=== PATIENT | male | born 1965 | race African-American/Black ===

== ENCOUNTER 2019-05-11 01:33 | Emergency (ER) | payer MEDICARE, OTHER ==
[~2019-05-11] VITALS: Ht 170.2 cm; Wt 76.7 kg
[~2019-05-11 01:33] MED LIST: CIPRO500 MG PO; DOXYCYCLINE HY100 M6 PO; DOXYCYCLINE MO100 MG ORAL; NKM
[2019-05-11 01:41] VITALS: BP 129/79
--- NOTE | 2019-05-11 01:42 | NUR ---
ED Nurse Note: PT AMBULATED TO ED C/O RIGHT ARM PAIN X 1 DAY. PT DENIES TRAUMA TO AREA. SKIN INTACT, VSS. PT STATES THE TOOK 250 MG NAPROXEN EARLIER TODAY. PAIN NOT ALLEVIATED BY MEDICAITON.
[2019-05-11] MEDS ORDERED: Acetaminophen 500mg (ES) tab ORAL ONE ×2 (01:56→02:00)
[2019-05-11] MEDS ORDERED: TYLENOL EXTRA500 MG ORAL (01:56)
[2019-05-11 02:00] VITALS: BP 135/77
--- NOTE | 2019-05-11 02:00 | NUR ---
ER DISCHARGE NOTE: Patient is cleared to be discharged per ERMD, pt is aox4, on room air, with stable vital signs. pt was given dc and prescription instructions, pt was able to verbalize understanding, pt id band removed. pt is able to ambulate with steady gait. pt took all belongings.
--- NOTE | 2019-05-11 04:09 | Emergency Room Report ---
History of Present Illness General Chief Complaint: Pain Source: Patient Present Illness HPI 53-year-old male presents ED for evaluation. Patient complaining of right elbow pain which started yesterday. Pain is throbbing, 7 out of 10, nonradiating. With movement. Denies any other injuries. States he has history of kidney disease and thinks it may be gout. No other aggravating relieving factors. Denies any other associated symptoms Allergies: Coded Allergies: No Known Allergies (Verified Allergy, Mild, 12/17/09) Patient History Past Medical History: HTN Past Surgical History: none Pertinent Family History: none Social History: Denies: smoking, alcohol use, drug use Immunizations: UTD Reviewed Nursing Documentation: PMH: Agreed; PSxH: Agreed Nursing Documentation-PMH Hx Hypertension: Yes Hx Dialysis: No - CKD STG 5 Review of Systems All Other Systems: negative except mentioned in HPI Physical Exam Vital Signs Date Time Temp Pulse Resp B/P (MAP) Pulse Ox O2 Delivery O2 Flow Rate FiO2 05/11/19 01:38 98.6 80 18 129/79 (96) 92 Room Air Sp02 EP Interpretation: reviewed, normal General Appearance: no apparent distress, alert, GCS 15, non-toxic Head: normocephalic Eyes: bilateral eye normal inspection, bilateral eye PERRL ENT: normal ENT inspection Neck: normal inspection Respiratory: normal inspection Cardiovascular #1: normal inspection Gastrointestinal: normal inspection Rectal: deferred Genitourinary: no CVA tenderness Musculoskeletal: back normal, gait/station normal, non-tender, decreased range of motion, tender - TTP lateral epicondyle Neurologic: alert, oriented x3, responsive, motor strength/tone normal, sensory intact, speech normal Psychiatric: normal inspection Skin: no rash Lymphatic: normal inspection Procedures Splinting Splinting : Consent: Verbal Pre-Made Type: DOMINICK wrap Pre-Proc Neuro Vasc Exam: normal Post-Proc Neuro Vasc Exam: normal Patient Tolerated: Well Complications: None Medical Decision Making Diagnostic Impression: Primary Impression: Tendinitis ER Course Hospital Course 53-year-old male presents to ED complaining of R elbow pain no trauma Differential diagnoses include: Fracture, dislocation, sprain, contusion, bursitis Clinical course Patient placed on stretcher. After initial history, physical exam reveals an middle-aged male in no acute distress. There is some tenderness to the lateral aspect of the proximal radius. Remainder of exam negative. Clinical findings consistent with tendinitis. Discussed findings with patient. Explained that gout is likely low on differential as there is no swelling or erythema to the joint. Given tylenoll here. Dominick wrap applied. Safe for discharge with close outpatient follow-up. Will provide orthopedic referral Diagnosis - tendinitis of elbow stable and discharged to home with prescription for Tylenol. Followup with PMD/ ortho. Return to ED if symptoms recur or worsen Last Vital Signs Date Time Temp Pulse Resp B/P (MAP) Pulse Ox O2 Delivery O2 Flow Rate FiO2 05/11/19 02:00 98.6 76 16 135/77 98 Room Air Status: improved Disposition: HOME, SELF-CARE Condition: Stable Scripts Acetaminophen* (TYLENOL EXTRA STRENGTH*) 500 Mg Tablet 500 MG ORAL Q8H PRN for Prn Headache/Temp > 101, #30 TAB 0 Refills Prov: Garett Segura MD 05/11/19 [facility] Open 24 hour /7 days a week by Appointment Only [address] [facility] [address] [facility] [id number] Patient Instructions: Lateral Epicondylitis With [facility] Garett Segura MD May 11, 2019 04:09
== END 2019-05-11 02:00 | disposition home or self-care (01) ==
LOC: EMR 01:56
DX: M77.9 Enthesopathy, unspecified (principal); I12.0 Hypertensive chronic kidney disease with stage 5 chronic kidney disease or end stage renal disease; N18.5 Chronic kidney disease, stage 5
CPT/HCPCS: 99282

== ENCOUNTER 2020-02-03 04:45 | Inpatient (IN) | payer MEDICARE, OTHER ==
[2020-02-03] VITALS (7 sets, daily range): BP systolic 106–140; BP diastolic 57–84
[~2020-02-03] VITALS: Ht 172.7 cm; Wt 72.1 kg
[~2020-02-03 04:45] MED LIST changes: +TYLENOL EXTRA500 MG ORAL
--- NOTE | 2020-02-03 04:55 | NUR ---
ED Nurse Note: PT WALKED IN TO ED FROM HOME C/O 8/10 L SIDED INTERMITTENT AND SHARP CHEST PAIN X2 WEEKS. PT STATES CHEST PAIN OCCURS WHEN HE BREATHES OR LAY ON THE LEFT SIDE. DOES NOT PRESENT WITH FEVER, NV. DOES NOT PRESENT WITH COUGH. PT STATES SOB, SPO2 AT 96 ON 2L.
[2020-02-03] MEDS ORDERED: DAPSONE100 MG ORAL (05:06)
[2020-02-03] MEDS ORDERED: PREZISTA600 MG ORAL (05:06)
[2020-02-03] MEDS ORDERED: AMLODIPINE BESYL5 MG ORAL (05:06)
[2020-02-03] MEDS ORDERED: ATORVASTATIN CA20 MG ORAL (05:06)
[2020-02-03] MEDS ORDERED: EDURANT25 MG PO (05:06)
[2020-02-03] MEDS ORDERED: ALLOPURINOL100 M1 ORAL (05:06)
--- NOTE | 2020-02-03 05:16 | Emergency Room Report ---
History of Present Illness General Chief Complaint: Chest Pain Source: Patient Present Illness HPI Patient is a 54-year-old male presents after intermittent left-sided chest pain. He reports having sharp pain worse with supine position. Prior history of HIV. Reports having normal cell counts. States that he had been having increased pain with supine position. Is sharp in nature. Previous history of renal disease and is currently predialysis. He had left-sided shunt placement in the past. He has not had dialysis to this point. He currently makes urine. Denies any fever or cough. Denies any shortness of breath. Allergies: Coded Allergies: No Known Allergies (Verified Allergy, Mild, 12/17/09) COVID-19 Screening Contact w/high risk pt: No Recent Travel to affected area: No Experienced COVID-19 symptoms?: No Patient History Past Medical History: see triage record Reviewed Nursing Documentation: PMH: Agreed; PSxH: Agreed Nursing Documentation-PMH Hx Hypertension: Yes Hx Dialysis: No - CKD STG 5 Review of Systems All Other Systems: negative except mentioned in HPI Physical Exam Vital Signs Date Time Temp Pulse Resp B/P (MAP) Pulse Ox O2 Delivery O2 Flow Rate FiO2 02/03/20 04:51 98.1 102 22 137/85 (102) 89 Room Air Sp02 EP Interpretation: reviewed, normal General Appearance: normal inspection, well appearing, no apparent distress, alert, GCS 15 Head: atraumatic ENT: normal ENT inspection, hearing grossly normal, normal voice Neck: normal inspection, full range of motion, supple, no bony tend Respiratory: normal inspection, lungs clear, normal breath sounds, no respiratory distress, no retraction, no wheezing Cardiovascular #1: regular rate, rhythm, no edema Gastrointestinal: normal inspection, normal bowel sounds, non tender, soft, no guarding, no hernia Genitourinary: no CVA tenderness Musculoskeletal: normal inspection, back normal, normal range of motion, other - Left upper extremity dialysis access patent. Neurologic: alert, motor strength/tone normal, fresh food manager III-XII nml as tested, oriented x3, responsive, speech normal, normal inspection Psychiatric: normal inspection, judgement/insight normal, mood/affect normal Skin: no rash Medical Decision Making Diagnostic Impression: Primary Impression: Chest pain Additional Impressions: ACS (acute coronary syndrome) Renal disease ER Course Patient presented for chest pain. Differential diagnosis include recently to pericarditis, pneumonia, chest wall pain, hypertensive crisis among others. Because of complexity of patient's case laboratory tests and imaging studies were ordered. EKG interpreted by me showed normal sinus rhythm with a rate of [address] or T wave changes. The patient was noted to have some prior history of renal disease and has some significant cardiac risk. does not appear to have any evidence of recent respiratory symptoms other than chest discomfort.Chest x-ray 1 view interpreted by me showed normal cardiac size without evident infiltrate.Dr. Teresa Murillo was contacted for panel admission due to covering physician for [facility]. Labs Test 02/03/20 05:30 02/03/20 09:00 02/03/20 18:45 Red Blood Count 3.03 M/UL (4.70-6.10) Hemoglobin 8.9 G/DL (14.2-18.0) Hematocrit 28.0 % (42.0-52.0) Mean Corpuscular Volume 92 FL (80-99) Mean Corpuscular Hemoglobin 29.5 PG (27.0-31.0) Mean Corpuscular Hemoglobin Concent 31.9 G/DL (32.0-36.0) Red Cell Distribution Width 13.6 % (11.6-14.8) Platelet Count 246 K/UL (150-450) Mean Platelet Volume 6.2 FL (6.5-10.1) Neutrophils (%) (Auto) 61.6 % (45.0-75.0) Lymphocytes (%) (Auto) 29.4 % (20.0-45.0) Monocytes (%) (Auto) 7.4 % (1.0-10.0) Eosinophils (%) (Auto) 1.0 % (0.0-3.0) Basophils (%) (Auto) 0.6 % (0.0-2.0) Prothrombin Time 10.4 SEC (9.30-11.50) Prothromb Time International Ratio 1.0 (0.9-1.1) Activated Partial Thromboplast Time 34 SEC (23-33) Urine Color Pale yellow Urine Appearance Clear Urine pH 5 (4.5-8.0) Urine Specific [place] 1.010 (1.005-1.035) Urine Protein 2+ (NEGATIVE) Urine Glucose (UA) Negative (NEGATIVE) Urine Ketones Negative (NEGATIVE) Urine Blood 2+ (NEGATIVE) Urine Nitrite Negative (NEGATIVE) Urine Bilirubin Negative (NEGATIVE) Urine Urobilinogen Normal MG/DL (0.0-1.0) Urine Leukocyte Esterase Negative (NEGATIVE) Urine RBC 0-2 /HPF (0 - 0) Urine WBC 0 /HPF (0 - 0) Urine Squamous Epithelial Cells None /LPF (NONE/OCC) Urine Bacteria Few /HPF (NONE) Sodium Level 140 MMOL/L (136-145) Potassium Level 4.2 MMOL/L (3.5-5.1) Chloride Level 105 MMOL/L (98-107) Carbon Dioxide Level 21 MMOL/L (21-32) Anion Gap 14 mmol/L (5-15) Blood Urea Nitrogen 71 mg/dL (7-18) Creatinine 7.4 MG/DL (0.55-1.30) Estimat Glomerular Filtration Rate 9.3 mL/min (>60) Glucose Level 130 MG/DL (74-106) Calcium Level 9.0 MG/DL (8.5-10.1) Total Bilirubin 0.4 MG/DL (0.2-1.0) Aspartate Amino Transf (AST/SGOT) 18 U/L (15-37) Alanine Aminotransferase (ALT/SGPT) 20 U/L (12-78) Alkaline Phosphatase 56 U/L (46-116) Pro-B-Type Natriuretic Peptide 205 pg/mL (0-125) Total Protein 9.0 G/DL (6.4-8.2) Albumin 3.8 G/DL (3.4-5.0) Globulin 5.2 g/dL Albumin/Globulin Ratio 0.7 (1.0-2.7) Lipase 279 U/L (73-393) Urine Opiates Screen Negative (NEGATIVE) Urine Barbiturates Screen Negative (NEGATIVE) Phencyclidine (PCP) Screen Negative (NEGATIVE) Urine Amphetamines Screen Negative (NEGATIVE) Urine Benzodiazepines Screen Negative (NEGATIVE) Urine Cocaine Screen Negative (NEGATIVE) Urine Marijuana (THC) Screen Negative (NEGATIVE) Troponin I 0.000 ng/mL (0.000-0.056) EKG Diagnostic Results Rate: tachycardiac Rhythm: NSR ST Segments: no acute changes - 108 Last Vital Signs Date Time Temp Pulse Resp B/P (MAP) Pulse Ox O2 Delivery O2 Flow Rate FiO2 02/03/20 04:51 98.1 102 22 137/85 (102) 89 Room Air Status: unchanged Disposition: ADMITTED INPATIENT Condition: Stable Referrals: RONAL CHEN (PCP) Price Encarnacion MD Feb 03, 2020 05:16
--- NOTE | 2020-02-03 05:30 | NUR ---
ED Nurse Note: XR AT BEDSIDE
--- NOTE | 2020-02-03 05:35 | NUR ---
ED Nurse Note: blood and urine drawn and sent to lab
--- NOTE | 2020-02-03 05:40 | NUR ---
ED Nurse Note: per ermd, covid swab not needed at this time.
[2020-02-03 06:02] LABS: BASOPHILS % (AUTO) 0.6 % (0.0-2.0); HEMOGLOBIN 8.9 G/DL (14.2-18.0); LYMPHOCYTES % (AUTO) 29.4 % (20.0-45.0); MEAN CORPUSCULAR VOLUME 92 FL (80-99); MONOCYTES % (AUTO) 7.4 % (1.0-10.0); NEUTROPHILS % (AUTO) 61.6 % (45.0-75.0); PLATELET COUNT 246 K/UL (150-450); RED BLOOD COUNT 3.03 M/UL (4.70-6.10); RED CELL DISTRIBUTION WIDTH 13.6 % (11.6-14.8)
[2020-02-03 06:12] LABS: ANION GAP 14 mmol/L (5-15); BLOOD UREA NITROGEN 71 mg/dL (7-18); CARBON DIOXIDE 21 MMOL/L (21-32); CHLORIDE 105 MMOL/L (98-107); CREATININE 7.4 MG/DL (0.55-1.30); POTASSIUM 4.2 MMOL/L (3.5-5.1); SODIUM 140 MMOL/L (136-145)
[2020-02-03 06:16] LABS: APPEARANCE,URINE CLEAR; BILIRUBIN, URINE NEGATIVE (NEGATIVE); COLOR,URINE PALE YELLOW; GLUCOSE, URINE (UA) NEGATIVE (NEGATIVE); KETONES,URINE NEGATIVE (NEGATIVE); LEUKOCYTE ESTERASE ,URINE NEGATIVE (NEGATIVE); NITRITE,URINE NEGATIVE (NEGATIVE); PH,URINE 5 (4.5-8.0); PROTEIN,URINE 2+ (NEGATIVE); UROBILINOGEN,URINE NORMAL MG/DL (0.0-1.0)
[2020-02-03 06:22] LABS: ALANINE AMINOTRANSFERASE 20 U/L (12-78); ALBUMIN 3.8 G/DL (3.4-5.0); ALBUMIN/GLOBULIN RATIO 0.7 (1.0-2.7); ALKALINE PHOSPHATASE 56 U/L (46-116); ASPARTATE AMINO TRANSFERASE 18 U/L (15-37); BILIRUBIN,TOTAL 0.4 MG/DL (0.2-1.0)
[2020-02-03] MEDS ORDERED: Miralax 17gm pkt ORAL PRN (06:30)
--- NOTE | 2020-02-03 07:15 | NUR ---
ED Nurse Note: gave report to [facility] JEFFRIES. Endorsed plan of care
--- NOTE | 2020-02-03 07:30 | NUR ---
ED Nurse Note: care assumed of pt. pt denies cp or dyspnea at this time. aware pending admission. no new c/o vss.
--- NOTE | 2020-02-03 09:09 | NUR ---
ED Nurse Note: labs being drawn by marketing project lead
[2020-02-03] MEDS: Docusate 100mg cap ORAL SCH ×2 (09:15→21:14)
--- NOTE | 2020-02-03 09:19 | NUR ---
ED Nurse Note: atttempted to give report to tele, to call back
--- NOTE | 2020-02-03 10:00 | NUR ---
NURSE NOTES: Telphone report received aureliano Roldan Rn. Awaiting patients arrival to the unit
--- NOTE | 2020-02-03 10:05 | NUR ---
ED Nurse Note: report to Saloni rn, awaiting pt. pt denies c/o at this time
--- NOTE | 2020-02-03 11:00 | NUR ---
NURSE NOTES: Patient arrived to the floor via stretcher. Accompanied by 2 staff. Patient is awake and alert. Ambulated self with minimal assist to the bed. VSS. complaining of mild left sided chest pain non radiating. skin intact. 2L/min nasal cannula. All belongings accounted for. Patient oriented to room and safety precautions in place. Dr. Haynes and Dr. Perez on the floor at the time of admission. seen and examined patient.
--- NOTE | 2020-02-03 11:06 | Cardiac Electrophysiology PN ---
Subjective Subjective [id number] Objective Last 24 Hour Vital Signs Date Time Temp Pulse Resp B/P (MAP) Pulse Ox O2 Delivery O2 Flow Rate FiO2 02/03/20 10:06 89 22 112/58 98 Nasal Cannula 2.0 02/03/20 09:22 89 24 112/58 98 Nasal Cannula 2.0 98 02/03/20 07:35 87 22 139/57 98 Nasal Cannula 2.0 98 02/03/20 06:28 98.2 91 24 106/62 96 Nasal Cannula 2.0 96 02/03/20 05:00 92 24 Room Air 2.0 96 02/03/20 05:00 98.3 92 24 139/84 96 Nasal Cannula 2.0 96 02/03/20 04:51 98.1 102 22 137/85 (102) 89 Room Air Intake and Output 02/02/20 02/03/20 19:00 07:00 Intake Total 0 ml Balance 0 ml Intake Oral 0 ml # Voids 1 Laboratory Tests Test 02/03/20 05:30 02/03/20 09:00 White Blood Count 12.0 K/UL (4.8-10.8) H Pending Red Blood Count 3.03 M/UL (4.70-6.10) L Hemoglobin 8.9 G/DL (14.2-18.0) L Hematocrit 28.0 % (42.0-52.0) L Mean Corpuscular Volume 92 FL (80-99) Mean Corpuscular Hemoglobin 29.5 PG (27.0-31.0) Mean Corpuscular Hemoglobin Concent 31.9 G/DL (32.0-36.0) L Red Cell Distribution Width 13.6 % (11.6-14.8) Platelet Count 246 K/UL (150-450) Mean Platelet Volume 6.2 FL (6.5-10.1) L Neutrophils (%) (Auto) 61.6 % (45.0-75.0) Lymphocytes (%) (Auto) 29.4 % (20.0-45.0) Monocytes (%) (Auto) 7.4 % (1.0-10.0) Eosinophils (%) (Auto) 1.0 % (0.0-3.0) Basophils (%) (Auto) 0.6 % (0.0-2.0) Prothrombin Time 10.4 SEC (9.30-11.50) Prothromb Time International Ratio 1.0 (0.9-1.1) Activated Partial Thromboplast Time 34 SEC (23-33) H Urine Color Pale yellow Urine Appearance Clear Urine pH 5 (4.5-8.0) Urine Specific [place] 1.010 (1.005-1.035) Urine Protein 2+ (NEGATIVE) H Urine Glucose (UA) Negative (NEGATIVE) Urine Ketones Negative (NEGATIVE) Urine Blood 2+ (NEGATIVE) H Urine Nitrite Negative (NEGATIVE) Urine Bilirubin Negative (NEGATIVE) Urine Urobilinogen Normal MG/DL (0.0-1.0) Urine Leukocyte Esterase Negative (NEGATIVE) Urine RBC 0-2 /HPF (0 - 0) H Urine WBC 0 /HPF (0 - 0) Urine Squamous Epithelial Cells None /LPF (NONE/OCC) Urine Bacteria Few /HPF (NONE) Sodium Level 140 MMOL/L (136-145) Potassium Level 4.2 MMOL/L (3.5-5.1) Chloride Level 105 MMOL/L (98-107) Carbon Dioxide Level 21 MMOL/L (21-32) Anion Gap 14 mmol/L (5-15) Blood Urea Nitrogen 71 mg/dL (7-18) H Creatinine 7.4 MG/DL (0.55-1.30) H Estimat Glomerular Filtration Rate 9.3 mL/min (>60) Glucose Level 130 MG/DL (74-106) H Calcium Level 9.0 MG/DL (8.5-10.1) Total Bilirubin 0.4 MG/DL (0.2-1.0) Aspartate Amino Transf (AST/SGOT) 18 U/L (15-37) Alanine Aminotransferase (ALT/SGPT) 20 U/L (12-78) Alkaline Phosphatase 56 U/L (46-116) Troponin I 0.000 ng/mL (0.000-0.056) Pro-B-Type Natriuretic Peptide 205 pg/mL (0-125) H Total Protein 9.0 G/DL (6.4-8.2) H Albumin 3.8 G/DL (3.4-5.0) Globulin 5.2 g/dL Albumin/Globulin Ratio 0.7 (1.0-2.7) L Lipase 279 U/L (73-393) Urine Opiates Screen Negative (NEGATIVE) Urine Barbiturates Screen Negative (NEGATIVE) Phencyclidine (PCP) Screen Negative (NEGATIVE) Urine Amphetamines Screen Negative (NEGATIVE) Urine Benzodiazepines Screen Negative (NEGATIVE) Urine Cocaine Screen Negative (NEGATIVE) Urine Marijuana (THC) Screen Negative (NEGATIVE) Lymphocytes Pending Percent CD3 Cells Pending Absolute CD3 Count Pending Percent CD4 Cells Pending Absolute CD4 Count Pending T-Lymphocyte CD4/CD8 Ratio Pending Percent CD8 Cells Pending Absolute CD8 Count Pending HIV-1 RNA (PCR) log10 Value Pending HIV-1 RNA Ultraquantitative (PCR) Pending Microbiology Date/Time Source Procedure Growth Status 02/03/20 06:00 Rectum Received Silvino Perez MD Feb 03, 2020 11:06
[2020-02-03] MEDS ORDERED: Lexiscan 0.4mg/5ml syringe IV SCH ×2 (11:15)
--- NOTE | 2020-02-03 11:24 | Diagnostic Imaging Report ---
Indication: Left-sided chest pain, intermittent Technique: One view of the chest Comparison: none Findings: The lungs and pleural spaces are clear. The heart size is normal Impression: Negative
--- NOTE | 2020-02-03 11:40 | Consultation ---
History of Present Illness General Date patient seen: Feb 03, 2020 Chief Complaint: Chest Pain Reason for Consultation: CKD 5 Present Illness HPI This is 54-year-old male with past medical historyof HIV on meds, HTN and CKD stage V not on dialysis who presents with left-sided chest pain. Patient states he was in his usual state of health when he noted left-sided pain that began 2 weeks ago. Patient noted pain was worse with deep breaths, relieved with laying on his right side. Symptoms worsen as he noted S OB with deep inhalation which alerted him to the ED for further treatment and evaluation. Patient denies any N/V, diaphoresis, VARNER. Patient notes he saw his special weapons and tactics officer 1 week ago who stated his labs were "stable", patient notes he has CKD stage V, with AV fistula placed on LUE 3 years ago however patient is not on dialysis at this time. SERRATO, vision changes, abdominal pain, diaphoresis, F/C , N/V, diarrhea, dysuria, diarrhea or constipation at this time. Allergies: Coded Allergies: No Known Allergies (Verified Allergy, Mild, 12/17/09) Medication History Scheduled Allopurinol* (Allopurinol*), 100 MG ORAL DAILY, (Reported) Amlodipine Besylate* (Amlodipine Besylate*), 5 MG ORAL DAILY, (Reported) Atorvastatin Calcium* (Atorvastatin Calcium*), 10 MG ORAL BEDTIME, (Reported) Dapsone* (Dapsone*), 100 MG ORAL DAILY, (Reported) Darunavir Ethanolate* (Prezista*), 800 MG ORAL EVERY 12 HOURS, (Reported) Doxycycline Monohydrate* (Doxycycline Monohydrate*), 100 MG ORAL Q12H Doxycycline Monohydrate* (Doxycycline Monohydrate*), 100 MG ORAL Q12H No Known Medications* (NKM - No Known Medications*), 0 ., (Reported) Scheduled PRN Acetaminophen* (Tylenol Extra Strength*), 500 MG ORAL Q8H PRN for Prn Headache/ Temp > 101 Miscellaneous Medications Rilpivirine Hcl (Edurant), 25 MG PO, (Reported) Patient History Healthcare decision maker Resuscitation status Advanced Directive on File Review of Systems Constitutional: Denies: no symptoms, see HPI, chills, sweats, fever, malaise, weakness, other Eye: Denies: no symptoms, see HPI, eye pain, blurred vision, tearing, double vision, nose pain, nose congestion, acuity changes, discharge, other ENT: Denies: no symptoms, see HPI, ear pain, ear discharge, nose pain, nose congestion, throat pain, throat swelling, mouth pain, hearing loss, nasal discharge, other Respiratory: Denies: no symptoms, see HPI, cough, orthopnea, shortness of breath, stridor, wheezing, VARNER, sputum, other Cardiovascular: Reports: chest pain Gastrointestinal: Denies: no symptoms, see HPI, abdominal pain, constipation, diarrhea, nausea, vomiting, melena, hematemesis, other Genitourinary: Denies: no symptoms, see HPI, discharge, dysuria, frequency, hematuria, pain, retention, incontinence, urgency, vag bleed/dc, other Musculoskeletal: Denies: no symptoms, see HPI, back pain, gout, joint pain, joint swelling, muscle pain, muscle stiffness, other Skin: Denies: no symptoms, see HPI, rash, change in color, change in hair/nails , dryness, lesions, other Psychiatric: Denies: no symptoms, see HPI, prior hx, anxiety, depressed feelings, emotional problems, SI, HI, hallucinations, other Neurological: Denies: no symptoms, see HPI, headache, numbness, paresthesia, seizure, tingling, tremors, focal weakness, syncope, dizziness, other Endocrine: Denies: no symptoms, see HPI, excessive sweating, flushing, intolerance to temperature, increased thirst, increased urine, unexplained weight loss, other Hematologic/Lymphatic: Denies: no symptoms, see HPI, anemia, blood clots, easy bleeding, easy bruising, swollen glands, diathesis, other Physical Exam General Appearance: WD/WN, no apparent distress Lines, tubes and drains: peripheral HEENT: normocephalic Neck: non-tender, normal alignment Respiratory/Chest: chest wall non-tender, lungs clear, normal breath sounds Cardiovascular/Chest: normal peripheral pulses, normal rate, no JVD Abdomen: normal bowel sounds, non tender Extremities: other - LUE AVF Skin Exam: normal pigmentation Last 24 Hour Vital Signs Date Time Temp Pulse Resp B/P (MAP) Pulse Ox O2 Delivery O2 Flow Rate FiO2 02/03/20 10:06 89 22 112/58 98 Nasal Cannula 2.0 02/03/20 09:22 89 24 112/58 98 Nasal Cannula 2.0 98 02/03/20 07:35 87 22 139/57 98 Nasal Cannula 2.0 98 02/03/20 06:28 98.2 91 24 106/62 96 Nasal Cannula 2.0 96 02/03/20 05:00 92 24 Room Air 2.0 96 02/03/20 05:00 98.3 92 24 139/84 96 Nasal Cannula 2.0 96 02/03/20 04:51 98.1 102 22 137/85 (102) 89 Room Air Intake and Output 02/02/20 02/03/20 19:00 07:00 Intake Total 0 ml Balance 0 ml Intake Oral 0 ml # Voids 1 Laboratory Tests Test 02/03/20 05:30 02/03/20 09:00 White Blood Count 12.0 K/UL (4.8-10.8) H Pending Red Blood Count 3.03 M/UL (4.70-6.10) L Hemoglobin 8.9 G/DL (14.2-18.0) L Hematocrit 28.0 % (42.0-52.0) L Mean Corpuscular Volume 92 FL (80-99) Mean Corpuscular Hemoglobin 29.5 PG (27.0-31.0) Mean Corpuscular Hemoglobin Concent 31.9 G/DL (32.0-36.0) L Red Cell Distribution Width 13.6 % (11.6-14.8) Platelet Count 246 K/UL (150-450) Mean Platelet Volume 6.2 FL (6.5-10.1) L Neutrophils (%) (Auto) 61.6 % (45.0-75.0) Lymphocytes (%) (Auto) 29.4 % (20.0-45.0) Monocytes (%) (Auto) 7.4 % (1.0-10.0) Eosinophils (%) (Auto) 1.0 % (0.0-3.0) Basophils (%) (Auto) 0.6 % (0.0-2.0) Prothrombin Time 10.4 SEC (9.30-11.50) Prothromb Time International Ratio 1.0 (0.9-1.1) Activated Partial Thromboplast Time 34 SEC (23-33) H Urine Color Pale yellow Urine Appearance Clear Urine pH 5 (4.5-8.0) Urine Specific [place] 1.010 (1.005-1.035) Urine Protein 2+ (NEGATIVE) H Urine Glucose (UA) Negative (NEGATIVE) Urine Ketones Negative (NEGATIVE) Urine Blood 2+ (NEGATIVE) H Urine Nitrite Negative (NEGATIVE) Urine Bilirubin Negative (NEGATIVE) Urine Urobilinogen Normal MG/DL (0.0-1.0) Urine Leukocyte Esterase Negative (NEGATIVE) Urine RBC 0-2 /HPF (0 - 0) H Urine WBC 0 /HPF (0 - 0) Urine Squamous Epithelial Cells None /LPF (NONE/OCC) Urine Bacteria Few /HPF (NONE) Sodium Level 140 MMOL/L (136-145) Potassium Level 4.2 MMOL/L (3.5-5.1) Chloride Level 105 MMOL/L (98-107) Carbon Dioxide Level 21 MMOL/L (21-32) Anion Gap 14 mmol/L (5-15) Blood Urea Nitrogen 71 mg/dL (7-18) H Creatinine 7.4 MG/DL (0.55-1.30) H Estimat Glomerular Filtration Rate 9.3 mL/min (>60) Glucose Level 130 MG/DL (74-106) H Calcium Level 9.0 MG/DL (8.5-10.1) Total Bilirubin 0.4 MG/DL (0.2-1.0) Aspartate Amino Transf (AST/SGOT) 18 U/L (15-37) Alanine Aminotransferase (ALT/SGPT) 20 U/L (12-78) Alkaline Phosphatase 56 U/L (46-116) Troponin I 0.000 ng/mL (0.000-0.056) Pro-B-Type Natriuretic Peptide 205 pg/mL (0-125) H Total Protein 9.0 G/DL (6.4-8.2) H Albumin 3.8 G/DL (3.4-5.0) Globulin 5.2 g/dL Albumin/Globulin Ratio 0.7 (1.0-2.7) L Lipase 279 U/L (73-393) Urine Opiates Screen Negative (NEGATIVE) Urine Barbiturates Screen Negative (NEGATIVE) Phencyclidine (PCP) Screen Negative (NEGATIVE) Urine Amphetamines Screen Negative (NEGATIVE) Urine Benzodiazepines Screen Negative (NEGATIVE) Urine Cocaine Screen Negative (NEGATIVE) Urine Marijuana (THC) Screen Negative (NEGATIVE) Lymphocytes Pending Percent CD3 Cells Pending Absolute CD3 Count Pending Percent CD4 Cells Pending Absolute CD4 Count Pending T-Lymphocyte CD4/CD8 Ratio Pending Percent CD8 Cells Pending Absolute CD8 Count Pending HIV-1 RNA (PCR) log10 Value Pending HIV-1 RNA Ultraquantitative (PCR) Pending Microbiology Date/Time Source Procedure Growth Status 02/03/20 06:00 Rectum Received Height (Feet): 5 Height (Inches): 8.00 Weight (Pounds): 165 Medications Current Medications Medications (Trade) Dose Ordered Sig/Sarbjit Route PRN Reason Start Time Stop Time Status Last Admin Dose Admin Acetaminophen (Tylenol) 650 mg Q4H PRN ORAL Mild Pain (Pain Scale 1-3) 02/03/20 06:30 03/04/20 06:29 02/03/20 11:24 Acetaminophen (Tylenol) 650 mg Q4H PRN ORAL Temp >100.5 02/03/20 06:30 03/04/20 06:29 Amlodipine Besylate (Norvasc) 5 mg DAILY ORAL 02/04/20 09:00 03/05/20 08:59 Atorvastatin Calcium (Lipitor) 10 mg BEDTIME ORAL 02/03/20 21:00 05/03/20 20:59 Dapsone (Dapsone) 100 mg DAILY ORAL 02/04/20 09:00 02/11/20 08:59 UNV Darunavir (Prezista) 800 mg EVERY 12 HOURS ORAL 02/03/20 21:00 03/04/20 20:59 UNV Dextrose (Dextrose 50%) 25 ml Q30M PRN IV Hypoglycemia 02/03/20 06:30 05/03/20 06:29 Dextrose (Dextrose 50%) 50 ml Q30M PRN IV Hypoglycemia 02/03/20 06:30 05/03/20 06:29 Docusate Sodium (Colace) 100 mg EVERY 12 HOURS ORAL 02/03/20 09:00 03/04/20 08:59 02/03/20 09:15 Nitroglycerin (Ntg) 0.4 mg Q5M PRN SL Prn Chest Pain 02/03/20 11:15 03/04/20 11:14 Ondansetron HCl (Zofran) 4 mg Q6H PRN IVP Nausea & Vomiting 02/03/20 06:30 03/04/20 06:29 Patient Own Medication (Patient's Own Med) 1 ea DAILY ORAL 02/04/20 09:00 03/05/20 08:59 UNV Polyethylene Glycol (Miralax) 17 gm DAILYPRN PRN ORAL Constipation 02/03/20 06:30 03/04/20 06:29 Regadenoson (Lexiscan) 0.4 mg ONCE IV 02/03/20 11:15 02/03/20 20:00 Assessment/Plan Diagnosis [place] I: #Chest pain r/o ACS- r/o uremic pericarditis #CKD 5- not yet on HD- likely due to hypertensive nephrosclerosis - LUE aVF placed 3 years - has not needed HD yet- Primary nephorologist Dr. Charles #HTN #HIV - Stress test per cardiology - no emergent indication for HD - monitor UOP - check 2d echo - asa - lipitor - amlodipine 5mg daily - monitor electrolytes and kidney function - continue dapson - continue dapson and prezista - check PTH/vitamin D - ferritin and iron panel Morena Mcqueen M.D. Feb 03, 2020 11:40
--- NOTE | 2020-02-03 15:26 | History and Physical ---
History of Present Illness General Reason for Hospitalization: Chest Pain Present Illness HPI 54-year-old AAM with PMH of HIV on meds, HTN and CKD stage V not on dialysis who presents with left-sided chest pain. Patient states he was in his usual state of health when he noted left-sided pain that began 2 weeks ago. Patient noted pain was worse with deep breaths, relieved with laying on his right side. Symptoms worsen as he noted S OB with deep inhalation which alerted him to the ED for further treatment and evaluation. Patient denies any N/V, diaphoresis, VARNER. Patient notes he saw his absorber operator 1 week ago who stated his labs were "stable", patient notes he has CKD stage V, with AV fistula placed on LUE 3 years ago however patient is not on dialysis at this time. SERRATO, vision changes, abdominal pain, diaphoresis, F/C, N/V, diarrhea, dysuria, diarrhea or constipation at this time. Of note, patient follows with absorber operator Dr. Charles, patient follows with ID physician Dr. Marino. ED: On admission, Cr 7.4, BUN 71. EKG revealed NSR, HR 108. Troponin negative x1. Patient admitted for further treatment and evaluation. PMH: HIV on medications, HTN, CKD stage V FH: HTN Sx: LUE AV fistula 3 years ago SH: Denies tobacco/EtOH usage Allergies: NKDA Allergies: Coded Allergies: No Known Allergies (Verified Allergy, Mild, 12/17/09) COVID-19 Screening Contact w/high risk pt: No Recent Travel to affected area: No Experienced COVID-19 symptoms?: No Medication History Scheduled Allopurinol* (Allopurinol*), 100 MG ORAL DAILY, (Reported) Amlodipine Besylate* (Amlodipine Besylate*), 5 MG ORAL DAILY, (Reported) Atorvastatin Calcium* (Atorvastatin Calcium*), 10 MG ORAL BEDTIME, (Reported) Dapsone* (Dapsone*), 100 MG ORAL DAILY, (Reported) Darunavir Ethanolate* (Prezista*), 800 MG ORAL EVERY 12 HOURS, (Reported) Doxycycline Monohydrate* (Doxycycline Monohydrate*), 100 MG ORAL Q12H Doxycycline Monohydrate* (Doxycycline Monohydrate*), 100 MG ORAL Q12H No Known Medications* (NKM - No Known Medications*), 0 ., (Reported) Scheduled PRN Acetaminophen* (Tylenol Extra Strength*), 500 MG ORAL Q8H PRN for Prn Headache/ Temp > 101 Miscellaneous Medications Rilpivirine Hcl (Edurant), 25 MG PO, (Reported) Patient History Healthcare decision maker Resuscitation status Advanced Directive on File Physical Exam Last 24 Hour Vital Signs Date Time Temp Pulse Resp B/P (MAP) Pulse Ox O2 Delivery O2 Flow Rate FiO2 02/03/20 12:06 Nasal Cannula 2.0 02/03/20 12:00 88 02/03/20 10:06 89 22 112/58 98 Nasal Cannula 2.0 02/03/20 09:22 89 24 112/58 98 Nasal Cannula 2.0 98 02/03/20 07:35 87 22 139/57 98 Nasal Cannula 2.0 98 02/03/20 06:28 98.2 91 24 106/62 96 Nasal Cannula 2.0 96 02/03/20 05:00 92 24 Room Air 2.0 96 02/03/20 05:00 98.3 92 24 139/84 96 Nasal Cannula 2.0 96 02/03/20 04:51 98.1 102 22 137/85 (102) 89 Room Air Intake and Output 02/02/20 02/03/20 19:00 07:00 Intake Total 0 ml Balance 0 ml Intake Oral 0 ml # Voids 1 Laboratory Tests Test 02/03/20 05:30 02/03/20 09:00 02/03/20 11:50 White Blood Count 12.0 K/UL (4.8-10.8) H Pending Red Blood Count 3.03 M/UL (4.70-6.10) L Hemoglobin 8.9 G/DL (14.2-18.0) L Hematocrit 28.0 % (42.0-52.0) L Mean Corpuscular Volume 92 FL (80-99) Mean Corpuscular Hemoglobin 29.5 PG (27.0-31.0) Mean Corpuscular Hemoglobin Concent 31.9 G/DL (32.0-36.0) L Red Cell Distribution Width 13.6 % (11.6-14.8) Platelet Count 246 K/UL (150-450) Mean Platelet Volume 6.2 FL (6.5-10.1) L Neutrophils (%) (Auto) 61.6 % (45.0-75.0) Lymphocytes (%) (Auto) 29.4 % (20.0-45.0) Monocytes (%) (Auto) 7.4 % (1.0-10.0) Eosinophils (%) (Auto) 1.0 % (0.0-3.0) Basophils (%) (Auto) 0.6 % (0.0-2.0) Prothrombin Time 10.4 SEC (9.30-11.50) Prothromb Time International Ratio 1.0 (0.9-1.1) Activated Partial Thromboplast Time 34 SEC (23-33) H Urine Color Pale yellow Urine Appearance Clear Urine pH 5 (4.5-8.0) Urine Specific [place] 1.010 (1.005-1.035) Urine Protein 2+ (NEGATIVE) H Urine Glucose (UA) Negative (NEGATIVE) Urine Ketones Negative (NEGATIVE) Urine Blood 2+ (NEGATIVE) H Urine Nitrite Negative (NEGATIVE) Urine Bilirubin Negative (NEGATIVE) Urine Urobilinogen Normal MG/DL (0.0-1.0) Urine Leukocyte Esterase Negative (NEGATIVE) Urine RBC 0-2 /HPF (0 - 0) H Urine WBC 0 /HPF (0 - 0) Urine Squamous Epithelial Cells None /LPF (NONE/OCC) Urine Bacteria Few /HPF (NONE) Sodium Level 140 MMOL/L (136-145) Potassium Level 4.2 MMOL/L (3.5-5.1) Chloride Level 105 MMOL/L (98-107) Carbon Dioxide Level 21 MMOL/L (21-32) Anion Gap 14 mmol/L (5-15) Blood Urea Nitrogen 71 mg/dL (7-18) H Creatinine 7.4 MG/DL (0.55-1.30) H Estimat Glomerular Filtration Rate 9.3 mL/min (>60) Glucose Level 130 MG/DL (74-106) H Calcium Level 9.0 MG/DL (8.5-10.1) Total Bilirubin 0.4 MG/DL (0.2-1.0) Aspartate Amino Transf (AST/SGOT) 18 U/L (15-37) Alanine Aminotransferase (ALT/SGPT) 20 U/L (12-78) Alkaline Phosphatase 56 U/L (46-116) Troponin I 0.000 ng/mL (0.000-0.056) 0.000 ng/mL (0.000-0.056) Pro-B-Type Natriuretic Peptide 205 pg/mL (0-125) H Total Protein 9.0 G/DL (6.4-8.2) H Albumin 3.8 G/DL (3.4-5.0) Globulin 5.2 g/dL Albumin/Globulin Ratio 0.7 (1.0-2.7) L Lipase 279 U/L (73-393) Urine Opiates Screen Negative (NEGATIVE) Urine Barbiturates Screen Negative (NEGATIVE) Phencyclidine (PCP) Screen Negative (NEGATIVE) Urine Amphetamines Screen Negative (NEGATIVE) Urine Benzodiazepines Screen Negative (NEGATIVE) Urine Cocaine Screen Negative (NEGATIVE) Urine Marijuana (THC) Screen Negative (NEGATIVE) Lymphocytes Pending Percent CD3 Cells Pending Absolute CD3 Count Pending Percent CD4 Cells Pending Absolute CD4 Count Pending T-Lymphocyte CD4/CD8 Ratio Pending Percent CD8 Cells Pending Absolute CD8 Count Pending HIV-1 RNA (PCR) log10 Value Pending HIV-1 RNA Ultraquantitative (PCR) Pending Microbiology Date/Time Source Procedure Growth Status 02/03/20 06:00 Rectum Received Height (Feet): 5 Height (Inches): 8.00 Weight (Pounds): 165 Medications Current Medications Medications (Trade) Dose Ordered Sig/Sarbjit Route PRN Reason Start Time Stop Time Status Last Admin Dose Admin Acetaminophen (Tylenol) 650 mg Q4H PRN ORAL Mild Pain (Pain Scale 1-3) 02/03/20 06:30 03/04/20 06:29 02/03/20 11:24 Acetaminophen (Tylenol) 650 mg Q4H PRN ORAL Temp >100.5 02/03/20 06:30 03/04/20 06:29 Amlodipine Besylate (Norvasc) 5 mg DAILY ORAL 02/04/20 09:00 03/05/20 08:59 Atorvastatin Calcium (Lipitor) 10 mg BEDTIME ORAL 02/03/20 21:00 05/03/20 20:59 Dapsone (Dapsone) 100 mg DAILY ORAL 02/04/20 09:00 02/11/20 08:59 Darunavir (Prezista) 800 mg EVERY 12 HOURS ORAL 02/03/20 21:00 03/04/20 20:59 UNV Dextrose (Dextrose 50%) 25 ml Q30M PRN IV Hypoglycemia 02/03/20 06:30 05/03/20 06:29 Dextrose (Dextrose 50%) 50 ml Q30M PRN IV Hypoglycemia 02/03/20 06:30 05/03/20 06:29 Docusate Sodium (Colace) 100 mg EVERY 12 HOURS ORAL 02/03/20 09:00 03/04/20 08:59 02/03/20 09:15 Heparin Sodium (Porcine) (Heparin 5000 units/ml) 5,000 units EVERY 12 HOURS SUBQ 02/03/20 21:00 03/19/20 20:59 Nitroglycerin (Ntg) 0.4 mg Q5M PRN SL Prn Chest Pain 02/03/20 11:15 03/04/20 11:14 Ondansetron HCl (Zofran) 4 mg Q6H PRN IVP Nausea & Vomiting 02/03/20 06:30 03/04/20 06:29 Patient Own Medication (Patient's Own Med) 1 ea DAILY ORAL 02/04/20 09:00 03/05/20 08:59 UNV Polyethylene Glycol (Miralax) 17 gm DAILYPRN PRN ORAL Constipation 02/03/20 06:30 03/04/20 06:29 Assessment/Plan Assessment/Plan: 54-year-old AAM with PMH of HIV on meds, HTN and CKD stage V not on dialysis who presents with left-sided chest pain. On admission, Cr 7.4, BUN 71. EKG revealed NSR, HR 108. Troponin negative x1. Patient admitted for further treatment and evaluation. #Atypical Chest Pain -Admit to tele, r/o ACS -CP may be pleuritic -EKG NSR, HR 108 -trop neg x1 -ASA, high dose statin -nitro/morphine PRN pain -Tylenol PRN -cardio consulted -d/w cardio, plan for stress test tomorrow #CKD 5 -b/l Cr 10 per pt -Cr 7.4 on admission -Nephro consulted #HTN -cont home meds, amlodipine #HIV -last viral count undetectable per pt -CD4 300 per pt -cont. home meds DVT PPx: heparin Time spent on encounter: 76 mins, >50% on counseling, coordination of care. Discussed case w/Dr. Perez, Dr. Mcqueen, and RN. Time of note doesn't reflect time of encounter. Mirza Haynes M.D. Feb 03, 2020 15:26
[2020-02-03] MEDS ORDERED: Morphine Sulfate 2mg/ml Inj(IV/IM USE ONLY) IVP PRN (15:30)
--- NOTE | 2020-02-03 15:48 | NUR ---
CASE MANAGEMENT:REVIEW 54 YR OLD MALE PRESENTED TO ER CC: CHEST PAIN SI: ACS. RENAL DISEASE 98.0 102 22 137/85 89% ON RA WBC+12.0 H/H-8.9/28.0 BUN+71 CR+7.4 IS: PLACED ON 2L/NC CHEST XRAY : TO TELEMETRY IS: NORVASC PO QD DAPSONE PO QD DARUNAVIR PO Q12 HEPARIN SQ Q12 LIPITOR PO QHS ASA PO QD PLAN; STRESS TEST 2DECHO
[2020-02-03] MEDS: Aspirin Baby 81mg ORAL SCH (16:26)
--- NOTE | 2020-02-03 16:45 | Consultation ---
DATE OF CONSULTATION: 02/03/2020 CARDIOLOGY CONSULTATION CONSULTING PHYSICIAN: Silvino Perez M.D. REFERRING PHYSICIAN: Loretta Crawford M.D. REASON FOR CONSULTATION: Chest pain in a patient with hypertension, HIV. HISTORY OF PRESENT ILLNESS: Patient is a 54-year-old gentleman with history of hypertension, hyperlipidemia, history of HIV who presented to the emergency room for sharp chest pain, worse with supine position. Patient also has history of renal failure and has a dialysis shunt in his left arm, but never had dialysis. Patient's EKG showed sinus rhythm with nonspecific ST-T wave abnormality and a Cardiology consultation was obtained for further evaluation and management. REVIEW OF SYSTEMS: Negative other than what was mentioned in history of present illness. PAST MEDICAL HISTORY: As mentioned above. FAMILY HISTORY: Noncontributory. SOCIAL HISTORY: He lives at home. Does not smoke or drink alcohol. PHYSICAL EXAMINATION: VITAL SIGNS: Blood pressure 112/58, pulse is 89, respirations 22. HEAD AND NECK: Shows no JVD or carotid bruits. LUNGS: Clear. CARDIOVASCULAR: Regular S1 and S2 with no gallop or murmur. ABDOMEN: Soft. EXTREMITIES: No pitting edema. LABORATORY DATA: Labs show white count of 12, hemoglobin of 8.9, hematocrit 28, and platelet count of 246. Sodium 140, potassium 4.2, BUN of 71, creatinine 7.4, glucose of 130. First troponin is negative. Urine toxicology screen is negative. ASSESSMENT AND PLAN: 1. Chest pain. The first troponin is negative. EKG showed no acute ischemic changes. Resume patient's aspirin and Lipitor. I will get an echocardiogram and completely rule out [place] protocol. If all negative, we will schedule patient for stress test in the morning. 2. Hypertension. Resume amlodipine 5 mg daily. 3. Hyperlipidemia, on Lipitor. 4. HIV, on antiretroviral therapy. 5. Renal failure. Creatinine of 7.4. Patient has a functioning AV graft in the left arm; however, has not been started on dialysis. Thank you very much for allowing to participate in the care of this patient. Please do not hesitate to contact me for any questions regarding my evaluation. Silvino Perez M.D. DR: KOSTA JOB#: [id number] CC:
--- NOTE | 2020-02-03 19:50 | NUR ---
HAND-OFF: Report given to Lenka Machado. Plan of care endorsed.
--- NOTE | 2020-02-03 20:21 | NUR ---
NURSE NOTES: Received patient in bed, awake, alert, oriented x 4, no acute distress noted, IV site is clean dry and intact, call light is within reach, bed is lowered, locked, alarm is on, will continue to monitor for comfort and safety.
[2020-02-03] MEDS: Atorvastatin 20mg tab ORAL SCH (21:15)
[2020-02-03] MEDS: Heparin 5000 units/ml inj SUBQ SCH (21:16)
[2020-02-04] VITALS: BP 139/74
[2020-02-04 03:18] LABS: BASOPHILS % (AUTO) 0.8 % (0.0-2.0); EOSINOPHILS % (AUTO) 0.2 % (0.0-3.0); HEMATOCRIT 26.8 % (42.0-52.0); HEMOGLOBIN 8.5 G/DL (14.2-18.0); LYMPHOCYTES % (AUTO) 22.2 % (20.0-45.0); MEAN CORPUSCULAR VOLUME 92 FL (80-99); MONOCYTES % (AUTO) 9.4 % (1.0-10.0); NEUTROPHILS % (AUTO) 67.4 % (45.0-75.0); PLATELET COUNT 237 K/UL (150-450); RED CELL DISTRIBUTION WIDTH 13.2 % (11.6-14.8); WHITE BLOOD COUNT 12.9 K/UL (4.8-10.8)
[2020-02-04 03:25] LABS: BLOOD UREA NITROGEN 70 mg/dL (7-18); CALCIUM 9.7 MG/DL (8.5-10.1); CARBON DIOXIDE 19 MMOL/L (21-32); CHLORIDE 105 MMOL/L (98-107); CREATININE 7.4 MG/DL (0.55-1.30); POTASSIUM 5.2 MMOL/L (3.5-5.1); SODIUM 137 MMOL/L (136-145)
[2020-02-04 03:33] LABS: % IRON SATURATION 20 % (15-50); IRON 16 ug/dL (50-175); TOTAL IRON BINDING CAPACITY 81 ug/dL (250-450)
[2020-02-04 04:00] VITALS: BP 129/74
[2020-02-04 04:44] LABS: PHOSPHORUS 4.4 MG/DL (2.5-4.9)
[2020-02-04 05:34] LABS: FERRITIN 506 NG/ML (8-388)
--- NOTE | 2020-02-04 07:04 | NUR ---
HAND-OFF: Report given to NESHA Alexander.
[2020-02-04 08:00] VITALS: BP 145/83
--- NOTE | 2020-02-04 08:00 | NUR ---
NURSE NOTES: Received report from NESHA Solorio. Pt A/Ox4. Pt ambulates to restroom. Pt currently NPO. Scheduled for a Stress Test this morning. AV graft on [place] positive for bruit and thrill. SL on right arm. Call light within reach.
--- NOTE | 2020-02-04 08:42 | General Progress Note ---
Assessment/Plan Assessment/Plan: 54-year-old AAM with PMH of HIV on meds, HTN and CKD stage V not on dialysis who presents with left-sided chest pain. On admission, Cr 7.4, BUN 71. EKG revealed NSR, HR 108. Troponin negative x1. Patient admitted for further treatment and evaluation. #Atypical Chest Pain -Admit to tele, r/o ACS -CP may be pleuritic -EKG NSR, HR 108 -trop neg x1 -ASA, high dose statin -nitro/morphine PRN pain -Tylenol PRN -cardio consulted -d/w cardio, stress test today #CKD 5 -b/l Cr 10 per pt -Cr 7.4 on admission -HD per nephro -Nephro following: no emergent need for HD #HTN -cont home meds, amlodipine #HIV -last viral count undetectable per pt -CD4 300 per pt -cont. home meds DVT PPx: heparin Time spent on encounter: 36 mins, >50% on counseling, coordination of care. Discussed case w/Dr. Perez, Dr. Mcqueen, and RN. Time of note doesn't reflect time of encounter. Subjective Allergies: Coded Allergies: No Known Allergies (Verified Allergy, Mild, 12/17/09) Subjective F/u for CP, CKD V. Pt states CP improved after tylenol. Plan for stress test today. 12 pt ROS neg except as above Objective Last 24 Hour Vital Signs Date Time Temp Pulse Resp B/P (MAP) Pulse Ox O2 Delivery O2 Flow Rate FiO2 02/04/20 08:00 97.3 95 18 145/83 (103) 97 02/04/20 04:56 2.0 98 02/04/20 04:00 92 02/04/20 04:00 98.7 74 18 129/74 (92) 98 02/04/20 03:57 98.7 02/04/20 00:00 98.7 74 18 139/74 (95) 98 02/04/20 00:00 90 02/03/20 21:57 2.0 98 02/03/20 21:00 Room Air 02/03/20 20:00 89 02/03/20 20:00 98.3 74 18 129/74 (92) 99 02/03/20 17:38 98.2 87 18 140/77 (98) 92 02/03/20 16:00 89 02/03/20 16:00 2.0 02/03/20 12:06 Nasal Cannula 2.0 02/03/20 12:00 88 02/03/20 10:30 99.2 92 18 136/78 (97) 94 02/03/20 10:06 89 22 112/58 98 Nasal Cannula 2.0 02/03/20 09:22 89 24 112/58 98 Nasal Cannula 2.0 98 Intake and Output 02/03/20 02/04/20 19:00 07:00 Intake Total 240 ml Output Total 400 ml Balance -160 ml Intake Oral 240 ml Output Urine Total 400 ml Laboratory Tests 02/03/20 09:00: White Blood Count [Pending], Lymphocytes [Pending], Percent CD3 Cells [Pending] , Absolute CD3 Count [Pending], Percent CD4 Cells [Pending], Absolute CD4 Count [Pending], T-Lymphocyte CD4/CD8 Ratio [Pending], Percent CD8 Cells [Pending], Absolute CD8 Count [Pending], HIV-1 RNA (PCR) log10 Value [Pending], HIV-1 RNA Ultraquantitative (PCR) [Pending] 02/03/20 11:50: Troponin I 0.000 02/03/20 18:45: Troponin I 0.000 02/04/20 03:03: White Blood Count 12.9H, Troponin I 0.000, Red Blood Count 2.90L, Hemoglobin 8.5L, Hematocrit 26.8L, Mean Corpuscular Volume 92, Mean Corpuscular Hemoglobin 29.2, Mean Corpuscular Hemoglobin Concent 31.7L, Red Cell Distribution Width 13.2, Platelet Count 237, Mean Platelet Volume 5.6L, Neutrophils (%) (Auto) 67.4 , Lymphocytes (%) (Auto) 22.2, Monocytes (%) (Auto) 9.4, Eosinophils (%) (Auto) 0.2, Basophils (%) (Auto) 0.8, Sodium Level 137, Potassium Level 5.2H, Chloride Level 105, Carbon Dioxide Level 19L, Blood Urea Nitrogen 70H, Creatinine 7.4H, Estimat Glomerular Filtration Rate 9.3, Glucose Level 123H, Calcium Level 9.7, Calcium (Send out) [Pending], Phosphorus Level 4.4, Magnesium Level 2.5H, Iron Level 16L, Total Iron Binding Capacity 81L, Percent Iron Saturation 20, Unsaturated Iron Binding 65L, Ferritin 506H, Pro-B-Type Natriuretic Peptide 304H , Vitamin D 25-Hydroxy [Pending], 25-Hydroxy Vitamin D2 [Pending], 25-Hydroxy Vitamin D3 [Pending], Parathyroid Hormone (Intact) [Pending] Height (Feet): 5 Height (Inches): 8.00 Weight (Pounds): 165 Objective General: NAD, A&O x 3, laying in bed comfortably HEENT: NCAT, EOMi, MMM CV: RRR, no murmurs, rubs, or gallops Pulm: CTAB, No wheezes, rhonchi, or rales, no accessory muscle usage or conversational dyspnea GI: Soft, nontender, nondistended, bowel sounds present Ext: No lower extremity edema bilaterally Skin: no rashes lesions or ulcers MSK: No reproducible pain upon anterior chest wall palpation Mirza Haynes M.D. Feb 04, 2020 08:42
[2020-02-04] MEDS ORDERED: Sodium Polystyrene Sulfonate 15gm Powder ORAL SCH (09:00)
--- NOTE | 2020-02-04 09:33 | NUR ---
CASE MANAGEMENT:REVIEW 02/04/20 SI: ATYPICAL CHEST PAIN. CKD 5. HIV 97.3 95 18 145/83 97% ON 2L/NC WBC+12.9 H/H-8.5/26.8 K+5.2 BUN+70 CR+7.4 IS: NORVASC PO QD DAPSONE PO QD KAYEXALATE PO X1 HAART REGIMEN HEPARIN SQ Q12 ASA PO QD : TELEMETRY STATUS DCP: FROM HOME PLAN: STRESS TEST FOR TODAY
[2020-02-04] MEDS: Heparin 5000 units/ml inj SUBQ SCH ×2 (09:43→20:55)
[2020-02-04] MEDS: Docusate 100mg cap ORAL SCH ×2 (09:44→20:54)
[2020-02-04] MEDS: Aspirin Baby 81mg ORAL SCH (09:54)
--- NOTE | 2020-02-04 11:07 | Cardiac Electrophysiology PN ---
Assessment/Plan Assessment/Plan 1. Chest pain. Ruled out for AL. EKG showed no acute ischemic changes. On aspirin and Lipitor. Echocardiogram EF 65%. Awaiting stress test today 2. Hypertension. Resume amlodipine 5 mg daily. 3. Hyperlipidemia, on Lipitor. 4. HIV, on antiretroviral therapy. 5. Renal failure. Creatinine of 7.4. Patient has a functioning AV graft in the left arm; however, has not been started on dialysis. THERESE RN Subjective Subjective In the process of getting stress test today Objective Last 24 Hour Vital Signs Date Time Temp Pulse Resp B/P (MAP) Pulse Ox O2 Delivery O2 Flow Rate FiO2 02/04/20 09:00 95 145/83 02/04/20 08:00 97.3 95 18 145/83 (103) 97 02/04/20 04:56 2.0 98 02/04/20 04:00 92 02/04/20 04:00 98.7 74 18 129/74 (92) 98 02/04/20 03:57 98.7 02/04/20 00:00 98.7 74 18 139/74 (95) 98 02/04/20 00:00 90 02/03/20 21:57 2.0 98 02/03/20 21:00 Room Air 02/03/20 20:00 89 02/03/20 20:00 98.3 74 18 129/74 (92) 99 02/03/20 17:38 98.2 87 18 140/77 (98) 92 02/03/20 16:00 89 02/03/20 16:00 2.0 02/03/20 12:06 Nasal Cannula 2.0 02/03/20 12:00 88 Intake and Output 02/03/20 02/04/20 19:00 07:00 Intake Total 240 ml Output Total 400 ml Balance -160 ml Intake Oral 240 ml Output Urine Total 400 ml Laboratory Tests Test 02/03/20 11:50 02/03/20 18:45 02/04/20 03:03 Troponin I 0.000 ng/mL (0.000-0.056) 0.000 ng/mL (0.000-0.056) 0.000 ng/mL (0.000-0.056) White Blood Count 12.9 K/UL (4.8-10.8) H Red Blood Count 2.90 M/UL (4.70-6.10) L Hemoglobin 8.5 G/DL (14.2-18.0) L Hematocrit 26.8 % (42.0-52.0) L Mean Corpuscular Volume 92 FL (80-99) Mean Corpuscular Hemoglobin 29.2 PG (27.0-31.0) Mean Corpuscular Hemoglobin Concent 31.7 G/DL (32.0-36.0) L Red Cell Distribution Width 13.2 % (11.6-14.8) Platelet Count 237 K/UL (150-450) Mean Platelet Volume 5.6 FL (6.5-10.1) L Neutrophils (%) (Auto) 67.4 % (45.0-75.0) Lymphocytes (%) (Auto) 22.2 % (20.0-45.0) Monocytes (%) (Auto) 9.4 % (1.0-10.0) Eosinophils (%) (Auto) 0.2 % (0.0-3.0) Basophils (%) (Auto) 0.8 % (0.0-2.0) Sodium Level 137 MMOL/L (136-145) Potassium Level 5.2 MMOL/L (3.5-5.1) H Chloride Level 105 MMOL/L (98-107) Carbon Dioxide Level 19 MMOL/L (21-32) L Blood Urea Nitrogen 70 mg/dL (7-18) H Creatinine 7.4 MG/DL (0.55-1.30) H Estimat Glomerular Filtration Rate 9.3 mL/min (>60) Glucose Level 123 MG/DL (74-106) H Calcium Level 9.7 MG/DL (8.5-10.1) Calcium (Send out) Pending Phosphorus Level 4.4 MG/DL (2.5-4.9) Magnesium Level 2.5 MG/DL (1.8-2.4) H Iron Level 16 ug/dL (50-175) L Total Iron Binding Capacity 81 ug/dL (250-450) L Percent Iron Saturation 20 % (15-50) Unsaturated Iron Binding 65 ug/dL (112-346) L Ferritin 506 NG/ML (8-388) H Pro-B-Type Natriuretic Peptide 304 pg/mL (0-125) H Vitamin D 25-Hydroxy Pending 25-Hydroxy Vitamin D2 Pending 25-Hydroxy Vitamin D3 Pending Parathyroid Hormone (Intact) Pending Microbiology Date/Time Source Procedure Growth Status 02/03/20 06:00 Rectum Received Objective HEAD AND NECK: No JVD or carotid bruits. LUNGS: Clear. CARDIOVASCULAR: Regular S1 and S2 with no gallop or murmur. ABDOMEN: Soft. EXTREMITIES: No pitting edema. Silvino Perez MD Feb 04, 2020 11:07
[2020-02-04 12:00] VITALS: BP 147/87
[2020-02-04] MEDS ORDERED: Lexiscan 0.4mg/5ml syringe IV SCH (13:00)
[2020-02-04] MEDS: EDURANT 25 MG ORAL SCH (14:49)
[2020-02-04] MEDS: PREZISTA 800 MG ORAL SCH ×2 (14:49→20:55)
--- NOTE | 2020-02-04 14:50 | Nephrology Progress Note ---
Assessment/Plan Plan #Chest pain r/o ACS- r/o uremic pericarditis #CKD 5- not yet on HD- likely due to hypertensive nephrosclerosis - LUE aVF placed 3 years - has not needed HD yet- Primary nephorologist Dr. Charles #HTN #HIV - Stress test per cardiology - monitor K--- > consider adding lokelma on DC if needed - no emergent indication for HD - monitor UOP - check 2d echo - asa - lipitor - amlodipine 5mg daily - monitor electrolytes and kidney function - continue dapson - continue dapson and prezista - check PTH/vitamin D - ferritin and iron panel Time spent on encounter: 36 mins, >50% on counseling, coordination of care. Subjective ROS Limited/Unobtainable: No Constitutional: Denies: no symptoms, chills, diaphoresis, fever, malaise, weakness, other HEENT: Denies: no symptoms, eye pain, blurred vision, tearing, double vision, ear pain, ear discharge, nose pain, nose congestion, throat pain, throat swelling, mouth pain, mouth swelling, other Genitourinary: Denies: no symptoms, burning, discharge, frequency, flank pain, hematuria, incontinence, pain, urgency, other Neurologic/Psychiatric: Denies: no symptoms, anxiety, depressed, emotional problems, headache, numbness, paresthesia, pre-existing deficit, seizure, tingling, tremors, weakness, other Subjective Serial trop neg plan for stress terrell echo showing EF 65 K 5.2 Objective Objective Last 24 Hour Vital Signs Date Time Temp Pulse Resp B/P (MAP) Pulse Ox O2 Delivery O2 Flow Rate FiO2 02/04/20 12:00 99 02/04/20 12:00 2.0 02/04/20 12:00 98.4 99 18 147/87 (107) 92 02/04/20 09:00 2.0 02/04/20 09:00 95 145/83 02/04/20 09:00 Room Air 02/04/20 08:00 97 02/04/20 08:00 97.3 95 18 145/83 (103) 97 02/04/20 04:56 2.0 98 02/04/20 04:00 92 02/04/20 04:00 98.7 74 18 129/74 (92) 98 02/04/20 03:57 98.7 02/04/20 00:00 98.7 74 18 139/74 (95) 98 02/04/20 00:00 90 02/03/20 21:57 2.0 98 02/03/20 21:00 Room Air 02/03/20 20:00 89 02/03/20 20:00 98.3 74 18 129/74 (92) 99 02/03/20 17:38 98.2 87 18 140/77 (98) 92 02/03/20 16:00 89 02/03/20 16:00 2.0 Intake and Output 02/03/20 02/04/20 19:00 07:00 Intake Total 240 ml Output Total 400 ml Balance -160 ml Intake Oral 240 ml Output Urine Total 400 ml Laboratory Tests 02/03/20 18:45: Troponin I 0.000 02/04/20 03:03: Troponin I 0.000, White Blood Count 12.9H, Red Blood Count 2.90L, Hemoglobin 8.5L, Hematocrit 26.8L, Mean Corpuscular Volume 92, Mean Corpuscular Hemoglobin 29.2, Mean Corpuscular Hemoglobin Concent 31.7L, Red Cell Distribution Width 13.2, Platelet Count 237, Mean Platelet Volume 5.6L, Neutrophils (%) (Auto) 67.4 , Lymphocytes (%) (Auto) 22.2, Monocytes (%) (Auto) 9.4, Eosinophils (%) (Auto) 0.2, Basophils (%) (Auto) 0.8, Sodium Level 137, Potassium Level 5.2H, Chloride Level 105, Carbon Dioxide Level 19L, Blood Urea Nitrogen 70H, Creatinine 7.4H, Estimat Glomerular Filtration Rate 9.3, Glucose Level 123H, Calcium Level 9.7, Calcium (Send out) [Pending], Phosphorus Level 4.4, Magnesium Level 2.5H, Iron Level 16L, Total Iron Binding Capacity 81L, Percent Iron Saturation 20, Unsaturated Iron Binding 65L, Ferritin 506H, Pro-B-Type Natriuretic Peptide 304H , Vitamin D 25-Hydroxy [Pending], 25-Hydroxy Vitamin D2 [Pending], 25-Hydroxy Vitamin D3 [Pending], Parathyroid Hormone (Intact) [Pending] Height (Feet): 5 Height (Inches): 8.00 Weight (Pounds): 165 General Appearance: WD/WN, no apparent distress EENT: PERRL/EOMI, normal ENT inspection Neck: non-tender, normal alignment Cardiovascular: normal peripheral pulses, regular rhythm Abdomen: normal bowel sounds, non tender Neurologic: alert, oriented x 3 Morena Mcqueen M.D. Feb 04, 2020 14:50
[2020-02-04 16:00] VITALS: BP 121/77
--- NOTE | 2020-02-04 17:15 | Diagnostic Imaging Report ---
Indications: Chest pain Technique: See cardiology report for details of LexiScan stress testing. During LexiScan infusion, IV administration 31.8 mCi 99 M technetium Myoview . SPECT and planar images obtained. SPECT images gated to 8 phases of the cardiac cycle were also obtained, and reformatted into cine images for evaluation of ejection fraction. On the subsequent day, resting images obtained using IV administration 10.9 mCi 99 M technetium Myoview. Comparison: none Findings: Results of Lexiscan stress test: * Baseline heart rate 99 bpm * Baseline blood pressure 137/82 * End infusion heart rate 114 * End infusion blood pressure 158/81 * Infusion duration 10 seconds * No chest pain portable * No significant ST changes noted * Clinical response to pharmacologic stress was reported as nonischemic * Electrocardiographic response to pharmacologic stress was reported as nonischemic Myocardial perfusion imaging demonstrates no fixed or reversible perfusion defect. Contractility appears within normal limits. Estimated ejection fraction 72%. IMPRESSION: No fixed or reversible perfusion defects identified. Ejection fraction estimated at 72%.
--- NOTE | 2020-02-04 19:38 | NUR ---
HAND-OFF: Report given to Lenka Bowen. Plan of care endorsed. .
--- NOTE | 2020-02-04 19:45 | NUR ---
NURSE NOTES: Received report from NESHA Alexander. Patient is awake lying semi-medley's; resting comfortably. No signs of acute distress noted; denies pain at this time. AOx4; able to make needs known. Ambulates independently. Checked IV site; patent and flushed. No erythema, bleeding, or infiltration noted. Left AV shunt noted; thrill and bruit present. Urinal at bedside. Bed at lowest position, brakes on, siderails up x2. Call light within reach. Will continue to monitor.
[2020-02-04 20:00] VITALS: BP 142/82
[2020-02-04] MEDS: Atorvastatin 20mg tab ORAL SCH (20:54)
[2020-02-05] VITALS: BP 139/82
--- NOTE | 2020-02-05 03:56 | NUR ---
NURSE NOTES: Patient is asleep lying semi-medley's; resting comfortably. On 2L nasal cannula. No signs of acute distress or pain noted at this time.
[2020-02-05 04:00] VITALS: BP 142/87
--- NOTE | 2020-02-05 07:35 | NUR ---
HAND-OFF: Report given to NESHA Rodríguez. Patient is awake lying high-medley's eating breakfast. On 2L nasal cannula. In stable condition.
--- NOTE | 2020-02-05 07:36 | NUR ---
NURSE NOTES: Received patient in bed awake. O2 via NC in place, no SOB or acute distress. IV line on right AC intact. On left arm precaution due to AV shunt. HOB elevated. Bed locked in lowest position. Call light within reach. Will continue plan of care.
[2020-02-05 08:00] VITALS: BP 130/86
[2020-02-05 08:44] LABS: BASOPHILS % (AUTO) 0.8 % (0.0-2.0); EOSINOPHILS % (AUTO) 0.4 % (0.0-3.0); HEMATOCRIT 26.5 % (42.0-52.0); HEMOGLOBIN 8.5 G/DL (14.2-18.0); LYMPHOCYTES % (AUTO) 20.5 % (20.0-45.0); MEAN CORPUSCULAR VOLUME 91 FL (80-99); MONOCYTES % (AUTO) 10.3 % (1.0-10.0); NEUTROPHILS % (AUTO) 68.1 % (45.0-75.0); PLATELET COUNT 276 K/UL (150-450); RED BLOOD COUNT 2.92 M/UL (4.70-6.10); RED CELL DISTRIBUTION WIDTH 13.2 % (11.6-14.8); WHITE BLOOD COUNT 12.3 K/UL (4.8-10.8)
[2020-02-05 09:05] LABS: ANION GAP 13 mmol/L (5-15); BLOOD UREA NITROGEN 69 mg/dL (7-18); CALCIUM 9.2 MG/DL (8.5-10.1); CARBON DIOXIDE 20 MMOL/L (21-32); CHLORIDE 101 MMOL/L (98-107); CREATININE 7.1 MG/DL (0.55-1.30); POTASSIUM 3.7 MMOL/L (3.5-5.1); SODIUM 134 MMOL/L (136-145)
[2020-02-05] MEDS: EDURANT 25 MG ORAL SCH (09:43)
[2020-02-05] MEDS: PREZISTA 800 MG ORAL SCH ×2 (09:44→20:50)
[2020-02-05] MEDS: Aspirin Baby 81mg ORAL SCH (09:45)
[2020-02-05] MEDS: Docusate 100mg cap ORAL SCH ×2 (09:45→20:51)
[2020-02-05] MEDS: Heparin 5000 units/ml inj SUBQ SCH ×2 (09:47→20:52)
--- NOTE | 2020-02-05 10:36 | Nephrology Progress Note ---
Assessment/Plan Plan #Chest pain r/o ACS- r/o uremic pericarditis #CKD 5- not yet on HD- likely due to hypertensive nephrosclerosis - LUE aVF placed 3 years - has not needed HD yet- Primary nephorologist Dr. Charles #HTN #HIV - Stress test per cardiology - monitor K--- > consider adding lokelma on DC if needed - no emergent indication for HD - add sodium bicarb 650 TID - add epo 4K TIW - monitor UOP - check 2d echo- > EF 65 - asa - lipitor - amlodipine 5mg daily - monitor electrolytes and kidney function - continue dapson - continue dapson and prezista - check PTH/vitamin D - ferritin and iron panel Time spent on encounter: 36 mins, >50% on counseling, coordination of care. Subjective ROS Limited/Unobtainable: No Subjective Serial trop neg plan for stress terrell echo showing EF 65 lytes reviewed Objective Objective Last 24 Hour Vital Signs Date Time Temp Pulse Resp B/P (MAP) Pulse Ox O2 Delivery O2 Flow Rate FiO2 02/05/20 09:45 102 130/86 02/05/20 08:00 98.0 102 20 130/86 (101) 94 02/05/20 04:00 94 02/05/20 04:00 99.1 104 20 142/87 (105) 91 02/05/20 00:00 98.2 107 18 139/82 (101) 90 02/05/20 00:00 100 02/04/20 21:00 Room Air 02/04/20 20:00 96 02/04/20 20:00 98.4 101 18 142/82 (102) 91 02/04/20 16:00 100 02/04/20 16:00 97.3 101 18 121/77 (92) 97 02/04/20 16:00 2.0 02/04/20 12:00 99 02/04/20 12:00 2.0 02/04/20 12:00 98.4 99 18 147/87 (107) 92 Intake and Output 02/04/20 02/05/20 19:00 07:00 Intake Total 500 ml 600 ml Output Total 2200 ml 750 ml Balance -1700 ml -150 ml Intake Oral 500 ml 600 ml Output Urine Total 2200 ml 750 ml Laboratory Tests 02/05/20 08:35: White Blood Count 12.3H, Red Blood Count 2.92L, Hemoglobin 8.5L, Hematocrit 26.5L, Mean Corpuscular Volume 91, Mean Corpuscular Hemoglobin 29.2, Mean Corpuscular Hemoglobin Concent 32.2, Red Cell Distribution Width 13.2, Platelet Count 276, Mean Platelet Volume 5.7L, Neutrophils (%) (Auto) 68.1, Lymphocytes ( %) (Auto) 20.5, Monocytes (%) (Auto) 10.3H, Eosinophils (%) (Auto) 0.4, Basophils (%) (Auto) 0.8, Sodium Level 134L, Potassium Level 3.7, Chloride Level 101, Carbon Dioxide Level 20L, Anion Gap 13, Blood Urea Nitrogen 69H, Creatinine 7.1H, Estimat Glomerular Filtration Rate 9.8, Glucose Level 139H, Calcium Level 9.2 Height (Feet): 5 Height (Inches): 8.00 Weight (Pounds): 165 Morena Mcqueen M.D. Feb 05, 2020 10:36
--- NOTE | 2020-02-05 11:36 | General Progress Note ---
Assessment/Plan Assessment/Plan: 54-year-old AAM with PMH of HIV on meds, HTN and CKD stage V not on dialysis who presents with left-sided chest pain. On admission, Cr 7.4, BUN 71. EKG revealed NSR, HR 108. Troponin negative x1. Patient admitted for further treatment and evaluation. #Atypical Chest Pain -cont. in-pt medical care -likely GERD vs plueritic -ACS ruled out -EKG NSR, HR 108, trop neg x4 -02/03: s/p stress test, negative -ASA, high dose statin -nitro/morphine PRN pain -Tylenol PRN -start protonix -cardio following #Leukocytosis -UA negative, CXR no acute process -afebrile -no signs of infection at this time -will consult ID given pt on HIV medications #CKD 5 -b/l Cr 10 per pt -Cr 7.4 on admission -HD per nephro -Nephro following: no emergent need for HD #HTN #Tachycardia -cont home meds, amlodipine -d/w cardio, will adjust BP meds #HIV -last viral count undetectable per pt -CD4 300 per pt -cont. home meds DVT PPx: heparin Time spent on encounter: 39 mins, >50% on counseling, coordination of care. Discussed case w/Dr. Perez, Dr. Mcqueen, Dr. Zazueta and RN. Time of note doesn't reflect time of encounter. Subjective Allergies: Coded Allergies: No Known Allergies (Verified Allergy, Mild, 12/17/09) Subjective F/u for Chest pain. S/p stress test, negative for ischemia. WBC 12, afebrile. BP elevated, HR 101. Pt states pain has significantly improved. denies SOB, n/v. 12 pt ROS neg except as above Objective Last 24 Hour Vital Signs Date Time Temp Pulse Resp B/P (MAP) Pulse Ox O2 Delivery O2 Flow Rate FiO2 02/05/20 09:45 102 130/86 02/05/20 08:00 98.0 102 20 130/86 (101) 94 02/05/20 04:00 94 02/05/20 04:00 99.1 104 20 142/87 (105) 91 02/05/20 00:00 98.2 107 18 139/82 (101) 90 02/05/20 00:00 100 02/04/20 21:00 Room Air 02/04/20 20:00 96 02/04/20 20:00 98.4 101 18 142/82 (102) 91 02/04/20 16:00 100 02/04/20 16:00 97.3 101 18 121/77 (92) 97 02/04/20 16:00 2.0 02/04/20 12:00 99 02/04/20 12:00 2.0 02/04/20 12:00 98.4 99 18 147/87 (107) 92 Intake and Output 02/04/20 02/05/20 19:00 07:00 Intake Total 500 ml 600 ml Output Total 2200 ml 750 ml Balance -1700 ml -150 ml Intake Oral 500 ml 600 ml Output Urine Total 2200 ml 750 ml Laboratory Tests 02/05/20 08:35: White Blood Count 12.3H, Red Blood Count 2.92L, Hemoglobin 8.5L, Hematocrit 26.5L, Mean Corpuscular Volume 91, Mean Corpuscular Hemoglobin 29.2, Mean Corpuscular Hemoglobin Concent 32.2, Red Cell Distribution Width 13.2, Platelet Count 276, Mean Platelet Volume 5.7L, Neutrophils (%) (Auto) 68.1, Lymphocytes ( %) (Auto) 20.5, Monocytes (%) (Auto) 10.3H, Eosinophils (%) (Auto) 0.4, Basophils (%) (Auto) 0.8, Sodium Level 134L, Potassium Level 3.7, Chloride Level 101, Carbon Dioxide Level 20L, Anion Gap 13, Blood Urea Nitrogen 69H, Creatinine 7.1H, Estimat Glomerular Filtration Rate 9.8, Glucose Level 139H, Calcium Level 9.2 Objective General: NAD, A&O x 3, laying in bed comfortably HEENT: NCAT, EOMi, MMM CV: RRR, no murmurs, rubs, or gallops Pulm: CTAB, No wheezes, rhonchi, or rales, no accessory muscle usage or conversational dyspnea GI: Soft, nontender, nondistended, bowel sounds present Ext: No lower extremity edema bilaterally Skin: no rashes lesions or ulcers MSK: No reproducible pain upon anterior chest wall palpation Mirza Haynes M.D. Feb 05, 2020 11:36
[2020-02-05 12:00] VITALS: BP 122/80
[2020-02-05] MEDS: Sodium Bicarbonate 650mg Tab ORAL SCH ×2 (12:28→17:28)
--- NOTE | 2020-02-05 14:00 | Cardiac Electrophysiology PN ---
Assessment/Plan Assessment/Plan 1. Chest pain. Ruled out for RI. EKG showed no acute ischemic changes. On aspirin and Lipitor. Echocardiogram EF 65%. Stress test showed no ischemia or scar 2. Hypertension. On amlodipine 5 mg daily. 3. Hyperlipidemia, on Lipitor. 4. HIV, on antiretroviral therapy. 5. Chronic Renal failure. Creatinine of 7.4. Patient has a functioning AV graft in the left arm; however, has not been started on dialysis. THERESE RN OK to DC from cardiac stand point Subjective Subjective Stress test was nonischemic. No CP or SOB Objective Last 24 Hour Vital Signs Date Time Temp Pulse Resp B/P (MAP) Pulse Ox O2 Delivery O2 Flow Rate FiO2 02/05/20 12:00 102 02/05/20 12:00 98.8 105 20 122/80 (94) 93 02/05/20 09:45 102 130/86 02/05/20 09:00 Room Air 02/05/20 08:00 98 02/05/20 08:00 98.0 102 20 130/86 (101) 94 02/05/20 04:00 94 02/05/20 04:00 99.1 104 20 142/87 (105) 91 02/05/20 00:00 98.2 107 18 139/82 (101) 90 02/05/20 00:00 100 02/04/20 21:00 Room Air 02/04/20 20:00 96 02/04/20 20:00 98.4 101 18 142/82 (102) 91 02/04/20 16:00 100 02/04/20 16:00 97.3 101 18 121/77 (92) 97 02/04/20 16:00 2.0 Intake and Output 02/04/20 02/05/20 19:00 07:00 Intake Total 500 ml 600 ml Output Total 2200 ml 750 ml Balance -1700 ml -150 ml Intake Oral 500 ml 600 ml Output Urine Total 2200 ml 750 ml Laboratory Tests Test 02/05/20 08:35 White Blood Count 12.3 K/UL (4.8-10.8) H Red Blood Count 2.92 M/UL (4.70-6.10) L Hemoglobin 8.5 G/DL (14.2-18.0) L Hematocrit 26.5 % (42.0-52.0) L Mean Corpuscular Volume 91 FL (80-99) Mean Corpuscular Hemoglobin 29.2 PG (27.0-31.0) Mean Corpuscular Hemoglobin Concent 32.2 G/DL (32.0-36.0) Red Cell Distribution Width 13.2 % (11.6-14.8) Platelet Count 276 K/UL (150-450) Mean Platelet Volume 5.7 FL (6.5-10.1) L Neutrophils (%) (Auto) 68.1 % (45.0-75.0) Lymphocytes (%) (Auto) 20.5 % (20.0-45.0) Monocytes (%) (Auto) 10.3 % (1.0-10.0) H Eosinophils (%) (Auto) 0.4 % (0.0-3.0) Basophils (%) (Auto) 0.8 % (0.0-2.0) Sodium Level 134 MMOL/L (136-145) L Potassium Level 3.7 MMOL/L (3.5-5.1) Chloride Level 101 MMOL/L (98-107) Carbon Dioxide Level 20 MMOL/L (21-32) L Anion Gap 13 mmol/L (5-15) Blood Urea Nitrogen 69 mg/dL (7-18) H Creatinine 7.1 MG/DL (0.55-1.30) H Estimat Glomerular Filtration Rate 9.8 mL/min (>60) Glucose Level 139 MG/DL (74-106) H Calcium Level 9.2 MG/DL (8.5-10.1) Microbiology Date/Time Source Procedure Growth Status 02/03/20 06:00 Nasal Nares MRSA Culture - Final NO METHICILLIN RESISTANT STAPH AUREUS... Complete 02/03/20 06:00 Rectum VRE Culture - Final NO VANCOMYCIN RESISTANT ENTEROCOCCUS ... Complete 02/03/20 06:00 Rectum - Final NO CARBAPENEM-RESISTANT ENTEROBACTERI... Complete Objective HEAD AND NECK: No JVD or carotid bruits. LUNGS: Clear. CARDIOVASCULAR: Regular S1 and S2 with no gallop or murmur. ABDOMEN: Soft. EXTREMITIES: No pitting edema. Silvino Perez MD Feb 05, 2020 14:00
[2020-02-05 16:00] VITALS: BP 129/84
--- NOTE | 2020-02-05 19:44 | NUR ---
HAND-OFF: Report given to Jessi JEFFRIES.
--- NOTE | 2020-02-05 19:52 | NUR ---
NURSE NOTES: Received report from NESHA Rodríguez. Patient is awake lying semi-medley's; resting comfortably. No signs of acute distress noted; complains of some pain. On 2L nasal cannula. AOx4; able to make needs known. Ambulates independently. Checked IV site; patent and flushed. No erythema, bleeding, or infiltration noted. Left AV shunt noted; thrill and bruit present. Urinal at bedside. Bed at lowest position, brakes on, siderails up x2. Call light within reach. Will continue to monitor.
[2020-02-05 20:00] VITALS: BP 139/88
[2020-02-05] MEDS: Atorvastatin 20mg tab ORAL SCH (20:50)
--- NOTE | 2020-02-05 22:26 | Infectious Diseases Prog Note ---
Assessment/Plan Assessment/Plan Full consult dictated: A) 1) leukocytosis, ? sepsis which is unlikely, ? pleuritic chest pain, no fevers 2) hiv - viral load ND, cd4- 264 3) pmh noted P) 1) check f/u chest x-ray and labs 2) if chest x-ray negative and wbc stable (12 or less) then ok for discharge 3) thank you Subjective Allergies: Coded Allergies: No Known Allergies (Verified Allergy, Mild, 12/17/09) Objective Vital Signs Last 24 Hour Vital Signs Date Time Temp Pulse Resp B/P (MAP) Pulse Ox O2 Delivery O2 Flow Rate FiO2 02/05/20 16:00 98.6 104 20 129/84 (99) 92 02/05/20 16:00 103 02/05/20 12:00 102 02/05/20 12:00 98.8 105 20 122/80 (94) 93 02/05/20 09:45 102 130/86 02/05/20 09:00 Room Air 02/05/20 08:00 98 02/05/20 08:00 98.0 102 20 130/86 (101) 94 02/05/20 04:00 94 02/05/20 04:00 99.1 104 20 142/87 (105) 91 02/05/20 00:00 98.2 107 18 139/82 (101) 90 02/05/20 00:00 100 Height (Feet): 5 Height (Inches): 8.00 Weight (Pounds): 165 Microbiology Date/Time Source Procedure Growth Status 02/03/20 06:00 Nasal Nares MRSA Culture - Final NO METHICILLIN RESISTANT STAPH AUREUS... Complete 02/03/20 06:00 Rectum VRE Culture - Final NO VANCOMYCIN RESISTANT ENTEROCOCCUS ... Complete 02/03/20 06:00 Rectum - Final NO CARBAPENEM-RESISTANT ENTEROBACTERI... Complete Laboratory Tests Test 02/05/20 08:35 White Blood Count 12.3 K/UL (4.8-10.8) H Red Blood Count 2.92 M/UL (4.70-6.10) L Hemoglobin 8.5 G/DL (14.2-18.0) L Hematocrit 26.5 % (42.0-52.0) L Mean Corpuscular Volume 91 FL (80-99) Mean Corpuscular Hemoglobin 29.2 PG (27.0-31.0) Mean Corpuscular Hemoglobin Concent 32.2 G/DL (32.0-36.0) Red Cell Distribution Width 13.2 % (11.6-14.8) Platelet Count 276 K/UL (150-450) Mean Platelet Volume 5.7 FL (6.5-10.1) L Neutrophils (%) (Auto) 68.1 % (45.0-75.0) Lymphocytes (%) (Auto) 20.5 % (20.0-45.0) Monocytes (%) (Auto) 10.3 % (1.0-10.0) H Eosinophils (%) (Auto) 0.4 % (0.0-3.0) Basophils (%) (Auto) 0.8 % (0.0-2.0) Sodium Level 134 MMOL/L (136-145) L Potassium Level 3.7 MMOL/L (3.5-5.1) Chloride Level 101 MMOL/L (98-107) Carbon Dioxide Level 20 MMOL/L (21-32) L Anion Gap 13 mmol/L (5-15) Blood Urea Nitrogen 69 mg/dL (7-18) H Creatinine 7.1 MG/DL (0.55-1.30) H Estimat Glomerular Filtration Rate 9.8 mL/min (>60) Glucose Level 139 MG/DL (74-106) H Calcium Level 9.2 MG/DL (8.5-10.1) Current Medications Medications (Trade) Dose Ordered Sig/Sarbjit Route PRN Reason Start Time Stop Time Status Last Admin Dose Admin Acetaminophen (Tylenol) 650 mg Q4H PRN ORAL Mild Pain (Pain Scale 1-3) 02/03/20 06:30 03/04/20 06:29 02/05/20 20:51 Acetaminophen (Tylenol) 650 mg Q4H PRN ORAL Temp >100.5 02/03/20 06:30 03/04/20 06:29 Amlodipine Besylate (Norvasc) 5 mg DAILY ORAL 02/04/20 09:00 03/05/20 08:59 02/05/20 09:45 Aspirin (ASA) 81 mg DAILY ORAL 02/03/20 15:30 03/19/20 15:29 02/05/20 09:45 Atorvastatin Calcium (Lipitor) 40 mg BEDTIME ORAL 02/03/20 21:00 05/03/20 20:59 02/05/20 20:50 Dapsone (Dapsone) 100 mg DAILY ORAL 02/04/20 09:00 02/11/20 08:59 02/05/20 09:45 Dextrose (Dextrose 50%) 25 ml Q30M PRN IV Hypoglycemia 02/03/20 06:30 05/03/20 06:29 Dextrose (Dextrose 50%) 50 ml Q30M PRN IV Hypoglycemia 02/03/20 06:30 05/03/20 06:29 Docusate Sodium (Colace) 100 mg EVERY 12 HOURS ORAL 02/03/20 09:00 03/04/20 08:59 02/05/20 20:51 Epoetin Jaya (Epoetin Jaya-EPBX(NON ESRD)) 4,000 unit SUN- SUBQ 02/06/20 21:00 05/06/20 20:59 Heparin Sodium (Porcine) (Heparin 5000 units/ml) 5,000 units EVERY 12 HOURS SUBQ 02/03/20 21:00 03/19/20 20:59 02/05/20 20:52 Morphine Sulfate (Morphine Sulfate) 1 mg Q1H PRN IVP Prn Chest Pain 02/03/20 15:30 02/10/20 15:29 Nitroglycerin (Ntg) 0.4 mg Q5M PRN SL Prn Chest Pain 02/03/20 11:15 03/04/20 11:14 Ondansetron HCl (Zofran) 4 mg Q6H PRN IVP Nausea & Vomiting 02/03/20 06:30 03/04/20 06:29 Pantoprazole (Protonix) 40 mg DAILY ORAL 02/05/20 12:00 03/06/20 11:59 02/05/20 12:28 Patient Own Medication (Patient's Own Med) 1 ea DAILY ORAL 02/04/20 14:00 03/05/20 13:59 02/05/20 09:43 Patient Own Medication (Patient's Own Med) 1 ea Q12HR ORAL 02/04/20 14:00 03/05/20 13:59 02/05/20 20:50 Polyethylene Glycol (Miralax) 17 gm DAILYPRN PRN ORAL Constipation 02/03/20 06:30 03/04/20 06:29 Sodium Bicarbonate (NaHCO3) 650 mg THREE TIMES A DAY ORAL 02/05/20 13:00 03/06/20 12:59 02/05/20 17:28 Adore Zazueta MD Feb 05, 2020 22:26
[2020-02-06] VITALS: BP 107/64
[2020-02-06 04:00] VITALS: BP 150/84
--- NOTE | 2020-02-06 05:44 | NUR ---
NURSE NOTES: Called Dr. Crawford's exchange for breathing treatment since patient is desaturating to high 80s even on Venturi mask. Awaiting callback.
--- NOTE | 2020-02-06 05:59 | NUR ---
NURSE NOTES: Received new orders from Dr. Murillo. Noted and carried out.
[2020-02-06] MEDS ORDERED: Ipratropium 0.02% Inh Soln 2.5ml UD HHN PRN (06:00)
--- NOTE | 2020-02-06 07:00 | NUR ---
HAND-OFF: Report given to NESHA Rodríguez. Patient is awake lying high-medley's; resting comfortably. On 10L Venturi mask. In stable condition.
--- NOTE | 2020-02-06 07:06 | NUR ---
NURSE NOTES: Received patient in bed awake. Venturi mask off because patient is eating breakfast, no complaints of SOB or acute distress. IV line intact. For covid swab today once kit is available. HOB elevated. Bed locked in lowest position. Call light within reach. Will continue plan of care and monitoring for SOB.
--- NOTE | 2020-02-06 07:15 | Consultation ---
DATE OF CONSULTATION: 02/05/2020 INFECTIOUS DISEASE CONSULT CONSULTING PHYSICIAN: Adore Zazueta M.D. ATTENDING PHYSICIAN: Loretta Crawford M.D. REFERRING PHYSICIAN: Kassie Haynes M.D. REASON FOR CONSULTATION: Questionable sepsis, elevated white count. CHIEF COMPLAINT: Coming into the hospital with chest pain. HISTORY OF PRESENT ILLNESS: This is a very pleasant 54-year-old male who comes to [facility] with chest pain. The patient has a history of HIV and he is on antiviral therapy and his T-cell count is over 300 and viral load undetectable. Chest x-ray was negative. However, he has a persistent leukocytosis. It has been as high as 12.9. The patient did have SIRS criteria and still tachycardic. The patient has no fevers, however. Infectious disease consultation was requested for further management of this patient with elevated white count, SIRS criteria, possible sepsis. Currently, he does not look septic. However, he is tachycardic. Blood cultures looks like were not done and I will order. Urinalysis was unremarkable and chest x-ray showed no obvious pneumonia. The patient is being worked up by Cardiology. Case communicated with Dr. Haynes. At this time, we will monitor leukocytosis and check followup chest x-ray with question for a chest pain and we will get blood cultures. MAR was noted. Orders were noted. Notes and records were reviewed. REVIEW OF SYSTEMS: GENERAL: The patient came in with chest pain. He has no fever, chills, night sweats, or weight loss. HEAD AND NECK: No head pain, neck pain or neck stiffness. No thrush or dysphagia. CARDIAC: He did have chest pain. He says it is better, unclear if it is pleuritic in nature. GASTROINTESTINAL: No nausea, vomiting, abdominal pain, or diarrhea. GENITOURINARY: No dysuria or frequency. PULMONARY: No congestion or shortness of breath. SKIN: No rash. EXTREMITIES: No pain. NEUROLOGIC: No seizure. Generalized fatigue. No focal weakness. No headache, neck stiffness, thrush, or dysphagia, rash or itching or seizure activity. No dysuria or frequency. No CVA tenderness. PAST MEDICAL HISTORY: Patient has a past medical history of the following: Patient has a past medical history of HIV, hypertension, chronic kidney disease, chest pain. He has a history of looks like possible dialysis, chronic kidney disease stage IV, unclear if he has dialysis actually at this time. He does have a history of AV fistula placed 3 years ago. So, I believe he is on dialysis. ALLERGIES: No known drug allergies. No antibiotic allergies. SOCIAL HISTORY: Negative for smoking, alcohol, or drug abuse. FAMILY HISTORY: Noncontributory. Negative for exposure to tuberculosis or cancer. MEDICATIONS: Outside medications noted, looks like he is on acetaminophen, allopurinol, amlodipine, atorvastatin, dapsone. He is on Prezista, doxycycline. He is on Edurant. He is on the following medications in the hospital: He is on pantoprazole. He is taking his own, I believe HIV medication, amlodipine, dapsone, atorvastatin, aspirin, morphine, and Zofran. PHYSICAL EXAMINATION: VITAL SIGNS: Temperature is 98.6, pulse rate 104, respiratory rate 20, blood pressure 129/94, saturation 92% on room air. GENERAL: Alert and responsive, no acute distress. HEAD AND NECK: Oral exam, no thrush. Eye exam, no icterus. Normocephalic. Neck is supple. No JVD. HEART: Regular. No gallop or murmur. No friction rub. ABDOMEN: Soft. Positive bowel sounds. Nontender. No organomegaly. LUNGS: Fairly clear bilaterally. No rhonchi or rales. SKIN: No rash. MUSCULOSKELETAL: No effusions. Legs are without cellulitis. PERIPHERAL VASCULAR: No cyanosis or gangrene. GENITOURINARY: No Martinez. LINE SITES: Without phlebitis. NEUROLOGIC: Alert and responsive. extremity and M/S - no gangrene or septic osteoarthritis. LABORATORY DATA: Laboratory data is as follows: Creatinine 7.1, white count 12.3, hemoglobin 8.5 white count has been as high as 12.9. Cultures, I have ordered blood cultures. Chest x-ray showed no acute disease. The patient also did have a UA which was negative with 0 white cells. ASSESSMENT AND PLAN: 1. The patient has leukocytosis, questionable sepsis, tachycardia. The patient has SIRS criteria. No obvious sepsis at this time or obvious source. He does have AV fistula looks like, however, he has no fevers. Because of the tachycardia, I would like to check blood cultures, make sure he is not bacteremic. Again, he has no fevers. We will check blood cultures. Check followup laboratory, CBC, and chest x-ray because of question for chest pain. Chest x-ray is negative. Cardiac workup for chest pain is negative also, looks like. There is no indication for antibiotics at this time. Check blood cultures and CBC. The white cell count is stable at 12 or less and blood cultures are negative. Chest x-ray is negative. Then consider discharging the patient. Again, continue to monitor leukocytosis and possible sepsis. 2. Human immunodeficiency virus. The patient had a viral load that is undetectable here and T-cell count is 264. Continue anti-retroviral therapy and the patient to follow up with his primary MD and HIV MD. Continue Edurant and Prezista and dapsone prophylaxis. 3. Looks like he has hemodialysis history and renal failure, stage 5 kidney disease. 4. The patient has history of hypertension, treatment by primary care team. 5. Chronic kidney disease. 6. No known drug allergies. 7. Anemia. 8. Social history is negative. 9. Family history is noncontributory. 10. MAR was noted. 11. d/w RN 12. Continue treatment per primary consultants. Adore Zazueta M.D. DR: JA JOB#: [id number] CC: KIRIT
--- NOTE | 2020-02-06 07:20 | Diagnostic Imaging Report ---
EXAM: XR Chest, 1 View CLINICAL HISTORY: SOB TECHNIQUE: Frontal view of the chest. COMPARISON: 02/03/20 FINDINGS: Lungs: Mild bibasilar atelectasis. Minimal interstitial edema. Pleural space: There are small bilateral pleural effusions, new or significantly increased since the prior exam. No evidence of pneumothorax. Heart: Cardiac silhouette is enlarged. Mediastinum: No mediastinal widening or shift. Bones/joints: No acute osseous abnormality. IMPRESSION: Minimal interstitial edema with bilateral pleural effusions and cardiomegaly. Findings suggestive of congestive heart failure or hypervolemia. Bibasilar atelectasis. No definite airspace consolidation.
[2020-02-06 07:25] LABS: BASOPHILS % (AUTO) 0.9 % (0.0-2.0); HEMATOCRIT 27.2 % (42.0-52.0); HEMOGLOBIN 8.6 G/DL (14.2-18.0); LYMPHOCYTES % (AUTO) 10.3 % (20.0-45.0); MEAN CORPUSCULAR VOLUME 91 FL (80-99); MONOCYTES % (AUTO) 10.1 % (1.0-10.0); NEUTROPHILS % (AUTO) 78.8 % (45.0-75.0); PLATELET COUNT 374 K/UL (150-450); RED BLOOD COUNT 2.99 M/UL (4.70-6.10); RED CELL DISTRIBUTION WIDTH 13.6 % (11.6-14.8); WHITE BLOOD COUNT 15.4 K/UL (4.8-10.8)
[2020-02-06 08:00] VITALS: BP 140/97
[2020-02-06 08:28] LABS: ANION GAP 15 mmol/L (5-15); BLOOD UREA NITROGEN 68 mg/dL (7-18); CALCIUM 8.6 MG/DL (8.5-10.1); CARBON DIOXIDE 19 MMOL/L (21-32); CHLORIDE 99 MMOL/L (98-107); CREATININE 7.6 MG/DL (0.55-1.30); POTASSIUM 4.5 MMOL/L (3.5-5.1); SODIUM 133 MMOL/L (136-145)
[2020-02-06] MEDS: Docusate 100mg cap ORAL SCH ×2 (08:49→21:13)
[2020-02-06] MEDS: Sodium Bicarbonate 650mg Tab ORAL SCH ×3 (08:49→17:21)
[2020-02-06] MEDS: Aspirin Baby 81mg ORAL SCH (08:49)
[2020-02-06] MEDS: PREZISTA 800 MG ORAL SCH ×2 (08:50→21:13)
[2020-02-06] MEDS: EDURANT 25 MG ORAL SCH (08:50)
[2020-02-06] MEDS: Heparin 5000 units/ml inj SUBQ SCH ×2 (08:51→21:16)
--- NOTE | 2020-02-06 09:32 | NUR ---
CASE MANAGEMENT:REVIEW 02/06/20 SI: ATYPICAL CHEST PAIN. CKD 5. HIV LOW GRADE TEMP AND TACHYCARDIC ~ R/O COVID 19 98.2 112 22 140/97 92% ON 2L/NC WBC+15.4 H/H-8.6/27.2 BUN+68 CR+7.6 IS: EPOETIN SQ MWF NAHCO3 PO TID NORVASC PO QD PROTONIX PO QD DAPSONE PO QD HAART REGIMEN HEPARIN SQ Q12 ASA PO QD IV : TELEMETRY STATUS DCP: FROM HOME PLAN: R/O COVID 19 ISOLATION
--- NOTE | 2020-02-06 09:46 | NUR ---
DISCHARGE PLANNING PATIENT IS HERE FOR ATYPICAL CHEST PAIN...STRESS TEST COMPLETED LOW SATURATION, ELEVATED WBC'S AND TACHYCARDIA NOTED...ID CONSULT CALLED 02/06/20.....R/O COVID 19...ISOLATION
--- NOTE | 2020-02-06 10:08 | NUR ---
RD ASSESSMENT & RECOMMENDATIONS SEE CARE ACTIVITY FOR COMPLETE ASSESSMENT DAILY ESTIMATED NEEDS: Needs based on CKD 5, HIV/ 75kg 25-30 kcals/kg 6757-5214 total kcals 0.6-0.8 g protein/kg 45-60 g total protein 20-22 mL/kg 2166-6014 total fluid mLs NUTRITION DIAGNOSIS: Altered nutrition related lab values R/T CKD 5, HIV as evidenced by elev creat (7.1), elev BUN (69), CD4 264 CURRENT DIET:RENAL PO DIET RECOMMENDATIONS: Maintain RENAL + 60g protein restriction ADDITIONAL RECOMMENDATIONS: * Standing wt for accurate CBW * Monitor K and phos closely: wnl at this time -> monitor need for phos binder w/ meals * Monitor for HD - per MD, no emergent indication for HD
--- NOTE | 2020-02-06 10:29 | General Progress Note ---
Assessment/Plan Assessment/Plan: 54-year-old AAM with PMH of HIV on meds, HTN and CKD stage V not on dialysis who presents with left-sided chest pain. On admission, Cr 7.4, BUN 71. EKG revealed NSR, HR 108. Troponin negative x1. Patient admitted for further treatment and evaluation. #Pleuritic Chest pain #Fluid overload -cont. in-pt medical care -likely GERD vs pleuritic, less likely uremic pericarditis -ACS ruled out, EKG NSR, trops negative -02/03: s/p stress test, negative, TTE EF 65% -ASA, statin -pain management, Tylenol PRN -cont. protonix -supplemental O2 prn -cardio following, recs appreciated -s/p lasix with improvement #Leukocytosis #Suspect CAP #Suspect COVID-19 -cont. supportive care, supplemental O2 -COVID PCR pending -cont. COVID isolation protocol (droplet/contact) -CXR w/pulmonary congestion -d/w ID, will start on CTX given worsening leukocytosis -Pulm consulted, recs appreciated -obtain abg #CKD 5 -b/l Cr 10 per pt -Nephro following: no emergent need for HD #HTN #Tachycardia -cont home meds, amlodipine -d/w cardio, will adjust BP meds #HIV -last viral count undetectable per pt -CD4 300 per pt -cont. home meds DVT PPx: heparin Time spent on encounter: 36 mins, 15 on counseling, coordination of care w/RN and pt. Additional 45 mins pent discussing case w/Dr. Perez, Dr. Mcqueen, Dr. Zazueta and Dr. Rodriguez regarding POC. Time of note doesn't reflect time of encounter. Subjective Allergies: Coded Allergies: No Known Allergies (Verified Allergy, Mild, 12/17/09) Subjective F/u for Chest pain. S/p stress test, negative for ischemia. Worsening leukocytosis, WBC 15. Pt w/acute respiratory distress overnight, was placed on NRB with symptomatic improvement. Was given 1 dose lasix, states he feels "70% better", and feels does not need supplemental O2. 12 pt ROS neg except as above Objective Last 24 Hour Vital Signs Date Time Temp Pulse Resp B/P (MAP) Pulse Ox O2 Delivery O2 Flow Rate FiO2 02/06/20 08:49 112 140/97 02/06/20 08:00 98.2 112 22 140/97 (111) 92 02/06/20 04:00 98.2 111 25 150/84 (106) 90 02/06/20 04:00 107 02/06/20 00:00 99 02/06/20 00:00 98.8 105 20 107/64 (78) 90 02/05/20 21:00 Nasal Cannula 2.0 02/05/20 20:00 102 02/05/20 20:00 98.4 105 20 139/88 (105) 96 02/05/20 16:00 98.6 104 20 129/84 (99) 92 02/05/20 16:00 103 02/05/20 12:00 102 02/05/20 12:00 98.8 105 20 122/80 (94) 93 Intake and Output 02/05/20 02/06/20 19:00 07:00 Intake Total 1200 ml 800 ml Output Total 800 ml Balance 400 ml 800 ml Intake Oral 1200 ml 800 ml Output Urine Total 800 ml # Voids 3 Laboratory Tests 02/06/20 06:30: White Blood Count 15.4H, Red Blood Count 2.99L, Hemoglobin 8.6L, Hematocrit 27.2L, Mean Corpuscular Volume 91, Mean Corpuscular Hemoglobin 29.0, Mean Corpuscular Hemoglobin Concent 31.8L, Red Cell Distribution Width 13.6, Platelet Count 374, Mean Platelet Volume 6.3L, Neutrophils (%) (Auto) 78.8H, Lymphocytes (%) (Auto) 10.3L, Monocytes (%) (Auto) 10.1H, Eosinophils (%) (Auto ) 0.0, Basophils (%) (Auto) 0.9, Sodium Level 133L, Potassium Level 4.5, Chloride Level 99, Carbon Dioxide Level 19L, Anion Gap 15, Blood Urea Nitrogen 68H, Creatinine 7.6H, Estimat Glomerular Filtration Rate 9.1, Glucose Level 143H , Calcium Level 8.6 Height (Feet): 5 Height (Inches): 8.00 Weight (Pounds): 165 Objective General: NAD, A&O x 3, laying in bed comfortably w/NRB mask HEENT: NCAT, EOMi, MMM CV: RRR, no murmurs, rubs, or gallops Pulm: CTAB, No wheezes, rhonchi, or rales, no accessory muscle usage or conversational dyspnea GI: Soft, nontender, nondistended, bowel sounds present Ext: No lower extremity edema bilaterally Skin: no rashes lesions or ulcers Mirza Haynes M.D. February 06, 2020 10:29
--- NOTE | 2020-02-06 10:58 | NUR ---
RADIOLOGY: PCXR COMPLETED 0800HRS. AC (NF)
[2020-02-06] MEDS ORDERED: HYDROcodone/Acetamin 5/325 tab ORAL PRN (11:00)
--- NOTE | 2020-02-06 11:04 | Nephrology Progress Note ---
Assessment/Plan Plan #Chest pain r/o ACS- r/o uremic pericarditis #CKD 5- not yet on HD- likely due to hypertensive nephrosclerosis - LUE aVF placed 3 years - has not needed HD yet- Primary nephorologist Dr. Charles #HTN #HIV - start lasix 40 IV BID - monitor UOP- strict I&Os - COVID 19 rule out - no emergent indication for HD fro now - add sodium bicarb 650 TID - add epo 4K TIW - IV iron - monitor UOP - check 2d echo- > EF 65 - Stress test per cardiology- neg - asa - lipitor - amlodipine 5mg daily - monitor electrolytes and kidney function - continue dapson - continue dapson and prezista - check PTH/vitamin D - ferritin and iron panel Time spent on encounter: 36 mins, >50% on counseling, coordination of care. Subjective ROS Limited/Unobtainable: No Constitutional: Reports: malaise, weakness HEENT: Denies: no symptoms, eye pain, blurred vision, tearing, double vision, ear pain, ear discharge, nose pain, nose congestion, throat pain, throat swelling, mouth pain, mouth swelling, other Genitourinary: Denies: no symptoms, burning, discharge, frequency, flank pain, hematuria, incontinence, pain, urgency, other Neurologic/Psychiatric: Denies: no symptoms, anxiety, depressed, emotional problems, headache, numbness, paresthesia, pre-existing deficit, seizure, tingling, tremors, weakness, other Subjective hypoxic overnight chest xray IMPRESSION: Minimal interstitial edema with bilateral pleural effusions and cardiomegaly. Findings suggestive of congestive heart failure or hypervolemia. stress test neg echo showing EF 65 lytes reviewed Objective Objective Last 24 Hour Vital Signs Date Time Temp Pulse Resp B/P (MAP) Pulse Ox O2 Delivery O2 Flow Rate FiO2 02/06/20 08:49 112 140/97 02/06/20 08:00 98.2 112 22 140/97 (111) 92 02/06/20 04:00 98.2 111 25 150/84 (106) 90 02/06/20 04:00 107 02/06/20 00:00 99 02/06/20 00:00 98.8 105 20 107/64 (78) 90 02/05/20 21:00 Nasal Cannula 2.0 02/05/20 20:00 102 02/05/20 20:00 98.4 105 20 139/88 (105) 96 02/05/20 16:00 98.6 104 20 129/84 (99) 92 02/05/20 16:00 103 02/05/20 12:00 102 02/05/20 12:00 98.8 105 20 122/80 (94) 93 Intake and Output 02/05/20 02/06/20 19:00 07:00 Intake Total 1200 ml 800 ml Output Total 800 ml Balance 400 ml 800 ml Intake Oral 1200 ml 800 ml Output Urine Total 800 ml # Voids 3 Laboratory Tests 02/06/20 06:30: White Blood Count 15.4H, Red Blood Count 2.99L, Hemoglobin 8.6L, Hematocrit 27.2L, Mean Corpuscular Volume 91, Mean Corpuscular Hemoglobin 29.0, Mean Corpuscular Hemoglobin Concent 31.8L, Red Cell Distribution Width 13.6, Platelet Count 374, Mean Platelet Volume 6.3L, Neutrophils (%) (Auto) 78.8H, Lymphocytes (%) (Auto) 10.3L, Monocytes (%) (Auto) 10.1H, Eosinophils (%) (Auto ) 0.0, Basophils (%) (Auto) 0.9, Sodium Level 133L, Potassium Level 4.5, Chloride Level 99, Carbon Dioxide Level 19L, Anion Gap 15, Blood Urea Nitrogen 68H, Creatinine 7.6H, Estimat Glomerular Filtration Rate 9.1, Glucose Level 143H , Calcium Level 8.6 Height (Feet): 5 Height (Inches): 8.00 Weight (Pounds): 165 Morena Mcqueen M.D. February 06, 2020 11:04
--- NOTE | 2020-02-06 11:57 | Cardiac Electrophysiology PN ---
Assessment/Plan Assessment/Plan 1. Chest pain. Ruled out for NH. EKG showed no acute ischemic changes. On aspirin and Lipitor. Echocardiogram EF 65%. Stress test showed no ischemia or scar 2. Hypertension. On amlodipine 5 mg daily. 3. Hyperlipidemia, on Lipitor. 4. HIV, on antiretroviral therapy. 5. Chronic Renal failure. Creatinine of 7.4. Patient has a functioning AV graft in the left arm; however, has not been started on dialysis. THERESE RN and Dr Haynes Subjective Subjective Stress test was nonischemic. No CP or SOB. May need HD Objective Last 24 Hour Vital Signs Date Time Temp Pulse Resp B/P (MAP) Pulse Ox O2 Delivery O2 Flow Rate FiO2 02/06/20 09:00 Venturi Mask 10.0 02/06/20 08:49 112 140/97 02/06/20 08:00 98.2 112 22 140/97 (111) 92 02/06/20 08:00 111 02/06/20 04:00 98.2 111 25 150/84 (106) 90 02/06/20 04:00 107 02/06/20 00:00 99 02/06/20 00:00 98.8 105 20 107/64 (78) 90 02/05/20 21:00 Nasal Cannula 2.0 02/05/20 20:00 102 02/05/20 20:00 98.4 105 20 139/88 (105) 96 02/05/20 16:00 98.6 104 20 129/84 (99) 92 02/05/20 16:00 103 02/05/20 12:00 102 02/05/20 12:00 98.8 105 20 122/80 (94) 93 Intake and Output 02/05/20 02/06/20 19:00 07:00 Intake Total 1200 ml 800 ml Output Total 800 ml Balance 400 ml 800 ml Intake Oral 1200 ml 800 ml Output Urine Total 800 ml # Voids 3 Laboratory Tests Test 02/06/20 06:30 White Blood Count 15.4 K/UL (4.8-10.8) H Red Blood Count 2.99 M/UL (4.70-6.10) L Hemoglobin 8.6 G/DL (14.2-18.0) L Hematocrit 27.2 % (42.0-52.0) L Mean Corpuscular Volume 91 FL (80-99) Mean Corpuscular Hemoglobin 29.0 PG (27.0-31.0) Mean Corpuscular Hemoglobin Concent 31.8 G/DL (32.0-36.0) L Red Cell Distribution Width 13.6 % (11.6-14.8) Platelet Count 374 K/UL (150-450) Mean Platelet Volume 6.3 FL (6.5-10.1) L Neutrophils (%) (Auto) 78.8 % (45.0-75.0) H Lymphocytes (%) (Auto) 10.3 % (20.0-45.0) L Monocytes (%) (Auto) 10.1 % (1.0-10.0) H Eosinophils (%) (Auto) 0.0 % (0.0-3.0) Basophils (%) (Auto) 0.9 % (0.0-2.0) Sodium Level 133 MMOL/L (136-145) L Potassium Level 4.5 MMOL/L (3.5-5.1) Chloride Level 99 MMOL/L (98-107) Carbon Dioxide Level 19 MMOL/L (21-32) L Anion Gap 15 mmol/L (5-15) Blood Urea Nitrogen 68 mg/dL (7-18) H Creatinine 7.6 MG/DL (0.55-1.30) H Estimat Glomerular Filtration Rate 9.1 mL/min (>60) Glucose Level 143 MG/DL (74-106) H Calcium Level 8.6 MG/DL (8.5-10.1) Objective HEAD AND NECK: No JVD or carotid bruits. LUNGS: Clear. CARDIOVASCULAR: Regular S1 and S2 with no gallop or murmur. ABDOMEN: Soft. EXTREMITIES: No pitting edema. Silvino Perez MD February 06, 2020 11:57
[2020-02-06 12:00] VITALS: BP 132/82
[2020-02-06] MEDS: cefTRIAXone 1 GM in D5W 55 ML IVPB SCH (13:42)
[2020-02-06 16:00] VITALS: BP 145/103
--- NOTE | 2020-02-06 18:18 | NUR ---
NURSE NOTES: O2 sat at 89 this afternoon, Dr Haynes made aware, with orders for STAT ABG and results relayed to her. Dr Haynes spoke with Dr Rodriguez and will speak with Dr Mcqueen. Patient verbalized that he is feeling good, no SOB, lung sounds clear.
--- NOTE | 2020-02-06 19:15 | NUR ---
NURSE NOTES: Recieved report from NESHA Rodríguez. Seen pt in my initial rounding. AAOX4, resting in bed, Venturi mask in use, no acute distress noted. denies pain at this time. IV site RAC intact/clean and dry. Instructed to call for assistance anytime. Informed pt of strict I&O and will empty urinals at bedside to keep track of output accurately.
--- NOTE | 2020-02-06 19:39 | NUR ---
HAND-OFF: Report given to Felipa JEFFRIES.
[2020-02-06 20:00] VITALS: BP 117/79
[2020-02-06] MEDS: Iron Sucrose 100 MG in NS 55 ML IV SCH (21:12)
[2020-02-06] MEDS: Atorvastatin 20mg tab ORAL SCH (21:13)
[2020-02-06] MEDS: Epoetin Alfa-EPBX (NON ESRD)4000 units/ml vial SUBQ SCH (21:13)
[2020-02-07] VITALS: BP 110/74
--- NOTE | 2020-02-07 01:45 | Consultation ---
DATE OF CONSULTATION: 02/06/2020 PULMONARY CONSULTATION CONSULTING PHYSICIAN: Spike Rodriguez M.D. HISTORY OF PRESENT ILLNESS: This is a 54-year-old male with a history of HIV on medications. He is known to be hypertensive and also has CKD, however, not on dialysis. He presented with chest pain. Patient is markedly azotemic on arrival with a creatinine of 7.4. Troponin was negative. He is admitted to the hospital for management and care. Patient overnight has been hypoxic. X-ray chest has shown pulmonary vascular congestion. without relief. He has been found to be hypoxic. Patient underwent a followup chest x-ray, which has shown mild pulmonary edema with small bilateral effusions. He also underwent , however results are pending. Patient has been seen by Nephrology as well. Diuretics have been increased. COVID-19 has been ruled out. He also received a bicarbonate. PAST MEDICAL HISTORY: Notable for hypertension, hyperlipidemia, HIV positivity, renal failure. CURRENT MEDICATIONS: Include Tylenol, amlodipine, aspirin, Lipitor, Rocephin, dapsone, Colace, Epogen, Lasix, subcutaneous heparin, and Tylenol with codeine. ALLERGIES: None. CODE STATUS: Full. PHYSICAL EXAMINATION: GENERAL: Reveals a 54-year-old male. HEENT: Unremarkable. CHEST: Shows diminished breath sounds bilaterally with few basilar crackles. HEART: Sounds are normal. ABDOMEN: Soft. EXTREMITIES: There is no edema. VITAL SIGNS: Blood pressure 130/80, heart rate is 94, respirations 22, O2 saturation is 99% on Venti mask. IMPRESSION: 1. Pulmonary edema. 2. Renal failure, not on dialysis. 3. HIV. 4. Hypertension. DISCUSSION: Patient needs increased diuretics. Maybe a candidate for dialysis. We will order oxygen and pulmonary hygiene. 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 Spike Rodriguez M.D. DR: TERRY JOB#: [id number] CC:
[2020-02-07 04:00] VITALS: BP 110/80
--- NOTE | 2020-02-07 07:20 | NUR ---
HAND-OFF: Report given to Ajit Cruz RN.
--- NOTE | 2020-02-07 07:30 | NUR ---
NURSE NOTES: Handoff received from NESHA Negron. Patient received awake and alert and able to make needs known. Patient is on venturi mask at 10liters, no acute signs of distress noted. Patient denies pain at this time. IV site is clean dry and intact, saline locked, bed in the low and locked position with call light within reach, will continue to monitor patient.
[2020-02-07 08:00] VITALS: BP 136/75
--- NOTE | 2020-02-07 08:25 | Pulmonology Progress Note ---
Assessment/Plan Assessment/Plan IMPRESSION: 1. Pulmonary edema. 2. Renal failure, not on dialysis. 3. HIV. 4. Hypertension. DISCUSSION: Continue diuretics. Maybe a candidate for dialysis. Continue oxygen and pulmonary hygiene. 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 Spike Rodriguez M.D. Subjective ROS Limited/Unobtainable: No Interval Events: nONE NEW Constitutional: Reports: no symptoms HEENT: Repors: no symptoms Respiratory: Reports: shortness of breath Cardiovascular: Reports: no symptoms Gastrointestinal/Abdominal: Reports: no symptoms Allergies: Coded Allergies: No Known Allergies (Verified Allergy, Mild, 12/17/09) Objective Last 24 Hour Vital Signs Date Time Temp Pulse Resp B/P (MAP) Pulse Ox O2 Delivery O2 Flow Rate FiO2 02/07/20 04:00 92 02/07/20 04:00 98.4 100 20 110/80 (90) 98 02/07/20 04:00 Room Air 2.0 Nasal Cannula 02/07/20 00:00 98.0 101 18 110/74 (86) 95 02/07/20 00:00 96 02/07/20 00:00 Room Air 2.0 Nasal Cannula 02/06/20 21:00 Nasal Cannula 2.0 Room Air 02/06/20 20:00 98.0 105 20 117/79 (92) 90 02/06/20 20:00 115 02/06/20 16:00 98.2 106 20 145/103 (117) 89 02/06/20 16:00 96 02/06/20 12:00 107 02/06/20 12:00 97.8 108 20 132/82 (99) 91 02/06/20 09:00 Venturi Mask 10.0 02/06/20 08:49 112 140/97 Intake and Output 02/06/20 02/07/20 19:00 07:00 Intake Total 880 ml Output Total 1750 ml 1900 ml Balance -870 ml -1900 ml Intake Oral 880 ml Output Urine Total 1750 ml 1900 ml General Appearance: no acute distress HEENT: normocephalic Respiratory/Chest: chest wall non-tender Cardiovascular: normal peripheral pulses Abdomen: normal bowel sounds Laboratory Tests 02/06/20 16:46: Arterial Blood pH 7.415, Arterial Blood Partial Pressure CO2 27.7L, Arterial Blood Partial Pressure O2 65.4L, Arterial Blood HCO3 17.4*L, Arterial Blood Oxygen Saturation 91.2L, Arterial Blood Base Excess -6.3L, Cristofer Test Positive Current Medications Medications (Trade) Dose Ordered Sig/Sarbjit Route PRN Reason Start Time Stop Time Status Last Admin Dose Admin Acetaminophen (Tylenol) 650 mg Q4H PRN ORAL Mild Pain (Pain Scale 1-3) 02/03/20 06:30 03/04/20 06:29 02/06/20 09:15 Acetaminophen (Tylenol) 650 mg Q4H PRN ORAL Temp >100.5 02/03/20 06:30 03/04/20 06:29 Acetaminophen/ Hydrocodone Bitart ([place] 5/325) 1 tab Q4H PRN ORAL Prn Chest Pain 02/06/20 11:00 02/13/20 10:59 Amlodipine Besylate (Norvasc) 5 mg DAILY ORAL 02/04/20 09:00 03/05/20 08:59 02/06/20 08:49 Aspirin (ASA) 81 mg DAILY ORAL 02/03/20 15:30 03/19/20 15:29 02/06/20 08:49 Atorvastatin Calcium (Lipitor) 40 mg BEDTIME ORAL 02/03/20 21:00 05/03/20 20:59 02/06/20 21:13 Ceftriaxone Sodium 1 gm/ Dextrose 55 ml @ 110 mls/hr Q24H IVPB 02/06/20 14:00 02/13/20 13:59 02/06/20 13:42 Dapsone (Dapsone) 100 mg DAILY ORAL 02/04/20 09:00 02/11/20 08:59 02/06/20 08:49 Dextrose (Dextrose 50%) 25 ml Q30M PRN IV Hypoglycemia 02/03/20 06:30 05/03/20 06:29 Dextrose (Dextrose 50%) 50 ml Q30M PRN IV Hypoglycemia 02/03/20 06:30 05/03/20 06:29 Docusate Sodium (Colace) 100 mg EVERY 12 HOURS ORAL 02/03/20 09:00 03/04/20 08:59 02/06/20 21:13 Epoetin Jaya (Epoetin Jaya-EPBX(NON ESRD)) 4,000 unit SUN-SUN-SUN SUBQ 02/06/20 21:00 05/06/20 20:59 02/06/20 21:13 Furosemide (Lasix) 80 mg EVERY 12 HOURS IV 02/06/20 21:00 03/07/20 10:59 02/06/20 21:12 Heparin Sodium (Porcine) (Heparin 5000 units/ml) 5,000 units EVERY 12 HOURS SUBQ 02/03/20 21:00 03/19/20 20:59 02/06/20 21:16 Ipratropium [place] (Atrovent) 500 mcg Q6H PRN HHN Shortness of Breath 02/06/20 06:00 02/11/20 05:59 Iron Sucrose 100 mg/Sodium Chloride 60 ml @ 240 mls/hr BEDTIME IV 02/06/20 21:00 02/10/20 21:14 02/06/20 21:12 Nitroglycerin (Ntg) 0.4 mg Q5M PRN SL Prn Chest Pain 02/03/20 11:15 03/04/20 11:14 Ondansetron HCl (Zofran) 4 mg Q6H PRN IVP Nausea & Vomiting 02/03/20 06:30 03/04/20 06:29 Pantoprazole (Protonix) 40 mg DAILY ORAL 02/05/20 12:00 03/06/20 11:59 02/06/20 08:49 Patient Own Medication (Patient's Own Med) 1 ea DAILY ORAL 02/04/20 14:00 03/05/20 13:59 02/06/20 08:50 Patient Own Medication (Patient's Own Med) 1 ea Q12HR ORAL 02/04/20 14:00 03/05/20 13:59 02/06/20 21:13 Polyethylene Glycol (Miralax) 17 gm DAILYPRN PRN ORAL Constipation 02/03/20 06:30 03/04/20 06:29 Sodium Bicarbonate (NaHCO3) 650 mg THREE TIMES A DAY ORAL 02/05/20 13:00 03/06/20 12:59 02/06/20 17:21 Spike Rodriguez MD February 07, 2020 08:25
[2020-02-07 09:19] LABS: BASOPHILS % (AUTO) 1.1 % (0.0-2.0); EOSINOPHILS % (AUTO) 1.4 % (0.0-3.0); HEMATOCRIT 27.5 % (42.0-52.0); HEMOGLOBIN 8.8 G/DL (14.2-18.0); LYMPHOCYTES % (AUTO) 19.5 % (20.0-45.0); MEAN CORPUSCULAR VOLUME 90 FL (80-99); MONOCYTES % (AUTO) 10.1 % (1.0-10.0); PLATELET COUNT 344 K/UL (150-450); RED BLOOD COUNT 3.05 M/UL (4.70-6.10); RED CELL DISTRIBUTION WIDTH 13.8 % (11.6-14.8); WHITE BLOOD COUNT 14.8 K/UL (4.8-10.8)
[2020-02-07 09:29] LABS: ANION GAP 18 mmol/L (5-15); BLOOD UREA NITROGEN 85 mg/dL (7-18); CALCIUM 10.3 MG/DL (8.5-10.1); CARBON DIOXIDE 21 MMOL/L (21-32); CHLORIDE 93 MMOL/L (98-107); CREATININE 8.6 MG/DL (0.55-1.30); POTASSIUM 3.9 MMOL/L (3.5-5.1); SODIUM 132 MMOL/L (136-145)
--- NOTE | 2020-02-07 09:33 | General Progress Note ---
Assessment/Plan Assessment/Plan: 54-year-old AAM with PMH of HIV on meds, HTN and CKD stage V not on dialysis who presents with left-sided chest pain. On admission, Cr 7.4, BUN 71. EKG revealed NSR, HR 108. Troponin negative x1. Patient admitted for further treatment and evaluation. #Atypical Chest Pain #Pleuritic Chest pain #Fluid overload -cont. in-pt medical care -likely pleuritic, less likely uremic pericarditis -ACS ruled out, EKG NSR, trops negative -02/03: s/p stress test, negative, TTE EF 65% -ASA, statin -pain management, Tylenol PRN -cont. protonix -supplemental O2 prn -cardio following, recs appreciated -s/p lasix with improvement -d/w nephro, metolazone x1, lasix 80 BID #Leukocytosis - downtrending #Suspect CAP #Suspect COVID-19 -cont. supportive care, supplemental O2 -COVID PCR pending -cont. COVID isolation protocol (droplet/contact) -CXR w/pulmonary congestion -d/w ID, CTX -Pulm consulted, recs appreciated #CKD 5 -b/l Cr 10 per pt -Nephro following: no emergent need for HD at this time #HTN #Tachycardia -cont home meds, amlodipine -d/w cardio, will adjust BP meds #HIV -last viral count undetectable per pt -CD4 300 per pt -cont. home meds DVT PPx: heparin Time spent on encounter: 35 mins, 20 on counseling, coordination of care w/RN and pt. Time of note doesn't reflect time of encounter. Subjective Allergies: Coded Allergies: No Known Allergies (Verified Allergy, Mild, 12/17/09) Subjective F/u for Chest pain. S/p stress test, negative for ischemia, ACS ruled out. Respiratory distress 2/2 fluid overload. Pending COVID r/o. Leukocytosis down trending. Pt w/another episode of hypoxia, was given metolazone and lasix with symptomatic improvement. Pt states he is "feeling much better" today, denies any SOB/cough at this time. 12 pt ROS neg except as above Objective Last 24 Hour Vital Signs Date Time Temp Pulse Resp B/P (MAP) Pulse Ox O2 Delivery O2 Flow Rate FiO2 02/07/20 08:00 97.0 100 20 136/75 (95) 91 02/07/20 04:00 92 02/07/20 04:00 98.4 100 20 110/80 (90) 98 02/07/20 04:00 Room Air 2.0 Nasal Cannula 02/07/20 00:00 98.0 101 18 110/74 (86) 95 02/07/20 00:00 96 02/07/20 00:00 Room Air 2.0 Nasal Cannula 02/06/20 21:00 Nasal Cannula 2.0 Room Air 02/06/20 20:00 98.0 105 20 117/79 (92) 90 02/06/20 20:00 115 02/06/20 16:00 98.2 106 20 145/103 (117) 89 02/06/20 16:00 96 02/06/20 12:00 107 02/06/20 12:00 97.8 108 20 132/82 (99) 91 Intake and Output 02/06/20 02/07/20 19:00 07:00 Intake Total 880 ml Output Total 1750 ml 1900 ml Balance -870 ml -1900 ml Intake Oral 880 ml Output Urine Total 1750 ml 1900 ml Laboratory Tests 02/06/20 16:46: Arterial Blood pH 7.415, Arterial Blood Partial Pressure CO2 27.7L, Arterial Blood Partial Pressure O2 65.4L, Arterial Blood HCO3 17.4*L, Arterial Blood Oxygen Saturation 91.2L, Arterial Blood Base Excess -6.3L, Cristofer Test Positive 02/07/20 08:15: White Blood Count 14.8H, Red Blood Count 3.05L, Hemoglobin 8.8L, Hematocrit 27.5L, Mean Corpuscular Volume 90, Mean Corpuscular Hemoglobin 28.7, Mean Corpuscular Hemoglobin Concent 32.0, Red Cell Distribution Width 13.8, Platelet Count 344, Mean Platelet Volume 6.0L, Neutrophils (%) (Auto) 68.0, Lymphocytes ( %) (Auto) 19.5L, Monocytes (%) (Auto) 10.1H, Eosinophils (%) (Auto) 1.4, Basophils (%) (Auto) 1.1, Sodium Level 132L, Potassium Level 3.9, Chloride Level 93L, Carbon Dioxide Level 21, Anion Gap 18H, Blood Urea Nitrogen 85H, Creatinine 8.6H, Estimat Glomerular Filtration Rate 7.9, Glucose Level 128H, Calcium Level 10.3H Height (Feet): 5 Height (Inches): 8.00 Weight (Pounds): 165 Objective General: NAD, A&O x 3, laying in bed comfortably w/venti mask off face at this time HEENT: NCAT, EOMi, MMM CV: RRR, no murmurs, rubs, or gallops Pulm: CTAB, No wheezes, rhonchi, or rales, no accessory muscle usage or conversational dyspnea GI: Soft, nontender, nondistended, bowel sounds present Ext: No lower extremity edema bilaterally Skin: no rashes lesions or ulcers Mirza Haynes M.D. February 07, 2020 09:33
[2020-02-07] MEDS: PREZISTA 800 MG ORAL SCH ×2 (09:52→20:20)
[2020-02-07] MEDS: Docusate 100mg cap ORAL SCH ×2 (09:53→20:19)
[2020-02-07] MEDS: Sodium Bicarbonate 650mg Tab ORAL SCH ×3 (09:53→18:06)
[2020-02-07] MEDS: EDURANT 25 MG ORAL SCH (09:53)
[2020-02-07] MEDS: Aspirin Baby 81mg ORAL SCH (09:53)
[2020-02-07] MEDS: Heparin 5000 units/ml inj SUBQ SCH ×2 (09:56→20:18)
[2020-02-07 12:00] VITALS: BP 124/71
[2020-02-07] MEDS: cefTRIAXone 1 GM in D5W 55 ML IVPB SCH (13:35)
--- NOTE | 2020-02-07 14:01 | Cardiac Electrophysiology PN ---
Assessment/Plan Assessment/Plan 1. Chest pain. Ruled out for DC. EKG showed no acute ischemic changes. On aspirin and Lipitor. Echo EF 65%. Stress test showed no ischemia or scar 2. Hypertension. On amlodipine 5 mg daily and Lasix 80 iv bid 3. Hyperlipidemia, on Lipitor. 4. HIV, on antiretroviral therapy. 5. Chronic Renal failure. Creatinine of 7.4. Patient has a functioning AV graft in the left arm; however, has not been started on dialysis. BUN/Cr worsening Cr >8 now 6. PNA and elevated WBC 15K on iv Abx DW RN and Dr Haynes Subjective Subjective Stress test was nonischemic. No CP or SOB. Still not on HD. Saturation dropped overnight. Objective Last 24 Hour Vital Signs Date Time Temp Pulse Resp B/P (MAP) Pulse Ox O2 Delivery O2 Flow Rate FiO2 02/07/20 12:00 96 02/07/20 12:00 97.3 100 18 124/71 (88) 93 02/07/20 10:02 Venturi Mask 15.0 Venturi Mask 15.0 02/07/20 09:53 100 136/75 02/07/20 08:00 97.0 100 20 136/75 (95) 91 02/07/20 08:00 104 02/07/20 04:00 92 02/07/20 04:00 98.4 100 20 110/80 (90) 98 02/07/20 04:00 Room Air 2.0 Nasal Cannula 02/07/20 00:00 98.0 101 18 110/74 (86) 95 02/07/20 00:00 96 02/07/20 00:00 Room Air 2.0 Nasal Cannula 02/06/20 21:00 Nasal Cannula 2.0 Room Air 02/06/20 20:00 98.0 105 20 117/79 (92) 90 02/06/20 20:00 115 02/06/20 16:00 98.2 106 20 145/103 (117) 89 02/06/20 16:00 96 Intake and Output 02/06/20 02/07/20 19:00 07:00 Intake Total 880 ml Output Total 1750 ml 1900 ml Balance -870 ml -1900 ml Intake Oral 880 ml Output Urine Total 1750 ml 1900 ml Laboratory Tests Test 02/06/20 16:46 02/07/20 08:15 Arterial Blood pH 7.415 (7.350-7.450) Arterial Blood Partial Pressure CO2 27.7 mmHg (35.0-45.0) L Arterial Blood Partial Pressure O2 65.4 mmHg (75.0-100.0) L Arterial Blood HCO3 17.4 mmol/L (22.0-26.0) *L Arterial Blood Oxygen Saturation 91.2 % (95-100) L Arterial Blood Base Excess -6.3 (-2-2) L Cristofer Test Positive White Blood Count 14.8 K/UL (4.8-10.8) H Red Blood Count 3.05 M/UL (4.70-6.10) L Hemoglobin 8.8 G/DL (14.2-18.0) L Hematocrit 27.5 % (42.0-52.0) L Mean Corpuscular Volume 90 FL (80-99) Mean Corpuscular Hemoglobin 28.7 PG (27.0-31.0) Mean Corpuscular Hemoglobin Concent 32.0 G/DL (32.0-36.0) Red Cell Distribution Width 13.8 % (11.6-14.8) Platelet Count 344 K/UL (150-450) Mean Platelet Volume 6.0 FL (6.5-10.1) L Neutrophils (%) (Auto) 68.0 % (45.0-75.0) Lymphocytes (%) (Auto) 19.5 % (20.0-45.0) L Monocytes (%) (Auto) 10.1 % (1.0-10.0) H Eosinophils (%) (Auto) 1.4 % (0.0-3.0) Basophils (%) (Auto) 1.1 % (0.0-2.0) Sodium Level 132 MMOL/L (136-145) L Potassium Level 3.9 MMOL/L (3.5-5.1) Chloride Level 93 MMOL/L (98-107) L Carbon Dioxide Level 21 MMOL/L (21-32) Anion Gap 18 mmol/L (5-15) H Blood Urea Nitrogen 85 mg/dL (7-18) H Creatinine 8.6 MG/DL (0.55-1.30) H Estimat Glomerular Filtration Rate 7.9 mL/min (>60) Glucose Level 128 MG/DL (74-106) H Calcium Level 10.3 MG/DL (8.5-10.1) H Pro-B-Type Natriuretic Peptide 1400 pg/mL (0-125) H Objective HEAD AND NECK: No JVD or carotid bruits. LUNGS: Clear. CARDIOVASCULAR: Regular S1 and S2 with no gallop or murmur. ABDOMEN: Soft. EXTREMITIES: No pitting edema. Silvino Perez MD February 07, 2020 14:01
[2020-02-07 16:00] VITALS: BP 157/62
--- NOTE | 2020-02-07 18:15 | Nephrology Progress Note ---
Assessment/Plan Plan #Chest pain r/o ACS- r/o uremic pericarditis #CKD 5- not yet on HD- likely due to hypertensive nephrosclerosis - LUE aVF placed 3 years - has not needed HD yet- Primary nephorologist Dr. Charles #HTN #HIV Breathing improved with diuresis UOP over 3.4L yesterday with lasix and metolazone Discussed HD initiation - consideration to start on sunday ->> continue lasix 40 IV BID - monitor UOP- strict I&Os - COVID 19 rule out - add sodium bicarb 650 TID - add epo 4K TIW - IV iron - monitor UOP - check 2d echo- > EF 65 - Stress test per cardiology- neg - asa - lipitor - amlodipine 5mg daily - monitor electrolytes and kidney function - continue dapson - continue dapson and prezista - check PTH/vitamin D - ferritin and iron panel Time spent on encounter: 36 mins, >50% on counseling, coordination of care. Subjective ROS Limited/Unobtainable: No Constitutional: Denies: no symptoms, chills, diaphoresis, fever, malaise, weakness, other HEENT: Denies: no symptoms, eye pain, blurred vision, tearing, double vision, ear pain, ear discharge, nose pain, nose congestion, throat pain, throat swelling, mouth pain, mouth swelling, other Genitourinary: Denies: no symptoms, burning, discharge, frequency, flank pain, hematuria, incontinence, pain, urgency, other Neurologic/Psychiatric: Denies: no symptoms, anxiety, depressed, emotional problems, headache, numbness, paresthesia, pre-existing deficit, seizure, tingling, tremors, weakness, other Subjective Breathing improved with diuresis UOP over 3.L Discussed HD initiation - consideration to start on sunday chest xray IMPRESSION: Minimal interstitial edema with bilateral pleural effusions and cardiomegaly. Findings suggestive of congestive heart failure or hypervolemia. stress test neg echo showing EF 65 lytes reviewed Objective Objective Last 24 Hour Vital Signs Date Time Temp Pulse Resp B/P (MAP) Pulse Ox O2 Delivery O2 Flow Rate FiO2 02/07/20 16:00 105 02/07/20 16:00 98.1 85 18 157/62 (93) 98 02/07/20 12:00 96 02/07/20 12:00 97.3 100 18 124/71 (88) 93 02/07/20 10:02 Venturi Mask 15.0 Venturi Mask 15.0 02/07/20 09:53 100 136/75 02/07/20 08:00 97.0 100 20 136/75 (95) 91 02/07/20 08:00 104 02/07/20 04:00 92 02/07/20 04:00 98.4 100 20 110/80 (90) 98 02/07/20 04:00 Room Air 2.0 Nasal Cannula 02/07/20 00:00 98.0 101 18 110/74 (86) 95 02/07/20 00:00 96 02/07/20 00:00 Room Air 2.0 Nasal Cannula 02/06/20 21:00 Nasal Cannula 2.0 Room Air 02/06/20 20:00 98.0 105 20 117/79 (92) 90 02/06/20 20:00 115 Intake and Output 02/06/20 02/07/20 19:00 07:00 Intake Total 880 ml Output Total 1750 ml 1900 ml Balance -870 ml -1900 ml Intake Oral 880 ml Output Urine Total 1750 ml 1900 ml Laboratory Tests 02/07/20 08:15: White Blood Count 14.8H, Red Blood Count 3.05L, Hemoglobin 8.8L, Hematocrit 27.5L, Mean Corpuscular Volume 90, Mean Corpuscular Hemoglobin 28.7, Mean Corpuscular Hemoglobin Concent 32.0, Red Cell Distribution Width 13.8, Platelet Count 344, Mean Platelet Volume 6.0L, Neutrophils (%) (Auto) 68.0, Lymphocytes ( %) (Auto) 19.5L, Monocytes (%) (Auto) 10.1H, Eosinophils (%) (Auto) 1.4, Basophils (%) (Auto) 1.1, Sodium Level 132L, Potassium Level 3.9, Chloride Level 93L, Carbon Dioxide Level 21, Anion Gap 18H, Blood Urea Nitrogen 85H, Creatinine 8.6H, Estimat Glomerular Filtration Rate 7.9, Glucose Level 128H, Calcium Level 10.3H, Pro-B-Type Natriuretic Peptide 1400H Height (Feet): 5 Height (Inches): 8.00 Weight (Pounds): 167 PirouMorena knight M.D. February 07, 2020 18:15
--- NOTE | 2020-02-07 19:53 | NUR ---
NURSE NOTES: RECEIVED REPORT FROM NESHA JACKMAN. PATIENT IS AWAKE IN BED, ALERT AND OX4, VERBALLY RESPONSIVE AND ABLE TO MAKE NEEDS KNOWN. BREATHING IS EVEN AND UNLABORED ON 15L VIA VENTURI MASK- NO S/SX OF DISTRESS NOTED. NO COMPLAINTS OF PAIN OR DISCOMFORT AT THIS TIME. IV SITE ON RFA SALINE-LOCKED, ASYMPTOMATIC, PATENT AND INTACT. THRILL AND BRUIT PRESENT LAV SHUNT. BED LOCKED AND IN LOWEST POSITION, SIDERAILS UP X 2. CALL LIGHT WITHIN REACH, URINAL WITHIN REACH. WILL CONTINUE TO MONITOR.
--- NOTE | 2020-02-07 19:55 | NUR ---
HAND-OFF: Report given to NESHA Avelar.
[2020-02-07 20:00] VITALS: BP 115/76
[2020-02-07] MEDS: Atorvastatin 20mg tab ORAL SCH (20:18)
[2020-02-07] MEDS: Iron Sucrose 100 MG in NS 55 ML IV SCH (20:19)
--- NOTE | 2020-02-07 21:03 | Infectious Diseases Prog Note ---
Assessment/Plan Assessment/Plan ASSESSMENT AND PLAN: 1. leukocytosis, ? source, ? sepsis, rule covid-19 infection with pna, chest x- ray c/w chf/pvc, sob - empiric ceftriaxone - day # 2 - check blood cultures (02/05/20) - monitor labs - communicated with Dr. Haynes 2. 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 - f/u with primary HIV MD as a outpatient 3. 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 The patient has history of hypertension, treatment by primary care team. 5. Chronic kidney disease. 6. No known drug allergies. 7. Anemia. 8. Social history is negative. 9. Family history is noncontributory. 10. MAR was noted. 11. d/w RN 12. Continue treatment per primary consultants. Subjective Constitutional: Reports: fatigue, other - on bm, no fever or chills; Denies: fever HEENT: Reports: congestion Respiratory: Reports: shortness of breath; Denies: dry cough Cardiovascular: Denies: chest pain Gastrointestinal/Abdominal: Reports: other - no abdominal pain ; Denies: nausea , vomiting, diarrhea Genitourinary: Denies: dysuria Neurologic: Denies: headache Psychiatric: Denies: depression Skin: Denies: rash Hematologic: Denies: bleeding Musculoskeletal: Denies: pain Allergies: Coded Allergies: No Known Allergies (Verified Allergy, Mild, 12/17/09) Objective Vital Signs Last 24 Hour Vital Signs Date Time Temp Pulse Resp B/P (MAP) Pulse Ox O2 Delivery O2 Flow Rate FiO2 02/07/20 16:00 105 02/07/20 16:00 98.1 85 18 157/62 (93) 98 02/07/20 12:00 96 02/07/20 12:00 97.3 100 18 124/71 (88) 93 02/07/20 10:02 Venturi Mask 15.0 Venturi Mask 15.0 02/07/20 09:53 100 136/75 02/07/20 08:00 97.0 100 20 136/75 (95) 91 02/07/20 08:00 104 02/07/20 04:00 92 02/07/20 04:00 98.4 100 20 110/80 (90) 98 02/07/20 04:00 Room Air 2.0 Nasal Cannula 02/07/20 00:00 98.0 101 18 110/74 (86) 95 02/07/20 00:00 96 02/07/20 00:00 Room Air 2.0 Nasal Cannula 02/06/20 21:00 Nasal Cannula 2.0 Room Air Height (Feet): 5 Height (Inches): 8.00 Weight (Pounds): 167 General Appearance: no acute distress HEENT: normocephalic, atraumatic, anicteric, mucous membranes moist Respiratory/Chest: crackles/rales, rhonchi - bilaterally Cardiovascular: normal rate, regular rhythm, no gallop/murmur Abdomen: normal bowel sounds, soft, non tender, no organomegaly, non distended Genitourinary: other - no harden Extremities: no cyanosis Skin: no rash Neurologic/Psychiatric: 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 COMPARISON: 02/03/20 Chest x-ray - 02/06/20 - FINDINGS: Lungs: Mild bibasilar atelectasis. Minimal interstitial edema. Pleural space: There are small bilateral pleural effusions, new or significantly increased since the prior exam. No evidence of pneumothorax. Heart: Cardiac silhouette is enlarged. Mediastinum: No mediastinal widening or shift. Bones/joints: No acute osseous abnormality. IMPRESSION: Minimal interstitial edema with bilateral pleural effusions and cardiomegaly. Findings suggestive of congestive heart failure or hypervolemia. Bibasilar atelectasis. No definite airspace consolidation. Microbiology Date/Time Source Procedure Growth Status 02/03/20 06:00 Nasal Nares MRSA Culture - Final NO METHICILLIN RESISTANT STAPH AUREUS... Complete 02/03/20 06:00 Rectum VRE Culture - Final NO VANCOMYCIN RESISTANT ENTEROCOCCUS ... Complete Laboratory Tests Test 02/07/20 08:15 White Blood Count 14.8 K/UL (4.8-10.8) H Red Blood Count 3.05 M/UL (4.70-6.10) L Hemoglobin 8.8 G/DL (14.2-18.0) L Hematocrit 27.5 % (42.0-52.0) L Mean Corpuscular Volume 90 FL (80-99) Mean Corpuscular Hemoglobin 28.7 PG (27.0-31.0) Mean Corpuscular Hemoglobin Concent 32.0 G/DL (32.0-36.0) Red Cell Distribution Width 13.8 % (11.6-14.8) Platelet Count 344 K/UL (150-450) Mean Platelet Volume 6.0 FL (6.5-10.1) L Neutrophils (%) (Auto) 68.0 % (45.0-75.0) Lymphocytes (%) (Auto) 19.5 % (20.0-45.0) L Monocytes (%) (Auto) 10.1 % (1.0-10.0) H Eosinophils (%) (Auto) 1.4 % (0.0-3.0) Basophils (%) (Auto) 1.1 % (0.0-2.0) Sodium Level 132 MMOL/L (136-145) L Potassium Level 3.9 MMOL/L (3.5-5.1) Chloride Level 93 MMOL/L (98-107) L Carbon Dioxide Level 21 MMOL/L (21-32) Anion Gap 18 mmol/L (5-15) H Blood Urea Nitrogen 85 mg/dL (7-18) H Creatinine 8.6 MG/DL (0.55-1.30) H Estimat Glomerular Filtration Rate 7.9 mL/min (>60) Glucose Level 128 MG/DL (74-106) H Calcium Level 10.3 MG/DL (8.5-10.1) H Pro-B-Type Natriuretic Peptide 1400 pg/mL (0-125) H Current Medications Medications (Trade) Dose Ordered Sig/Sarbjit Route PRN Reason Start Time Stop Time Status Last Admin Dose Admin Acetaminophen (Tylenol) 650 mg Q4H PRN ORAL Mild Pain (Pain Scale 1-3) 02/03/20 06:30 03/04/20 06:29 02/06/20 09:15 Acetaminophen (Tylenol) 650 mg Q4H PRN ORAL Temp >100.5 02/03/20 06:30 03/04/20 06:29 Acetaminophen/ Hydrocodone Bitart (Trent 5/325) 1 tab Q4H PRN ORAL Prn Chest Pain 02/06/20 11:00 02/13/20 10:59 Amlodipine Besylate (Norvasc) 5 mg DAILY ORAL 02/04/20 09:00 03/05/20 08:59 02/07/20 09:53 Aspirin (ASA) 81 mg DAILY ORAL 02/03/20 15:30 03/19/20 15:29 02/07/20 09:53 Atorvastatin Calcium (Lipitor) 40 mg BEDTIME ORAL 02/03/20 21:00 05/03/20 20:59 02/07/20 20:18 Ceftriaxone Sodium 1 gm/ Dextrose 55 ml @ 110 mls/hr Q24H IVPB 02/06/20 14:00 02/13/20 13:59 02/07/20 13:35 Dapsone (Dapsone) 100 mg DAILY ORAL 02/04/20 09:00 02/11/20 08:59 02/07/20 09:54 Dextrose (Dextrose 50%) 25 ml Q30M PRN IV Hypoglycemia 02/03/20 06:30 05/03/20 06:29 Dextrose (Dextrose 50%) 50 ml Q30M PRN IV Hypoglycemia 02/03/20 06:30 05/03/20 06:29 Docusate Sodium (Colace) 100 mg EVERY 12 HOURS ORAL 02/03/20 09:00 03/04/20 08:59 02/07/20 20:19 Epoetin Jaya (Epoetin Jaya-EPBX(NON ESRD)) 4,000 unit SUN-SUN-SUN SUBQ 02/06/20 21:00 05/06/20 20:59 02/06/20 21:13 Furosemide (Lasix) 40 mg EVERY 12 HOURS IV 02/07/20 21:00 03/07/20 10:59 02/07/20 20:18 Heparin Sodium (Porcine) (Heparin 5000 units/ml) 5,000 units EVERY 12 HOURS SUBQ 02/03/20 21:00 03/19/20 20:59 02/07/20 20:18 Ipratropium [place] (Atrovent) 500 mcg Q6H PRN HHN Shortness of Breath 02/06/20 06:00 02/11/20 05:59 Iron Sucrose 100 mg/Sodium Chloride 60 ml @ 240 mls/hr BEDTIME IV 02/06/20 21:00 02/10/20 21:14 02/07/20 20:19 Nitroglycerin (Ntg) 0.4 mg Q5M PRN SL Prn Chest Pain 02/03/20 11:15 03/04/20 11:14 Ondansetron HCl (Zofran) 4 mg Q6H PRN IVP Nausea & Vomiting 02/03/20 06:30 03/04/20 06:29 Pantoprazole (Protonix) 40 mg DAILY ORAL 02/05/20 12:00 03/06/20 11:59 02/07/20 09:54 Patient Own Medication (Patient's Own Med) 1 ea DAILY ORAL 02/04/20 14:00 03/05/20 13:59 02/07/20 09:53 Patient Own Medication (Patient's Own Med) 1 ea Q12HR ORAL 02/04/20 14:00 03/05/20 13:59 02/07/20 20:20 Polyethylene Glycol (Miralax) 17 gm DAILYPRN PRN ORAL Constipation 02/03/20 06:30 03/04/20 06:29 Sodium Bicarbonate (NaHCO3) 650 mg THREE TIMES A DAY ORAL 02/05/20 13:00 03/06/20 12:59 02/07/20 18:06 Adore Zazueta MD February 07, 2020 21:03
[2020-02-08] VITALS: BP 131/60
[2020-02-08 04:00] VITALS: BP 112/64
[2020-02-08 05:35] LABS: BASOPHILS % (AUTO) 1.1 % (0.0-2.0); EOSINOPHILS % (AUTO) 1.7 % (0.0-3.0); HEMATOCRIT 25.6 % (42.0-52.0); HEMOGLOBIN 8.5 G/DL (14.2-18.0); LYMPHOCYTES % (AUTO) 23.2 % (20.0-45.0); MEAN CORPUSCULAR VOLUME 88 FL (80-99); NEUTROPHILS % (AUTO) 63.1 % (45.0-75.0); PLATELET COUNT 354 K/UL (150-450); RED BLOOD COUNT 2.92 M/UL (4.70-6.10); RED CELL DISTRIBUTION WIDTH 13.5 % (11.6-14.8); WHITE BLOOD COUNT 12.7 K/UL (4.8-10.8)
[2020-02-08 05:51] LABS: ANION GAP 19 mmol/L (5-15); BLOOD UREA NITROGEN 95 mg/dL (7-18); CALCIUM 9.3 MG/DL (8.5-10.1); CARBON DIOXIDE 23 MMOL/L (21-32); CHLORIDE 92 MMOL/L (98-107); CREATININE 9.7 MG/DL (0.55-1.30); POTASSIUM 3.6 MMOL/L (3.5-5.1); SODIUM 134 MMOL/L (136-145)
[2020-02-08 06:26] LABS: PHOSPHORUS 6.4 MG/DL (2.5-4.9)
--- NOTE | 2020-02-08 07:07 | NUR ---
HAND-OFF: Report given to NESHA JACKMAN. PATIENT IN STABLE CONDITION. PLAN OF CARE ENDORSED.
--- NOTE | 2020-02-08 07:30 | NUR ---
NURSE NOTES:Handoff received from NESHA Avelar. Patient received awake and alert and able to make needs known, Patient is on Venturi mask at 15 liters. No acute signs of distress noted. IV site is clean dry and intact, saline locked. Bed in the low and locked position with call light within reach.
[2020-02-08 08:00] VITALS: BP 126/76
[2020-02-08] MEDS: Sodium Bicarbonate 650mg Tab ORAL SCH ×3 (10:21→17:54)
[2020-02-08] MEDS: PREZISTA 800 MG ORAL SCH ×2 (10:22→21:24)
[2020-02-08] MEDS: EDURANT 25 MG ORAL SCH (10:22)
[2020-02-08] MEDS: Docusate 100mg cap ORAL SCH ×2 (10:22→21:24)
[2020-02-08] MEDS: Aspirin Baby 81mg ORAL SCH (10:22)
[2020-02-08] MEDS: Heparin 5000 units/ml inj SUBQ SCH ×2 (10:24→21:25)
--- NOTE | 2020-02-08 10:28 | General Progress Note ---
Assessment/Plan Assessment/Plan: 54-year-old AAM with PMH of HIV on meds, HTN and CKD stage V not on dialysis who presents with left-sided chest pain. On admission, Cr 7.4, BUN 71. EKG revealed NSR, HR 108. Troponin negative x1. Patient admitted for further treatment and evaluation. #Atypical Chest Pain #Pleuritic Chest pain #Fluid overload -cont. in-pt medical care -likely pleuritic, less likely uremic pericarditis -ACS ruled out, EKG NSR, trops negative -02/03: s/p stress test, negative, TTE EF 65% -ASA, statin -pain management, Tylenol PRN -cont. protonix -supplemental O2 prn -cardio following, recs appreciated -s/p lasix with improvement -d/w nephro, metolazone x1, lasix 80 BID #Leukocytosis - downtrending #Suspect CAP #Suspect COVID-19 -cont. supportive care, supplemental O2 -COVID PCR pending -cont. COVID isolation protocol (droplet/contact) -CXR w/pulmonary congestion -d/w ID, CTX -Pulm consulted, recs appreciated #CKD 5 -b/l Cr 10 per pt -Nephro following: no emergent need for HD at this time #HTN #Tachycardia -cont home meds, amlodipine -d/w cardio, will adjust BP meds #HIV -last viral count undetectable per pt -CD4 300 per pt -cont. home meds DVT PPx: heparin Time spent on encounter: 35 mins, 20 on counseling, coordination of care w/RN and pt. Time of note doesn't reflect time of encounter. Subjective Allergies: Coded Allergies: No Known Allergies (Verified Allergy, Mild, 12/17/09) Subjective F/u for Chest pain. S/p stress test, negative for ischemia, ACS ruled out. Respiratory distress 2/2 fluid overload. Pending COVID r/o. Leukocytosis down trending. Pt w/another episode of hypoxia, was given metolazone and lasix with symptomatic improvement. Pt states he is "feeling much better" today, denies any SOB/cough at this time. 12 pt ROS neg except as above Objective Last 24 Hour Vital Signs Date Time Temp Pulse Resp B/P (MAP) Pulse Ox O2 Delivery O2 Flow Rate FiO2 02/08/20 10:22 96 126/76 02/08/20 08:00 97.0 96 19 126/76 (93) 91 02/08/20 07:55 95 18 91 Venturi Mask 15.0 55 02/08/20 07:55 91 Venturi Mask 15.0 55 02/08/20 04:00 98.8 90 20 112/64 (80) 93 02/08/20 04:00 94 02/08/20 00:00 98.1 69 20 131/60 (83) 92 02/08/20 00:00 98 02/07/20 21:00 Room Air 15.0 Venturi Mask 02/07/20 20:00 97 02/07/20 20:00 99.0 102 18 115/76 (89) 98 02/07/20 16:00 105 02/07/20 16:00 98.1 85 18 157/62 (93) 98 02/07/20 12:00 96 02/07/20 12:00 97.3 100 18 124/71 (88) 93 Intake and Output 02/07/20 02/08/20 19:00 07:00 Intake Total 600 ml 780 ml Output Total 1145 ml 1500 ml Balance -545 ml -720 ml Intake Oral 600 ml 720 ml IV Total 60 ml Output Urine Total 1145 ml 1500 ml Laboratory Tests 02/08/20 04:15: White Blood Count 12.7H, Red Blood Count 2.92L, Hemoglobin 8.5L, Hematocrit 25.6L, Mean Corpuscular Volume 88, Mean Corpuscular Hemoglobin 29.0, Mean Corpuscular Hemoglobin Concent 33.1, Red Cell Distribution Width 13.5, Platelet Count 354, Mean Platelet Volume 6.0L, Neutrophils (%) (Auto) 63.1, Lymphocytes ( %) (Auto) 23.2, Monocytes (%) (Auto) 11.0H, Eosinophils (%) (Auto) 1.7, Basophils (%) (Auto) 1.1, Sodium Level 134L, Potassium Level 3.6, Chloride Level 92L, Carbon Dioxide Level 23, Anion Gap 19H, Blood Urea Nitrogen 95H, Creatinine 9.7H, Estimat Glomerular Filtration Rate 6.9, Glucose Level 109H, Calcium Level 9.3, Phosphorus Level 6.4H, Magnesium Level 2.4 Height (Feet): 5 Height (Inches): 8.00 Weight (Pounds): 167 Objective General: NAD, A&O x 3, laying in bed comfortably w/venti mask off face at this time HEENT: NCAT, EOMi, MMM CV: RRR, no murmurs, rubs, or gallops Pulm: CTAB, No wheezes, rhonchi, or rales, no accessory muscle usage or conversational dyspnea GI: Soft, nontender, nondistended, bowel sounds present Ext: No lower extremity edema bilaterally Skin: no rashes lesions or ulcers Mirza Haynes M.D. February 08, 2020 10:28
[2020-02-08 12:00] VITALS: BP 107/52
--- NOTE | 2020-02-08 12:44 | Nephrology Progress Note ---
Assessment/Plan Plan #Chest pain r/o ACS- r/o uremic pericarditis #CKD 5- not yet on HD- likely due to hypertensive nephrosclerosis - LUE aVF placed 3 years - has not needed HD yet- Primary nephorologist Dr. 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 Subjective ROS Limited/Unobtainable: No Constitutional: Denies: no symptoms, chills, diaphoresis, fever, malaise, weakness, other HEENT: Denies: no symptoms, eye pain, blurred vision, tearing, double vision, ear pain, ear discharge, nose pain, nose congestion, throat pain, throat swelling, mouth pain, mouth swelling, other Genitourinary: Denies: no symptoms, burning, discharge, frequency, flank pain, hematuria, incontinence, pain, urgency, other Neurologic/Psychiatric: Denies: no symptoms, anxiety, depressed, emotional problems, headache, numbness, paresthesia, pre-existing deficit, seizure, tingling, tremors, weakness, other Subjective Breathing improved with diuresis UOP over 2.6L initiation Discussed HD initiation - plan start on sunday chest xray IMPRESSION: Minimal interstitial edema with bilateral pleural effusions and cardiomegaly. Findings suggestive of congestive heart failure or hypervolemia. stress test neg echo showing EF 65 lytes reviewed Objective Objective Last 24 Hour Vital Signs Date Time Temp Pulse Resp B/P (MAP) Pulse Ox O2 Delivery O2 Flow Rate FiO2 02/08/20 12:00 97.2 104 19 107/52 (70) 98 02/08/20 12:00 102 02/08/20 10:22 96 126/76 02/08/20 09:00 Venturi Mask 15.0 02/08/20 08:00 97.0 96 19 126/76 (93) 91 02/08/20 08:00 89 02/08/20 07:55 95 18 91 Venturi Mask 15.0 55 02/08/20 07:55 91 Venturi Mask 15.0 55 02/08/20 04:00 98.8 90 20 112/64 (80) 93 02/08/20 04:00 94 02/08/20 00:00 98.1 69 20 131/60 (83) 92 02/08/20 00:00 98 02/07/20 21:00 Room Air 15.0 Venturi Mask 02/07/20 20:00 97 02/07/20 20:00 99.0 102 18 115/76 (89) 98 02/07/20 16:00 105 02/07/20 16:00 98.1 85 18 157/62 (93) 98 Intake and Output 02/07/20 02/08/20 19:00 07:00 Intake Total 600 ml 780 ml Output Total 1145 ml 1500 ml Balance -545 ml -720 ml Intake Oral 600 ml 720 ml IV Total 60 ml Output Urine Total 1145 ml 1500 ml Laboratory Tests 02/08/20 04:15: White Blood Count 12.7H, Red Blood Count 2.92L, Hemoglobin 8.5L, Hematocrit 25.6L, Mean Corpuscular Volume 88, Mean Corpuscular Hemoglobin 29.0, Mean Corpuscular Hemoglobin Concent 33.1, Red Cell Distribution Width 13.5, Platelet Count 354, Mean Platelet Volume 6.0L, Neutrophils (%) (Auto) 63.1, Lymphocytes ( %) (Auto) 23.2, Monocytes (%) (Auto) 11.0H, Eosinophils (%) (Auto) 1.7, Basophils (%) (Auto) 1.1, Sodium Level 134L, Potassium Level 3.6, Chloride Level 92L, Carbon Dioxide Level 23, Anion Gap 19H, Blood Urea Nitrogen 95H, Creatinine 9.7H, Estimat Glomerular Filtration Rate 6.9, Glucose Level 109H, Calcium Level 9.3, Phosphorus Level 6.4H, Magnesium Level 2.4 Height (Feet): 5 Height (Inches): 8.00 Weight (Pounds): 163 Pirouz,Aslan M.D. February 08, 2020 12:44
[2020-02-08] MEDS: Renvela 800mg Pkt ORAL SCH ×2 (13:24→17:54)
[2020-02-08] MEDS: cefTRIAXone 1 GM in D5W 55 ML IVPB SCH (13:25)
--- NOTE | 2020-02-08 14:28 | General Progress Note ---
Assessment/Plan Assessment/Plan: 54-year-old AAM with PMH of HIV on meds, HTN and CKD stage V not on dialysis who presents with left-sided chest pain. On admission, Cr 7.4, BUN 71. EKG revealed NSR, HR 108. Troponin negative x1. Patient admitted for further treatment and evaluation. #Atypical Chest Pain #Pleuritic Chest pain #Fluid overload #CKD 5 -cont. in-pt medical care -likely fluid overload, pleuritic, less likely uremic pericarditis -ACS ruled out, EKG NSR, trops negative -02/03: s/p stress test, negative, TTE EF 65% -pain management, Tylenol PRN -cont. protonix -supplemental O2 prn -cardio following, ACS ruled out, ASA, lipitor. Echo EF 65%, stress test no ischemia or scar -cont. lasix 40 BID -d/w nephro, plan for HD tomorrow #Leukocytosis - downtrending #Suspect CAP #Suspect COVID-19 -cont. supportive care, supplemental O2 -COVID PCR pending -cont. COVID isolation protocol (droplet/contact) -CXR w/pulmonary congestion -d/w ID, CTX -Pulm consulted, recs appreciated #HTN #Tachycardia -cont home meds, amlodipine -d/w cardio, will adjust BP meds #HIV -last viral count undetectable per pt -CD4 300 per pt -cont. home meds DVT PPx: heparin Time spent on encounter: 35 mins, 20 on counseling, coordination of care w/RN, pt, pt's PCP, Dr. Marino. Time of note doesn't reflect time of encounter. Subjective Allergies: Coded Allergies: No Known Allergies (Verified Allergy, Mild, 12/17/09) Subjective F/u for Chest pain. S/p stress test, negative for ischemia, ACS ruled out. Respiratory distress 2/2 fluid overload. Pending COVID r/o. Leukocytosis down trending. Pt states he is feeling better, denies any SOB/cough at this time. 12 pt ROS neg except as above Objective Last 24 Hour Vital Signs Date Time Temp Pulse Resp B/P (MAP) Pulse Ox O2 Delivery O2 Flow Rate FiO2 02/08/20 12:00 97.2 104 19 107/52 (70) 98 02/08/20 12:00 102 02/08/20 10:22 96 126/76 02/08/20 09:00 Venturi Mask 15.0 02/08/20 08:00 97.0 96 19 126/76 (93) 91 02/08/20 08:00 89 02/08/20 07:55 95 18 91 Venturi Mask 15.0 55 02/08/20 07:55 91 Venturi Mask 15.0 55 02/08/20 04:00 98.8 90 20 112/64 (80) 93 02/08/20 04:00 94 02/08/20 00:00 98.1 69 20 131/60 (83) 92 02/08/20 00:00 98 02/07/20 21:00 Room Air 15.0 Venturi Mask 02/07/20 20:00 97 02/07/20 20:00 99.0 102 18 115/76 (89) 98 02/07/20 16:00 105 02/07/20 16:00 98.1 85 18 157/62 (93) 98 Intake and Output 02/07/20 02/08/20 19:00 07:00 Intake Total 600 ml 780 ml Output Total 1145 ml 1500 ml Balance -545 ml -720 ml Intake Oral 600 ml 720 ml IV Total 60 ml Output Urine Total 1145 ml 1500 ml Laboratory Tests 02/08/20 04:15: White Blood Count 12.7H, Red Blood Count 2.92L, Hemoglobin 8.5L, Hematocrit 25.6L, Mean Corpuscular Volume 88, Mean Corpuscular Hemoglobin 29.0, Mean Corpuscular Hemoglobin Concent 33.1, Red Cell Distribution Width 13.5, Platelet Count 354, Mean Platelet Volume 6.0L, Neutrophils (%) (Auto) 63.1, Lymphocytes ( %) (Auto) 23.2, Monocytes (%) (Auto) 11.0H, Eosinophils (%) (Auto) 1.7, Basophils (%) (Auto) 1.1, Sodium Level 134L, Potassium Level 3.6, Chloride Level 92L, Carbon Dioxide Level 23, Anion Gap 19H, Blood Urea Nitrogen 95H, Creatinine 9.7H, Estimat Glomerular Filtration Rate 6.9, Glucose Level 109H, Calcium Level 9.3, Phosphorus Level 6.4H, Magnesium Level 2.4 Height (Feet): 5 Height (Inches): 8.00 Weight (Pounds): 163 Objective General: NAD, A&O x 3, laying in bed comfortably w/venti mask off face at this time HEENT: NCAT, EOMi, MMM CV: RRR, no murmurs, rubs, or gallops Pulm: CTAB, No wheezes, rhonchi, or rales, no accessory muscle usage or conversational dyspnea GI: Soft, nontender, nondistended, bowel sounds present Ext: No lower extremity edema bilaterally Skin: no rashes lesions or ulcers Mirza Haynes M.D. February 08, 2020 14:28
[2020-02-08 16:00] VITALS: BP 124/78
--- NOTE | 2020-02-08 17:05 | Pulmonology Progress Note ---
Assessment/Plan Assessment/Plan IMPRESSION: 1. Pulmonary edema. 2. Renal failure, not on dialysis. 3. HIV. 4. Hypertension. DISCUSSION: Continue diuretics. Maybe a candidate for dialysis. Continue oxygen and pulmonary hygiene. 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 Currently on NRBM; saO2 95% Spike Rodriguez M.D. Subjective ROS Limited/Unobtainable: No Interval Events: nONE NEW Constitutional: Reports: fatigue, other - on bm, no fever or chills; Denies: fever HEENT: Repors: no symptoms Respiratory: Reports: shortness of breath Cardiovascular: Reports: no symptoms Gastrointestinal/Abdominal: Reports: other - no abdominal pain ; Denies: nausea , vomiting, diarrhea Psychiatric: Denies: depression Skin: Denies: rash Musculoskeletal: Denies: pain Allergies: Coded Allergies: No Known Allergies (Verified Allergy, Mild, 12/17/09) Objective Last 24 Hour Vital Signs Date Time Temp Pulse Resp B/P (MAP) Pulse Ox O2 Delivery O2 Flow Rate FiO2 02/08/20 16:00 94 02/08/20 16:00 97.0 97 18 124/78 (93) 94 02/08/20 12:00 97.2 104 19 107/52 (70) 98 02/08/20 12:00 102 02/08/20 10:22 96 126/76 02/08/20 09:00 Venturi Mask 15.0 02/08/20 08:00 97.0 96 19 126/76 (93) 91 02/08/20 08:00 89 02/08/20 07:55 95 18 91 Venturi Mask 15.0 55 02/08/20 07:55 91 Venturi Mask 15.0 55 02/08/20 04:00 98.8 90 20 112/64 (80) 93 02/08/20 04:00 94 02/08/20 00:00 98.1 69 20 131/60 (83) 92 02/08/20 00:00 98 02/07/20 21:00 Room Air 15.0 Venturi Mask 02/07/20 20:00 97 02/07/20 20:00 99.0 102 18 115/76 (89) 98 Intake and Output 02/07/20 02/08/20 19:00 07:00 Intake Total 600 ml 780 ml Output Total 1145 ml 1500 ml Balance -545 ml -720 ml Intake Oral 600 ml 720 ml IV Total 60 ml Output Urine Total 1145 ml 1500 ml General Appearance: no acute distress HEENT: normocephalic, atraumatic, anicteric, mucous membranes moist Respiratory/Chest: chest wall non-tender Cardiovascular: normal peripheral pulses Abdomen: normal bowel sounds, soft, non tender, no organomegaly, non distended Genitourinary: other - no harden Extremities: no cyanosis Skin: no rash 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/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 grossly normal, alert, oriented x 3, responsive Lymphatic: no neck adenopathy Musculoskeletal: no effusion Microbiology Date/Time Source Procedure Growth Status 02/06/20 06:30 Blood Blood Culture - Preliminary NO GROWTH AFTER 24 HOURS Resulted 02/06/20 06:20 Blood Blood Culture - Preliminary NO GROWTH AFTER 24 HOURS Resulted Laboratory Tests 02/08/20 04:15: White Blood Count 12.7H, Red Blood Count 2.92L, Hemoglobin 8.5L, Hematocrit 25.6L, Mean Corpuscular Volume 88, Mean Corpuscular Hemoglobin 29.0, Mean Corpuscular Hemoglobin Concent 33.1, Red Cell Distribution Width 13.5, Platelet Count 354, Mean Platelet Volume 6.0L, Neutrophils (%) (Auto) 63.1, Lymphocytes ( %) (Auto) 23.2, Monocytes (%) (Auto) 11.0H, Eosinophils (%) (Auto) 1.7, Basophils (%) (Auto) 1.1, Sodium Level 134L, Potassium Level 3.6, Chloride Level 92L, Carbon Dioxide Level 23, Anion Gap 19H, Blood Urea Nitrogen 95H, Creatinine 9.7H, Estimat Glomerular Filtration Rate 6.9, Glucose Level 109H, Calcium Level 9.3, Phosphorus Level 6.4H, Magnesium Level 2.4 Current Medications Medications (Trade) Dose Ordered Sig/Sarbjit Route PRN Reason Start Time Stop Time Status Last Admin Dose Admin Acetaminophen (Tylenol) 650 mg Q4H PRN ORAL Mild Pain (Pain Scale 1-3) 02/03/20 06:30 03/04/20 06:29 02/06/20 09:15 Acetaminophen (Tylenol) 650 mg Q4H PRN ORAL Temp >100.5 02/03/20 06:30 03/04/20 06:29 Acetaminophen/ Hydrocodone Bitart ([place] 5/325) 1 tab Q4H PRN ORAL Prn Chest Pain 02/06/20 11:00 02/13/20 10:59 Amlodipine Besylate (Norvasc) 5 mg DAILY ORAL 02/04/20 09:00 03/05/20 08:59 02/08/20 10:22 Aspirin (ASA) 81 mg DAILY ORAL 02/03/20 15:30 03/19/20 15:29 02/08/20 10:22 Atorvastatin Calcium (Lipitor) 40 mg BEDTIME ORAL 02/03/20 21:00 05/03/20 20:59 02/07/20 20:18 Ceftriaxone Sodium 1 gm/ Dextrose 55 ml @ 110 mls/hr Q24H IVPB 02/06/20 14:00 02/13/20 13:59 02/08/20 13:25 Dapsone (Dapsone) 100 mg DAILY ORAL 02/04/20 09:00 02/11/20 08:59 02/08/20 10:21 Dextrose (Dextrose 50%) 25 ml Q30M PRN IV Hypoglycemia 02/03/20 06:30 05/03/20 06:29 Dextrose (Dextrose 50%) 50 ml Q30M PRN IV Hypoglycemia 02/03/20 06:30 05/03/20 06:29 Docusate Sodium (Colace) 100 mg EVERY 12 HOURS ORAL 02/03/20 09:00 03/04/20 08:59 02/08/20 10:22 Epoetin Jaya (Epoetin Jaya-EPBX(NON ESRD)) 4,000 unit SUN-SUN-SUN SUBQ 02/06/20 21:00 05/06/20 20:59 02/06/20 21:13 Furosemide (Lasix) 40 mg DAILY IV 02/09/20 09:00 03/07/20 10:59 Heparin Sodium (Porcine) (Heparin 5000 units/ml) 5,000 units EVERY 12 HOURS SUBQ 02/03/20 21:00 03/19/20 20:59 02/08/20 10:24 Ipratropium [place] (Atrovent) 500 mcg Q6H PRN HHN Shortness of Breath 02/06/20 06:00 02/11/20 05:59 Iron Sucrose 100 mg/Sodium Chloride 60 ml @ 240 mls/hr BEDTIME IV 02/06/20 21:00 02/10/20 21:14 02/07/20 20:19 Nitroglycerin (Ntg) 0.4 mg Q5M PRN SL Prn Chest Pain 02/03/20 11:15 03/04/20 11:14 Ondansetron HCl (Zofran) 4 mg Q6H PRN IVP Nausea & Vomiting 02/03/20 06:30 03/04/20 06:29 Pantoprazole (Protonix) 40 mg DAILY ORAL 02/05/20 12:00 03/06/20 11:59 02/08/20 10:22 Patient Own Medication (Patient's Own Med) 1 ea DAILY ORAL 02/04/20 14:00 03/05/20 13:59 02/08/20 10:22 Patient Own Medication (Patient's Own Med) 1 ea Q12HR ORAL 02/04/20 14:00 03/05/20 13:59 02/08/20 10:22 Polyethylene Glycol (Miralax) 17 gm DAILYPRN PRN ORAL Constipation 02/03/20 06:30 03/04/20 06:29 Sevelamer Carbonate (Renvela) 800 mg THREE TIMES A DAY ORAL 02/08/20 13:00 05/08/20 12:59 02/08/20 13:24 Sodium Bicarbonate (NaHCO3) 650 mg THREE TIMES A DAY ORAL 02/05/20 13:00 03/06/20 12:59 02/08/20 13:24 Spike Rodriguez MD February 08, 2020 17:04
--- NOTE | 2020-02-08 18:20 | NUR ---
NURSE NOTES:contacted Dr Haynes to notify that patient is complaining of left sided chest pain, worse on inspiration. Patient given Tylenol. EKG ordered. EKG results sent to Cashier Assistant.
--- NOTE | 2020-02-08 18:35 | NUR ---
NURSE NOTES:Dr Perez responded after EKG result with orders for Stat troponinx3 and to give nitroglycerine x3
[2020-02-08] MEDS: Nitroglycerin Subl 0.4mg tab SL PRN ×2 (18:49→18:58)
--- NOTE | 2020-02-08 19:55 | NUR ---
NURSE NOTES: Report received from Ajit JEFFRIES. Patient is awake and alert x 4 sitting up right in bed. Was endorsed that patient had an NSTEMI today. Doctor Diego aware per Ajit JEFFRIES. EKG obtained, and labs ordered by Ajit JEFFRIES. Endorsed to inform Diego of troponin blood level results. Tera JEFFRIES communicated these endorsements to Sundar garcia RN and Hung JEFFRIES, whom Tera JEFFRIES is preforming team nursing with. Currently, patient noted to be on venturi mask. Does not appear to be in respiratory distress. Patient denies chest pain, shortness of breath, and pain at this time. Educated patient to call Tera JEFFRIES if change in condition occurs. Patient verbalized understanding. Bed locked, in lowest position, and call light in reach. Will continue to follow plan of care.
--- NOTE | 2020-02-08 19:55 | NUR ---
HAND-OFF: Report given to NESHA Haley.Endorsed to contact Dr Perez when troponin results come back.
[2020-02-08 20:00] VITALS: BP 112/68
--- NOTE | 2020-02-08 20:30 | NUR ---
NURSE NOTES: Patient denies chest pain and shortness of breath at this time. Will continue to follow plan of care.
[2020-02-08] MEDS: Atorvastatin 20mg tab ORAL SCH (21:24)
[2020-02-08] MEDS: Iron Sucrose 100 MG in NS 55 ML IV SCH (21:24)
--- NOTE | 2020-02-08 21:41 | NUR ---
NURSE NOTES: Medications administered per MD orders. Patient continues to deny chest pain and shortness of breath. Patient appears comfortable. Will continue to follow plan of care.
--- NOTE | 2020-02-08 23:04 | NUR ---
NURSE NOTES: Dialysis consent obtained. Patient reports chest pain 4/10, denies shortness of breath. Patient appears comfortable. Tera JEFFRIES advised patient to take nitroglycerin. Patient denied, and informed Tera JEFFRIES he would call if he think he needed it. Patient is awake and alert x 4. Tera JEFFRIES informed Hung JEFFRIES of patient's decision. Will continue to monitor and follow plan of care.
[2020-02-09] VITALS: BP 125/79
--- NOTE | 2020-02-09 00:22 | NUR ---
NURSE NOTES: Vital signs obtained. Patient reports chest pain 0/10 and denies shortness of breath.
--- NOTE | 2020-02-09 00:50 | NUR ---
NURSE NOTES: Troponin noted to come back negative. Patient currently sleeping.
[2020-02-09 04:00] VITALS: BP 116/61
--- NOTE | 2020-02-09 07:14 | NUR ---
HAND-OFF: Report given to Ajit JEFFRIES. Endorsed that patient has been in stable condition.
--- NOTE | 2020-02-09 07:30 | NUR ---
NURSE NOTES:NURSE NOTES:Handoff received from NESHA Haley. Patient received awake and alert and able to make needs known, Patient is on Venturi mask at 10 liters. No acute signs of distress noted. IV site is clean dry and intact, saline locked. Bed in the low and locked position with call light within reach.
[2020-02-09 08:00] VITALS: BP 111/66
[2020-02-09 09:29] LABS: ANION GAP 22 mmol/L (5-15); BLOOD UREA NITROGEN 115 mg/dL (7-18); CALCIUM 9.9 MG/DL (8.5-10.1); CARBON DIOXIDE 20 MMOL/L (21-32); CHLORIDE 88 MMOL/L (98-107); CREATININE 10.8 MG/DL (0.55-1.30); POTASSIUM 3.6 MMOL/L (3.5-5.1); SODIUM 130 MMOL/L (136-145)
[2020-02-09 09:34] LABS: BASOPHILS % (AUTO) 0.8 % (0.0-2.0); EOSINOPHILS % (AUTO) 1.9 % (0.0-3.0); HEMATOCRIT 27.6 % (42.0-52.0); HEMOGLOBIN 8.6 G/DL (14.2-18.0); LYMPHOCYTES % (AUTO) 22.8 % (20.0-45.0); MEAN CORPUSCULAR VOLUME 93 FL (80-99); MONOCYTES % (AUTO) 10.9 % (1.0-10.0); NEUTROPHILS % (AUTO) 63.6 % (45.0-75.0); PLATELET COUNT 352 K/UL (150-450); RED BLOOD COUNT 2.96 M/UL (4.70-6.10); RED CELL DISTRIBUTION WIDTH 15.9 % (11.6-14.8); WHITE BLOOD COUNT 12.7 K/UL (4.8-10.8)
[2020-02-09] MEDS: Heparin 5000 units/ml inj SUBQ SCH ×2 (09:45→21:00)
[2020-02-09] MEDS: Renvela 800mg Pkt ORAL SCH ×3 (09:45→17:49)
--- NOTE | 2020-02-09 09:46 | Nephrology Progress Note ---
Assessment/Plan Plan #Chest pain r/o ACS- r/o uremic pericarditis #CKD 5- not yet on HD- likely due to hypertensive nephrosclerosis - LUE aVF placed 3 years - has not needed HD yet- Primary nephorologist Dr. 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 Subjective ROS Limited/Unobtainable: No Subjective Breathing improved with diuresis BUN uptrending Discussed HD initiation - plan start today chest xray IMPRESSION: Minimal interstitial edema with bilateral pleural effusions and cardiomegaly. Findings suggestive of congestive heart failure or hypervolemia. stress test neg echo showing EF 65 lytes reviewed Objective Objective Last 24 Hour Vital Signs Date Time Temp Pulse Resp B/P (MAP) Pulse Ox O2 Delivery O2 Flow Rate FiO2 02/09/20 08:00 97.7 111 20 111/66 (81) 91 02/09/20 04:00 97.6 86 19 116/61 (79) 92 02/09/20 04:00 92 02/09/20 00:00 93 02/09/20 00:00 98.1 95 19 125/79 (94) 94 02/08/20 21:00 Venturi Mask 15.0 Venturi Mask 02/08/20 20:16 93 Venturi Mask 14.0 55 02/08/20 20:16 68 18 93 Venturi Mask 14.0 55 02/08/20 20:00 96 02/08/20 20:00 97.5 66 18 112/68 (83) 92 02/08/20 18:58 124/70 02/08/20 18:49 114/68 02/08/20 18:47 97.0 02/08/20 16:00 94 02/08/20 16:00 97.0 97 18 124/78 (93) 94 02/08/20 12:00 97.2 104 19 107/52 (70) 98 02/08/20 12:00 102 02/08/20 10:22 96 126/76 Intake and Output 02/08/20 02/09/20 19:00 07:00 Intake Total 840 ml 60 ml Output Total 1100 ml 900 ml Balance -260 ml -840 ml Intake Oral 840 ml IV Total 60 ml Output Urine Total 1100 ml 900 ml Laboratory Tests 02/08/20 18:40: Troponin I 0.000 02/09/20 00:25: Troponin I 0.000 02/09/20 06:37: Troponin I 0.000, White Blood Count 12.7H, Red Blood Count 2.96L, Hemoglobin 8.6L, Hematocrit 27.6L, Mean Corpuscular Volume 93, Mean Corpuscular Hemoglobin 29.1, Mean Corpuscular Hemoglobin Concent 31.1L, Red Cell Distribution Width 15.9H, Platelet Count 352, Mean Platelet Volume 7.3, Neutrophils (%) (Auto) 63.6 , Lymphocytes (%) (Auto) 22.8, Monocytes (%) (Auto) 10.9H, Eosinophils (%) (Auto ) 1.9, Basophils (%) (Auto) 0.8, Sodium Level 130L, Potassium Level 3.6, Chloride Level 88L, Carbon Dioxide Level 20L, Anion Gap 22H, Blood Urea Nitrogen 115H, Creatinine 10.8H, Estimat Glomerular Filtration Rate 6.1, Glucose Level 110H, Calcium Level 9.9 Height (Feet): 5 Height (Inches): 8.00 Weight (Pounds): 163 Morena Mcqueen M.D. February 09, 2020 09:46
[2020-02-09] MEDS: Docusate 100mg cap ORAL SCH ×2 (09:52→20:32)
[2020-02-09] MEDS: Sodium Bicarbonate 650mg Tab ORAL SCH ×3 (09:52→17:49)
[2020-02-09] MEDS: Aspirin Baby 81mg ORAL SCH (09:52)
[2020-02-09] MEDS: EDURANT 25 MG ORAL SCH (09:53)
[2020-02-09] MEDS: PREZISTA 800 MG ORAL SCH ×2 (09:53→20:32)
--- NOTE | 2020-02-09 10:04 | NUR ---
CASE MANAGEMENT:REVIEW 02/09/20 SI: ATYPICAL CHEST PAIN. CKD 5. HIV LOW GRADE TEMP AND TACHYCARDIC ~ R/O COVID 19 97.7 111 20 111/66 91% ON VENTURI MASK 15L BUN+115 CR+10.8 IS: IV ROCEPHIN Q24 IV VENOFER QHS RENVELA PO TID EPOETIN SQ MWF NaHCO3 PO TID PROTONIX PO QD NORVASC PO QD DAPSONE PO QD HEPARIN SQ Q12 ASA PO QD HAART REGIMEN : TELEMETRY STATUS DCP: FROM HOME PLAN: COVID 19 RESULTS PENDING HEPATITIS PANEL PENDING ~ NEEDED FOR OUTPATIENT DIALYSIS MAINTAIN ISOLATION DIALYZE TODAY FOR THE FIRST TIME REFERRED TO [facility]
--- NOTE | 2020-02-09 10:14 | NUR ---
DISCHARGE PLANNING NOT READY FOR DISCHARGE TODAY COVID 19 RESULTS PENDING ~ MAINTAIN ISOLATION HEPATITIS PANEL ORDERED~ NEEDED FOR OUTPATIENT DIALYSIS PLACEMENT ~ REFERRED TO [facility] PLAN TO DIALYZE TODAY FOR THE FIRST TIME
--- NOTE | 2020-02-09 11:34 | General Progress Note ---
Assessment/Plan Assessment/Plan: 54-year-old AAM with PMH of HIV on meds, HTN and CKD stage V not on dialysis who presents with left-sided chest pain. On admission, Cr 7.4, BUN 71. EKG revealed NSR, HR 108. Troponin negative x1. Patient admitted for further treatment and evaluation. #Atypical Chest Pain #Uremic Pericarditis #Fluid overload #CKD 5 -cont. in-pt medical care -likely uremic pericarditis given elevated BUN, pain relieved w/tyelenol -ACS ruled out, EKG NSR, trops negative -02/03: s/p stress test no ischemia or scar, negative, TTE EF 65% -pain management, Tylenol PRN -d/c protonix -supplemental O2 prn -cont. lasix 40 BID -d/w nephro, plan for HD today and tomorrow #Leukocytosis - downtrending #Suspect CAP #Suspect COVID-19 -cont. supportive care, supplemental O2 -COVID PCR pending -cont. COVID isolation protocol (droplet/contact) -CXR w/pulmonary congestion -ID following: CTX -Pulm consulted, recs appreciated #HTN #Tachycardia -cont home meds, amlodipine -d/w cardio, will adjust BP meds #HIV -last viral count undetectable per pt -CD4 300 per pt -cont. home meds DVT PPx: heparin Time spent on encounter: 35 mins, 20 on counseling, coordination of care w/RN, pt, Nephro and Cardio. Time of note doesn't reflect time of encounter. Subjective Allergies: Coded Allergies: No Known Allergies (Verified Allergy, Mild, 12/17/09) Subjective F/u for Chest pain. S/p stress test, negative for ischemia, ACS ruled out. Respiratory distress 2/2 fluid overload. Pending COVID r/o. Pt denies any further episodes of SOB. Plan for HD today. 12 pt ROS neg except as above Objective Last 24 Hour Vital Signs Date Time Temp Pulse Resp B/P (MAP) Pulse Ox O2 Delivery O2 Flow Rate FiO2 02/09/20 09:45 111 111/66 02/09/20 09:00 Venturi Mask 10.0 02/09/20 08:00 92 02/09/20 08:00 97.7 111 20 111/66 (81) 91 02/09/20 04:00 97.6 86 19 116/61 (79) 92 02/09/20 04:00 92 02/09/20 00:00 93 02/09/20 00:00 98.1 95 19 125/79 (94) 94 02/08/20 21:00 Venturi Mask 15.0 Venturi Mask 02/08/20 20:16 93 Venturi Mask 14.0 55 02/08/20 20:16 68 18 93 Venturi Mask 14.0 55 02/08/20 20:00 96 02/08/20 20:00 97.5 66 18 112/68 (83) 92 02/08/20 18:58 124/70 02/08/20 18:49 114/68 02/08/20 18:47 97.0 02/08/20 16:00 94 02/08/20 16:00 97.0 97 18 124/78 (93) 94 02/08/20 12:00 97.2 104 19 107/52 (70) 98 02/08/20 12:00 102 Intake and Output 02/08/20 02/09/20 19:00 07:00 Intake Total 840 ml 60 ml Output Total 1100 ml 900 ml Balance -260 ml -840 ml Intake Oral 840 ml IV Total 60 ml Output Urine Total 1100 ml 900 ml Laboratory Tests 02/08/20 18:40: Troponin I 0.000 02/09/20 00:25: Troponin I 0.000 02/09/20 06:37: Troponin I 0.000, White Blood Count 12.7H, Red Blood Count 2.96L, Hemoglobin 8.6L, Hematocrit 27.6L, Mean Corpuscular Volume 93, Mean Corpuscular Hemoglobin 29.1, Mean Corpuscular Hemoglobin Concent 31.1L, Red Cell Distribution Width 15.9H, Platelet Count 352, Mean Platelet Volume 7.3, Neutrophils (%) (Auto) 63.6 , Lymphocytes (%) (Auto) 22.8, Monocytes (%) (Auto) 10.9H, Eosinophils (%) (Auto ) 1.9, Basophils (%) (Auto) 0.8, Sodium Level 130L, Potassium Level 3.6, Chloride Level 88L, Carbon Dioxide Level 20L, Anion Gap 22H, Blood Urea Nitrogen 115H, Creatinine 10.8H, Estimat Glomerular Filtration Rate 6.1, Glucose Level 110H, Calcium Level 9.9, Hepatitis B Surface Antigen [Pending], Hepatitis B Surface Antibody, Quant [Pending], Hepatitis C Antibody [Pending] Height (Feet): 5 Height (Inches): 8.00 Weight (Pounds): 162 Objective General: NAD, A&O x 3, laying in bed comfortably w/venti mask off face at this time HEENT: NCAT, EOMi, MMM CV: RRR, no murmurs, rubs, or gallops Pulm: CTAB, No wheezes, rhonchi, or rales, no accessory muscle usage or conversational dyspnea GI: Soft, nontender, nondistended, bowel sounds present Ext: No lower extremity edema bilaterally, LUE fistula +bruit/thrill Skin: no rashes lesions or ulcers Mirza Haynes M.D. February 09, 2020 11:34
--- NOTE | 2020-02-09 11:43 | Pulmonology Progress Note ---
Assessment/Plan Assessment/Plan IMPRESSION: 1. Pulmonary edema. 2. Renal failure, not on dialysis. 3. HIV. 4. Hypertension. DISCUSSION: Continue diuretics. Maybe a candidate for dialysis. Is negative 1L last 24 hours. Continue oxygen and pulmonary hygiene. 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 Currently on NRBM; saO2 91-93% Spike Rodriguez M.D. Subjective ROS Limited/Unobtainable: No Interval Events: None new reported Constitutional: Reports: fatigue, other - on bm, no fever or chills; Denies: fever HEENT: Repors: no symptoms Respiratory: Reports: shortness of breath Cardiovascular: Reports: no symptoms Gastrointestinal/Abdominal: Reports: other - no abdominal pain ; Denies: nausea , vomiting, diarrhea Psychiatric: Denies: depression Skin: Denies: rash Musculoskeletal: Denies: pain Allergies: Coded Allergies: No Known Allergies (Verified Allergy, Mild, 12/17/09) Objective Last 24 Hour Vital Signs Date Time Temp Pulse Resp B/P (MAP) Pulse Ox O2 Delivery O2 Flow Rate FiO2 02/09/20 09:45 111 111/66 02/09/20 09:00 Venturi Mask 10.0 02/09/20 08:00 92 02/09/20 08:00 97.7 111 20 111/66 (81) 91 02/09/20 04:00 97.6 86 19 116/61 (79) 92 02/09/20 04:00 92 02/09/20 00:00 93 02/09/20 00:00 98.1 95 19 125/79 (94) 94 02/08/20 21:00 Venturi Mask 15.0 Venturi Mask 02/08/20 20:16 93 Venturi Mask 14.0 55 02/08/20 20:16 68 18 93 Venturi Mask 14.0 55 02/08/20 20:00 96 02/08/20 20:00 97.5 66 18 112/68 (83) 92 02/08/20 18:58 124/70 02/08/20 18:49 114/68 02/08/20 18:47 97.0 02/08/20 16:00 94 5/3/20 16:00 97.0 97 18 124/78 (93) 94 02/08/20 12:00 97.2 104 19 107/52 (70) 98 02/08/20 12:00 102 Intake and Output 02/08/20 02/09/20 19:00 07:00 Intake Total 840 ml 60 ml Output Total 1100 ml 900 ml Balance -260 ml -840 ml Intake Oral 840 ml IV Total 60 ml Output Urine Total 1100 ml 900 ml General Appearance: no acute distress HEENT: normocephalic, atraumatic, anicteric, mucous membranes moist Respiratory/Chest: chest wall non-tender Cardiovascular: normal peripheral pulses Abdomen: normal bowel sounds, soft, non tender, no organomegaly, non distended Genitourinary: other - no harden Extremities: no cyanosis Skin: no rash 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, alert, oriented x 3, responsive Lymphatic: no neck adenopathy Musculoskeletal: no effusion Laboratory Tests 02/08/20 18:40: Troponin I 0.000 02/09/20 00:25: Troponin I 0.000 02/09/20 06:37: Troponin I 0.000, White Blood Count 12.7H, Red Blood Count 2.96L, Hemoglobin 8.6L, Hematocrit 27.6L, Mean Corpuscular Volume 93, Mean Corpuscular Hemoglobin 29.1, Mean Corpuscular Hemoglobin Concent 31.1L, Red Cell Distribution Width 15.9H, Platelet Count 352, Mean Platelet Volume 7.3, Neutrophils (%) (Auto) 63.6 , Lymphocytes (%) (Auto) 22.8, Monocytes (%) (Auto) 10.9H, Eosinophils (%) (Auto ) 1.9, Basophils (%) (Auto) 0.8, Sodium Level 130L, Potassium Level 3.6, Chloride Level 88L, Carbon Dioxide Level 20L, Anion Gap 22H, Blood Urea Nitrogen 115H, Creatinine 10.8H, Estimat Glomerular Filtration Rate 6.1, Glucose Level 110H, Calcium Level 9.9, Hepatitis B Surface Antigen [Pending], Hepatitis B Surface Antibody, Quant [Pending], Hepatitis C Antibody [Pending] Current Medications Medications (Trade) Dose Ordered Sig/Sarbjit Route PRN Reason Start Time Stop Time Status Last Admin Dose Admin Acetaminophen (Tylenol) 650 mg Q4H PRN ORAL Mild Pain (Pain Scale 1-3) 02/03/20 06:30 03/04/20 06:29 02/08/20 18:01 Acetaminophen (Tylenol) 650 mg Q4H PRN ORAL Temp >100.5 02/03/20 06:30 03/04/20 06:29 Acetaminophen/ Hydrocodone Bitart ([place] 5/325) 1 tab Q4H PRN ORAL Prn Chest Pain 02/06/20 11:00 02/13/20 10:59 Amlodipine Besylate (Norvasc) 5 mg DAILY ORAL 02/04/20 09:00 03/05/20 08:59 02/08/20 10:22 Aspirin (ASA) 81 mg DAILY ORAL 02/03/20 15:30 03/19/20 15:29 02/09/20 09:52 Atorvastatin Calcium (Lipitor) 40 mg BEDTIME ORAL 02/03/20 21:00 05/03/20 20:59 02/08/20 21:24 Ceftriaxone Sodium 1 gm/ Dextrose 55 ml @ 110 mls/hr Q24H IVPB 02/06/20 14:00 02/13/20 13:59 02/08/20 13:25 Dapsone (Dapsone) 100 mg DAILY ORAL 02/04/20 09:00 02/11/20 08:59 02/09/20 09:52 Dextrose (Dextrose 50%) 25 ml Q30M PRN IV Hypoglycemia 02/03/20 06:30 05/03/20 06:29 Dextrose (Dextrose 50%) 50 ml Q30M PRN IV Hypoglycemia 02/03/20 06:30 05/03/20 06:29 Docusate Sodium (Colace) 100 mg EVERY 12 HOURS ORAL 02/03/20 09:00 03/04/20 08:59 02/09/20 09:52 Epoetin Jaya (Epoetin Jaya-EPBX(NON ESRD)) 4,000 unit SUN-SUN-SUN SUBQ 02/06/20 21:00 05/06/20 20:59 02/06/20 21:13 Heparin Sodium (Porcine) (Heparin 5000 units/ml) 5,000 units EVERY 12 HOURS SUBQ 02/03/20 21:00 03/19/20 20:59 02/08/20 21:25 Ipratropium [place] (Atrovent) 500 mcg Q6H PRN HHN Shortness of Breath 02/06/20 06:00 02/11/20 05:59 Iron Sucrose 100 mg/Sodium Chloride 60 ml @ 240 mls/hr BEDTIME IV 02/06/20 21:00 02/10/20 21:14 02/08/20 21:24 Nitroglycerin (Ntg) 0.4 mg Q5M PRN SL Prn Chest Pain 02/03/20 11:15 03/04/20 11:14 02/08/20 18:58 Ondansetron HCl (Zofran) 4 mg Q6H PRN IVP Nausea & Vomiting 02/03/20 06:30 03/04/20 06:29 Patient Own Medication (Patient's Own Med) 1 ea DAILY ORAL 02/04/20 14:00 03/05/20 13:59 02/09/20 09:53 Patient Own Medication (Patient's Own Med) 1 ea Q12HR ORAL 02/04/20 14:00 03/05/20 13:59 02/09/20 09:53 Polyethylene Glycol (Miralax) 17 gm DAILYPRN PRN ORAL Constipation 02/03/20 06:30 03/04/20 06:29 Sevelamer Carbonate (Renvela) 800 mg THREE TIMES A DAY ORAL 02/08/20 13:00 05/08/20 12:59 02/09/20 09:45 Sodium Bicarbonate (NaHCO3) 650 mg THREE TIMES A DAY ORAL 02/05/20 13:00 03/06/20 12:59 02/09/20 09:52 Spike Rodriguez MD February 09, 2020 11:43
[2020-02-09 12:00] VITALS: BP 124/87
[2020-02-09] MEDS: cefTRIAXone 1 GM in D5W 55 ML IVPB SCH (13:19)
--- NOTE | 2020-02-09 13:31 | Cardiac Electrophysiology PN ---
Assessment/Plan Assessment/Plan 1. Chest pain. Ruled out for IA. EKG showed no acute ischemic changes. On aspirin and Lipitor. Echo EF 65%. Stress test showed no ischemia or scar Likely due to volume overload that should be better with HD 2. Hypertension. On amlodipine 5 mg daily and now HD 3. Hyperlipidemia, on Lipitor. 4. HIV, on antiretroviral therapy. 5. Acute on Chronic Renal failure. Creatinine of 7.4. Patient has a functioning AV graft in the left arm. Will be started on dialysis today. 6. PNA and elevated WBC 15K on iv Abx DW RN and Dr Haynes Subjective Subjective Stress test was nonischemic. Had chest pain again but ECG no acute changes and troponins negative . Agreed to HD that is pending today Objective Last 24 Hour Vital Signs Date Time Temp Pulse Resp B/P (MAP) Pulse Ox O2 Delivery O2 Flow Rate FiO2 02/09/20 12:00 95 02/09/20 12:00 97.7 96 20 124/87 (99) 91 02/09/20 09:45 111 111/66 02/09/20 09:00 Venturi Mask 10.0 02/09/20 08:00 92 02/09/20 08:00 97.7 111 20 111/66 (81) 91 02/09/20 04:00 97.6 86 19 116/61 (79) 92 02/09/20 04:00 92 02/09/20 00:00 93 02/09/20 00:00 98.1 95 19 125/79 (94) 94 02/08/20 21:00 Venturi Mask 15.0 Venturi Mask 02/08/20 20:16 93 Venturi Mask 14.0 55 02/08/20 20:16 68 18 93 Venturi Mask 14.0 55 02/08/20 20:00 96 02/08/20 20:00 97.5 66 18 112/68 (83) 92 02/08/20 18:58 124/70 02/08/20 18:49 114/68 02/08/20 18:47 97.0 02/08/20 16:00 94 02/08/20 16:00 97.0 97 18 124/78 (93) 94 Intake and Output 02/08/20 02/09/20 19:00 07:00 Intake Total 840 ml 60 ml Output Total 1100 ml 900 ml Balance -260 ml -840 ml Intake Oral 840 ml IV Total 60 ml Output Urine Total 1100 ml 900 ml Laboratory Tests Test 02/08/20 18:40 02/09/20 00:25 02/09/20 06:37 Troponin I 0.000 ng/mL (0.000-0.056) 0.000 ng/mL (0.000-0.056) 0.000 ng/mL (0.000-0.056) White Blood Count 12.7 K/UL (4.8-10.8) H Red Blood Count 2.96 M/UL (4.70-6.10) L Hemoglobin 8.6 G/DL (14.2-18.0) L Hematocrit 27.6 % (42.0-52.0) L Mean Corpuscular Volume 93 FL (80-99) Mean Corpuscular Hemoglobin 29.1 PG (27.0-31.0) Mean Corpuscular Hemoglobin Concent 31.1 G/DL (32.0-36.0) L Red Cell Distribution Width 15.9 % (11.6-14.8) H Platelet Count 352 K/UL (150-450) Mean Platelet Volume 7.3 FL (6.5-10.1) Neutrophils (%) (Auto) 63.6 % (45.0-75.0) Lymphocytes (%) (Auto) 22.8 % (20.0-45.0) Monocytes (%) (Auto) 10.9 % (1.0-10.0) H Eosinophils (%) (Auto) 1.9 % (0.0-3.0) Basophils (%) (Auto) 0.8 % (0.0-2.0) Sodium Level 130 MMOL/L (136-145) L Potassium Level 3.6 MMOL/L (3.5-5.1) Chloride Level 88 MMOL/L (98-107) L Carbon Dioxide Level 20 MMOL/L (21-32) L Anion Gap 22 mmol/L (5-15) H Blood Urea Nitrogen 115 mg/dL (7-18) H Creatinine 10.8 MG/DL (0.55-1.30) H Estimat Glomerular Filtration Rate 6.1 mL/min (>60) Glucose Level 110 MG/DL (74-106) H Calcium Level 9.9 MG/DL (8.5-10.1) Hepatitis B Surface Antigen Pending Hepatitis B Surface Antibody, Quant Pending Hepatitis C Antibody Pending Objective HEAD AND NECK: No JVD or carotid bruits. LUNGS: Clear. CARDIOVASCULAR: Regular S1 and S2 with no gallop or murmur. ABDOMEN: Soft. EXTREMITIES: No pitting edema. Silvino Perez MD February 09, 2020 13:31
[2020-02-09 16:00] VITALS: BP 127/69
--- NOTE | 2020-02-09 19:48 | NUR ---
HAND-OFF: Report given to NESHA Mares.
[2020-02-09 20:00] VITALS: BP 108/59
--- NOTE | 2020-02-09 20:26 | Infectious Diseases Prog Note ---
Assessment/Plan Assessment/Plan ASSESSMENT AND PLAN: 1. leukocytosis, ? source, ? sepsis, rule covid-19 infection with pna, chest x- ray c/w chf/pvc, sob, ? uri/bronchitis - ceftriaxone - day # 4 - leukocytosis better - monitor labs - communicated with Dr. Haynes - f/u on covid-19 virus testing 2. 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 - f/u with primary HIV MD as a outpatient 3. 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 The patient has history of hypertension, treatment by primary care team. 5. Chronic kidney disease. 6. No known drug allergies. 7. Anemia. 8. Social history is negative. 9. Family history is noncontributory. 10. MAR was noted. 11. d/w RN 12. Continue treatment per primary consultants. Subjective Constitutional: Reports: fatigue; Denies: fever HEENT: Reports: congestion - less Respiratory: Reports: shortness of breath - less Cardiovascular: Denies: chest pain Gastrointestinal/Abdominal: Denies: nausea, vomiting, diarrhea Genitourinary: Reports: other - no harden Psychiatric: Denies: depression Skin: Denies: rash Hematologic: Denies: bleeding Musculoskeletal: Denies: pain Allergies: Coded Allergies: No Known Allergies (Verified Allergy, Mild, 12/17/09) Objective Vital Signs Last 24 Hour Vital Signs Date Time Temp Pulse Resp B/P (MAP) Pulse Ox O2 Delivery O2 Flow Rate FiO2 02/09/20 16:00 98 02/09/20 16:00 98.1 101 20 127/69 (88) 90 02/09/20 12:00 95 02/09/20 12:00 97.7 96 20 124/87 (99) 91 02/09/20 09:45 111 111/66 02/09/20 09:00 Venturi Mask 10.0 02/09/20 08:00 92 02/09/20 08:00 97.7 111 20 111/66 (81) 91 02/09/20 04:00 97.6 86 19 116/61 (79) 92 02/09/20 04:00 92 02/09/20 00:00 93 02/09/20 00:00 98.1 95 19 125/79 (94) 94 02/08/20 21:00 Venturi Mask 15.0 Venturi Mask General Appearance: no acute distress HEENT: normocephalic, atraumatic, anicteric, mucous membranes moist Respiratory/Chest: crackles/rales, rhonchi - bilaterally Cardiovascular: normal rate, regular rhythm, no gallop/murmur, no JVD Abdomen: normal bowel sounds, soft, non tender, no organomegaly, non distended Genitourinary: other - no harden Extremities: no cyanosis Skin: no rash 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 COMPARISON: 02/03/20 FINDINGS: Lungs: Mild bibasilar atelectasis. Minimal interstitial edema. Pleural space: There are small bilateral pleural effusions, new or significantly increased since the prior exam. No evidence of pneumothorax. Heart: Cardiac silhouette is enlarged. Mediastinum: No mediastinal widening or shift. Bones/joints: No acute osseous abnormality. IMPRESSION: Minimal interstitial edema with bilateral pleural effusions and cardiomegaly. Findings suggestive of congestive heart failure or hypervolemia. Bibasilar atelectasis. No definite airspace consolidation. Microbiology Date/Time Source Procedure Growth Status 02/06/20 06:30 Blood Blood Culture - Preliminary NO GROWTH AFTER 48 HOURS Resulted 02/03/20 06:00 Nasal Nares MRSA Culture - Final NO METHICILLIN RESISTANT STAPH AUREUS... Complete 02/03/20 06:00 Rectum VRE Culture - Final NO VANCOMYCIN RESISTANT ENTEROCOCCUS ... Complete Laboratory Tests Test 02/09/20 00:25 02/09/20 06:37 Troponin I 0.000 ng/mL (0.000-0.056) 0.000 ng/mL (0.000-0.056) White Blood Count 12.7 K/UL (4.8-10.8) H Red Blood Count 2.96 M/UL (4.70-6.10) L Hemoglobin 8.6 G/DL (14.2-18.0) L Hematocrit 27.6 % (42.0-52.0) L Mean Corpuscular Volume 93 FL (80-99) Mean Corpuscular Hemoglobin 29.1 PG (27.0-31.0) Mean Corpuscular Hemoglobin Concent 31.1 G/DL (32.0-36.0) L Red Cell Distribution Width 15.9 % (11.6-14.8) H Platelet Count 352 K/UL (150-450) Mean Platelet Volume 7.3 FL (6.5-10.1) Neutrophils (%) (Auto) 63.6 % (45.0-75.0) Lymphocytes (%) (Auto) 22.8 % (20.0-45.0) Monocytes (%) (Auto) 10.9 % (1.0-10.0) H Eosinophils (%) (Auto) 1.9 % (0.0-3.0) Basophils (%) (Auto) 0.8 % (0.0-2.0) Sodium Level 130 MMOL/L (136-145) L Potassium Level 3.6 MMOL/L (3.5-5.1) Chloride Level 88 MMOL/L (98-107) L Carbon Dioxide Level 20 MMOL/L (21-32) L Anion Gap 22 mmol/L (5-15) H Blood Urea Nitrogen 115 mg/dL (7-18) H Creatinine 10.8 MG/DL (0.55-1.30) H Estimat Glomerular Filtration Rate 6.1 mL/min (>60) Glucose Level 110 MG/DL (74-106) H Calcium Level 9.9 MG/DL (8.5-10.1) Hepatitis B Surface Antigen Pending Hepatitis B Surface Antibody, Quant Pending Hepatitis C Antibody Pending Current Medications Medications (Trade) Dose Ordered Sig/Sarbjit Route PRN Reason Start Time Stop Time Status Last Admin Dose Admin Acetaminophen (Tylenol) 650 mg Q4H PRN ORAL Mild Pain (Pain Scale 1-3) 02/03/20 06:30 03/04/20 06:29 02/08/20 18:01 Acetaminophen (Tylenol) 650 mg Q4H PRN ORAL Temp >100.5 02/03/20 06:30 03/04/20 06:29 Acetaminophen/ Hydrocodone Bitart ([place] 5/325) 1 tab Q4H PRN ORAL Prn Chest Pain 02/06/20 11:00 02/13/20 10:59 Amlodipine Besylate (Norvasc) 5 mg DAILY ORAL 02/04/20 09:00 03/05/20 08:59 02/08/20 10:22 Aspirin (ASA) 81 mg DAILY ORAL 02/03/20 15:30 03/19/20 15:29 02/09/20 09:52 Atorvastatin Calcium (Lipitor) 40 mg BEDTIME ORAL 02/03/20 21:00 05/03/20 20:59 02/08/20 21:24 Ceftriaxone Sodium 1 gm/ Dextrose 55 ml @ 110 mls/hr Q24H IVPB 02/06/20 14:00 02/13/20 13:59 02/09/20 13:19 Dapsone (Dapsone) 100 mg DAILY ORAL 02/04/20 09:00 02/11/20 08:59 02/09/20 09:52 Dextrose (Dextrose 50%) 25 ml Q30M PRN IV Hypoglycemia 02/03/20 06:30 05/03/20 06:29 Dextrose (Dextrose 50%) 50 ml Q30M PRN IV Hypoglycemia 02/03/20 06:30 05/03/20 06:29 Docusate Sodium (Colace) 100 mg EVERY 12 HOURS ORAL 02/03/20 09:00 03/04/20 08:59 02/09/20 09:52 Epoetin Jaya (Epoetin Jaya-EPBX(NON ESRD)) 4,000 unit SUN-SUN-SUN SUBQ 02/06/20 21:00 05/06/20 20:59 02/06/20 21:13 Heparin Sodium (Porcine) (Heparin 5000 units/ml) 5,000 units EVERY 12 HOURS SUBQ 02/03/20 21:00 03/19/20 20:59 02/08/20 21:25 Ipratropium [place] (Atrovent) 500 mcg Q6H PRN HHN Shortness of Breath 02/06/20 06:00 02/11/20 05:59 Iron Sucrose 100 mg/Sodium Chloride 60 ml @ 240 mls/hr BEDTIME IV 02/06/20 21:00 02/10/20 21:14 02/08/20 21:24 Nitroglycerin (Ntg) 0.4 mg Q5M PRN SL Prn Chest Pain 02/03/20 11:15 03/04/20 11:14 02/08/20 18:58 Ondansetron HCl (Zofran) 4 mg Q6H PRN IVP Nausea & Vomiting 02/03/20 06:30 03/04/20 06:29 Patient Own Medication (Patient's Own Med) 1 ea DAILY ORAL 02/04/20 14:00 03/05/20 13:59 02/09/20 09:53 Patient Own Medication (Patient's Own Med) 1 ea Q12HR ORAL 02/04/20 14:00 03/05/20 13:59 02/09/20 09:53 Polyethylene Glycol (Miralax) 17 gm DAILYPRN PRN ORAL Constipation 02/03/20 06:30 03/04/20 06:29 Sevelamer Carbonate (Renvela) 800 mg THREE TIMES A DAY ORAL 02/08/20 13:00 05/08/20 12:59 02/09/20 17:49 Sodium Bicarbonate (NaHCO3) 650 mg THREE TIMES A DAY ORAL 02/05/20 13:00 03/06/20 12:59 02/09/20 17:49 Adore Zazueta MD February 09, 2020 20:26
[2020-02-09] MEDS: Atorvastatin 20mg tab ORAL SCH (20:32)
[2020-02-09] MEDS: Epoetin Alfa-EPBX (NON ESRD)4000 units/ml vial SUBQ SCH (21:01)
[2020-02-09] MEDS: Iron Sucrose 100 MG in NS 55 ML IV SCH (21:01)
[2020-02-10] VITALS: BP 122/78
[2020-02-10 04:00] VITALS: BP 122/78
[2020-02-10 07:00] LABS: BASOPHILS % (AUTO) 0.8 % (0.0-2.0); EOSINOPHILS % (AUTO) 0.7 % (0.0-3.0); HEMATOCRIT 29.2 % (42.0-52.0); HEMOGLOBIN 9.5 G/DL (14.2-18.0); LYMPHOCYTES % (AUTO) 18.4 % (20.0-45.0); MEAN CORPUSCULAR VOLUME 89 FL (80-99); MONOCYTES % (AUTO) 10.1 % (1.0-10.0); PLATELET COUNT 371 K/UL (150-450); RED BLOOD COUNT 3.27 M/UL (4.70-6.10); RED CELL DISTRIBUTION WIDTH 14.5 % (11.6-14.8)
[2020-02-10 07:33] LABS: ANION GAP 14 mmol/L (5-15); BLOOD UREA NITROGEN 75 mg/dL (7-18); CALCIUM 10.2 MG/DL (8.5-10.1); CARBON DIOXIDE 26 MMOL/L (21-32); CHLORIDE 93 MMOL/L (98-107); CREATININE 8.4 MG/DL (0.55-1.30); POTASSIUM 3.9 MMOL/L (3.5-5.1); SODIUM 133 MMOL/L (136-145)
[2020-02-10 08:00] VITALS: BP 110/73
--- NOTE | 2020-02-10 08:09 | NUR ---
HAND-OFF: Report given to NESHA Treviño. Plan of care endorsed.
--- NOTE | 2020-02-10 08:30 | NUR ---
NURSE NOTES: Recvd pt. Upon entering the room pt was found to have pulled off his non rebreather mask, pulse ox read 54%, pt looked very pale and gasping for air, his speech was slurred while using his accessory muscles. Nonre Addendum: 02/10/20 at 1119 by MARIBEL BURKETT RN Non rebreather was placed back on pt. ORNITHOLOGY TEACHER was called. Pt recovered to 92% when non rebreather was placed back on the patient. Addendum: 02/10/20 at 1121 by MARIBEL BURKETT RN WRONG PATIENT
--- NOTE | 2020-02-10 08:54 | Diagnostic Imaging Report ---
Indication: Dyspnea Technique: One view of the chest Comparison: 02/06/2020 Findings: Bilateral pleural effusions are again demonstrated. This appears improved on the left, unchanged on the right. There is some atelectasis at the right lung base. The heart remains enlarged. There is decreased interstitial congestion Impression: Decreased but persistent left pleural effusion and interstitial congestion, since 02/06/2020. Unchanged right pleural effusion and basilar atelectasis
--- NOTE | 2020-02-10 08:56 | Nephrology Progress Note ---
Assessment/Plan Plan #Chest pain r/o ACS- r/o uremic pericarditis #CKD 5- not yet on HD- likely due to hypertensive nephrosclerosis - LUE aVF placed 3 years - has not needed HD yet- Primary nephorologist Dr. Charles #HTN #HIV #hyperphosphetemia HD#2 today [facility] case manager consulted for HD placement - continue sevelamer 800mg TIDAC - monitor UOP- strict I&Os - COVID 19 rule out - add sodium bicarb 650 TID - add epo 4K TIW - IV iron - monitor UOP - check 2d echo- > EF 65 - Stress test per cardiology- neg - asa - lipitor - amlodipine 5mg daily - monitor electrolytes and kidney function - continue dapson - continue dapson and prezista - check PTH/vitamin D - ferritin and iron panel Time spent on encounter: 36 mins, >50% on counseling, coordination of care. Subjective ROS Limited/Unobtainable: No Subjective s/p HD yesterday plan for HD again today cardiomegaly. Findings suggestive of congestive heart failure or hypervolemia. stress test neg echo showing EF 65 lytes reviewed Objective Objective Last 24 Hour Vital Signs Date Time Temp Pulse Resp B/P (MAP) Pulse Ox O2 Delivery O2 Flow Rate FiO2 02/10/20 04:00 98.1 97 17 122/78 (93) 94 02/10/20 04:00 96 02/10/20 00:00 99 02/10/20 00:00 98.8 97 17 122/78 (93) 94 02/09/20 21:00 Venturi Mask 10.0 02/09/20 20:36 96 18 92 Venturi Mask 14.0 55 02/09/20 20:36 92 Venturi Mask 14.0 55 02/09/20 20:00 97 02/09/20 20:00 98.6 103 17 108/59 (75) 94 02/09/20 16:00 98 02/09/20 16:00 98.1 101 20 127/69 (88) 90 02/09/20 12:00 95 02/09/20 12:00 97.7 96 20 124/87 (99) 91 02/09/20 09:45 111 111/66 02/09/20 09:00 Venturi Mask 10.0 Intake and Output 02/09/20 02/10/20 19:00 07:00 Intake Total 400 ml Output Total 575 ml 2600 ml Balance -175 ml -2600 ml Intake Oral 400 ml Output Urine Total 575 ml 600 ml Hemodialysis UF 2000 ml # Voids 2 2 Laboratory Tests 02/10/20 06:24: White Blood Count 13.0H, Red Blood Count 3.27L, Hemoglobin 9.5L, Hematocrit 29.2L, Mean Corpuscular Volume 89, Mean Corpuscular Hemoglobin 29.0, Mean Corpuscular Hemoglobin Concent 32.5, Red Cell Distribution Width 14.5, Platelet Count 371, Mean Platelet Volume 6.2L, Neutrophils (%) (Auto) 70.0, Lymphocytes ( %) (Auto) 18.4L, Monocytes (%) (Auto) 10.1H, Eosinophils (%) (Auto) 0.7, Basophils (%) (Auto) 0.8, Sodium Level 133L, Potassium Level 3.9, Chloride Level 93L, Carbon Dioxide Level 26, Anion Gap 14, Blood Urea Nitrogen 75H, Creatinine 8.4H, Estimat Glomerular Filtration Rate 8.1, Glucose Level 114H, Calcium Level 10.2H Height (Feet): 5 Height (Inches): 8.00 Weight (Pounds): 162 Morena Mcqueen M.D. February 10, 2020 08:56
[2020-02-10] MEDS: Heparin 5000 units/ml inj SUBQ SCH ×2 (09:00→20:59)
--- NOTE | 2020-02-10 09:23 | General Progress Note ---
Assessment/Plan Assessment/Plan: 54-year-old AAM with PMH of HIV on meds, HTN and CKD stage V not on dialysis who presents with left-sided chest pain. On admission, Cr 7.4, BUN 71. EKG revealed NSR, HR 108. Troponin negative x1. Patient admitted for further treatment and evaluation. #Atypical Chest Pain 2/2 #Uremic Pericarditis #Fluid overload #CKD 5 -cont. in-pt medical care -likely uremic pericarditis given elevated BUN, pain relieved w/Tylenol -ACS ruled out, EKG NSR, trops negative -02/03: s/p stress test no ischemia or scar, negative, TTE EF 65% -pain management, Tylenol PRN -supplemental O2 prn -Nephro following: plan for HD today -CM for HD clinic arrangements #Leukocytosis #Suspect CAP #Left Pleural effusion -cont. supportive care, supplemental O2 -COVID PCR negative, d/c isolation protocol (droplet/contact) -CXR w/pulmonary congestion -Pulm consulted, recs appreciated -ID following: CTX -d/w PCP, Dr. Marino, pt's WBC 7-8 at b/l -obtain CT chest/abd/pel #HTN #Tachycardia - improved -cont home meds, amlodipine -d/w cardio, will adjust BP meds #HIV -last viral count undetectable per pt -CD4 300 per pt -cont. home meds DVT PPx: heparin Time spent on encounter: 36 mins, 23 on counseling, coordination of care w/RN, pt, Nephro and ID and Cardio. Time of note doesn't reflect time of encounter. Subjective Allergies: Coded Allergies: No Known Allergies (Verified Allergy, Mild, 12/17/09) Subjective F/u for chest pain, s/p stress test, negative, ACS ruled out. Respiratory distress 2/2 fluid overload. COVID negative. WBCs remain elevated, 13. Per pt's PCP pt's b/c WBC 7-8. Pt states he is doing well today. Plan for HD today. 12 pt ROS neg except as above Objective Last 24 Hour Vital Signs Date Time Temp Pulse Resp B/P (MAP) Pulse Ox O2 Delivery O2 Flow Rate FiO2 02/10/20 04:00 98.1 97 17 122/78 (93) 94 02/10/20 04:00 96 02/10/20 00:00 99 02/10/20 00:00 98.8 97 17 122/78 (93) 94 02/09/20 21:00 Venturi Mask 10.0 02/09/20 20:36 96 18 92 Venturi Mask 14.0 55 02/09/20 20:36 92 Venturi Mask 14.0 55 02/09/20 20:00 97 02/09/20 20:00 98.6 103 17 108/59 (75) 94 02/09/20 16:00 98 02/09/20 16:00 98.1 101 20 127/69 (88) 90 02/09/20 12:00 95 02/09/20 12:00 97.7 96 20 124/87 (99) 91 02/09/20 09:45 111 111/66 Intake and Output 02/09/20 02/10/20 19:00 07:00 Intake Total 400 ml Output Total 575 ml 2600 ml Balance -175 ml -2600 ml Intake Oral 400 ml Output Urine Total 575 ml 600 ml Hemodialysis UF 2000 ml # Voids 2 2 Laboratory Tests 02/10/20 06:24: White Blood Count 13.0H, Red Blood Count 3.27L, Hemoglobin 9.5L, Hematocrit 29.2L, Mean Corpuscular Volume 89, Mean Corpuscular Hemoglobin 29.0, Mean Corpuscular Hemoglobin Concent 32.5, Red Cell Distribution Width 14.5, Platelet Count 371, Mean Platelet Volume 6.2L, Neutrophils (%) (Auto) 70.0, Lymphocytes ( %) (Auto) 18.4L, Monocytes (%) (Auto) 10.1H, Eosinophils (%) (Auto) 0.7, Basophils (%) (Auto) 0.8, Sodium Level 133L, Potassium Level 3.9, Chloride Level 93L, Carbon Dioxide Level 26, Anion Gap 14, Blood Urea Nitrogen 75H, Creatinine 8.4H, Estimat Glomerular Filtration Rate 8.1, Glucose Level 114H, Calcium Level 10.2H Height (Feet): 5 Height (Inches): 8.00 Weight (Pounds): 162 Objective General: NAD, A&O x 3, laying in bed comfortably w/venti mask off face at this time HEENT: NCAT, EOMi, MMM CV: RRR, no murmurs, rubs, or gallops Pulm: CTAB, No wheezes, rhonchi, or rales, no accessory muscle usage or conversational dyspnea GI: Soft, nontender, nondistended, bowel sounds present Ext: No lower extremity edema bilaterally, LUE fistula +bruit/thrill Skin: no rashes lesions or ulcers Mirza Haynes M.D. February 10, 2020 09:23
[2020-02-10] MEDS: Aspirin Baby 81mg ORAL SCH (10:06)
[2020-02-10] MEDS: Docusate 100mg cap ORAL SCH ×2 (10:07→21:57)
[2020-02-10] MEDS: EDURANT 25 MG ORAL SCH (10:07)
[2020-02-10] MEDS: PREZISTA 800 MG ORAL SCH ×2 (10:07→21:57)
[2020-02-10] MEDS: Sodium Bicarbonate 650mg Tab ORAL SCH ×3 (10:07→16:52)
[2020-02-10] MEDS: Renvela 800mg Pkt ORAL SCH ×3 (10:09→16:52)
--- NOTE | 2020-02-10 11:06 | Cardiac Electrophysiology PN ---
Assessment/Plan Assessment/Plan 1. Chest pain. Ruled out for NE. EKG showed no acute ischemic changes. On aspirin and Lipitor. Echo EF 65%. Stress test showed no ischemia or scar Likely due to volume overload that is better with HD 2. Hypertension. On amlodipine 5 mg daily and now HD 3. Hyperlipidemia, on Lipitor. 4. HIV, on antiretroviral therapy. 5. Acute on Chronic Renal failure. Creatinine of 7.4. Patient has a functioning AV graft in the left arm. Started on dialysis 02/09/20 6. PNA and elevated WBC 15K on iv Abx DW RN and Dr Haynes Subjective Subjective Stress test was nonischemic. Had HD yesterday and is feeling better Objective Last 24 Hour Vital Signs Date Time Temp Pulse Resp B/P (MAP) Pulse Ox O2 Delivery O2 Flow Rate FiO2 02/10/20 09:00 96 122/78 02/10/20 04:00 98.1 97 17 122/78 (93) 94 02/10/20 04:00 96 02/10/20 00:00 99 02/10/20 00:00 98.8 97 17 122/78 (93) 94 02/09/20 21:00 Venturi Mask 10.0 02/09/20 20:36 96 18 92 Venturi Mask 14.0 55 02/09/20 20:36 92 Venturi Mask 14.0 55 02/09/20 20:00 97 02/09/20 20:00 98.6 103 17 108/59 (75) 94 02/09/20 16:00 98 02/09/20 16:00 98.1 101 20 127/69 (88) 90 02/09/20 12:00 95 02/09/20 12:00 97.7 96 20 124/87 (99) 91 Intake and Output 02/09/20 02/10/20 19:00 07:00 Intake Total 400 ml Output Total 575 ml 2600 ml Balance -175 ml -2600 ml Intake Oral 400 ml Output Urine Total 575 ml 600 ml Hemodialysis UF 2000 ml # Voids 2 2 Laboratory Tests Test 02/10/20 06:24 White Blood Count 13.0 K/UL (4.8-10.8) H Red Blood Count 3.27 M/UL (4.70-6.10) L Hemoglobin 9.5 G/DL (14.2-18.0) L Hematocrit 29.2 % (42.0-52.0) L Mean Corpuscular Volume 89 FL (80-99) Mean Corpuscular Hemoglobin 29.0 PG (27.0-31.0) Mean Corpuscular Hemoglobin Concent 32.5 G/DL (32.0-36.0) Red Cell Distribution Width 14.5 % (11.6-14.8) Platelet Count 371 K/UL (150-450) Mean Platelet Volume 6.2 FL (6.5-10.1) L Neutrophils (%) (Auto) 70.0 % (45.0-75.0) Lymphocytes (%) (Auto) 18.4 % (20.0-45.0) L Monocytes (%) (Auto) 10.1 % (1.0-10.0) H Eosinophils (%) (Auto) 0.7 % (0.0-3.0) Basophils (%) (Auto) 0.8 % (0.0-2.0) Sodium Level 133 MMOL/L (136-145) L Potassium Level 3.9 MMOL/L (3.5-5.1) Chloride Level 93 MMOL/L (98-107) L Carbon Dioxide Level 26 MMOL/L (21-32) Anion Gap 14 mmol/L (5-15) Blood Urea Nitrogen 75 mg/dL (7-18) H Creatinine 8.4 MG/DL (0.55-1.30) H Estimat Glomerular Filtration Rate 8.1 mL/min (>60) Glucose Level 114 MG/DL (74-106) H Calcium Level 10.2 MG/DL (8.5-10.1) H Objective HEAD AND NECK: No JVD or carotid bruits. LUNGS: Clear. CARDIOVASCULAR: Regular S1 and S2 with no gallop or murmur. ABDOMEN: Soft. EXTREMITIES: No pitting edema. Silvino Perez MD February 10, 2020 11:06
--- NOTE | 2020-02-10 11:14 | NUR ---
DISCHARGE PLANNING YESTERDAY CLINICALS WERE FAXED TO DIALYSIS UNIT PER MD'S ORDER RENAL ADDISON T:[phone] F: [phone] ALSO FAXED COVID RESULTS AND CURRENT DIALYSIS FLOW SHEET STILL WAITING FOR HEPATITIS PANEL RESULTS
--- NOTE | 2020-02-10 11:15 | NUR ---
NURSE NOTES: Called [facility] and s/w [facility] to notify them that pt is scheduled for HD TODAY
--- NOTE | 2020-02-10 11:19 | NUR ---
NURSE NOTES: Recvd pt. Pt is AOx4, Pt is on venturimask on 10L, pt does not show sign of sob or resp distress. Bed in lowest locked position, call light within reach, will continue with plan of care
[2020-02-10 12:00] VITALS: BP 115/75
--- NOTE | 2020-02-10 14:36 | Diagnostic Imaging Report ---
CLINICAL INDICATION:Chest pain, history of immunocompromise, leukocytosis, history of chronic renal failure TECHNIQUE: Patient ingested oral contrast. No IV contrast utilized. Spiral acquisitions obtained through the chest, abdomen, and pelvis. Multiplanar reconstructions were generated. Total dose length product 305 mGycm. CTDIvol(s) 4 mGy. Radiation dose was minimized using automated exposure control COMPARISON: none FINDINGS Chest: There is atelectasis and consolidation of nearly the entire right lower lobe. Air bronchograms are seen coursing through the consolidated lung. There is a small to moderate right pleural effusion. There is a small to moderate left pleural effusion. There is consolidation and atelectasis of much of the basilar segments of the left lower lobe. The upper lobes and right middle lobe are clear. There is a circumferential pericardial effusion which measures up to 2.2 cm in thickness. The heart size is upper limits of normal. No mediastinal or hilar mass or adenopathy. No axillary or chest wall mass or adenopathy. Unremarkable thyroid. The bones demonstrate degenerative spondylosis changes, minimal. Abdomen pelvis: The appendix is normal. No small bowel distention or small bowel wall thickening. Ingested contrast has traversed all of the small bowel, much of the colon. The stomach, duodenum, and esophagus are unremarkable. No free or loculated intraperitoneal gas or fluid is demonstrated. Lack of IV contrast limits assessment of the solid organs. The liver, gallbladder, bile ducts, pancreas, spleen, adrenals are unremarkable. Kidneys are somewhat atrophic demonstrate cortical thinning. No gross focal abnormality. No renal or ureteral calculi, hydronephrosis, or hydroureter. No pelvic mass or adenopathy. No retroperitoneal or mesenteric mass or adenopathy. The prostate is somewhat prominent, measures 4.2 cm transverse IMPRESSION: Bilateral pleural effusions Atelectasis and consolidation of most of the right lower lobe and much of the left lower lobe. The atelectasis is probably mostly passive due to the pleural effusions Large pericardial effusion No acute abdominal or pelvic abnormality Atrophic kidneys, consistent with known history of chronic renal insufficiency Prominent prostate The CT scanner at [facility] is accredited by the [employer] and the scans are performed using protocols designed to limit radiation exposure to as low as reasonably achievable to attain images of sufficient resolution adequate for diagnostic evaluation.
[2020-02-10 16:00] VITALS: BP 102/63
--- NOTE | 2020-02-10 16:14 | Pulmonology Progress Note ---
Assessment/Plan Assessment/Plan IMPRESSION: 1. Pulmonary edema. 2. Renal failure, not on dialysis. 3. HIV. 4. Hypertension. 5. Pericardial effusion DISCUSSION: Continue diuretics. Maybe a candidate for dialysis. Is negative 2.6L last 24 hours. Continue oxygen and pulmonary hygiene. 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 Currently on NRBM; saO2 91-93% Spike Rodriguez M.D. Subjective ROS Limited/Unobtainable: No Interval Events: None new reported Constitutional: Reports: fatigue; Denies: fever HEENT: Repors: no symptoms Respiratory: Reports: shortness of breath Cardiovascular: Reports: no symptoms Gastrointestinal/Abdominal: Denies: nausea, vomiting, diarrhea Psychiatric: Denies: depression Skin: Denies: rash Musculoskeletal: Denies: pain Allergies: Coded Allergies: No Known Allergies (Verified Allergy, Mild, 12/17/09) Objective Last 24 Hour Vital Signs Date Time Temp Pulse Resp B/P (MAP) Pulse Ox O2 Delivery O2 Flow Rate FiO2 02/10/20 12:00 91 02/10/20 09:00 Venturi Mask 10.0 02/10/20 09:00 96 122/78 02/10/20 08:00 108 02/10/20 08:00 97.2 95 20 110/73 (85) 96 02/10/20 04:00 98.1 97 17 122/78 (93) 94 02/10/20 04:00 96 02/10/20 00:00 99 02/10/20 00:00 98.8 97 17 122/78 (93) 94 02/09/20 21:00 Venturi Mask 10.0 02/09/20 20:36 96 18 92 Venturi Mask 14.0 55 02/09/20 20:36 92 Venturi Mask 14.0 55 02/09/20 20:00 97 02/09/20 20:00 98.6 103 17 108/59 (75) 94 Intake and Output 02/09/20 02/10/20 19:00 07:00 Intake Total 400 ml Output Total 575 ml 2600 ml Balance -175 ml -2600 ml Intake Oral 400 ml Output Urine Total 575 ml 600 ml Hemodialysis UF 2000 ml # Voids 2 2 General Appearance: no acute distress HEENT: normocephalic, atraumatic, anicteric, mucous membranes moist Respiratory/Chest: chest wall non-tender Cardiovascular: normal peripheral pulses Abdomen: normal bowel sounds, soft, non tender, no organomegaly, non distended Genitourinary: other - no harden Extremities: no cyanosis Skin: no rash Neurologic/Psychiatric: assistant at surgery II-XII grossly normal, alert, responsive Lymphatic: no neck adenopathy Musculoskeletal: no effusion Laboratory Tests 02/10/20 06:24: White Blood Count 13.0H, Red Blood Count 3.27L, Hemoglobin 9.5L, Hematocrit 29.2L, Mean Corpuscular Volume 89, Mean Corpuscular Hemoglobin 29.0, Mean Corpuscular Hemoglobin Concent 32.5, Red Cell Distribution Width 14.5, Platelet Count 371, Mean Platelet Volume 6.2L, Neutrophils (%) (Auto) 70.0, Lymphocytes ( %) (Auto) 18.4L, Monocytes (%) (Auto) 10.1H, Eosinophils (%) (Auto) 0.7, Basophils (%) (Auto) 0.8, Sodium Level 133L, Potassium Level 3.9, Chloride Level 93L, Carbon Dioxide Level 26, Anion Gap 14, Blood Urea Nitrogen 75H, Creatinine 8.4H, Estimat Glomerular Filtration Rate 8.1, Glucose Level 114H, Calcium Level 10.2H Current Medications Medications (Trade) Dose Ordered Sig/Sarbjit Route PRN Reason Start Time Stop Time Status Last Admin Dose Admin Acetaminophen (Tylenol) 650 mg Q4H PRN ORAL Mild Pain (Pain Scale 1-3) 02/03/20 06:30 03/04/20 06:29 02/08/20 18:01 Acetaminophen (Tylenol) 650 mg Q4H PRN ORAL Temp >100.5 02/03/20 06:30 03/04/20 06:29 Acetaminophen/ Hydrocodone Bitart ([place] 5/325) 1 tab Q4H PRN ORAL Prn Chest Pain 02/06/20 11:00 02/13/20 10:59 Amlodipine Besylate (Norvasc) 5 mg DAILY ORAL 02/04/20 09:00 03/05/20 08:59 02/08/20 10:22 Aspirin (ASA) 81 mg DAILY ORAL 02/03/20 15:30 03/19/20 15:29 02/10/20 10:06 Atorvastatin Calcium (Lipitor) 40 mg BEDTIME ORAL 02/03/20 21:00 05/03/20 20:59 02/09/20 20:32 Barium Sulfate (Readi-Cat 2) 450 ml NOW PRN ORAL Radiology Procedure 02/10/20 09:30 02/12/20 09:20 Ceftriaxone Sodium 1 gm/ Dextrose 55 ml @ 110 mls/hr Q24H IVPB 02/06/20 14:00 02/13/20 13:59 02/09/20 13:19 Dapsone (Dapsone) 100 mg DAILY ORAL 02/04/20 09:00 02/11/20 08:59 02/10/20 10:07 Dextrose (Dextrose 50%) 25 ml Q30M PRN IV Hypoglycemia 02/03/20 06:30 05/03/20 06:29 Dextrose (Dextrose 50%) 50 ml Q30M PRN IV Hypoglycemia 02/03/20 06:30 05/03/20 06:29 Docusate Sodium (Colace) 100 mg EVERY 12 HOURS ORAL 02/03/20 09:00 03/04/20 08:59 02/10/20 10:07 Epoetin Jaya (Epoetin Jaya-EPBX(NON ESRD)) 4,000 unit SUN-SUN-SUN SUBQ 02/06/20 21:00 05/06/20 20:59 02/09/20 21:01 Heparin Sodium (Porcine) (Heparin 5000 units/ml) 5,000 units EVERY 12 HOURS SUBQ 02/03/20 21:00 03/19/20 20:59 02/08/20 21:25 Ipratropium [place] (Atrovent) 500 mcg Q6H PRN HHN Shortness of Breath 02/06/20 06:00 02/11/20 05:59 Iron Sucrose 100 mg/Sodium Chloride 60 ml @ 240 mls/hr BEDTIME IV 02/06/20 21:00 02/10/20 21:14 02/09/20 21:01 Nitroglycerin (Ntg) 0.4 mg Q5M PRN SL Prn Chest Pain 02/03/20 11:15 03/04/20 11:14 02/08/20 18:58 Ondansetron HCl (Zofran) 4 mg Q6H PRN IVP Nausea & Vomiting 02/03/20 06:30 03/04/20 06:29 Patient Own Medication (Patient's Own Med) 1 ea DAILY ORAL 02/04/20 14:00 03/05/20 13:59 02/10/20 10:07 Patient Own Medication (Patient's Own Med) 1 ea Q12HR ORAL 02/04/20 14:00 03/05/20 13:59 02/10/20 10:07 Polyethylene Glycol (Miralax) 17 gm DAILYPRN PRN ORAL Constipation 02/03/20 06:30 03/04/20 06:29 Sevelamer Carbonate (Renvela) 800 mg THREE TIMES A DAY ORAL 02/08/20 13:00 05/08/20 12:59 02/10/20 10:09 Sodium Bicarbonate (NaHCO3) 650 mg THREE TIMES A DAY ORAL 02/05/20 13:00 03/06/20 12:59 02/10/20 10:07 Spike Rodriguez MD February 10, 2020 16:14
[2020-02-10] MEDS: cefTRIAXone 1 GM in D5W 55 ML IVPB SCH (16:16)
--- NOTE | 2020-02-10 19:35 | NUR ---
NURSE NOTES: Received report from NESHA Treviño. Patient is awake lying semi-medley's; receiving dialysis. No signs of acute distress noted; denies pain at this time. On 10L Venturi mask. AOx4; able to make needs known. Ambulates independently. Checked IV site; patent and flushed. No erythema, bleeding, or infiltration noted. Left AV shunt noted. Urinal at bedside. Bed at lowest position, brakes on, siderails up x2. Call light within reach. Will continue to monitor.
[2020-02-10 20:00] VITALS: BP 109/65
[2020-02-10] MEDS: Iron Sucrose 100 MG in NS 55 ML IV SCH (21:56)
[2020-02-10] MEDS: Atorvastatin 20mg tab ORAL SCH (21:57)
--- NOTE | 2020-02-10 22:17 | NUR ---
NURSE NOTES: Joshua, saw setter, already aware of patient's dialysis procedure in AM.
[2020-02-11] VITALS: BP 111/63
[2020-02-11 04:00] VITALS: BP 108/68
--- NOTE | 2020-02-11 04:09 | NUR ---
NURSE NOTES: Patient is asleep lying semi-medley's; resting comfortably. No signs of acute distress or pain noted at this time.
--- NOTE | 2020-02-11 07:43 | NUR ---
HAND-OFF: Report given to NESHA Lowe. Patient is awake lying semi-medley's; resting comfortably. Endorsed to oncoming shift RN regarding patient's hemodialysis procedure later today; verbalized understanding. In stable condition.
--- NOTE | 2020-02-11 07:51 | NUR ---
NURSE NOTES: Received report from NESHA Bowen. Patient in bed resting no active s/s cardiac, respiratory distress noticed at this time. Patient AOx4, on room air, eating, denies pain at this time. SR with HR 62.IV on right FA 20G, asymptomatic, patent, intact. Bed in lowest position, side rails upx2, call light within reach, bed alarm on. Will continue to monitor.
[2020-02-11 08:00] VITALS: BP 104/63
[2020-02-11 08:08] LABS: ANION GAP 17 mmol/L (5-15); BLOOD UREA NITROGEN 94 mg/dL (7-18); CALCIUM 9.7 MG/DL (8.5-10.1); CARBON DIOXIDE 24 MMOL/L (21-32); CHLORIDE 93 MMOL/L (98-107); CREATININE 9.1 MG/DL (0.55-1.30); POTASSIUM 3.5 MMOL/L (3.5-5.1); SODIUM 134 MMOL/L (136-145)
[2020-02-11 08:11] LABS: HEMATOCRIT 25.6 % (42.0-52.0); MEAN CORPUSCULAR VOLUME 91 FL (80-99); PLATELET COUNT 334 K/UL (150-450); RED BLOOD COUNT 2.81 M/UL (4.70-6.10); RED CELL DISTRIBUTION WIDTH 14.5 % (11.6-14.8); WHITE BLOOD COUNT 11.5 K/UL (4.8-10.8)
[2020-02-11] MEDS: Aspirin Baby 81mg ORAL SCH (08:33)
[2020-02-11] MEDS: EDURANT 25 MG ORAL SCH (08:33)
[2020-02-11] MEDS: Renvela 800mg Pkt ORAL SCH ×3 (08:33→17:54)
[2020-02-11] MEDS: Docusate 100mg cap ORAL SCH ×2 (08:33→20:34)
[2020-02-11] MEDS: PREZISTA 800 MG ORAL SCH ×2 (08:33→20:34)
[2020-02-11] MEDS: Heparin 5000 units/ml inj SUBQ SCH ×2 (08:38→20:35)
--- NOTE | 2020-02-11 08:44 | NUR ---
RD ASSESSMENT & RECOMMENDATIONS SEE CARE ACTIVITY FOR COMPLETE ASSESSMENT DAILY ESTIMATED NEEDS: Needs based on CKD 5, HIV/ 75kg 25-30 kcals/kg 5707-9446 total kcals 0.6-0.8 g protein/kg 45-60 g total protein 20-22 mL/kg 1330-2055 total fluid mLs NUTRITION DIAGNOSIS: Altered nutrition related lab values R/T CKD 5, HIV as evidenced by elev creat (9.1), elev BUN (94), elev phos (7.5), s/p HD initiation, CD4 264 CURRENT DIET:RENAL PO DIET RECOMMENDATIONS: Maintain RENAL diet ADDITIONAL RECOMMENDATIONS: * Standing wt for accurate CBW * Monitor renal fxn and continuity of HD -> HD initiated 02/08, renal diet provided 02/10 * Monitor lytes- phos elevated, phos binder w/ meals added * Add Nephrovite x 1 * Monitor PO intake closely, add Nepro x 1 w/ continued fair PO intake
--- NOTE | 2020-02-11 10:33 | Nephrology Progress Note ---
Assessment/Plan Plan #Chest pain r/o ACS- r/o uremic pericarditis #CKD 5- not yet on HD- likely due to hypertensive nephrosclerosis - LUE aVF placed 3 years - has not needed HD yet- Primary nephorologist Dr. 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 Subjective ROS Limited/Unobtainable: No Subjective HD terminated yesterday due to infiltrated AVF try HD again today CT chest with Large pericardial effusion will get echo tomorrow cardiomegaly. Findings suggestive of congestive heart failure or hypervolemia. stress test neg echo showing EF 65 lytes reviewed Objective Objective Last 24 Hour Vital Signs Date Time Temp Pulse Resp B/P (MAP) Pulse Ox O2 Delivery O2 Flow Rate FiO2 02/11/20 08:38 86 104/63 02/11/20 08:00 98.1 86 18 104/63 (77) 98 02/11/20 04:00 88 02/11/20 04:00 97.1 62 18 108/68 (81) 99 02/11/20 00:00 90 02/11/20 00:00 97.9 91 18 111/63 (79) 95 02/10/20 21:00 Venturi Mask 10.0 02/10/20 20:45 Venturi Mask 14.0 55 02/10/20 20:42 Venturi Mask 14.0 55 02/10/20 20:41 Venturi Mask 14.0 55 02/10/20 20:00 98.1 97 17 109/65 (80) 90 02/10/20 20:00 98 02/10/20 19:00 90 Venturi Mask 14.0 55 02/10/20 19:00 90 18 92 Venturi Mask 14.0 55 02/10/20 16:00 98.1 92 20 102/63 (76) 90 02/10/20 16:00 98 02/10/20 12:00 98.1 95 20 115/75 (88) 96 02/10/20 12:00 91 Intake and Output 02/10/20 02/11/20 19:00 07:00 Intake Total 324 ml 460 ml Output Total 400 ml 500 ml Balance -76 ml -40 ml Intake Oral 324 ml 400 ml IV Total 60 ml Output Urine Total 400 ml 500 ml # Voids 2 Laboratory Tests 02/11/20 06:19: White Blood Count 11.5H, Red Blood Count 2.81L, Hemoglobin 8.0L, Hematocrit 25.6L, Mean Corpuscular Volume 91, Mean Corpuscular Hemoglobin 28.6, Mean Corpuscular Hemoglobin Concent 31.4L, Red Cell Distribution Width 14.5, Platelet Count 334, Mean Platelet Volume 5.7L, Neutrophils (%) (Auto) , Lymphocytes (%) (Auto) , Monocytes (%) (Auto) , Eosinophils (%) (Auto) , Basophils (%) (Auto) , Differential Total Cells Counted 100, Neutrophils % ( Manual) 63, Lymphocytes % (Manual) 25, Monocytes % (Manual) 11H, Eosinophils % ( Manual) 1, Basophils % (Manual) 0, Band Neutrophils 0, Platelet Estimate Adequate, Platelet Morphology Normal, Hypochromasia 1+, Anisocytosis 1+, Sodium Level 134L, Potassium Level 3.5, Chloride Level 93L, Carbon Dioxide Level 24, Anion Gap 17H, Blood Urea Nitrogen 94H, Creatinine 9.1H, Estimat Glomerular Filtration Rate 7.4, Glucose Level 97, Calcium Level 9.7, Phosphorus Level 7.5H Height (Feet): 5 Height (Inches): 8.00 Weight (Pounds): 163 Morena Mcqueen M.D. February 11, 2020 10:33
--- NOTE | 2020-02-11 10:33 | Pulmonology Progress Note ---
Assessment/Plan Assessment/Plan IMPRESSION: 1. Pulmonary edema. 2. Renal failure, now on dialysis. 3. HIV. 4. Hypertension. 5. Pericardial effusion DISCUSSION: Off diuretics. Continue dialysis. Continue oxygen and pulmonary hygiene. 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 Currently on NRBM; saO2 91-93% Spike Rodriguez M.D. Subjective ROS Limited/Unobtainable: No Interval Events: None new reported Constitutional: Reports: fatigue; Denies: fever HEENT: Repors: no symptoms Respiratory: Reports: shortness of breath Cardiovascular: Reports: no symptoms Gastrointestinal/Abdominal: Denies: nausea, vomiting, diarrhea Psychiatric: Denies: depression Skin: Denies: rash Musculoskeletal: Denies: pain Allergies: Coded Allergies: No Known Allergies (Verified Allergy, Mild, 12/17/09) Objective Last 24 Hour Vital Signs Date Time Temp Pulse Resp B/P (MAP) Pulse Ox O2 Delivery O2 Flow Rate FiO2 02/11/20 08:38 86 104/63 02/11/20 08:00 98.1 86 18 104/63 (77) 98 02/11/20 04:00 88 02/11/20 04:00 97.1 62 18 108/68 (81) 99 02/11/20 00:00 90 02/11/20 00:00 97.9 91 18 111/63 (79) 95 02/10/20 21:00 Venturi Mask 10.0 02/10/20 20:45 Venturi Mask 14.0 55 02/10/20 20:42 Venturi Mask 14.0 55 02/10/20 20:41 Venturi Mask 14.0 55 02/10/20 20:00 98.1 97 17 109/65 (80) 90 02/10/20 20:00 98 02/10/20 19:00 90 Venturi Mask 14.0 55 02/10/20 19:00 90 18 92 Venturi Mask 14.0 55 02/10/20 16:00 98.1 92 20 102/63 (76) 90 02/10/20 16:00 98 02/10/20 12:00 98.1 95 20 115/75 (88) 96 5/5/20 12:00 91 Intake and Output 02/10/20 02/11/20 19:00 07:00 Intake Total 324 ml 460 ml Output Total 400 ml 500 ml Balance -76 ml -40 ml Intake Oral 324 ml 400 ml IV Total 60 ml Output Urine Total 400 ml 500 ml # Voids 2 General Appearance: no acute distress HEENT: normocephalic, atraumatic, anicteric, mucous membranes moist Respiratory/Chest: chest wall non-tender Cardiovascular: normal peripheral pulses Abdomen: normal bowel sounds, soft, non tender, no organomegaly, non distended Genitourinary: other - no harden Extremities: no cyanosis Skin: no rash 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 normal, alert, responsive Lymphatic: no neck adenopathy Musculoskeletal: no effusion Laboratory Tests 02/11/20 06:19: White Blood Count 11.5H, Red Blood Count 2.81L, Hemoglobin 8.0L, Hematocrit 25.6L, Mean Corpuscular Volume 91, Mean Corpuscular Hemoglobin 28.6, Mean Corpuscular Hemoglobin Concent 31.4L, Red Cell Distribution Width 14.5, Platelet Count 334, Mean Platelet Volume 5.7L, Neutrophils (%) (Auto) , Lymphocytes (%) (Auto) , Monocytes (%) (Auto) , Eosinophils (%) (Auto) , Basophils (%) (Auto) , Differential Total Cells Counted 100, Neutrophils % ( Manual) 63, Lymphocytes % (Manual) 25, Monocytes % (Manual) 11H, Eosinophils % ( Manual) 1, Basophils % (Manual) 0, Band Neutrophils 0, Platelet Estimate Adequate, Platelet Morphology Normal, Hypochromasia 1+, Anisocytosis 1+, Sodium Level 134L, Potassium Level 3.5, Chloride Level 93L, Carbon Dioxide Level 24, Anion Gap 17H, Blood Urea Nitrogen 94H, Creatinine 9.1H, Estimat Glomerular Filtration Rate 7.4, Glucose Level 97, Calcium Level 9.7, Phosphorus Level 7.5H Current Medications Medications (Trade) Dose Ordered Sig/Sarbjit Route PRN Reason Start Time Stop Time Status Last Admin Dose Admin Acetaminophen (Tylenol) 650 mg Q4H PRN ORAL Mild Pain (Pain Scale 1-3) 02/03/20 06:30 03/04/20 06:29 02/08/20 18:01 Acetaminophen (Tylenol) 650 mg Q4H PRN ORAL Temp >100.5 02/03/20 06:30 03/04/20 06:29 Acetaminophen/ Hydrocodone Bitart ([place] 5/325) 1 tab Q4H PRN ORAL Prn Chest Pain 02/06/20 11:00 02/13/20 10:59 Amlodipine Besylate (Norvasc) 5 mg DAILY ORAL 02/04/20 09:00 03/05/20 08:59 02/08/20 10:22 Aspirin (ASA) 81 mg DAILY ORAL 02/03/20 15:30 03/19/20 15:29 02/11/20 08:33 Atorvastatin Calcium (Lipitor) 40 mg BEDTIME ORAL 02/03/20 21:00 05/03/20 20:59 02/10/20 21:57 Barium Sulfate (Readi-Cat 2) 450 ml NOW PRN ORAL Radiology Procedure 02/10/20 09:30 02/12/20 09:20 Ceftriaxone Sodium 1 gm/ Dextrose 55 ml @ 110 mls/hr Q24H IVPB 02/06/20 14:00 02/13/20 13:59 02/10/20 16:16 Dextrose (Dextrose 50%) 25 ml Q30M PRN IV Hypoglycemia 02/03/20 06:30 05/03/20 06:29 Dextrose (Dextrose 50%) 50 ml Q30M PRN IV Hypoglycemia 02/03/20 06:30 05/03/20 06:29 Docusate Sodium (Colace) 100 mg EVERY 12 HOURS ORAL 02/03/20 09:00 03/04/20 08:59 02/11/20 08:33 Epoetin Jaya (Epoetin Jaya-EPBX(NON ESRD)) 4,000 unit SUN-SUN-SUN SUBQ 02/06/20 21:00 05/06/20 20:59 02/09/20 21:01 Heparin Sodium (Porcine) (Heparin 5000 units/ml) 5,000 units EVERY 12 HOURS SUBQ 02/03/20 21:00 03/19/20 20:59 02/08/20 21:25 Nitroglycerin (Ntg) 0.4 mg Q5M PRN SL Prn Chest Pain 02/03/20 11:15 03/04/20 11:14 5/3/20 18:58 Ondansetron HCl (Zofran) 4 mg Q6H PRN IVP Nausea & Vomiting 02/03/20 06:30 03/04/20 06:29 Patient Own Medication (Patient's Own Med) 1 ea DAILY ORAL 02/04/20 14:00 03/05/20 13:59 02/11/20 08:33 Patient Own Medication (Patient's Own Med) 1 ea Q12HR ORAL 02/04/20 14:00 03/05/20 13:59 02/11/20 08:33 Polyethylene Glycol (Miralax) 17 gm DAILYPRN PRN ORAL Constipation 02/03/20 06:30 03/04/20 06:29 Sevelamer Carbonate (Renvela) 800 mg THREE TIMES A DAY ORAL 02/08/20 13:00 05/08/20 12:59 02/11/20 08:33 Spike Rodriguez MD February 11, 2020 10:32
--- NOTE | 2020-02-11 11:11 | Cardiac Electrophysiology PN ---
Assessment/Plan Assessment/Plan 1. Chest pain. Ruled out for MO. EKG showed no acute ischemic changes. On aspirin and Lipitor. Echo EF 65%. Stress test showed no ischemia or scar Likely due to volume overload that is better with HD 2. Hypertension. On amlodipine 5 mg daily and now HD 3. Pericardial effusion on chest CT. Will repeat echo after HD. No sign of temponade 4. HIV, on antiretroviral therapy. 5. Acute on Chronic Renal failure. Creatinine of 7.4. Patient has a functioning AV graft in the left arm. Started on dialysis 02/09/20 6. PNA and elevated WBC 15K on iv Abx 7. Hyperlipidemia, on Lipitor. DW RN and Dr Haynes Subjective Subjective Stress test was nonischemic. Had HD yesterday and is getting it again now. Chest CT suggestive of pleural and pericardial effusion Objective Last 24 Hour Vital Signs Date Time Temp Pulse Resp B/P (MAP) Pulse Ox O2 Delivery O2 Flow Rate FiO2 02/11/20 08:38 86 104/63 02/11/20 08:00 98.1 86 18 104/63 (77) 98 02/11/20 04:00 88 02/11/20 04:00 97.1 62 18 108/68 (81) 99 02/11/20 00:00 90 02/11/20 00:00 97.9 91 18 111/63 (79) 95 02/10/20 21:00 Venturi Mask 10.0 02/10/20 20:45 Venturi Mask 14.0 55 02/10/20 20:42 Venturi Mask 14.0 55 02/10/20 20:41 Venturi Mask 14.0 55 02/10/20 20:00 98.1 97 17 109/65 (80) 90 02/10/20 20:00 98 02/10/20 19:00 90 Venturi Mask 14.0 55 02/10/20 19:00 90 18 92 Venturi Mask 14.0 55 02/10/20 16:00 98.1 92 20 102/63 (76) 90 02/10/20 16:00 98 02/10/20 12:00 98.1 95 20 115/75 (88) 96 02/10/20 12:00 91 Intake and Output 02/10/20 02/11/20 19:00 07:00 Intake Total 324 ml 460 ml Output Total 400 ml 500 ml Balance -76 ml -40 ml Intake Oral 324 ml 400 ml IV Total 60 ml Output Urine Total 400 ml 500 ml # Voids 2 Laboratory Tests Test 02/11/20 06:19 White Blood Count 11.5 K/UL (4.8-10.8) H Red Blood Count 2.81 M/UL (4.70-6.10) L Hemoglobin 8.0 G/DL (14.2-18.0) L Hematocrit 25.6 % (42.0-52.0) L Mean Corpuscular Volume 91 FL (80-99) Mean Corpuscular Hemoglobin 28.6 PG (27.0-31.0) Mean Corpuscular Hemoglobin Concent 31.4 G/DL (32.0-36.0) L Red Cell Distribution Width 14.5 % (11.6-14.8) Platelet Count 334 K/UL (150-450) Mean Platelet Volume 5.7 FL (6.5-10.1) L Neutrophils (%) (Auto) % (45.0-75.0) Lymphocytes (%) (Auto) % (20.0-45.0) Monocytes (%) (Auto) % (1.0-10.0) Eosinophils (%) (Auto) % (0.0-3.0) Basophils (%) (Auto) % (0.0-2.0) Differential Total Cells Counted 100 Neutrophils % (Manual) 63 % (45-75) Lymphocytes % (Manual) 25 % (20-45) Monocytes % (Manual) 11 % (1-10) H Eosinophils % (Manual) 1 % (0-3) Basophils % (Manual) 0 % (0-2) Band Neutrophils 0 % (0-8) Platelet Estimate Adequate Platelet Morphology Normal Hypochromasia 1+ Anisocytosis 1+ Sodium Level 134 MMOL/L (136-145) L Potassium Level 3.5 MMOL/L (3.5-5.1) Chloride Level 93 MMOL/L (98-107) L Carbon Dioxide Level 24 MMOL/L (21-32) Anion Gap 17 mmol/L (5-15) H Blood Urea Nitrogen 94 mg/dL (7-18) H Creatinine 9.1 MG/DL (0.55-1.30) H Estimat Glomerular Filtration Rate 7.4 mL/min (>60) Glucose Level 97 MG/DL (74-106) Calcium Level 9.7 MG/DL (8.5-10.1) Phosphorus Level 7.5 MG/DL (2.5-4.9) H Objective HEAD AND NECK: No JVD or carotid bruits. LUNGS: Clear. CARDIOVASCULAR: Regular S1 and S2 with no gallop or murmur. ABDOMEN: Soft. EXTREMITIES: No pitting edema. Silvino Perez MD February 11, 2020 11:11
--- NOTE | 2020-02-11 11:54 | NUR ---
CASE MANAGEMENT:REVIEW 02/11/20 SI: ATYPICAL CHEST PAIN. CKD 5. HIV LOW GRADE TEMP AND TACHYCARDIC ~ R/O COVID 19 98.1 86 18 104/63 98% ON VENTURI MASK 10L BUN+94 CR+9.1 PHOS+7.5 IS: IV LASIX X1 IV ROCEPHIN Q24 RENVELA PO TID EPOETIN SQ MWF NORVASC PO QD HEPARIN SQ Q12 ASA PO QD HAART REGIMEN : TELEMETRY STATUS DCP: FROM HOME PLAN: COVID 19 RESULTS FAXED TO [facility]END[facility] ~ NEEDED FOR OUTPATIENT DIALYSIS
[2020-02-11 12:00] VITALS: BP 107/59
--- NOTE | 2020-02-11 14:07 | General Progress Note ---
Assessment/Plan Assessment/Plan: 54-year-old AAM with PMH of HIV on meds, HTN and CKD stage V not on dialysis who presents with left-sided chest pain. On admission, Cr 7.4, BUN 71. EKG revealed NSR, HR 108. Troponin negative x1. Patient admitted for further treatment and evaluation. #Atypical Chest Pain 2/2 (resolved) #Uremic Pericarditis #Fluid overload #CKD 5, now ESRD on HD -cont. in-pt medical care -likely uremic pericarditis given elevated BUN, pain relieved w/Tylenol -ACS ruled out, EKG NSR, trops negative -02/03: s/p stress test no ischemia or scar, negative, TTE EF 65% -pain management, Tylenol PRN -supplemental O2 prn -Nephro following: plan for HD today -CM for HD clinic arrangements #Large Pericardial Effusion -found on CT chest/abd/pel -pt with no SOB, CP at this time -VSS -d/w cardio, Dr. Perez, states will repeat echo tomorrow after HD today #Leukocytosis - resolved #Suspect CAP #Left Pleural effusion -cont. supportive care, supplemental O2 -COVID PCR negative, d/c isolation protocol (droplet/contact) -CXR w/pulmonary congestion -d/w PCP, Dr. Marino, pt's WBC 7-8 at b/l -CT chest/abd/pel with b/l pleural effusions and large pericardial effusion -ID following: CTX #HTN #Tachycardia - improved -cont home meds, amlodipine -d/w cardio, will adjust BP meds #HIV -last viral count undetectable per pt -CD4 300 per pt -cont. home meds DVT PPx: heparin Time spent on encounter: 36 mins, 23 on counseling, coordination of care w/RN, pt, Nephro and Cardio. Time of note doesn't reflect time of encounter. Subjective Allergies: Coded Allergies: No Known Allergies (Verified Allergy, Mild, 12/17/09) Subjective F/u for uremic chest pain, s/p stress test, negative, ACS ruled out. Respiratory distress 2/2 fluid overload. COVID negative. Pt states he is doing well today. Plan for HD today. WBC down today. CT chest/abd/pel w/b/l plueral effusions and large pericardial effusion. 12 pt ROS neg except as above Objective Last 24 Hour Vital Signs Date Time Temp Pulse Resp B/P (MAP) Pulse Ox O2 Delivery O2 Flow Rate FiO2 02/11/20 12:00 98.3 72 18 107/59 (75) 97 02/11/20 09:00 Venturi Mask 10.0 02/11/20 08:38 86 104/63 02/11/20 08:00 90 02/11/20 08:00 98.1 86 18 104/63 (77) 98 02/11/20 04:00 88 02/11/20 04:00 97.1 62 18 108/68 (81) 99 02/11/20 00:00 90 02/11/20 00:00 97.9 91 18 111/63 (79) 95 02/10/20 21:00 Venturi Mask 10.0 02/10/20 20:45 Venturi Mask 14.0 55 02/10/20 20:42 Venturi Mask 14.0 55 02/10/20 20:41 Venturi Mask 14.0 55 02/10/20 20:00 98.1 97 17 109/65 (80) 90 02/10/20 20:00 98 02/10/20 19:00 90 Venturi Mask 14.0 55 02/10/20 19:00 90 18 92 Venturi Mask 14.0 55 02/10/20 16:00 98.1 92 20 102/63 (76) 90 02/10/20 16:00 98 Intake and Output 02/10/20 02/11/20 19:00 07:00 Intake Total 324 ml 460 ml Output Total 400 ml 500 ml Balance -76 ml -40 ml Intake Oral 324 ml 400 ml IV Total 60 ml Output Urine Total 400 ml 500 ml # Voids 2 Laboratory Tests 02/11/20 06:19: White Blood Count 11.5H, Red Blood Count 2.81L, Hemoglobin 8.0L, Hematocrit 25.6L, Mean Corpuscular Volume 91, Mean Corpuscular Hemoglobin 28.6, Mean Corpuscular Hemoglobin Concent 31.4L, Red Cell Distribution Width 14.5, Platelet Count 334, Mean Platelet Volume 5.7L, Neutrophils (%) (Auto) , Lymphocytes (%) (Auto) , Monocytes (%) (Auto) , Eosinophils (%) (Auto) , Basophils (%) (Auto) , Differential Total Cells Counted 100, Neutrophils % ( Manual) 63, Lymphocytes % (Manual) 25, Monocytes % (Manual) 11H, Eosinophils % ( Manual) 1, Basophils % (Manual) 0, Band Neutrophils 0, Platelet Estimate Adequate, Platelet Morphology Normal, Hypochromasia 1+, Anisocytosis 1+, Sodium Level 134L, Potassium Level 3.5, Chloride Level 93L, Carbon Dioxide Level 24, Anion Gap 17H, Blood Urea Nitrogen 94H, Creatinine 9.1H, Estimat Glomerular Filtration Rate 7.4, Glucose Level 97, Calcium Level 9.7, Phosphorus Level 7.5H Height (Feet): 5 Height (Inches): 8.00 Weight (Pounds): 163 Objective General: NAD, A&O x 3, laying in bed comfortably w/venti mask off face at this time HEENT: NCAT, EOMi, MMM CV: RRR, no murmurs, rubs, or gallops Pulm: CTAB, No wheezes, rhonchi, or rales, no accessory muscle usage or conversational dyspnea GI: Soft, nontender, nondistended, bowel sounds present Ext: No lower extremity edema bilaterally, LUE fistula +bruit/thrill Skin: no rashes lesions or ulcers Mirza Haynes M.D. February 11, 2020 14:07
[2020-02-11] MEDS: cefTRIAXone 1 GM in D5W 55 ML IVPB SCH (14:48)
[2020-02-11 16:00] VITALS: BP 109/63
--- NOTE | 2020-02-11 18:03 | Infectious Diseases Prog Note ---
Assessment/Plan Assessment/Plan ASSESSMENT AND PLAN: 1. leukocytosis, ? source, ? sepsis, rule covid-19 infection with pna, chest x- ray c/w chf/pvc, sob, ? uri/bronchitis CT - with atx/consolidation and large pericardial effusion ? CAP - ceftriaxone - day # 6 - can change augmentin x 3 days by mouth - leukocytosis better - monitor labs - communicated with Dr. Haynes - covid-19 testing - negative - HD 2. 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 - f/u with primary HIV MD as a outpatient 3. 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 The patient has history of hypertension, treatment by primary care team. 5. Chronic kidney disease. 6. No known drug allergies. 7. Anemia. 8. Social history is negative. 9. Family history is noncontributory. 10. MAR was noted. 11. d/w RN 12. Continue treatment per primary consultants. Subjective Constitutional: Denies: fever HEENT: Reports: congestion - less Respiratory: Reports: shortness of breath - less Cardiovascular: Denies: chest pain Gastrointestinal/Abdominal: Denies: nausea, vomiting, diarrhea Genitourinary: Denies: dysuria, hematuria Neurologic: Denies: headache Psychiatric: Denies: depression Skin: Denies: rash Hematologic: Denies: bleeding Musculoskeletal: Denies: pain Allergies: Coded Allergies: No Known Allergies (Verified Allergy, Mild, 12/17/09) Objective Vital Signs Last 24 Hour Vital Signs Date Time Temp Pulse Resp B/P (MAP) Pulse Ox O2 Delivery O2 Flow Rate FiO2 02/11/20 12:00 98.3 72 18 107/59 (75) 97 02/11/20 09:00 Venturi Mask 10.0 02/11/20 08:38 86 104/63 02/11/20 08:00 90 02/11/20 08:00 98.1 86 18 104/63 (77) 98 02/11/20 04:00 88 02/11/20 04:00 97.1 62 18 108/68 (81) 99 02/11/20 00:00 90 02/11/20 00:00 97.9 91 18 111/63 (79) 95 02/10/20 21:00 Venturi Mask 10.0 02/10/20 20:45 Venturi Mask 14.0 55 02/10/20 20:42 Venturi Mask 14.0 55 02/10/20 20:41 Venturi Mask 14.0 55 02/10/20 20:00 98.1 97 17 109/65 (80) 90 02/10/20 20:00 98 02/10/20 19:00 90 Venturi Mask 14.0 55 02/10/20 19:00 90 18 92 Venturi Mask 14.0 55 Height (Feet): 5 Height (Inches): 8.00 Weight (Pounds): 163 General Appearance: no acute distress HEENT: normocephalic, atraumatic, anicteric, mucous membranes moist Respiratory/Chest: no respiratory distress, crackles/rales, rhonchi - bilaterally Cardiovascular: normal rate, regular rhythm, no gallop/murmur, no JVD Abdomen: normal bowel sounds, soft, non tender, no organomegaly, non distended Genitourinary: other - no harden Extremities: no cyanosis Skin: no rash 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 COMPARISON: 02/03/20 FINDINGS: Lungs: Mild bibasilar atelectasis. Minimal interstitial edema. Pleural space: There are small bilateral pleural effusions, new or significantly increased since the prior exam. No evidence of pneumothorax. Heart: Cardiac silhouette is enlarged. Mediastinum: No mediastinal widening or shift. Bones/joints: No acute osseous abnormality. IMPRESSION: Minimal interstitial edema with bilateral pleural effusions and cardiomegaly. Findings suggestive of congestive heart failure or hypervolemia. Bibasilar atelectasis. No definite airspace consolidation. CT scan - abdomen, chest and pelvis IMPRESSION: Bilateral pleural effusions Atelectasis and consolidation of most of the right lower lobe and much of the left lower lobe. The atelectasis is probably mostly passive due to the pleural effusions Large pericardial effusion No acute abdominal or pelvic abnormality Atrophic kidneys, consistent with known history of chronic renal insufficiency Prominent prostate Microbiology Date/Time Source Procedure Growth Status 02/06/20 06:30 Blood Blood Culture - Preliminary NO GROWTH AFTER 4 DAYS Resulted 02/06/20 09:00 Nasopharynx Coronavirus COVID-19 PCR ([facility]) - Final Complete 02/03/20 06:00 Rectum VRE Culture - Final NO VANCOMYCIN RESISTANT ENTEROCOCCUS ... Complete Laboratory Tests Test 02/11/20 06:19 White Blood Count 11.5 K/UL (4.8-10.8) H Red Blood Count 2.81 M/UL (4.70-6.10) L Hemoglobin 8.0 G/DL (14.2-18.0) L Hematocrit 25.6 % (42.0-52.0) L Mean Corpuscular Volume 91 FL (80-99) Mean Corpuscular Hemoglobin 28.6 PG (27.0-31.0) Mean Corpuscular Hemoglobin Concent 31.4 G/DL (32.0-36.0) L Red Cell Distribution Width 14.5 % (11.6-14.8) Platelet Count 334 K/UL (150-450) Mean Platelet Volume 5.7 FL (6.5-10.1) L Neutrophils (%) (Auto) % (45.0-75.0) Lymphocytes (%) (Auto) % (20.0-45.0) Monocytes (%) (Auto) % (1.0-10.0) Eosinophils (%) (Auto) % (0.0-3.0) Basophils (%) (Auto) % (0.0-2.0) Differential Total Cells Counted 100 Neutrophils % (Manual) 63 % (45-75) Lymphocytes % (Manual) 25 % (20-45) Monocytes % (Manual) 11 % (1-10) H Eosinophils % (Manual) 1 % (0-3) Basophils % (Manual) 0 % (0-2) Band Neutrophils 0 % (0-8) Platelet Estimate Adequate Platelet Morphology Normal Hypochromasia 1+ Anisocytosis 1+ Sodium Level 134 MMOL/L (136-145) L Potassium Level 3.5 MMOL/L (3.5-5.1) Chloride Level 93 MMOL/L (98-107) L Carbon Dioxide Level 24 MMOL/L (21-32) Anion Gap 17 mmol/L (5-15) H Blood Urea Nitrogen 94 mg/dL (7-18) H Creatinine 9.1 MG/DL (0.55-1.30) H Estimat Glomerular Filtration Rate 7.4 mL/min (>60) Glucose Level 97 MG/DL (74-106) Calcium Level 9.7 MG/DL (8.5-10.1) Phosphorus Level 7.5 MG/DL (2.5-4.9) H Current Medications Medications (Trade) Dose Ordered Sig/Sarbjit Route PRN Reason Start Time Stop Time Status Last Admin Dose Admin Acetaminophen (Tylenol) 650 mg Q4H PRN ORAL Mild Pain (Pain Scale 1-3) 02/03/20 06:30 03/04/20 06:29 02/08/20 18:01 Acetaminophen (Tylenol) 650 mg Q4H PRN ORAL Temp >100.5 02/03/20 06:30 03/04/20 06:29 Acetaminophen/ Hydrocodone Bitart ([place] 5/325) 1 tab Q4H PRN ORAL Prn Chest Pain 02/06/20 11:00 02/13/20 10:59 Amlodipine Besylate (Norvasc) 5 mg DAILY ORAL 02/04/20 09:00 03/05/20 08:59 02/08/20 10:22 Aspirin (ASA) 81 mg DAILY ORAL 02/03/20 15:30 03/19/20 15:29 02/11/20 08:33 Atorvastatin Calcium (Lipitor) 40 mg BEDTIME ORAL 02/03/20 21:00 05/03/20 20:59 02/10/20 21:57 Barium Sulfate (Readi-Cat 2) 450 ml NOW PRN ORAL Radiology Procedure 02/10/20 09:30 02/12/20 09:20 Ceftriaxone Sodium 1 gm/ Dextrose 55 ml @ 110 mls/hr Q24H IVPB 02/06/20 14:00 02/13/20 13:59 02/11/20 14:48 Dextrose (Dextrose 50%) 25 ml Q30M PRN IV Hypoglycemia 02/03/20 06:30 05/03/20 06:29 Dextrose (Dextrose 50%) 50 ml Q30M PRN IV Hypoglycemia 02/03/20 06:30 05/03/20 06:29 Docusate Sodium (Colace) 100 mg EVERY 12 HOURS ORAL 02/03/20 09:00 03/04/20 08:59 02/11/20 08:33 Epoetin Jaya (Epoetin Jaya(ESRD on dialysis)) 4,000 unit SUN-SUN-SUN SUBQ 02/11/20 21:00 05/11/20 20:59 Heparin Sodium (Porcine) (Heparin 5000 units/ml) 5,000 units EVERY 12 HOURS SUBQ 02/03/20 21:00 03/19/20 20:59 02/08/20 21:25 Nitroglycerin (Ntg) 0.4 mg Q5M PRN SL Prn Chest Pain 02/03/20 11:15 03/04/20 11:14 02/08/20 18:58 Ondansetron HCl (Zofran) 4 mg Q6H PRN IVP Nausea & Vomiting 02/03/20 06:30 03/04/20 06:29 Patient Own Medication (Patient's Own Med) 1 ea DAILY ORAL 02/04/20 14:00 03/05/20 13:59 02/11/20 08:33 Patient Own Medication (Patient's Own Med) 1 ea Q12HR ORAL 02/04/20 14:00 03/05/20 13:59 02/11/20 08:33 Polyethylene Glycol (Miralax) 17 gm DAILYPRN PRN ORAL Constipation 02/03/20 06:30 03/04/20 06:29 Sevelamer Carbonate (Renvela) 1,600 mg THREE TIMES A DAY ORAL 02/11/20 13:00 05/08/20 12:59 02/11/20 17:54 Adore Zazueta MD February 11, 2020 18:03
--- NOTE | 2020-02-11 19:41 | NUR ---
HAND-OFF: Report given to NESHA Bowen. Endorsed plan of care.
[2020-02-11 20:00] VITALS: BP 114/55
[2020-02-11] MEDS: Atorvastatin 20mg tab ORAL SCH (20:34)
[2020-02-11] MEDS: Epoetin Alfa-EPBX(ESRD on dialysis)4000 units/ml vial SUBQ SCH (20:58)
[2020-02-12] VITALS: BP 104/59
--- NOTE | 2020-02-12 03:24 | NUR ---
NURSE NOTES: Patient is asleep lying semi-medley's; resting comfortably. No signs of acute distress or pain noted at this time.
[2020-02-12 04:00] VITALS: BP 101/63
[2020-02-12 07:47] LABS: BASOPHILS % (AUTO) 1.1 % (0.0-2.0); HEMATOCRIT 25.2 % (42.0-52.0); HEMOGLOBIN 8.1 G/DL (14.2-18.0); LYMPHOCYTES % (AUTO) 27.9 % (20.0-45.0); MEAN CORPUSCULAR VOLUME 91 FL (80-99); MONOCYTES % (AUTO) 13.4 % (1.0-10.0); NEUTROPHILS % (AUTO) 55.6 % (45.0-75.0); PLATELET COUNT 342 K/UL (150-450); RED BLOOD COUNT 2.77 M/UL (4.70-6.10); RED CELL DISTRIBUTION WIDTH 14.4 % (11.6-14.8); WHITE BLOOD COUNT 13.2 K/UL (4.8-10.8)
--- NOTE | 2020-02-12 07:47 | NUR ---
HAND-OFF: Report given to NESHA Potter. Patient is awake lying semi-medley's; resting comfortably. In stable condition.
[2020-02-12 08:19] LABS: ANION GAP 14 mmol/L (5-15); BLOOD UREA NITROGEN 73 mg/dL (7-18); CALCIUM 9.8 MG/DL (8.5-10.1); CARBON DIOXIDE 29 MMOL/L (21-32); CHLORIDE 93 MMOL/L (98-107); CREATININE 8.1 MG/DL (0.55-1.30); POTASSIUM 3.7 MMOL/L (3.5-5.1); SODIUM 136 MMOL/L (136-145)
[2020-02-12 08:45] VITALS: BP 107/64
[2020-02-12] MEDS: Docusate 100mg cap ORAL SCH ×2 (08:54→22:07)
[2020-02-12] MEDS: Aspirin Baby 81mg ORAL SCH (08:54)
[2020-02-12] MEDS: Renvela 800mg Pkt ORAL SCH ×3 (08:58→18:02)
[2020-02-12] MEDS: EDURANT 25 MG ORAL SCH (08:59)
[2020-02-12] MEDS: PREZISTA 800 MG ORAL SCH ×2 (08:59→22:08)
[2020-02-12] MEDS: Heparin 5000 units/ml inj SUBQ SCH ×2 (09:00→22:11)
--- NOTE | 2020-02-12 10:25 | Nephrology Progress Note ---
Assessment/Plan Plan #Chest pain r/o ACS- r/o uremic pericarditis #CKD 5- not yet on HD- likely due to hypertensive nephrosclerosis - LUE aVF placed 3 years - has not needed HD yet- Primary nephorologist Dr. Charles #HTN #HIV #hyperphosphetemia #Pericarial effusion HD yesterday and again today CT chest with Large pericardial effusion TTE today however showed only small circumferential pericardial effusion case work aide consulted for HD placement - continue sevelamer to 1600mg TIDAC - continue wpo 4k TIW - monitor UOP- strict I&Os - COVID 19 rule out - monitor UOP - check 2d echo- > EF 65 -- Stress test per cardiology- neg - asa - lipitor - amlodipine 5mg daily - monitor electrolytes and kidney function - continue dapson - continue dapson and prezista Time spent on encounter: 36 mins, >50% on counseling, coordination of care. Subjective ROS Limited/Unobtainable: No Constitutional: Denies: no symptoms, chills, diaphoresis, fever, malaise, weakness, other HEENT: Denies: no symptoms, eye pain, blurred vision, tearing, double vision, ear pain, ear discharge, nose pain, nose congestion, throat pain, throat swelling, mouth pain, mouth swelling, other Genitourinary: Denies: no symptoms, burning, discharge, frequency, flank pain, hematuria, incontinence, pain, urgency, other Neurologic/Psychiatric: Denies: no symptoms, anxiety, depressed, emotional problems, headache, numbness, paresthesia, pre-existing deficit, seizure, tingling, tremors, weakness, other Subjective underwent Hd yesterday - tolerated well CT chest with Large pericardial effusion TTE today however showed only small circumferential pericardial effusion stress test neg echo showing EF 65 lytes reviewed Objective Objective Last 24 Hour Vital Signs Date Time Temp Pulse Resp B/P (MAP) Pulse Ox O2 Delivery O2 Flow Rate FiO2 02/12/20 09:12 Venturi Mask 10.0 02/12/20 08:55 87 107/64 02/12/20 08:45 98.1 87 20 107/64 (78) 97 02/12/20 08:00 93 02/12/20 04:00 98.2 82 21 101/63 (76) 98 02/12/20 04:00 86 02/12/20 00:00 98.1 86 20 104/59 (74) 98 02/12/20 00:00 92 02/11/20 21:00 Venturi Mask 10.0 02/11/20 20:00 96 02/11/20 20:00 98.4 99 21 114/55 (74) 98 02/11/20 16:00 107 02/11/20 16:00 97.9 100 18 109/63 (78) 100 02/11/20 12:00 98.3 72 18 107/59 (75) 97 02/11/20 12:00 106 Intake and Output 02/11/20 02/12/20 19:00 07:00 Intake Total 320 ml 300 ml Output Total 400 ml 350 ml Balance -80 ml -50 ml Intake Oral 320 ml 300 ml Output Urine Total 400 ml 350 ml Laboratory Tests 02/12/20 06:24: White Blood Count 13.2H, Red Blood Count 2.77L, Hemoglobin 8.1L, Hematocrit 25.2L, Mean Corpuscular Volume 91, Mean Corpuscular Hemoglobin 29.2, Mean Corpuscular Hemoglobin Concent 32.1, Red Cell Distribution Width 14.4, Platelet Count 342, Mean Platelet Volume 5.6L, Neutrophils (%) (Auto) 55.6, Lymphocytes ( %) (Auto) 27.9, Monocytes (%) (Auto) 13.4H, Eosinophils (%) (Auto) 2.0, Basophils (%) (Auto) 1.1, Sodium Level 136, Potassium Level 3.7, Chloride Level 93L, Carbon Dioxide Level 29, Anion Gap 14, Blood Urea Nitrogen 73H, Creatinine 8.1H, Estimat Glomerular Filtration Rate 8.5, Glucose Level 98, Calcium Level 9.8 Height (Feet): 5 Height (Inches): 8.00 Weight (Pounds): 161 Morena Mcqueen M.D. February 12, 2020 10:25
--- NOTE | 2020-02-12 10:45 | Pulmonology Progress Note ---
Subjective ROS Limited/Unobtainable: No Interval Events: None new reported Constitutional: Denies: fever HEENT: Repors: no symptoms Respiratory: Reports: shortness of breath Cardiovascular: Reports: no symptoms Gastrointestinal/Abdominal: Denies: nausea, vomiting, diarrhea Psychiatric: Denies: depression Skin: Denies: rash Musculoskeletal: Denies: pain Allergies: Coded Allergies: No Known Allergies (Verified Allergy, Mild, 12/17/09) Objective Last 24 Hour Vital Signs Date Time Temp Pulse Resp B/P (MAP) Pulse Ox O2 Delivery O2 Flow Rate FiO2 02/12/20 09:12 Venturi Mask 10.0 02/12/20 08:55 87 107/64 02/12/20 08:45 98.1 87 20 107/64 (78) 97 02/12/20 08:00 93 02/12/20 04:00 98.2 82 21 101/63 (76) 98 02/12/20 04:00 86 02/12/20 00:00 98.1 86 20 104/59 (74) 98 02/12/20 00:00 92 02/11/20 21:00 Venturi Mask 10.0 02/11/20 20:00 96 02/11/20 20:00 98.4 99 21 114/55 (74) 98 02/11/20 16:00 107 02/11/20 16:00 97.9 100 18 109/63 (78) 100 02/11/20 12:00 98.3 72 18 107/59 (75) 97 02/11/20 12:00 106 Intake and Output 02/11/20 02/12/20 19:00 07:00 Intake Total 320 ml 300 ml Output Total 400 ml 350 ml Balance -80 ml -50 ml Intake Oral 320 ml 300 ml Output Urine Total 400 ml 350 ml General Appearance: no acute distress HEENT: normocephalic, atraumatic, anicteric, mucous membranes moist Respiratory/Chest: chest wall non-tender Cardiovascular: normal peripheral pulses Abdomen: normal bowel sounds, soft, non tender, no organomegaly, non distended Genitourinary: other - no harden Extremities: no cyanosis Skin: no rash 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, alert, oriented x 3, responsive Lymphatic: no neck adenopathy Musculoskeletal: no effusion Laboratory Tests 02/12/20 06:24: White Blood Count 13.2H, Red Blood Count 2.77L, Hemoglobin 8.1L, Hematocrit 25.2L, Mean Corpuscular Volume 91, Mean Corpuscular Hemoglobin 29.2, Mean Corpuscular Hemoglobin Concent 32.1, Red Cell Distribution Width 14.4, Platelet Count 342, Mean Platelet Volume 5.6L, Neutrophils (%) (Auto) 55.6, Lymphocytes ( %) (Auto) 27.9, Monocytes (%) (Auto) 13.4H, Eosinophils (%) (Auto) 2.0, Basophils (%) (Auto) 1.1, Sodium Level 136, Potassium Level 3.7, Chloride Level 93L, Carbon Dioxide Level 29, Anion Gap 14, Blood Urea Nitrogen 73H, Creatinine 8.1H, Estimat Glomerular Filtration Rate 8.5, Glucose Level 98, Calcium Level 9.8 Current Medications Medications (Trade) Dose Ordered Sig/Sarbjit Route PRN Reason Start Time Stop Time Status Last Admin Dose Admin Acetaminophen (Tylenol) 650 mg Q4H PRN ORAL Mild Pain (Pain Scale 1-3) 02/03/20 06:30 03/04/20 06:29 02/08/20 18:01 Acetaminophen (Tylenol) 650 mg Q4H PRN ORAL Temp >100.5 02/03/20 06:30 03/04/20 06:29 Acetaminophen/ Hydrocodone Bitart ([place] 5/325) 1 tab Q4H PRN ORAL Prn Chest Pain 02/06/20 11:00 02/13/20 10:59 Amlodipine Besylate (Norvasc) 5 mg DAILY ORAL 02/04/20 09:00 03/05/20 08:59 02/12/20 08:55 Aspirin (ASA) 81 mg DAILY ORAL 02/03/20 15:30 03/19/20 15:29 02/12/20 08:54 Atorvastatin Calcium (Lipitor) 40 mg BEDTIME ORAL 02/03/20 21:00 05/03/20 20:59 02/11/20 20:34 Ceftriaxone Sodium 1 gm/ Dextrose 55 ml @ 110 mls/hr Q24H IVPB 02/06/20 14:00 02/13/20 13:59 02/11/20 14:48 Dapsone (Dapsone) 100 mg DAILY ORAL 02/12/20 10:00 02/26/20 09:59 Dextrose (Dextrose 50%) 25 ml Q30M PRN IV Hypoglycemia 02/03/20 06:30 05/03/20 06:29 Dextrose (Dextrose 50%) 50 ml Q30M PRN IV Hypoglycemia 02/03/20 06:30 05/03/20 06:29 Docusate Sodium (Colace) 100 mg EVERY 12 HOURS ORAL 02/03/20 09:00 03/04/20 08:59 02/12/20 08:54 Epoetin Jaya (Epoetin Jaya(ESRD on dialysis)) 4,000 unit SUN- SUBQ 02/11/20 21:00 05/11/20 20:59 02/11/20 20:58 Heparin Sodium (Porcine) (Heparin 5000 units/ml) 5,000 units EVERY 12 HOURS SUBQ 02/03/20 21:00 03/19/20 20:59 02/12/20 09:00 Nitroglycerin (Ntg) 0.4 mg Q5M PRN SL Prn Chest Pain 02/03/20 11:15 03/04/20 11:14 02/08/20 18:58 Ondansetron HCl (Zofran) 4 mg Q6H PRN IVP Nausea & Vomiting 02/03/20 06:30 03/04/20 06:29 Patient Own Medication (Patient's Own Med) 1 ea DAILY ORAL 02/04/20 14:00 03/05/20 13:59 02/12/20 08:59 Patient Own Medication (Patient's Own Med) 1 ea Q12HR ORAL 02/04/20 14:00 03/05/20 13:59 02/12/20 08:59 Polyethylene Glycol (Miralax) 17 gm DAILYPRN PRN ORAL Constipation 02/03/20 06:30 03/04/20 06:29 Sevelamer Carbonate (Renvela) 1,600 mg THREE TIMES A DAY ORAL 02/11/20 13:00 05/08/20 12:59 02/12/20 08:58 Assessment/Plan Assessment/Plan IMPRESSION: 1. Pulmonary edema. 2. Renal failure, now on dialysis. 3. HIV. 4. Hypertension. 5. Pericardial effusion DISCUSSION: Off diuretics. Continue dialysis. Continue oxygen and pulmonary hygiene. I will follow as delivery of shopping news. Currently on 10L O2; saO2 94% Nain Whitaker Omar Syed MD February 12, 2020 10:45
--- NOTE | 2020-02-12 11:43 | Cardiac Electrophysiology PN ---
Assessment/Plan Assessment/Plan 1. Chest pain. Ruled out for NM. EKG showed no acute ischemic changes. On aspirin and Lipitor. Echo EF 65%. Stress test showed no ischemia or scar Likely due to volume overload that is better with HD 2. Hypertension. On amlodipine 5 mg daily and HD 3. Pericardial effusion on chest CT. Repeat echo today showed only small pericardial effusion 4. HIV, on antiretroviral therapy. 5. Acute on Chronic Renal failure. Creatinine of 7.4. Patient has a functioning AV graft in the left arm. Started on dialysis 02/09/20 6. PNA and elevated WBC 15K on iv Abx 7. Hyperlipidemia, on Lipitor. THERESE RN and Dr Mcqueen Subjective Subjective Stress test was nonischemic. Had HD yesterday. Chest CT suggestive of pleural and pericardial effusion. TTE today however showed only small circumferential pericardial effusion Objective Last 24 Hour Vital Signs Date Time Temp Pulse Resp B/P (MAP) Pulse Ox O2 Delivery O2 Flow Rate FiO2 02/12/20 09:12 Venturi Mask 10.0 02/12/20 08:55 87 107/64 02/12/20 08:45 98.1 87 20 107/64 (78) 97 02/12/20 08:00 93 02/12/20 04:00 98.2 82 21 101/63 (76) 98 02/12/20 04:00 86 02/12/20 00:00 98.1 86 20 104/59 (74) 98 02/12/20 00:00 92 02/11/20 21:00 Venturi Mask 10.0 02/11/20 20:00 96 02/11/20 20:00 98.4 99 21 114/55 (74) 98 02/11/20 16:00 107 02/11/20 16:00 97.9 100 18 109/63 (78) 100 02/11/20 12:00 98.3 72 18 107/59 (75) 97 02/11/20 12:00 106 Intake and Output 02/11/20 02/12/20 19:00 07:00 Intake Total 320 ml 300 ml Output Total 400 ml 350 ml Balance -80 ml -50 ml Intake Oral 320 ml 300 ml Output Urine Total 400 ml 350 ml Laboratory Tests Test 02/12/20 06:24 White Blood Count 13.2 K/UL (4.8-10.8) H Red Blood Count 2.77 M/UL (4.70-6.10) L Hemoglobin 8.1 G/DL (14.2-18.0) L Hematocrit 25.2 % (42.0-52.0) L Mean Corpuscular Volume 91 FL (80-99) Mean Corpuscular Hemoglobin 29.2 PG (27.0-31.0) Mean Corpuscular Hemoglobin Concent 32.1 G/DL (32.0-36.0) Red Cell Distribution Width 14.4 % (11.6-14.8) Platelet Count 342 K/UL (150-450) Mean Platelet Volume 5.6 FL (6.5-10.1) L Neutrophils (%) (Auto) 55.6 % (45.0-75.0) Lymphocytes (%) (Auto) 27.9 % (20.0-45.0) Monocytes (%) (Auto) 13.4 % (1.0-10.0) H Eosinophils (%) (Auto) 2.0 % (0.0-3.0) Basophils (%) (Auto) 1.1 % (0.0-2.0) Sodium Level 136 MMOL/L (136-145) Potassium Level 3.7 MMOL/L (3.5-5.1) Chloride Level 93 MMOL/L (98-107) L Carbon Dioxide Level 29 MMOL/L (21-32) Anion Gap 14 mmol/L (5-15) Blood Urea Nitrogen 73 mg/dL (7-18) H Creatinine 8.1 MG/DL (0.55-1.30) H Estimat Glomerular Filtration Rate 8.5 mL/min (>60) Glucose Level 98 MG/DL (74-106) Calcium Level 9.8 MG/DL (8.5-10.1) Objective HEAD AND NECK: No JVD or carotid bruits. LUNGS: Clear. CARDIOVASCULAR: Regular S1 and S2 with no gallop or murmur. ABDOMEN: Soft. EXTREMITIES: No pitting edema. Silvino Perez MD February 12, 2020 11:43
[2020-02-12 12:00] VITALS: BP 105/57
[2020-02-12] MEDS: cefTRIAXone 1 GM in D5W 55 ML IVPB SCH (13:48)
[2020-02-12 16:00] VITALS: BP 106/75
--- NOTE | 2020-02-12 17:58 | General Progress Note ---
Assessment/Plan Assessment/Plan: HPI/CC:54-year-old AAM with PMH of HIV on meds, HTN and CKD stage V not on dialysis initially who presents with left-sided chest pain. On admission, Cr 7.4 , BUN 71. EKG revealed NSR, HR 108. Troponin negative x1. Patient admitted for further treatment and evaluation. Patient has subsequently tested COVID negative, and has converted to HD, along w/ Tx for CAP. Stress Test for ACS work up negative Assessment #ARF on CKD, now ESRD on HD , with improvement in BL pleural effusions and pericardial effusion #CAP, COVID is negative #CP r/o ACS --> s/p Stress Test w/o signs of Ischemia, EF 65% on Echo #HTN #HIV Plan Consultants include ID, Cardio, Nephro Continue Rocephin IV; monitor WBC as it was climbing today Patient is on Dapsone for ppx Continue Atorvastatin, ASA, Norvasc D/C planning; --> new HD patient DVT ppx Diet as tolerated Subjective Date patient seen: February 12, 2020 Allergies: Coded Allergies: No Known Allergies (Verified Allergy, Mild, 12/17/09) Subjective Patient doing well; laying in bed, not requiring 02. States he is breathing much better. WBC slightly up today, prefer to monitor overnight, Spoke w/ Cardio who endorsed pericardial effusion is minimal and requires no further w/u or intervention. Continue HD per nephro. D/C planning possibly tomorrow. Objective Last 24 Hour Vital Signs Date Time Temp Pulse Resp B/P (MAP) Pulse Ox O2 Delivery O2 Flow Rate FiO2 02/12/20 16:00 90 02/12/20 16:00 96.7 90 20 106/75 (85) 97 02/12/20 12:00 95 02/12/20 12:00 98.7 88 19 105/57 (73) 96 02/12/20 09:12 Venturi Mask 10.0 02/12/20 08:55 87 107/64 02/12/20 08:45 98.1 87 20 107/64 (78) 97 02/12/20 08:00 93 02/12/20 04:00 98.2 82 21 101/63 (76) 98 02/12/20 04:00 86 02/12/20 00:00 98.1 86 20 104/59 (74) 98 02/12/20 00:00 92 02/11/20 21:00 Venturi Mask 10.0 02/11/20 20:00 96 02/11/20 20:00 98.4 99 21 114/55 (74) 98 Intake and Output 02/11/20 02/12/20 19:00 07:00 Intake Total 320 ml 300 ml Output Total 400 ml 350 ml Balance -80 ml -50 ml Intake Oral 320 ml 300 ml Output Urine Total 400 ml 350 ml Laboratory Tests 02/12/20 06:24: White Blood Count 13.2H, Red Blood Count 2.77L, Hemoglobin 8.1L, Hematocrit 25.2L, Mean Corpuscular Volume 91, Mean Corpuscular Hemoglobin 29.2, Mean Corpuscular Hemoglobin Concent 32.1, Red Cell Distribution Width 14.4, Platelet Count 342, Mean Platelet Volume 5.6L, Neutrophils (%) (Auto) 55.6, Lymphocytes ( %) (Auto) 27.9, Monocytes (%) (Auto) 13.4H, Eosinophils (%) (Auto) 2.0, Basophils (%) (Auto) 1.1, Sodium Level 136, Potassium Level 3.7, Chloride Level 93L, Carbon Dioxide Level 29, Anion Gap 14, Blood Urea Nitrogen 73H, Creatinine 8.1H, Estimat Glomerular Filtration Rate 8.5, Glucose Level 98, Calcium Level 9.8 Height (Feet): 5 Height (Inches): 8.00 Weight (Pounds): 161 General Appearance: WD/WN EENT: PERRL/EOMI Neck: non-tender Cardiovascular: normal rate, regular rhythm Respiratory/Chest: normal breath sounds, no respiratory distress Abdomen: non tender, soft Extremities: normal range of motion Edema: no edema noted Generalized Edema: trace edema Neurologic: bushel girl II-XII grossly normal Skin: warm/dry Annabel Lewis D.O. February 12, 2020 17:58
--- NOTE | 2020-02-12 19:30 | NUR ---
NURSE NOTES: Called [facility] per MD order to dialyze patient tonight. [facility] dialysis nurse spoke to Dr. Mcqueen and patient will be dialyzed tomorrow morning. Patient is in stable condition.
--- NOTE | 2020-02-12 19:34 | NUR ---
HAND-OFF: Report given to nurse Sowmya. Endorsed the plan of care.
[2020-02-12 20:00] VITALS: BP 110/72
--- NOTE | 2020-02-12 20:00 | NUR ---
NURSE NOTES: RECEIVED PATIENT LYING IN BED, AWAKE, ALERT/ORIENTED X4, VERBALLY RESPONSIVE, DENIES PAIN. VITALS MONITORED, AFEBRILE. IV INTACT, NO REDNESS/SWELLING NOTED TO SITE. NO SIGNS AND SYMPTOMS OF ACUTE CARDIO RESPIRATORY DISTRESS/SHORTNESS OF BREATH, DENIES CHEST PAIN, NO PERIPHERAL EDEMA NOTED, CONTINUE ON SCREEN PRINTING PASTER. DENIES GI DISCOMFORT, NO N/V/D, CONTINENT OF B/B, BATHROOM PRIVILEGES/URINAL. SIDE RAILS UP X2, BED IN LOWEST POSITION FOR SAFETY, ENCOURAGED PATIENT TO UTILIZE LY LIGHT FOR ASSISTANCE, VERBALIZED UNDERSTANDING. NAD.
[2020-02-12] MEDS: Atorvastatin 20mg tab ORAL SCH (22:08)
[2020-02-13] VITALS: BP 114/74
[2020-02-13 04:00] VITALS: BP 145/76
--- NOTE | 2020-02-13 06:30 | NUR ---
NURSE NOTES: RESTED WELL, NO SIGNIFICANT CHANGE OF CONDITION NOTED THROUGHOUT THE NIGHT. SAFETY MAINTAINED. NAD.
[2020-02-13 07:16] LABS: HEMATOCRIT 22.7 % (42.0-52.0); HEMOGLOBIN 7.4 G/DL (14.2-18.0); MEAN CORPUSCULAR VOLUME 90 FL (80-99); PLATELET COUNT 327 K/UL (150-450); RED BLOOD COUNT 2.52 M/UL (4.70-6.10); RED CELL DISTRIBUTION WIDTH 14.1 % (11.6-14.8); WHITE BLOOD COUNT 12.5 K/UL (4.8-10.8)
--- NOTE | 2020-02-13 07:30 | NUR ---
HAND-OFF: Report given to NESHA LARSON.
[2020-02-13 08:00] VITALS: BP 102/58
[2020-02-13 08:07] LABS: ALANINE AMINOTRANSFERASE 25 U/L (12-78); ALBUMIN 3.1 G/DL (3.4-5.0); ALBUMIN/GLOBULIN RATIO 0.5 (1.0-2.7); ALKALINE PHOSPHATASE 55 U/L (46-116); ANION GAP 14 mmol/L (5-15); ASPARTATE AMINO TRANSFERASE 24 U/L (15-37); BILIRUBIN,TOTAL 0.5 MG/DL (0.2-1.0); BLOOD UREA NITROGEN 95 mg/dL (7-18); CALCIUM 9.7 MG/DL (8.5-10.1); CARBON DIOXIDE 27 MMOL/L (21-32); CHLORIDE 93 MMOL/L (98-107); PHOSPHORUS 6.6 MG/DL (2.5-4.9); POTASSIUM 3.9 MMOL/L (3.5-5.1); SODIUM 134 MMOL/L (136-145)
--- NOTE | 2020-02-13 08:14 | NUR ---
NURSE NOTES: Report received from MICHELE Grijalva. Pt A/Ox 4. Condition stable. AV shunt on left arm. Pt scheduled for dialysis today. Currently on room air, o2 sAt 96% and does not need venturi mask for the moment. Side rails up. Bed low and call light within reach.
--- NOTE | 2020-02-13 08:17 | General Progress Note ---
Assessment/Plan Assessment/Plan: HPI/CC:54-year-old AAM with PMH of HIV on meds, HTN and CKD stage V not on dialysis initially who presents with left-sided chest pain. On admission, Cr 7.4 , BUN 71. EKG revealed NSR, HR 108. Troponin negative x1. Patient admitted for further treatment and evaluation. Patient has subsequently tested COVID negative, and has converted to HD, along w/ Tx for CAP. Stress Test for ACS work up negative Assessment #ARF on CKD, now ESRD on HD , with improvement in BL pleural effusions and pericardial effusion #CAP, COVID is negative #CP r/o ACS --> s/p Stress Test w/o signs of Ischemia, EF 65% on Echo #Anemia chronic disease--> Patient does not want blood tranfusion #HTN #HIV Plan Consultants include ID, Cardio, Nephro Continue Rocephin IV; BC is trending downward Appreciate Nephro regarding HD and ? Epogen for anemia Patient is on Dapsone for ppx Continue Atorvastatin, ASA, Norvasc D/C planning; --> new HD patient, waiting on outpatient arrangements, hepatitis panel pending, appreciate case management DVT ppx Diet as tolerated Subjective Date patient seen: February 13, 2020 Time patient seen: 08:15 Allergies: Coded Allergies: No Known Allergies (Verified Allergy, Mild, 12/17/09) Subjective Patient is doing well, hemoglobin is 7.4 today however he is a Je[employer] Witness and does not want one; WBC is trending down, still working on outpatient arrangements for hemodialysis. Has been cleared from a cardiology perspective regarding pericardial effusion Objective Last 24 Hour Vital Signs Date Time Temp Pulse Resp B/P (MAP) Pulse Ox O2 Delivery O2 Flow Rate FiO2 02/13/20 04:00 97.9 86 20 145/76 (99) 97 02/13/20 04:00 84 02/13/20 00:00 98.2 92 16 114/74 (87) 94 02/13/20 00:00 93 02/12/20 21:45 Venturi Mask 10.0 02/12/20 20:00 97.8 100 18 110/72 (85) 92 02/12/20 20:00 93 02/12/20 19:58 93 18 96 Venturi Mask 10.0 40 02/12/20 19:58 96 Venturi Mask 10.0 40 02/12/20 16:00 90 02/12/20 16:00 96.7 90 20 106/75 (85) 97 02/12/20 12:00 95 02/12/20 12:00 98.7 88 19 105/57 (73) 96 02/12/20 09:12 Venturi Mask 10.0 02/12/20 08:55 87 107/64 02/12/20 08:45 98.1 87 20 107/64 (78) 97 Intake and Output 02/12/20 02/13/20 19:00 07:00 Intake Total 140 ml Output Total 1200 ml 1490 ml Balance -1060 ml -1490 ml Intake Oral 140 ml Output Urine Total 1200 ml 1490 ml # Voids 3 # Bowel Movements 1 Laboratory Tests 02/13/20 06:40: White Blood Count 12.5H, Red Blood Count 2.52L, Hemoglobin 7.4L, Hematocrit 22.7L, Mean Corpuscular Volume 90, Mean Corpuscular Hemoglobin 29.4, Mean Corpuscular Hemoglobin Concent 32.6, Red Cell Distribution Width 14.1, Platelet Count 327, Mean Platelet Volume 5.3L, Neutrophils (%) (Auto) , Lymphocytes (%) ( Auto) , Monocytes (%) (Auto) , Eosinophils (%) (Auto) , Basophils (%) (Auto) , Neutrophils % (Manual) [Pending], Lymphocytes % (Manual) [Pending], Platelet Estimate [Pending], Platelet Morphology [Pending], Sodium Level 134L, Potassium Level 3.9, Chloride Level 93L, Carbon Dioxide Level 27, Anion Gap 14, Blood Urea Nitrogen 95H, Creatinine 9.0H, Estimat Glomerular Filtration Rate 7.5, Glucose Level 99, Calcium Level 9.7, Phosphorus Level 6.6H, Magnesium Level 2.7H , Total Bilirubin 0.5, Aspartate Amino Transf (AST/SGOT) 24, Alanine Aminotransferase (ALT/SGPT) 25, Alkaline Phosphatase 55, Total Protein 9.1H, Albumin 3.1L, Globulin 6.0, Albumin/Globulin Ratio 0.5L Height (Feet): 5 Height (Inches): 8.00 Weight (Pounds): 161 Objective General Appearance: WD/WN EENT: PERRL/EOMI Neck: non-tender Cardiovascular: normal rate, regular rhythm Respiratory/Chest: normal breath sounds, no respiratory distress Abdomen: non tender, soft Extremities: normal range of motion Edema: no edema noted Generalized Edema: trace edema Neurologic: mobile product manager II-XII grossly normal Skin: warm/dry Annabel Lewis D.O. February 13, 2020 08:17
--- NOTE | 2020-02-13 08:21 | NUR ---
NURSE NOTES: Spoke with Dr. Lewis and reported H/H of 7.4 and 22.7. Order received for 1 unit of PRBCs that may be transfused during dialysis.
[2020-02-13] MEDS: Heparin 5000 units/ml inj SUBQ SCH ×2 (09:00→22:23)
[2020-02-13] MEDS: Aspirin Baby 81mg ORAL SCH (09:20)
[2020-02-13] MEDS: Docusate 100mg cap ORAL SCH ×2 (09:20→22:18)
[2020-02-13] MEDS: PREZISTA 800 MG ORAL SCH ×2 (09:22→22:20)
[2020-02-13] MEDS: Renvela 800mg Pkt ORAL SCH ×3 (09:22→18:24)
[2020-02-13] MEDS: EDURANT 25 MG ORAL SCH (09:22)
--- NOTE | 2020-02-13 09:34 | NUR ---
NURSE NOTES: Pt refused blood transfusion due to being a Jehova's Witness. Dr. Lewis currently at nurses station and informed her about the situation. She talked to pt about options since blood transfusion is not an option due to voodoo beliefs. Pt verbalizes understanding. Will continue with plan of care.
--- NOTE | 2020-02-13 11:00 | NUR ---
follow the hd order from 02/12/[address] vyas
--- NOTE | 2020-02-13 11:07 | Pulmonology Progress Note ---
Subjective ROS Limited/Unobtainable: No Interval Events: None new reported Constitutional: Denies: fever HEENT: Repors: no symptoms Respiratory: Reports: shortness of breath Cardiovascular: Reports: no symptoms Gastrointestinal/Abdominal: Denies: nausea, vomiting, diarrhea Psychiatric: Denies: depression Skin: Denies: rash Musculoskeletal: Denies: pain Allergies: Coded Allergies: No Known Allergies (Verified Allergy, Mild, 12/17/09) Objective Last 24 Hour Vital Signs Date Time Temp Pulse Resp B/P (MAP) Pulse Ox O2 Delivery O2 Flow Rate FiO2 02/13/20 09:00 57 102/58 02/13/20 08:00 98.0 57 18 102/58 (73) 96 02/13/20 04:00 97.9 86 20 145/76 (99) 97 02/13/20 04:00 84 02/13/20 00:00 98.2 92 16 114/74 (87) 94 02/13/20 00:00 93 02/12/20 21:45 Venturi Mask 10.0 02/12/20 20:00 97.8 100 18 110/72 (85) 92 02/12/20 20:00 93 02/12/20 19:58 93 18 96 Venturi Mask 10.0 40 02/12/20 19:58 96 Venturi Mask 10.0 40 02/12/20 16:00 90 02/12/20 16:00 96.7 90 20 106/75 (85) 97 02/12/20 12:00 95 02/12/20 12:00 98.7 88 19 105/57 (73) 96 Intake and Output 02/12/20 02/13/20 19:00 07:00 Intake Total 140 ml Output Total 1200 ml 1490 ml Balance -1060 ml -1490 ml Intake Oral 140 ml Output Urine Total 1200 ml 1490 ml # Voids 3 # Bowel Movements 1 General Appearance: no acute distress HEENT: normocephalic, atraumatic, anicteric, mucous membranes moist Respiratory/Chest: chest wall non-tender Cardiovascular: normal peripheral pulses Abdomen: normal bowel sounds, soft, non tender, no organomegaly, non distended Genitourinary: other - no harden Extremities: no cyanosis Skin: no rash Neurologic/Psychiatric: guidance secretary II-XII grossly normal, alert, oriented x 3, responsive Lymphatic: no neck adenopathy Musculoskeletal: no effusion Laboratory Tests 02/13/20 06:40: White Blood Count 12.5H, Red Blood Count 2.52L, Hemoglobin 7.4L, Hematocrit 22.7L, Mean Corpuscular Volume 90, Mean Corpuscular Hemoglobin 29.4, Mean Corpuscular Hemoglobin Concent 32.6, Red Cell Distribution Width 14.1, Platelet Count 327, Mean Platelet Volume 5.3L, Neutrophils (%) (Auto) , Lymphocytes (%) ( Auto) , Monocytes (%) (Auto) , Eosinophils (%) (Auto) , Basophils (%) (Auto) , Differential Total Cells Counted 100, Neutrophils % (Manual) 49, Lymphocytes % ( Manual) 40, Monocytes % (Manual) 9, Eosinophils % (Manual) 2, Basophils % ( Manual) 0, Band Neutrophils 0, Platelet Estimate Adequate, Platelet Morphology Normal, Hypochromasia 3+, Anisocytosis 1+, Sodium Level 134L, Potassium Level 3.9, Chloride Level 93L, Carbon Dioxide Level 27, Anion Gap 14, Blood Urea Nitrogen 95H, Creatinine 9.0H, Estimat Glomerular Filtration Rate 7.5, Glucose Level 99, Calcium Level 9.7, Phosphorus Level 6.6H, Magnesium Level 2.7H, Total Bilirubin 0.5, Aspartate Amino Transf (AST/SGOT) 24, Alanine Aminotransferase ( ALT/SGPT) 25, Alkaline Phosphatase 55, Total Protein 9.1H, Albumin 3.1L, Globulin 6.0, Albumin/Globulin Ratio 0.5L Current Medications Medications (Trade) Dose Ordered Sig/Sarbjit Route PRN Reason Start Time Stop Time Status Last Admin Dose Admin Acetaminophen (Tylenol) 650 mg Q4H PRN ORAL Mild Pain (Pain Scale 1-3) 02/03/20 06:30 03/04/20 06:29 02/08/20 18:01 Acetaminophen (Tylenol) 650 mg Q4H PRN ORAL Temp >100.5 02/03/20 06:30 03/04/20 06:29 Amlodipine Besylate (Norvasc) 5 mg DAILY ORAL 02/04/20 09:00 03/05/20 08:59 02/12/20 08:55 Aspirin (ASA) 81 mg DAILY ORAL 02/03/20 15:30 03/19/20 15:29 02/13/20 09:20 Atorvastatin Calcium (Lipitor) 40 mg BEDTIME ORAL 02/03/20 21:00 05/03/20 20:59 02/12/20 22:08 Ceftriaxone Sodium 1 gm/ Dextrose 55 ml @ 110 mls/hr Q24H IVPB 02/06/20 14:00 02/14/20 13:59 02/12/20 13:48 Dapsone (Dapsone) 100 mg DAILY ORAL 02/12/20 10:00 02/26/20 09:59 02/13/20 09:20 Dextrose (Dextrose 50%) 25 ml Q30M PRN IV Hypoglycemia 02/03/20 06:30 05/03/20 06:29 Dextrose (Dextrose 50%) 50 ml Q30M PRN IV Hypoglycemia 02/03/20 06:30 05/03/20 06:29 Docusate Sodium (Colace) 100 mg EVERY 12 HOURS ORAL 02/03/20 09:00 03/04/20 08:59 02/13/20 09:20 Epoetin Jaya (Epoetin Jaya(ESRD on dialysis)) 4,000 unit SUN-SUN-SUN SUBQ 02/11/20 21:00 05/11/20 20:59 02/11/20 20:58 Heparin Sodium (Porcine) (Heparin 5000 units/ml) 5,000 units EVERY 12 HOURS SUBQ 02/03/20 21:00 03/19/20 20:59 02/12/20 22:11 Nitroglycerin (Ntg) 0.4 mg Q5M PRN SL Prn Chest Pain 02/03/20 11:15 03/04/20 11:14 02/08/20 18:58 Ondansetron HCl (Zofran) 4 mg Q6H PRN IVP Nausea & Vomiting 02/03/20 06:30 03/04/20 06:29 Patient Own Medication (Patient's Own Med) 1 ea DAILY ORAL 02/04/20 14:00 03/05/20 13:59 02/13/20 09:22 Patient Own Medication (Patient's Own Med) 1 ea Q12HR ORAL 02/04/20 14:00 03/05/20 13:59 02/13/20 09:22 Polyethylene Glycol (Miralax) 17 gm DAILYPRN PRN ORAL Constipation 02/03/20 06:30 03/04/20 06:29 Sevelamer Carbonate (Renvela) 1,600 mg THREE TIMES A DAY ORAL 02/11/20 13:00 05/08/20 12:59 02/13/20 09:22 Assessment/Plan Assessment/Plan IMPRESSION: 1. Pulmonary edema. 2. Renal failure, now on dialysis. 3. HIV. 4. Hypertension. 5. Pericardial effusion, small 6. RLL pneumonia and effusion DISCUSSION: Off diuretics. Continue dialysis. Continue oxygen and pulmonary hygiene. I will follow as college and career counselor. Currently on 10L O2; saO2 94% Nain Whitaker Omar Syed MD February 13, 2020 11:07
--- NOTE | 2020-02-13 11:23 | Nephrology Progress Note ---
Assessment/Plan Plan #Chest pain r/o ACS- r/o uremic pericarditis #CKD 5- not yet on HD- likely due to hypertensive nephrosclerosis - LUE aVF placed 3 years - has not needed HD yet- Primary nephorologist Dr. Charles #HTN #HIV #hyperphosphetemia #Pericarial effusion HD today CT chest with Large pericardial effusion TTE today however showed only small circumferential pericardial effusion pillowcase maker consulted for HD placement - continue sevelamer to 1600mg TIDAC - continue wpo 4k TIW - monitor UOP- strict I&Os - COVID 19 rule out - monitor UOP - check 2d echo- > EF 65 -- Stress test per cardiology- neg - asa - lipitor - amlodipine 5mg daily - monitor electrolytes and kidney function - continue dapson - continue dapson and prezista Time spent on encounter: 36 mins, >50% on counseling, coordination of care. Subjective ROS Limited/Unobtainable: No Constitutional: Denies: no symptoms, chills, diaphoresis, fever, malaise, weakness, other Genitourinary: Denies: no symptoms, burning, discharge, frequency, flank pain, hematuria, incontinence, pain, urgency, other Neurologic/Psychiatric: Denies: no symptoms, anxiety, depressed, emotional problems, headache, numbness, paresthesia, pre-existing deficit, seizure, tingling, tremors, weakness, other Subjective HD postponed to today CT chest with Large pericardial effusion TTE today however showed only small circumferential pericardial effusion stress test neg echo showing EF 65 lytes reviewed Objective Objective Last 24 Hour Vital Signs Date Time Temp Pulse Resp B/P (MAP) Pulse Ox O2 Delivery O2 Flow Rate FiO2 02/13/20 09:00 57 102/58 02/13/20 08:00 98.0 57 18 102/58 (73) 96 02/13/20 04:00 97.9 86 20 145/76 (99) 97 02/13/20 04:00 84 02/13/20 00:00 98.2 92 16 114/74 (87) 94 02/13/20 00:00 93 02/12/20 21:45 Venturi Mask 10.0 02/12/20 20:00 97.8 100 18 110/72 (85) 92 02/12/20 20:00 93 02/12/20 19:58 93 18 96 Venturi Mask 10.0 40 02/12/20 19:58 96 Venturi Mask 10.0 40 02/12/20 16:00 90 02/12/20 16:00 96.7 90 20 106/75 (85) 97 02/12/20 12:00 95 02/12/20 12:00 98.7 88 19 105/57 (73) 96 Intake and Output 02/12/20 02/13/20 19:00 07:00 Intake Total 140 ml Output Total 1200 ml 1490 ml Balance -1060 ml -1490 ml Intake Oral 140 ml Output Urine Total 1200 ml 1490 ml # Voids 3 # Bowel Movements 1 Laboratory Tests 02/13/20 06:40: White Blood Count 12.5H, Red Blood Count 2.52L, Hemoglobin 7.4L, Hematocrit 22.7L, Mean Corpuscular Volume 90, Mean Corpuscular Hemoglobin 29.4, Mean Corpuscular Hemoglobin Concent 32.6, Red Cell Distribution Width 14.1, Platelet Count 327, Mean Platelet Volume 5.3L, Neutrophils (%) (Auto) , Lymphocytes (%) ( Auto) , Monocytes (%) (Auto) , Eosinophils (%) (Auto) , Basophils (%) (Auto) , Differential Total Cells Counted 100, Neutrophils % (Manual) 49, Lymphocytes % ( Manual) 40, Monocytes % (Manual) 9, Eosinophils % (Manual) 2, Basophils % ( Manual) 0, Band Neutrophils 0, Platelet Estimate Adequate, Platelet Morphology Normal, Hypochromasia 3+, Anisocytosis 1+, Sodium Level 134L, Potassium Level 3.9, Chloride Level 93L, Carbon Dioxide Level 27, Anion Gap 14, Blood Urea Nitrogen 95H, Creatinine 9.0H, Estimat Glomerular Filtration Rate 7.5, Glucose Level 99, Calcium Level 9.7, Phosphorus Level 6.6H, Magnesium Level 2.7H, Total Bilirubin 0.5, Aspartate Amino Transf (AST/SGOT) 24, Alanine Aminotransferase ( ALT/SGPT) 25, Alkaline Phosphatase 55, Total Protein 9.1H, Albumin 3.1L, Globulin 6.0, Albumin/Globulin Ratio 0.5L Height (Feet): 5 Height (Inches): 8.00 Weight (Pounds): 161 Morena Mcqueen M.D. February 13, 2020 11:23
[2020-02-13 12:00] VITALS: BP 117/61
--- NOTE | 2020-02-13 13:38 | Cardiac Electrophysiology PN ---
Assessment/Plan Assessment/Plan 1. Chest pain. Ruled out for VT. EKG showed no acute ischemic changes. On aspirin and Lipitor. Echo EF 65%. Stress test showed no ischemia or scar Likely due to volume overload that is better with HD 2. Hypertension. On amlodipine 5 mg daily and HD 3. Pericardial effusion on chest CT. Repeat echo showed only small pericardial effusion 4. HIV, on antiretroviral therapy. 5. Acute on Chronic Renal failure. Creatinine of 7.4. Patient has a functioning AV graft in the left arm. Started on dialysis 02/09/20 6. PNA and elevated WBC 15K on iv Abx 7. Hyperlipidemia, on Lipitor. THERESE RN and Dr Mcqueen Subjective Subjective Stress test was nonischemic. Chest CT suggestive of pleural and pericardial effusion. TTE showed only small circumferential pericardial effusion Getting HD. Objective Last 24 Hour Vital Signs Date Time Temp Pulse Resp B/P (MAP) Pulse Ox O2 Delivery O2 Flow Rate FiO2 02/13/20 12:00 98.3 68 19 117/61 (79) 98 02/13/20 09:00 57 102/58 02/13/20 09:00 Venturi Mask 10.0 Venturi Mask 02/13/20 08:00 98.0 57 18 102/58 (73) 96 02/13/20 04:00 97.9 86 20 145/76 (99) 97 02/13/20 04:00 84 02/13/20 00:00 98.2 92 16 114/74 (87) 94 02/13/20 00:00 93 02/12/20 21:45 Venturi Mask 10.0 02/12/20 20:00 97.8 100 18 110/72 (85) 92 02/12/20 20:00 93 02/12/20 19:58 93 18 96 Venturi Mask 10.0 40 02/12/20 19:58 96 Venturi Mask 10.0 40 02/12/20 16:00 90 02/12/20 16:00 96.7 90 20 106/75 (85) 97 Intake and Output 02/12/20 02/13/20 19:00 07:00 Intake Total 140 ml Output Total 1200 ml 1490 ml Balance -1060 ml -1490 ml Intake Oral 140 ml Output Urine Total 1200 ml 1490 ml # Voids 3 # Bowel Movements 1 Laboratory Tests Test 02/13/20 06:40 White Blood Count 12.5 K/UL (4.8-10.8) H Red Blood Count 2.52 M/UL (4.70-6.10) L Hemoglobin 7.4 G/DL (14.2-18.0) L Hematocrit 22.7 % (42.0-52.0) L Mean Corpuscular Volume 90 FL (80-99) Mean Corpuscular Hemoglobin 29.4 PG (27.0-31.0) Mean Corpuscular Hemoglobin Concent 32.6 G/DL (32.0-36.0) Red Cell Distribution Width 14.1 % (11.6-14.8) Platelet Count 327 K/UL (150-450) Mean Platelet Volume 5.3 FL (6.5-10.1) L Neutrophils (%) (Auto) % (45.0-75.0) Lymphocytes (%) (Auto) % (20.0-45.0) Monocytes (%) (Auto) % (1.0-10.0) Eosinophils (%) (Auto) % (0.0-3.0) Basophils (%) (Auto) % (0.0-2.0) Differential Total Cells Counted 100 Neutrophils % (Manual) 49 % (45-75) Lymphocytes % (Manual) 40 % (20-45) Monocytes % (Manual) 9 % (1-10) Eosinophils % (Manual) 2 % (0-3) Basophils % (Manual) 0 % (0-2) Band Neutrophils 0 % (0-8) Platelet Estimate Adequate Platelet Morphology Normal Hypochromasia 3+ Anisocytosis 1+ Sodium Level 134 MMOL/L (136-145) L Potassium Level 3.9 MMOL/L (3.5-5.1) Chloride Level 93 MMOL/L (98-107) L Carbon Dioxide Level 27 MMOL/L (21-32) Anion Gap 14 mmol/L (5-15) Blood Urea Nitrogen 95 mg/dL (7-18) H Creatinine 9.0 MG/DL (0.55-1.30) H Estimat Glomerular Filtration Rate 7.5 mL/min (>60) Glucose Level 99 MG/DL (74-106) Calcium Level 9.7 MG/DL (8.5-10.1) Phosphorus Level 6.6 MG/DL (2.5-4.9) H Magnesium Level 2.7 MG/DL (1.8-2.4) H Total Bilirubin 0.5 MG/DL (0.2-1.0) Aspartate Amino Transf (AST/SGOT) 24 U/L (15-37) Alanine Aminotransferase (ALT/SGPT) 25 U/L (12-78) Alkaline Phosphatase 55 U/L (46-116) Total Protein 9.1 G/DL (6.4-8.2) H Albumin 3.1 G/DL (3.4-5.0) L Globulin 6.0 g/dL Albumin/Globulin Ratio 0.5 (1.0-2.7) L Objective HEAD AND NECK: No JVD or carotid bruits. LUNGS: Clear. CARDIOVASCULAR: Regular S1 and S2 with no gallop or murmur. ABDOMEN: Soft. EXTREMITIES: No pitting edema. Silvino Perez MD February 13, 2020 13:38
[2020-02-13] MEDS: cefTRIAXone 1 GM in D5W 55 ML IVPB SCH (14:27)
--- NOTE | 2020-02-13 15:12 | NUR ---
CASE MANAGEMENT:REVIEW 02/13/20 SI: ATYPICAL CHEST PAIN. HIV PNEUMONIA. AC/CHR RENAL FAILURE (STARTED HD ON 02/09/20) 98.0 57 18 102/58 96% ON VENTURI MASK 10L WBC+12.5 H/H-7.4/22.7 BUN+95 CR+9.0 IS: IV LASIX X1 IV ROCEPHIN Q24 DAPSONE PO QD RENVELA PO TID EPOETIN SQ MWF NORVASC PO QD HEPARIN SQ Q12 ASA PO QD HAART REGIMEN : TELEMETRY STATUS DCP: FROM HOME PLAN: COVID 19 RESULTS FAXED TO [facility] HEPATITIS PANEL RESULTS FAXED TO [facility] TRANSFUSE 1 UNIT PRBC'S
--- NOTE | 2020-02-13 15:22 | NUR ---
DISCHARGE PLANNING COVID 19 NOT DETECTED COVID RESULTS AND HEP PANEL FAXED TO [facility] PATIENT IS NOT READY FOR DISCHARGE TODAY D/T WBC+12.5.....CONTINUE IV ANTIBIOTICS HGB-7.4........TRANSFUSE 1 UNIT PRBC HR~57 AND BP~102/58...........CONTINUOUS CARDIAC MONITORING
[2020-02-13 16:00] VITALS: BP 103/59
--- NOTE | 2020-02-13 19:17 | Infectious Diseases Prog Note ---
Assessment/Plan Assessment/Plan ASSESSMENT AND PLAN: 1. leukocytosis, ? source, ? sepsis, rule covid-19 infection with pna, chest x- ray c/w chf/pvc, sob, ? uri/bronchitis CT - with atx/consolidation and large pericardial effusion ? CAP - ceftriaxone - day # 8 - discontinue - leukocytosis better - monitor labs - communicated with Dr. Haynes - covid-19 testing - negative - HD 2. 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 - f/u with primary HIV MD as a outpatient 3. 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 The patient has history of hypertension, treatment by primary care team. 5. Chronic kidney disease. 6. No known drug allergies. 7. Anemia. 8. Social history is negative. 9. Family history is noncontributory. 10. MAR was noted. 11. d/w RN 12. Continue treatment per primary consultants. Subjective Constitutional: Denies: fever HEENT: Denies: congestion Respiratory: Denies: shortness of breath Cardiovascular: Denies: chest pain Gastrointestinal/Abdominal: Denies: nausea, vomiting, diarrhea Genitourinary: Reports: other - no harden Neurologic: Denies: headache Psychiatric: Denies: depression Skin: Denies: rash Hematologic: Denies: bleeding Musculoskeletal: Denies: pain Allergies: Coded Allergies: No Known Allergies (Verified Allergy, Mild, 12/17/09) Objective Vital Signs Last 24 Hour Vital Signs Date Time Temp Pulse Resp B/P (MAP) Pulse Ox O2 Delivery O2 Flow Rate FiO2 02/13/20 16:00 90 02/13/20 16:00 97.2 67 20 103/59 (74) 97 02/13/20 12:00 94 02/13/20 12:00 98.3 68 19 117/61 (79) 98 02/13/20 09:00 57 102/58 02/13/20 09:00 Venturi Mask 10.0 Venturi Mask 02/13/20 08:00 95 02/13/20 08:00 98.0 57 18 102/58 (73) 96 02/13/20 04:00 97.9 86 20 145/76 (99) 97 02/13/20 04:00 84 02/13/20 00:00 98.2 92 16 114/74 (87) 94 02/13/20 00:00 93 02/12/20 21:45 Venturi Mask 10.0 02/12/20 20:00 97.8 100 18 110/72 (85) 92 02/12/20 20:00 93 02/12/20 19:58 93 18 96 Venturi Mask 10.0 40 02/12/20 19:58 96 Venturi Mask 10.0 40 Height (Feet): 5 Height (Inches): 8.00 Weight (Pounds): 161 General Appearance: no acute distress HEENT: normocephalic, atraumatic, anicteric, mucous membranes moist Respiratory/Chest: lungs clear, normal breath sounds, no respiratory distress, no accessory muscle use Cardiovascular: normal rate, regular rhythm, no gallop/murmur, no JVD Abdomen: normal bowel sounds, soft, non tender, no organomegaly, non distended Genitourinary: other - no harden Extremities: no cyanosis Skin: no rash Neurologic/Psychiatric: core composer machine tender II-XII grossly normal, alert, oriented x 3, responsive Lymphatic: no groin adenopathy Musculoskeletal: no effusion Objective Chest x-ray - 02/06/20 - Procedure: XRAY Chest 1v EXAM: XR Chest, 1 View CLINICAL HISTORY: SOB TECHNIQUE: Frontal view of the chest. COMPARISON: 02/03/20 FINDINGS: Lungs: Mild bibasilar atelectasis. Minimal interstitial edema. Pleural space: There are small bilateral pleural effusions, new or significantly increased since the prior exam. No evidence of pneumothorax. Heart: Cardiac silhouette is enlarged. Mediastinum: No mediastinal widening or shift. Bones/joints: No acute osseous abnormality. IMPRESSION: Minimal interstitial edema with bilateral pleural effusions and cardiomegaly. Findings suggestive of congestive heart failure or hypervolemia. Bibasilar atelectasis. No definite airspace consolidation. CT scan - abdomen, chest and pelvis IMPRESSION: Bilateral pleural effusions Atelectasis and consolidation of most of the right lower lobe and much of the left lower lobe. The atelectasis is probably mostly passive due to the pleural effusions Large pericardial effusion No acute abdominal or pelvic abnormality Atrophic kidneys, consistent with known history of chronic renal insufficiency Prominent prostate Microbiology Date/Time Source Procedure Growth Status 02/06/20 06:30 Blood Blood Culture - Final NO GROWTH AFTER 5 DAYS Complete 02/06/20 09:00 Nasopharynx Coronavirus COVID-19 PCR ([facility]) - Final Complete 02/03/20 06:00 Rectum VRE Culture - Final NO VANCOMYCIN RESISTANT ENTEROCOCCUS ... Complete Laboratory Tests Test 02/13/20 06:40 White Blood Count 12.5 K/UL (4.8-10.8) H Red Blood Count 2.52 M/UL (4.70-6.10) L Hemoglobin 7.4 G/DL (14.2-18.0) L Hematocrit 22.7 % (42.0-52.0) L Mean Corpuscular Volume 90 FL (80-99) Mean Corpuscular Hemoglobin 29.4 PG (27.0-31.0) Mean Corpuscular Hemoglobin Concent 32.6 G/DL (32.0-36.0) Red Cell Distribution Width 14.1 % (11.6-14.8) Platelet Count 327 K/UL (150-450) Mean Platelet Volume 5.3 FL (6.5-10.1) L Neutrophils (%) (Auto) % (45.0-75.0) Lymphocytes (%) (Auto) % (20.0-45.0) Monocytes (%) (Auto) % (1.0-10.0) Eosinophils (%) (Auto) % (0.0-3.0) Basophils (%) (Auto) % (0.0-2.0) Differential Total Cells Counted 100 Neutrophils % (Manual) 49 % (45-75) Lymphocytes % (Manual) 40 % (20-45) Monocytes % (Manual) 9 % (1-10) Eosinophils % (Manual) 2 % (0-3) Basophils % (Manual) 0 % (0-2) Band Neutrophils 0 % (0-8) Platelet Estimate Adequate Platelet Morphology Normal Hypochromasia 3+ Anisocytosis 1+ Sodium Level 134 MMOL/L (136-145) L Potassium Level 3.9 MMOL/L (3.5-5.1) Chloride Level 93 MMOL/L (98-107) L Carbon Dioxide Level 27 MMOL/L (21-32) Anion Gap 14 mmol/L (5-15) Blood Urea Nitrogen 95 mg/dL (7-18) H Creatinine 9.0 MG/DL (0.55-1.30) H Estimat Glomerular Filtration Rate 7.5 mL/min (>60) Glucose Level 99 MG/DL (74-106) Calcium Level 9.7 MG/DL (8.5-10.1) Phosphorus Level 6.6 MG/DL (2.5-4.9) H Magnesium Level 2.7 MG/DL (1.8-2.4) H Total Bilirubin 0.5 MG/DL (0.2-1.0) Aspartate Amino Transf (AST/SGOT) 24 U/L (15-37) Alanine Aminotransferase (ALT/SGPT) 25 U/L (12-78) Alkaline Phosphatase 55 U/L (46-116) Total Protein 9.1 G/DL (6.4-8.2) H Albumin 3.1 G/DL (3.4-5.0) L Globulin 6.0 g/dL Albumin/Globulin Ratio 0.5 (1.0-2.7) L Current Medications Medications (Trade) Dose Ordered Sig/Sarbjit Route PRN Reason Start Time Stop Time Status Last Admin Dose Admin Acetaminophen (Tylenol) 650 mg Q4H PRN ORAL Mild Pain (Pain Scale 1-3) 02/03/20 06:30 03/04/20 06:29 02/08/20 18:01 Acetaminophen (Tylenol) 650 mg Q4H PRN ORAL Temp >100.5 02/03/20 06:30 03/04/20 06:29 Amlodipine Besylate (Norvasc) 5 mg DAILY ORAL 02/04/20 09:00 03/05/20 08:59 02/12/20 08:55 Aspirin (ASA) 81 mg DAILY ORAL 02/03/20 15:30 03/19/20 15:29 02/13/20 09:20 Atorvastatin Calcium (Lipitor) 40 mg BEDTIME ORAL 02/03/20 21:00 05/03/20 20:59 02/12/20 22:08 Ceftriaxone Sodium 1 gm/ Dextrose 55 ml @ 110 mls/hr Q24H IVPB 02/06/20 14:00 02/14/20 13:59 02/13/20 14:27 Dapsone (Dapsone) 100 mg DAILY ORAL 02/12/20 10:00 02/26/20 09:59 02/13/20 09:20 Dextrose (Dextrose 50%) 25 ml Q30M PRN IV Hypoglycemia 02/03/20 06:30 05/03/20 06:29 Dextrose (Dextrose 50%) 50 ml Q30M PRN IV Hypoglycemia 02/03/20 06:30 05/03/20 06:29 Docusate Sodium (Colace) 100 mg EVERY 12 HOURS ORAL 02/03/20 09:00 03/04/20 08:59 02/13/20 09:20 Epoetin Jaya (Epoetin Jaya(ESRD on dialysis)) 4,000 unit SUN-SUN-SUN SUBQ 02/11/20 21:00 05/11/20 20:59 02/11/20 20:58 Heparin Sodium (Porcine) (Heparin 5000 units/ml) 5,000 units EVERY 12 HOURS SUBQ 02/03/20 21:00 03/19/20 20:59 02/12/20 22:11 Nitroglycerin (Ntg) 0.4 mg Q5M PRN SL Prn Chest Pain 02/03/20 11:15 03/04/20 11:14 02/08/20 18:58 Ondansetron HCl (Zofran) 4 mg Q6H PRN IVP Nausea & Vomiting 02/03/20 06:30 03/04/20 06:29 Patient Own Medication (Patient's Own Med) 1 ea DAILY ORAL 02/04/20 14:00 03/05/20 13:59 02/13/20 09:22 Patient Own Medication (Patient's Own Med) 1 ea Q12HR ORAL 02/04/20 14:00 03/05/20 13:59 02/13/20 09:22 Polyethylene Glycol (Miralax) 17 gm DAILYPRN PRN ORAL Constipation 02/03/20 06:30 03/04/20 06:29 Sevelamer Carbonate (Renvela) 1,600 mg THREE TIMES A DAY ORAL 02/11/20 13:00 05/08/20 12:59 02/13/20 18:24 Adore Zazueta MD February 13, 2020 19:17
--- NOTE | 2020-02-13 19:29 | NUR ---
HAND-OFF: Report given to Valentine Juan LVN. Patient stable. Plan of care endorsed.
[2020-02-13 20:00] VITALS: BP 111/69
--- NOTE | 2020-02-13 20:00 | NUR ---
NURSE NOTES: RECEIVED PATIENT LYING IN BED, AWAKE,ALERT/ORIENTED X4,VERBALLY RESPONSIVE, DENIES PAIN. NO SIGNS AND SYMPTOMS OF ACUTE CARDIO RESPIRATORY DISTRESS/SHORTNESS OF BREATH, DENIES CHEST PAIN, NO PERIPHERAL EDEMA NOTED. SINUS RHYTHM ON ANTISUBMARINE WEAPONS OFFICER. LOW H/H, PATIENT JEHOVAH WITNESS, WILL START EPOETIN TONIGHT (M/W/F), PATIENT AWARE. NO COMPLAINTS OF GI DISCOMFORT, NO N/V/D. SIDE RAILS UP X2 FOR MOBILITY, BED IN LOWEST POSITION FOR SAFETY, ENCOURAGED PATIENT TO UTILIZE CALL LIGHT FOR ASSISTANCE, VERBALIZED UNDERSTANDING. CONTINUE WITH CURRENT PLAN OF CARE. NAD.
[2020-02-13] MEDS: Atorvastatin 20mg tab ORAL SCH (22:19)
[2020-02-13] MEDS: Epoetin Alfa-EPBX(ESRD on dialysis)4000 units/ml vial SUBQ SCH (22:20)
[2020-02-14] VITALS: BP 116/74
[2020-02-14 04:00] VITALS: BP 109/69
--- NOTE | 2020-02-14 06:30 | NUR ---
NURSE NOTES: RESTED WELL, NO SIGNIFICANT CHANGE OF CONDITION NOTED THROUGHOUT THE NIGHT. SAFETY MAINTAINED. NAD.
--- NOTE | 2020-02-14 07:30 | NUR ---
HAND-OFF: Report given to NESHA LARSON.
[2020-02-14 08:00] VITALS: BP 90/60
[2020-02-14 08:01] LABS: HEMATOCRIT 24.5 % (42.0-52.0); HEMOGLOBIN 7.7 G/DL (14.2-18.0); MEAN CORPUSCULAR VOLUME 91 FL (80-99); PLATELET COUNT 320 K/UL (150-450); RED BLOOD COUNT 2.68 M/UL (4.70-6.10); RED CELL DISTRIBUTION WIDTH 15.2 % (11.6-14.8); WHITE BLOOD COUNT 11.5 K/UL (4.8-10.8)
--- NOTE | 2020-02-14 08:42 | NUR ---
NURSE NOTES: Received report from MICHELE Grijalva. Pt awake, alert and oriented x4. Resting in bed comfortably. No c/o at this time. No s/s of distress. Pt on RA with respirations even and unlabored. AV shunt on [place]. SL on right FA 20 G. On strict I&O. Side rails up x2. Bed low and call light within reach. Will continue plan of care.
[2020-02-14 08:47] LABS: ALANINE AMINOTRANSFERASE 28 U/L (12-78); ALBUMIN 3.3 G/DL (3.4-5.0); ALBUMIN/GLOBULIN RATIO 0.6 (1.0-2.7); ALKALINE PHOSPHATASE 58 U/L (46-116); ANION GAP 10 mmol/L (5-15); ASPARTATE AMINO TRANSFERASE 24 U/L (15-37); BILIRUBIN,TOTAL 0.5 MG/DL (0.2-1.0); BLOOD UREA NITROGEN 67 mg/dL (7-18); CALCIUM 9.6 MG/DL (8.5-10.1); CARBON DIOXIDE 29 MMOL/L (21-32); CHLORIDE 93 MMOL/L (98-107); CREATININE 7.3 MG/DL (0.55-1.30); PHOSPHORUS 6.6 MG/DL (2.5-4.9); POTASSIUM 3.9 MMOL/L (3.5-5.1); SODIUM 132 MMOL/L (136-145)
[2020-02-14] MEDS: Renvela 800mg Pkt ORAL SCH ×3 (09:15→18:04)
[2020-02-14] MEDS: Aspirin Baby 81mg ORAL SCH (09:15)
[2020-02-14] MEDS: Docusate 100mg cap ORAL SCH ×2 (09:15→21:05)
[2020-02-14] MEDS: EDURANT 25 MG ORAL SCH (09:16)
[2020-02-14] MEDS: PREZISTA 800 MG ORAL SCH ×2 (09:17→21:05)
[2020-02-14] MEDS: Heparin 5000 units/ml inj SUBQ SCH ×2 (09:18→21:06)
--- NOTE | 2020-02-14 11:16 | Pulmonology Progress Note ---
Subjective ROS Limited/Unobtainable: No Interval Events: None new reported Constitutional: Denies: fever HEENT: Repors: no symptoms Respiratory: Reports: shortness of breath Cardiovascular: Reports: no symptoms Gastrointestinal/Abdominal: Denies: nausea, vomiting, diarrhea Psychiatric: Denies: depression Skin: Denies: rash Musculoskeletal: Denies: pain Allergies: Coded Allergies: No Known Allergies (Verified Allergy, Mild, 12/17/09) Objective Last 24 Hour Vital Signs Date Time Temp Pulse Resp B/P (MAP) Pulse Ox O2 Delivery O2 Flow Rate FiO2 02/14/20 09:00 89 90/60 02/14/20 09:00 Venturi Mask 10.0 Venturi Mask 02/14/20 08:00 97.5 89 20 90/60 (70) 96 02/14/20 07:44 88 02/14/20 04:00 79 02/14/20 04:00 97.4 80 20 109/69 (82) 96 02/14/20 04:00 79 02/14/20 00:00 97.5 96 20 116/74 (88) 97 02/14/20 00:00 83 02/13/20 20:31 Venturi Mask 10.0 Venturi Mask 02/13/20 20:00 90 02/13/20 20:00 97.9 90 20 111/69 (83) 96 02/13/20 16:00 90 02/13/20 16:00 97.2 67 20 103/59 (74) 97 02/13/20 12:00 94 02/13/20 12:00 98.3 68 19 117/61 (79) 98 Intake and Output 02/13/20 02/14/20 19:00 07:00 Intake Total 500 ml 480 ml Output Total 1000 ml Balance -500 ml 480 ml Intake Oral 500 ml 480 ml Hemodialysis UF 1000 ml # Voids 3 2 General Appearance: no acute distress HEENT: normocephalic, atraumatic, anicteric, mucous membranes moist Respiratory/Chest: chest wall non-tender Cardiovascular: normal peripheral pulses Abdomen: normal bowel sounds, soft, non tender, no organomegaly, non distended Genitourinary: other - no harden Extremities: no cyanosis Skin: no rash Neurologic/Psychiatric: client development consultant II-XII grossly normal, alert, oriented x 3, responsive Lymphatic: no groin adenopathy Musculoskeletal: no effusion Laboratory Tests 02/14/20 05:45: White Blood Count 11.5H, Red Blood Count 2.68L, Hemoglobin 7.7L, Hematocrit 24.5L, Mean Corpuscular Volume 91, Mean Corpuscular Hemoglobin 28.6, Mean Corpuscular Hemoglobin Concent 31.3L, Red Cell Distribution Width 15.2H, Platelet Count 320, Mean Platelet Volume 5.6L, Neutrophils (%) (Auto) , Lymphocytes (%) (Auto) , Monocytes (%) (Auto) , Eosinophils (%) (Auto) , Basophils (%) (Auto) , Neutrophils % (Manual) [Pending], Lymphocytes % (Manual) [Pending], Platelet Estimate [Pending], Platelet Morphology [Pending], Sodium Level 132L, Potassium Level 3.9, Chloride Level 93L, Carbon Dioxide Level 29, Anion Gap 10, Blood Urea Nitrogen 67H, Creatinine 7.3H, Estimat Glomerular Filtration Rate 9.6, Glucose Level 92, Calcium Level 9.6, Phosphorus Level 6.6H , Magnesium Level 2.5H, Total Bilirubin 0.5, Aspartate Amino Transf (AST/SGOT) 24, Alanine Aminotransferase (ALT/SGPT) 28, Alkaline Phosphatase 58, Total Protein 9.3H, Albumin 3.3L, Globulin 6.0, Albumin/Globulin Ratio 0.6L Current Medications Medications (Trade) Dose Ordered Sig/Sarbjit Route PRN Reason Start Time Stop Time Status Last Admin Dose Admin Acetaminophen (Tylenol) 650 mg Q4H PRN ORAL Mild Pain (Pain Scale 1-3) 02/03/20 06:30 03/04/20 06:29 02/08/20 18:01 Acetaminophen (Tylenol) 650 mg Q4H PRN ORAL Temp >100.5 02/03/20 06:30 03/04/20 06:29 Amlodipine Besylate (Norvasc) 5 mg DAILY ORAL 02/04/20 09:00 03/05/20 08:59 02/12/20 08:55 Aspirin (ASA) 81 mg DAILY ORAL 02/03/20 15:30 03/19/20 15:29 02/14/20 09:15 Atorvastatin Calcium (Lipitor) 40 mg BEDTIME ORAL 02/03/20 21:00 05/03/20 20:59 02/13/20 22:19 Ceftriaxone Sodium 1 gm/ Dextrose 55 ml @ 110 mls/hr Q24H IVPB 02/06/20 14:00 02/14/20 13:59 02/13/20 14:27 Dapsone (Dapsone) 100 mg DAILY ORAL 02/12/20 10:00 02/26/20 09:59 02/14/20 09:15 Dextrose (Dextrose 50%) 25 ml Q30M PRN IV Hypoglycemia 02/03/20 06:30 05/03/20 06:29 Dextrose (Dextrose 50%) 50 ml Q30M PRN IV Hypoglycemia 02/03/20 06:30 05/03/20 06:29 Docusate Sodium (Colace) 100 mg EVERY 12 HOURS ORAL 02/03/20 09:00 03/04/20 08:59 02/14/20 09:15 Epoetin Jaya (Epoetin Jaya(ESRD on dialysis)) 4,000 unit SUN-SUN-SUN SUBQ 02/11/20 21:00 05/11/20 20:59 02/13/20 22:20 Heparin Sodium (Porcine) (Heparin 5000 units/ml) 5,000 units EVERY 12 HOURS SUBQ 02/03/20 21:00 03/19/20 20:59 02/14/20 09:18 Nitroglycerin (Ntg) 0.4 mg Q5M PRN SL Prn Chest Pain 02/03/20 11:15 03/04/20 11:14 02/08/20 18:58 Ondansetron HCl (Zofran) 4 mg Q6H PRN IVP Nausea & Vomiting 02/03/20 06:30 03/04/20 06:29 Patient Own Medication (Patient's Own Med) 1 ea DAILY ORAL 02/04/20 14:00 03/05/20 13:59 02/14/20 09:16 Patient Own Medication (Patient's Own Med) 1 ea Q12HR ORAL 02/04/20 14:00 03/05/20 13:59 02/14/20 09:17 Polyethylene Glycol (Miralax) 17 gm DAILYPRN PRN ORAL Constipation 02/03/20 06:30 03/04/20 06:29 Sevelamer Carbonate (Renvela) 1,600 mg THREE TIMES A DAY ORAL 02/11/20 13:00 05/08/20 12:59 02/14/20 09:15 Assessment/Plan Assessment/Plan IMPRESSION: 1. Pulmonary edema. 2. Renal failure, now on dialysis. 3. HIV. 4. Hypertension. 5. Pericardial effusion, small 6. RLL pneumonia and effusion DISCUSSION: Off diuretics. Continue dialysis. Continue oxygen and pulmonary hygiene. I will follow as relief map modeler. Currently on 10L O2; saO2 94% Spike Rodriguez M.D. Spike Rodriguez MD February 14, 2020 11:16
--- NOTE | 2020-02-14 11:31 | Nephrology Progress Note ---
Assessment/Plan Plan #Chest pain r/o ACS- r/o uremic pericarditis #CKD 5- not yet on HD- likely due to hypertensive nephrosclerosis - LUE aVF placed 3 years - has not needed HD yet- Primary nephorologist Dr. Charles #HTN #HIV #hyperphosphetemia #Pericarial effusion HD today CT chest with Large pericardial effusion TTE today however showed only small circumferential pericardial effusion porter sample case consulted for HD placement - continue sevelamer to 1600mg TIDAC - continue wpo 4k TIW - monitor UOP- strict I&Os - COVID 19 rule out - monitor UOP - check 2d echo- > EF 65 -- Stress test per cardiology- neg - asa - lipitor - amlodipine 5mg daily - monitor electrolytes and kidney function - continue dapson - continue dapson and prezista Time spent on encounter: 36 mins, >50% on counseling, coordination of care. Subjective ROS Limited/Unobtainable: No Constitutional: Denies: no symptoms, chills, diaphoresis, fever, malaise, weakness, other HEENT: Denies: no symptoms, eye pain, blurred vision, tearing, double vision, ear pain, ear discharge, nose pain, nose congestion, throat pain, throat swelling, mouth pain, mouth swelling, other Genitourinary: Denies: no symptoms, burning, discharge, frequency, flank pain, hematuria, incontinence, pain, urgency, other Neurologic/Psychiatric: Denies: no symptoms, anxiety, depressed, emotional problems, headache, numbness, paresthesia, pre-existing deficit, seizure, tingling, tremors, weakness, other Subjective HD postponed to today CT chest with Large pericardial effusion TTE today however showed only small circumferential pericardial effusion stress test neg echo showing EF 65 lytes reviewed Objective Objective Last 24 Hour Vital Signs Date Time Temp Pulse Resp B/P (MAP) Pulse Ox O2 Delivery O2 Flow Rate FiO2 02/14/20 09:00 89 90/60 02/14/20 09:00 Venturi Mask 10.0 Venturi Mask 02/14/20 08:00 97.5 89 20 90/60 (70) 96 02/14/20 07:44 88 02/14/20 04:00 79 02/14/20 04:00 97.4 80 20 109/69 (82) 96 02/14/20 04:00 79 02/14/20 00:00 97.5 96 20 116/74 (88) 97 02/14/20 00:00 83 02/13/20 20:31 Venturi Mask 10.0 Venturi Mask 02/13/20 20:00 90 02/13/20 20:00 97.9 90 20 111/69 (83) 96 02/13/20 16:00 90 02/13/20 16:00 97.2 67 20 103/59 (74) 97 02/13/20 12:00 94 02/13/20 12:00 98.3 68 19 117/61 (79) 98 Intake and Output 02/13/20 02/14/20 19:00 07:00 Intake Total 500 ml 480 ml Output Total 1000 ml Balance -500 ml 480 ml Intake Oral 500 ml 480 ml Hemodialysis UF 1000 ml # Voids 3 2 Laboratory Tests 02/14/20 05:45: White Blood Count 11.5H, Red Blood Count 2.68L, Hemoglobin 7.7L, Hematocrit 24.5L, Mean Corpuscular Volume 91, Mean Corpuscular Hemoglobin 28.6, Mean Corpuscular Hemoglobin Concent 31.3L, Red Cell Distribution Width 15.2H, Platelet Count 320, Mean Platelet Volume 5.6L, Neutrophils (%) (Auto) , Lymphocytes (%) (Auto) , Monocytes (%) (Auto) , Eosinophils (%) (Auto) , Basophils (%) (Auto) , Neutrophils % (Manual) [Pending], Lymphocytes % (Manual) [Pending], Platelet Estimate [Pending], Platelet Morphology [Pending], Sodium Level 132L, Potassium Level 3.9, Chloride Level 93L, Carbon Dioxide Level 29, Anion Gap 10, Blood Urea Nitrogen 67H, Creatinine 7.3H, Estimat Glomerular Filtration Rate 9.6, Glucose Level 92, Calcium Level 9.6, Phosphorus Level 6.6H , Magnesium Level 2.5H, Total Bilirubin 0.5, Aspartate Amino Transf (AST/SGOT) 24, Alanine Aminotransferase (ALT/SGPT) 28, Alkaline Phosphatase 58, Total Protein 9.3H, Albumin 3.3L, Globulin 6.0, Albumin/Globulin Ratio 0.6L Height (Feet): 5 Height (Inches): 8.00 Weight (Pounds): 159 Morena Mcqueen M.D. 9, 2020 11:31
[2020-02-14 12:00] VITALS: BP 102/71
[2020-02-14] MEDS ORDERED: NS 275ml ONE (14:23)
[2020-02-14] MEDS ORDERED: Tubing IV Secondary IV ONE (14:23)
--- NOTE | 2020-02-14 15:26 | Cardiac Electrophysiology PN ---
Assessment/Plan Assessment/Plan 1. Chest pain. Ruled out for [place]. EKG showed no acute ischemic changes. On aspirin and Lipitor. Echo EF 65%. Stress test showed no ischemia or scar Due to volume overload that is better with HD 2. Hypertension. On amlodipine 5 mg daily and HD 3. Pericardial effusion on chest CT. Repeat echo showed only small pericardial effusion 4. HIV, on antiretroviral therapy. 5. Acute on Chronic Renal failure. Creatinine of 7.4. Patient has a functioning AV graft in the left arm. Started on dialysis 02/09/20 6. PNA and elevated WBC 15K on iv Abx 7. Hyperlipidemia, on Lipitor. DW RN and Dr Lewis Subjective Subjective Stress test was nonischemic. Chest CT suggestive of pleural and pericardial effusion. TTE showed only small circumferential pericardial effusion Had HD.DC planning today Objective Last 24 Hour Vital Signs Date Time Temp Pulse Resp B/P (MAP) Pulse Ox O2 Delivery O2 Flow Rate FiO2 02/14/20 12:00 77 02/14/20 12:00 97.8 82 20 102/71 (81) 96 02/14/20 09:00 89 90/60 02/14/20 09:00 Venturi Mask 10.0 Venturi Mask 02/14/20 08:00 97.5 89 20 90/60 (70) 96 02/14/20 07:44 88 02/14/20 04:00 79 02/14/20 04:00 97.4 80 20 109/69 (82) 96 02/14/20 04:00 79 02/14/20 00:00 97.5 96 20 116/74 (88) 97 02/14/20 00:00 83 02/13/20 20:31 Venturi Mask 10.0 Venturi Mask 02/13/20 20:00 90 02/13/20 20:00 97.9 90 20 111/69 (83) 96 02/13/20 16:00 90 02/13/20 16:00 97.2 67 20 103/59 (74) 97 Intake and Output 02/13/20 02/14/20 19:00 07:00 Intake Total 500 ml 480 ml Output Total 1000 ml Balance -500 ml 480 ml Intake Oral 500 ml 480 ml Hemodialysis UF 1000 ml # Voids 3 2 Laboratory Tests Test 02/14/20 05:45 White Blood Count 11.5 K/UL (4.8-10.8) H Red Blood Count 2.68 M/UL (4.70-6.10) L Hemoglobin 7.7 G/DL (14.2-18.0) L Hematocrit 24.5 % (42.0-52.0) L Mean Corpuscular Volume 91 FL (80-99) Mean Corpuscular Hemoglobin 28.6 PG (27.0-31.0) Mean Corpuscular Hemoglobin Concent 31.3 G/DL (32.0-36.0) L Red Cell Distribution Width 15.2 % (11.6-14.8) H Platelet Count 320 K/UL (150-450) Mean Platelet Volume 5.6 FL (6.5-10.1) L Neutrophils (%) (Auto) % (45.0-75.0) Lymphocytes (%) (Auto) % (20.0-45.0) Monocytes (%) (Auto) % (1.0-10.0) Eosinophils (%) (Auto) % (0.0-3.0) Basophils (%) (Auto) % (0.0-2.0) Differential Total Cells Counted 100 Neutrophils % (Manual) 56 % (45-75) Lymphocytes % (Manual) 33 % (20-45) Monocytes % (Manual) 8 % (1-10) Eosinophils % (Manual) 2 % (0-3) Basophils % (Manual) 1 % (0-2) Band Neutrophils 0 % (0-8) Platelet Estimate Adequate Platelet Morphology Normal Hypochromasia 3+ Anisocytosis 1+ Sodium Level 132 MMOL/L (136-145) L Potassium Level 3.9 MMOL/L (3.5-5.1) Chloride Level 93 MMOL/L (98-107) L Carbon Dioxide Level 29 MMOL/L (21-32) Anion Gap 10 mmol/L (5-15) Blood Urea Nitrogen 67 mg/dL (7-18) H Creatinine 7.3 MG/DL (0.55-1.30) H Estimat Glomerular Filtration Rate 9.6 mL/min (>60) Glucose Level 92 MG/DL (74-106) Calcium Level 9.6 MG/DL (8.5-10.1) Phosphorus Level 6.6 MG/DL (2.5-4.9) H Magnesium Level 2.5 MG/DL (1.8-2.4) H Total Bilirubin 0.5 MG/DL (0.2-1.0) Aspartate Amino Transf (AST/SGOT) 24 U/L (15-37) Alanine Aminotransferase (ALT/SGPT) 28 U/L (12-78) Alkaline Phosphatase 58 U/L (46-116) Total Protein 9.3 G/DL (6.4-8.2) H Albumin 3.3 G/DL (3.4-5.0) L Globulin 6.0 g/dL Albumin/Globulin Ratio 0.6 (1.0-2.7) L Objective HEAD AND NECK: No JVD or carotid bruits. LUNGS: Clear. CARDIOVASCULAR: Regular S1 and S2 with no gallop or murmur. ABDOMEN: Soft. EXTREMITIES: No pitting edema. Silvino Perez MD February 14, 2020 15:26
[2020-02-14 16:00] VITALS: BP 103/63
--- NOTE | 2020-02-14 16:28 | General Progress Note ---
Assessment/Plan Assessment/Plan: HPI/CC:54-year-old AAM with PMH of HIV on meds, HTN and CKD stage V not on dialysis initially who presents with left-sided chest pain. On admission, Cr 7.4 , BUN 71. EKG revealed NSR, HR 108. Troponin negative x1. Patient admitted for further treatment and evaluation. Patient has subsequently tested COVID negative, and has converted to HD, along w/ Tx for CAP. Stress Test for ACS work up negative Assessment #ARF on CKD, now ESRD on HD , with improvement in BL pleural effusions and pericardial effusion #CAP, COVID is negative #CP r/o ACS --> s/p Stress Test w/o signs of Ischemia, EF 65% on Echo #Anemia chronic disease--> Patient does not want blood tranfusion, Jehovas Witness #HTN #HIV Plan Consultants include ID, Cardio, Nephro Continue Rocephin IV until course complete; BC is trending downward Appreciate Nephro regarding HD and ? Epogen for anemia Patient is on Dapsone for ppx Continue Atorvastatin, ASA, Norvasc D/C planning; --> new HD patient, waiting on outpatient arrangements, hepatitis panel pending, appreciate case management DVT ppx Diet as tolerated 02/13: D/C Planning Subjective Date patient seen: February 14, 2020 Time patient seen: 12:00 Allergies: Coded Allergies: No Known Allergies (Verified Allergy, Mild, 12/17/09) Subjective Patient is doing well, he is on a venturi mask but is not requiring it. Awaiting outpatient HD arrangements Objective Last 24 Hour Vital Signs Date Time Temp Pulse Resp B/P (MAP) Pulse Ox O2 Delivery O2 Flow Rate FiO2 02/14/20 12:00 77 02/14/20 12:00 97.8 82 20 102/71 (81) 96 02/14/20 09:00 89 90/60 02/14/20 09:00 Venturi Mask 10.0 Venturi Mask 02/14/20 08:00 97.5 89 20 90/60 (70) 96 02/14/20 07:44 88 02/14/20 04:00 79 02/14/20 04:00 97.4 80 20 109/69 (82) 96 02/14/20 04:00 79 02/14/20 00:00 97.5 96 20 116/74 (88) 97 02/14/20 00:00 83 02/13/20 20:31 Venturi Mask 10.0 Venturi Mask 02/13/20 20:00 90 02/13/20 20:00 97.9 90 20 111/69 (83) 96 Intake and Output 02/13/20 02/14/20 19:00 07:00 Intake Total 500 ml 480 ml Output Total 1000 ml Balance -500 ml 480 ml Intake Oral 500 ml 480 ml Hemodialysis UF 1000 ml # Voids 3 2 Laboratory Tests 02/14/20 05:45: White Blood Count 11.5H, Red Blood Count 2.68L, Hemoglobin 7.7L, Hematocrit 24.5L, Mean Corpuscular Volume 91, Mean Corpuscular Hemoglobin 28.6, Mean Corpuscular Hemoglobin Concent 31.3L, Red Cell Distribution Width 15.2H, Platelet Count 320, Mean Platelet Volume 5.6L, Neutrophils (%) (Auto) , Lymphocytes (%) (Auto) , Monocytes (%) (Auto) , Eosinophils (%) (Auto) , Basophils (%) (Auto) , Differential Total Cells Counted 100, Neutrophils % ( Manual) 56, Lymphocytes % (Manual) 33, Monocytes % (Manual) 8, Eosinophils % ( Manual) 2, Basophils % (Manual) 1, Band Neutrophils 0, Platelet Estimate Adequate, Platelet Morphology Normal, Hypochromasia 3+, Anisocytosis 1+, Sodium Level 132L, Potassium Level 3.9, Chloride Level 93L, Carbon Dioxide Level 29, Anion Gap 10, Blood Urea Nitrogen 67H, Creatinine 7.3H, Estimat Glomerular Filtration Rate 9.6, Glucose Level 92, Calcium Level 9.6, Phosphorus Level 6.6H , Magnesium Level 2.5H, Total Bilirubin 0.5, Aspartate Amino Transf (AST/SGOT) 24, Alanine Aminotransferase (ALT/SGPT) 28, Alkaline Phosphatase 58, Total Protein 9.3H, Albumin 3.3L, Globulin 6.0, Albumin/Globulin Ratio 0.6L Height (Feet): 5 Height (Inches): 8.00 Weight (Pounds): 159 General Appearance: WD/WN, no apparent distress Cardiovascular: normal rate, regular rhythm, regularly irregular, other - HD access noted Respiratory/Chest: lungs clear, normal breath sounds, no respiratory distress Abdomen: non tender, soft Extremities: normal range of motion Edema: no edema noted Generalized Neurologic: willow machine tender II-XII grossly normal Skin: warm/dry Objective General Appearance: WD/WN EENT: PERRL/EOMI Neck: non-tender Cardiovascular: normal rate, regular rhythm Respiratory/Chest: normal breath sounds, no respiratory distress Abdomen: non tender, soft Extremities: normal range of motion Edema: no edema noted Generalized Edema: trace edema Neurologic: willow machine tender II-XII grossly normal Skin: warm/dry Annabel Lewis D.O. February 14, 2020 16:28
[2020-02-14 20:00] VITALS: BP 106/65
[2020-02-14] MEDS: Atorvastatin 20mg tab ORAL SCH (21:05)
[2020-02-15] VITALS: BP 103/71
[2020-02-15 04:00] VITALS: BP 114/70
--- NOTE | 2020-02-15 07:40 | NUR ---
HAND-OFF: Report given to NESHA Ortega and NESHA Vaca. Patient is awake lying semi-medley's resting comfortably. On 10L Venturi mask. In stable condition.
[2020-02-15 08:00] VITALS: BP 125/61
[2020-02-15 08:24] LABS: % IRON SATURATION 38 % (15-50); IRON 60 ug/dL (50-175); TOTAL IRON BINDING CAPACITY 157 ug/dL (250-450)
[2020-02-15 08:30] LABS: FERRITIN 1658 NG/ML (8-388)
[2020-02-15] MEDS: Aspirin Baby 81mg ORAL SCH (08:50)
[2020-02-15] MEDS: Docusate 100mg cap ORAL SCH ×2 (08:50→20:14)
[2020-02-15] MEDS: PREZISTA 800 MG ORAL SCH ×2 (08:51→20:14)
[2020-02-15] MEDS: EDURANT 25 MG ORAL SCH (08:51)
[2020-02-15] MEDS: Renvela 800mg Pkt ORAL SCH ×3 (08:52→18:31)
[2020-02-15] MEDS: Heparin 5000 units/ml inj SUBQ SCH ×2 (08:55→20:14)
--- NOTE | 2020-02-15 09:43 | Pulmonology Progress Note ---
Subjective ROS Limited/Unobtainable: No Interval Events: None new reported Constitutional: Denies: fever HEENT: Repors: no symptoms Respiratory: Reports: shortness of breath Cardiovascular: Reports: no symptoms Gastrointestinal/Abdominal: Denies: nausea, vomiting, diarrhea Psychiatric: Denies: depression Skin: Denies: rash Musculoskeletal: Denies: pain Allergies: Coded Allergies: No Known Allergies (Verified Allergy, Mild, 12/17/09) Objective Last 24 Hour Vital Signs Date Time Temp Pulse Resp B/P (MAP) Pulse Ox O2 Delivery O2 Flow Rate FiO2 02/15/20 04:00 97.3 78 20 114/70 (85) 96 02/15/20 04:00 76 02/15/20 00:00 81 02/15/20 00:00 97.9 84 19 103/71 (82) 98 02/14/20 21:00 Room Air 02/14/20 20:00 80 02/14/20 20:00 97.7 83 18 106/65 (79) 91 02/14/20 16:00 97.4 86 20 103/63 (76) 96 02/14/20 16:00 90 02/14/20 12:00 77 02/14/20 12:00 97.8 82 20 102/71 (81) 96 Intake and Output 02/14/20 02/15/20 19:00 07:00 Intake Total 500 ml 400 ml Output Total 800 ml Balance 500 ml -400 ml Intake Oral 500 ml 400 ml Output Urine Total 800 ml # Voids 4 # Bowel Movements 1 General Appearance: no acute distress HEENT: normocephalic, atraumatic, anicteric, mucous membranes moist Respiratory/Chest: chest wall non-tender Cardiovascular: normal peripheral pulses Abdomen: normal bowel sounds, soft, non tender, no organomegaly, non distended Genitourinary: other - no harden Extremities: no cyanosis Skin: no rash Neurologic/Psychiatric: procurement specialist II-XII grossly normal, alert, oriented x 3, responsive Lymphatic: no groin adenopathy Musculoskeletal: no effusion Laboratory Tests 02/15/20 06:50: Iron Level 60, Total Iron Binding Capacity 157L, Percent Iron Saturation 38, Unsaturated Iron Binding 97L, Ferritin 1658H Current Medications Medications (Trade) Dose Ordered Sig/Sarbjit Route PRN Reason Start Time Stop Time Status Last Admin Dose Admin Acetaminophen (Tylenol) 650 mg Q4H PRN ORAL Mild Pain (Pain Scale 1-3) 02/03/20 06:30 03/04/20 06:29 02/08/20 18:01 Acetaminophen (Tylenol) 650 mg Q4H PRN ORAL Temp >100.5 02/03/20 06:30 03/04/20 06:29 Amlodipine Besylate (Norvasc) 5 mg DAILY ORAL 02/04/20 09:00 03/05/20 08:59 02/12/20 08:55 Aspirin (ASA) 81 mg DAILY ORAL 02/03/20 15:30 03/19/20 15:29 02/15/20 08:50 Atorvastatin Calcium (Lipitor) 40 mg BEDTIME ORAL 02/03/20 21:00 05/03/20 20:59 02/14/20 21:05 Dapsone (Dapsone) 100 mg DAILY ORAL 02/12/20 10:00 02/26/20 09:59 02/15/20 08:50 Dextrose (Dextrose 50%) 25 ml Q30M PRN IV Hypoglycemia 02/03/20 06:30 05/03/20 06:29 Dextrose (Dextrose 50%) 50 ml Q30M PRN IV Hypoglycemia 02/03/20 06:30 05/03/20 06:29 Docusate Sodium (Colace) 100 mg EVERY 12 HOURS ORAL 02/03/20 09:00 03/04/20 08:59 02/15/20 08:50 Epoetin Jaya (Epoetin Jaya(ESRD on dialysis)) 6,000 unit SUN-SUN-SUN SUBQ 02/16/20 21:00 05/11/20 20:59 Heparin Sodium (Porcine) (Heparin 5000 units/ml) 5,000 units EVERY 12 HOURS SUBQ 02/03/20 21:00 03/19/20 20:59 02/15/20 08:55 Nitroglycerin (Ntg) 0.4 mg Q5M PRN SL Prn Chest Pain 02/03/20 11:15 03/04/20 11:14 02/08/20 18:58 Ondansetron HCl (Zofran) 4 mg Q6H PRN IVP Nausea & Vomiting 02/03/20 06:30 03/04/20 06:29 Patient Own Medication (Patient's Own Med) 1 ea DAILY ORAL 02/04/20 14:00 03/05/20 13:59 02/15/20 08:51 Patient Own Medication (Patient's Own Med) 1 ea Q12HR ORAL 02/04/20 14:00 03/05/20 13:59 02/15/20 08:51 Polyethylene Glycol (Miralax) 17 gm DAILYPRN PRN ORAL Constipation 02/03/20 06:30 03/04/20 06:29 Sevelamer Carbonate (Renvela) 1,600 mg THREE TIMES A DAY ORAL 02/11/20 13:00 05/08/20 12:59 02/15/20 08:52 Assessment/Plan Assessment/Plan IMPRESSION: 1. Pulmonary edema. Resolved 2. Renal failure, now on dialysis. 3. HIV. 4. Hypertension. 5. Pericardial effusion, small 6. RLL pneumonia and effusion DISCUSSION: Off diuretics. Continue dialysis. Continue oxygen and pulmonary hygiene. I will follow as repairer sash and door. Saturating well on RA now Spike Rodriguez M.D. Spike Rodriguez MD February 15, 2020 09:43
--- NOTE | 2020-02-15 10:46 | General Progress Note ---
Assessment/Plan Assessment/Plan: HPI/CC:54-year-old AAM with PMH of HIV on meds, HTN and CKD stage V not on dialysis initially who presents with left-sided chest pain. On admission, Cr 7.4 , BUN 71. EKG revealed NSR, HR 108. Troponin negative x1. Patient admitted for further treatment and evaluation. Patient has subsequently tested COVID negative, and has converted to HD, along w/ Tx for CAP. Stress Test for ACS work up negative Assessment #ARF on CKD, now ESRD on HD , with improvement in BL pleural effusions and pericardial effusion #CAP, COVID is negative #CP r/o ACS --> s/p Stress Test w/o signs of Ischemia, EF 65% on Echo #Anemia chronic disease--> Patient does not want blood tranfusion, Jehovas Witness #HTN #HIV Plan Consultants include ID, Cardio, Nephro Continue Rocephin IV until course complete; BC is trending downward Appreciate Nephro regarding HD and ? Epogen for anemia Patient is on Dapsone for ppx Continue Atorvastatin, ASA, Norvasc D/C planning; --> new HD patient, waiting on outpatient arrangements, hepatitis panel pending, appreciate case management DVT ppx Diet as tolerated 02/14: Awaiting outpatient HD to be arranged Subjective Date patient seen: February 15, 2020 Time patient seen: 10:45 Allergies: Coded Allergies: No Known Allergies (Verified Allergy, Mild, 12/17/09) Subjective Vitals stable, Labs reviewed. Awaiting outpatient HD arrangements so patient can be discharged Objective Last 24 Hour Vital Signs Date Time Temp Pulse Resp B/P (MAP) Pulse Ox O2 Delivery O2 Flow Rate FiO2 02/15/20 09:00 87 125/61 02/15/20 08:00 81 02/15/20 08:00 98.2 87 20 125/61 (82) 90 02/15/20 04:00 97.3 78 20 114/70 (85) 96 02/15/20 04:00 76 02/15/20 00:00 81 02/15/20 00:00 97.9 84 19 103/71 (82) 98 02/14/20 21:00 Room Air 02/14/20 20:00 80 02/14/20 20:00 97.7 83 18 106/65 (79) 91 02/14/20 16:00 97.4 86 20 103/63 (76) 96 02/14/20 16:00 90 02/14/20 12:00 77 02/14/20 12:00 97.8 82 20 102/71 (81) 96 Intake and Output 02/14/20 02/15/20 19:00 07:00 Intake Total 500 ml 400 ml Output Total 800 ml Balance 500 ml -400 ml Intake Oral 500 ml 400 ml Output Urine Total 800 ml # Voids 4 # Bowel Movements 1 Laboratory Tests 02/15/20 06:50: Iron Level 60, Total Iron Binding Capacity 157L, Percent Iron Saturation 38, Unsaturated Iron Binding 97L, Ferritin 1658H Height (Feet): 5 Height (Inches): 8.00 Weight (Pounds): 159 Objective General Appearance: WD/WN EENT: PERRL/EOMI Neck: non-tender Cardiovascular: normal rate, regular rhythm Respiratory/Chest: normal breath sounds, no respiratory distress Abdomen: non tender, soft Extremities: normal range of motion Edema: no edema noted Generalized Edema: trace edema Neurologic: referral nurse II-XII grossly normal Skin: warm/dry Annabel Lewis D.O. February 15, 2020 10:46
--- NOTE | 2020-02-15 11:20 | Nephrology Progress Note ---
Assessment/Plan Plan #Chest pain r/o ACS- r/o uremic pericarditis #CKD 5- not yet on HD- likely due to hypertensive nephrosclerosis - LUE aVF placed 3 years - has not needed HD yet- Primary nephorologist Dr. Charles #HTN #HIV #hyperphosphetemia #Pericarial effusion HD tomorrow CT chest with Large pericardial effusion TTE today however showed only small circumferential pericardial effusion case management specialist consulted for HD placement - continue sevelamer 1600mg TIDAC - continue wpo 4k TIW - monitor UOP- strict I&Os - COVID 19 rule out - monitor UOP - check 2d echo- > EF 65 -- Stress test per cardiology- neg - asa - lipitor - amlodipine 5mg daily - monitor electrolytes and kidney function - continue dapson - continue dapson and prezista Time spent on encounter: 36 mins, >50% on counseling, coordination of care. Subjective ROS Limited/Unobtainable: No Constitutional: Denies: no symptoms, chills, diaphoresis, fever, malaise, weakness, other HEENT: Denies: no symptoms, eye pain, blurred vision, tearing, double vision, ear pain, ear discharge, nose pain, nose congestion, throat pain, throat swelling, mouth pain, mouth swelling, other Genitourinary: Denies: no symptoms, burning, discharge, frequency, flank pain, hematuria, incontinence, pain, urgency, other Neurologic/Psychiatric: Denies: no symptoms, anxiety, depressed, emotional problems, headache, numbness, paresthesia, pre-existing deficit, seizure, tingling, tremors, weakness, other Subjective no acute events no SOB next HD tomorrow CT chest with Large pericardial effusion TTE today however showed only small circumferential pericardial effusion stress test neg echo showing EF 65 lytes reviewed Objective Objective Last 24 Hour Vital Signs Date Time Temp Pulse Resp B/P (MAP) Pulse Ox O2 Delivery O2 Flow Rate FiO2 02/15/20 09:00 87 125/61 02/15/20 08:00 81 02/15/20 08:00 98.2 87 20 125/61 (82) 90 02/15/20 04:00 97.3 78 20 114/70 (85) 96 02/15/20 04:00 76 02/15/20 00:00 81 5/10/20 00:00 97.9 84 19 103/71 (82) 98 02/14/20 21:00 Room Air 02/14/20 20:00 80 02/14/20 20:00 97.7 83 18 106/65 (79) 91 02/14/20 16:00 97.4 86 20 103/63 (76) 96 02/14/20 16:00 90 02/14/20 12:00 77 02/14/20 12:00 97.8 82 20 102/71 (81) 96 Intake and Output 02/14/20 02/15/20 19:00 07:00 Intake Total 500 ml 400 ml Output Total 800 ml Balance 500 ml -400 ml Intake Oral 500 ml 400 ml Output Urine Total 800 ml # Voids 4 # Bowel Movements 1 Laboratory Tests 02/15/20 06:50: Iron Level 60, Total Iron Binding Capacity 157L, Percent Iron Saturation 38, Unsaturated Iron Binding 97L, Ferritin 1658H Height (Feet): 5 Height (Inches): 8.00 Weight (Pounds): 159 Morena Mcqueen M.D. February 15, 2020 11:20
[2020-02-15 12:00] VITALS: BP 112/74
[2020-02-15 16:00] VITALS: BP 92/56
--- NOTE | 2020-02-15 19:10 | Infectious Diseases Prog Note ---
Assessment/Plan Assessment/Plan ASSESSMENT AND PLAN: 1. leukocytosis, ? source, ? sepsis, rule covid-19 infection with pna, chest x- ray c/w chf/pvc, sob, ? uri/bronchitis CT - with atx/consolidation and large pericardial effusion ? CAP - s/p ceftriaxone - leukocytosis better - monitor labs - communicated with Dr. Haynes - covid-19 testing - negative - HD 2. 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 - f/u with primary HIV MD as a outpatient 3. 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 The patient has history of hypertension, treatment by primary care team. 5. Chronic kidney disease. 6. No known drug allergies. 7. Anemia. 8. Social history is negative. 9. Family history is noncontributory. 10. MAR was noted. 11. d/w RN 12. Continue treatment per primary consultants. Subjective Constitutional: Denies: fever, fatigue HEENT: Denies: congestion Respiratory: Denies: shortness of breath Cardiovascular: Denies: chest pain Gastrointestinal/Abdominal: Denies: nausea, vomiting, diarrhea Genitourinary: Reports: other - no harden Neurologic: Denies: headache Psychiatric: Denies: depression Skin: Denies: rash Hematologic: Denies: bleeding Musculoskeletal: Denies: pain Allergies: Coded Allergies: No Known Allergies (Verified Allergy, Mild, 12/17/09) Objective Vital Signs Last 24 Hour Vital Signs Date Time Temp Pulse Resp B/P (MAP) Pulse Ox O2 Delivery O2 Flow Rate FiO2 02/15/20 16:00 76 02/15/20 16:00 98.1 85 20 92/56 (68) 95 02/15/20 12:00 91 02/15/20 12:00 98.2 79 20 112/74 (87) 79 02/15/20 09:00 Room Air 02/15/20 09:00 87 125/61 02/15/20 08:00 81 02/15/20 08:00 98.2 87 20 125/61 (82) 90 02/15/20 04:00 97.3 78 20 114/70 (85) 96 02/15/20 04:00 76 02/15/20 00:00 81 02/15/20 00:00 97.9 84 19 103/71 (82) 98 02/14/20 21:00 Room Air 02/14/20 20:00 80 02/14/20 20:00 97.7 83 18 106/65 (79) 91 Height (Feet): 5 Height (Inches): 8.00 Weight (Pounds): 159 General Appearance: no acute distress HEENT: normocephalic, atraumatic, anicteric, mucous membranes moist Respiratory/Chest: lungs clear, normal breath sounds, no accessory muscle use Cardiovascular: normal rate, regular rhythm, no gallop/murmur, no JVD Abdomen: normal bowel sounds, soft, non tender, no organomegaly, non distended Genitourinary: other - no harden Extremities: no cyanosis Skin: no rash Neurologic/Psychiatric: platform beater II-XII grossly normal, alert, oriented x 3, responsive Lymphatic: no neck adenopathy Musculoskeletal: no effusion Objective Chest x-ray - 02/06/20 - Procedure: XRAY Chest 1v EXAM: XR Chest, 1 View CLINICAL HISTORY: SOB TECHNIQUE: Frontal view of the chest. COMPARISON: 02/03/20 FINDINGS: Lungs: Mild bibasilar atelectasis. Minimal interstitial edema. Pleural space: There are small bilateral pleural effusions, new or significantly increased since the prior exam. No evidence of pneumothorax. Heart: Cardiac silhouette is enlarged. Mediastinum: No mediastinal widening or shift. Bones/joints: No acute osseous abnormality. IMPRESSION: Minimal interstitial edema with bilateral pleural effusions and cardiomegaly. Findings suggestive of congestive heart failure or hypervolemia. Bibasilar atelectasis. No definite airspace consolidation. CT scan - abdomen, chest and pelvis IMPRESSION: Bilateral pleural effusions Atelectasis and consolidation of most of the right lower lobe and much of the left lower lobe. The atelectasis is probably mostly passive due to the pleural effusions Large pericardial effusion No acute abdominal or pelvic abnormality Atrophic kidneys, consistent with known history of chronic renal insufficiency Prominent prostate Microbiology Date/Time Source Procedure Growth Status 02/06/20 06:30 Blood Blood Culture - Final NO GROWTH AFTER 5 DAYS Complete 02/06/20 09:00 Nasopharynx Coronavirus COVID-19 PCR ([facility]) - Final Complete 02/03/20 06:00 Rectum VRE Culture - Final NO VANCOMYCIN RESISTANT ENTEROCOCCUS ... Complete Labs Test 02/13/20 06:40 02/14/20 05:45 02/15/20 06:50 White Blood Count 12.5 K/UL (4.8-10.8) 11.5 K/UL (4.8-10.8) Red Blood Count 2.52 M/UL (4.70-6.10) 2.68 M/UL (4.70-6.10) Hemoglobin 7.4 G/DL (14.2-18.0) 7.7 G/DL (14.2-18.0) Hematocrit 22.7 % (42.0-52.0) 24.5 % (42.0-52.0) Mean Corpuscular Volume 90 FL (80-99) 91 FL (80-99) Mean Corpuscular Hemoglobin 29.4 PG (27.0-31.0) 28.6 PG (27.0-31.0) Mean Corpuscular Hemoglobin Concent 32.6 G/DL (32.0-36.0) 31.3 G/DL (32.0-36.0) Red Cell Distribution Width 14.1 % (11.6-14.8) 15.2 % (11.6-14.8) Platelet Count 327 K/UL (150-450) 320 K/UL (150-450) Mean Platelet Volume 5.3 FL (6.5-10.1) 5.6 FL (6.5-10.1) Neutrophils (%) (Auto) % (45.0-75.0) % (45.0-75.0) Lymphocytes (%) (Auto) % (20.0-45.0) % (20.0-45.0) Monocytes (%) (Auto) % (1.0-10.0) % (1.0-10.0) Eosinophils (%) (Auto) % (0.0-3.0) % (0.0-3.0) Basophils (%) (Auto) % (0.0-2.0) % (0.0-2.0) Differential Total Cells Counted 100 100 Neutrophils % (Manual) 49 % (45-75) 56 % (45-75) Lymphocytes % (Manual) 40 % (20-45) 33 % (20-45) Monocytes % (Manual) 9 % (1-10) 8 % (1-10) Eosinophils % (Manual) 2 % (0-3) 2 % (0-3) Basophils % (Manual) 0 % (0-2) 1 % (0-2) Band Neutrophils 0 % (0-8) 0 % (0-8) Platelet Estimate Adequate Adequate Platelet Morphology Normal Normal Hypochromasia 3+ 3+ Anisocytosis 1+ 1+ Sodium Level 134 MMOL/L (136-145) 132 MMOL/L (136-145) Potassium Level 3.9 MMOL/L (3.5-5.1) 3.9 MMOL/L (3.5-5.1) Chloride Level 93 MMOL/L (98-107) 93 MMOL/L (98-107) Carbon Dioxide Level 27 MMOL/L (21-32) 29 MMOL/L (21-32) Anion Gap 14 mmol/L (5-15) 10 mmol/L (5-15) Blood Urea Nitrogen 95 mg/dL (7-18) 67 mg/dL (7-18) Creatinine 9.0 MG/DL (0.55-1.30) 7.3 MG/DL (0.55-1.30) Estimat Glomerular Filtration Rate 7.5 mL/min (>60) 9.6 mL/min (>60) Glucose Level 99 MG/DL (74-106) 92 MG/DL (74-106) Calcium Level 9.7 MG/DL (8.5-10.1) 9.6 MG/DL (8.5-10.1) Phosphorus Level 6.6 MG/DL (2.5-4.9) 6.6 MG/DL (2.5-4.9) Magnesium Level 2.7 MG/DL (1.8-2.4) 2.5 MG/DL (1.8-2.4) Total Bilirubin 0.5 MG/DL (0.2-1.0) 0.5 MG/DL (0.2-1.0) Aspartate Amino Transf (AST/SGOT) 24 U/L (15-37) 24 U/L (15-37) Alanine Aminotransferase (ALT/SGPT) 25 U/L (12-78) 28 U/L (12-78) Alkaline Phosphatase 55 U/L (46-116) 58 U/L (46-116) Total Protein 9.1 G/DL (6.4-8.2) 9.3 G/DL (6.4-8.2) Albumin 3.1 G/DL (3.4-5.0) 3.3 G/DL (3.4-5.0) Globulin 6.0 g/dL 6.0 g/dL Albumin/Globulin Ratio 0.5 (1.0-2.7) 0.6 (1.0-2.7) Iron Level 60 ug/dL (50-175) Total Iron Binding Capacity 157 ug/dL (250-450) Percent Iron Saturation 38 % (15-50) Unsaturated Iron Binding 97 ug/dL (112-346) Ferritin 1658 NG/ML (8-388) Laboratory Tests Test 02/15/20 06:50 Iron Level 60 ug/dL (50-175) Total Iron Binding Capacity 157 ug/dL (250-450) L Percent Iron Saturation 38 % (15-50) Unsaturated Iron Binding 97 ug/dL (112-346) L Ferritin 1658 NG/ML (8-388) H Current Medications Medications (Trade) Dose Ordered Sig/Sarbjit Route PRN Reason Start Time Stop Time Status Last Admin Dose Admin Acetaminophen (Tylenol) 650 mg Q4H PRN ORAL Mild Pain (Pain Scale 1-3) 02/03/20 06:30 03/04/20 06:29 02/08/20 18:01 Acetaminophen (Tylenol) 650 mg Q4H PRN ORAL Temp >100.5 02/03/20 06:30 03/04/20 06:29 Amlodipine Besylate (Norvasc) 5 mg DAILY ORAL 02/04/20 09:00 03/05/20 08:59 02/15/20 09:00 Aspirin (ASA) 81 mg DAILY ORAL 02/03/20 15:30 03/19/20 15:29 02/15/20 08:50 Atorvastatin Calcium (Lipitor) 40 mg BEDTIME ORAL 02/03/20 21:00 05/03/20 20:59 02/14/20 21:05 Dapsone (Dapsone) 100 mg DAILY ORAL 02/12/20 10:00 02/26/20 09:59 02/15/20 08:50 Dextrose (Dextrose 50%) 25 ml Q30M PRN IV Hypoglycemia 02/03/20 06:30 05/03/20 06:29 Dextrose (Dextrose 50%) 50 ml Q30M PRN IV Hypoglycemia 02/03/20 06:30 05/03/20 06:29 Docusate Sodium (Colace) 100 mg EVERY 12 HOURS ORAL 02/03/20 09:00 03/04/20 08:59 02/15/20 08:50 Epoetin Jaya (Epoetin Jaya(ESRD on dialysis)) 6,000 unit SUBQ 02/16/20 21:00 05/11/20 20:59 Heparin Sodium (Porcine) (Heparin 5000 units/ml) 5,000 units EVERY 12 HOURS SUBQ 02/03/20 21:00 03/19/20 20:59 02/15/20 08:55 Nitroglycerin (Ntg) 0.4 mg Q5M PRN SL Prn Chest Pain 02/03/20 11:15 03/04/20 11:14 02/08/20 18:58 Ondansetron HCl (Zofran) 4 mg Q6H PRN IVP Nausea & Vomiting 02/03/20 06:30 03/04/20 06:29 Patient Own Medication (Patient's Own Med) 1 ea DAILY ORAL 02/04/20 14:00 03/05/20 13:59 02/15/20 08:51 Patient Own Medication (Patient's Own Med) 1 ea Q12HR ORAL 02/04/20 14:00 03/05/20 13:59 02/15/20 08:51 Polyethylene Glycol (Miralax) 17 gm DAILYPRN PRN ORAL Constipation 02/03/20 06:30 03/04/20 06:29 Sevelamer Carbonate (Renvela) 1,600 mg THREE TIMES A DAY ORAL 02/11/20 13:00 05/08/20 12:59 02/15/20 18:31 Adore Zazueta MD February 15, 2020 19:10
--- NOTE | 2020-02-15 19:18 | NUR ---
HAND-OFF: Report given to Paul Mares RN. Pt stable. Plan of care endorsed..
--- NOTE | 2020-02-15 19:22 | NUR ---
NURSE NOTES: Pt received from NESHA Geronimo alert and oriented x4 with no acute s/s of distress noted. IV site asymptomatic and patent on R arm 20g, saline lock. Bed in lowest position, call light and belongings within reach. RN called [facility] to confirm HD for tomorrow, spoke with Shiraz, awaiting call back from HD nurse.
[2020-02-15 20:00] VITALS: BP 97/61
[2020-02-15] MEDS: Atorvastatin 20mg tab ORAL SCH (20:14)
--- NOTE | 2020-02-15 22:12 | NUR ---
NURSE NOTES: Pt on room air, saturating at 97% with no acute s/s of distress noted, able to ambulate around room with no c/o of SOB or chest pain with steady gait. Per patient, "I've been off the Oxygen all day and I've been feeling ok." Will continue to monitor patient off O2.
--- NOTE | 2020-02-15 22:58 | Cardiac Electrophysiology PN ---
Assessment/Plan Assessment/Plan 1. Chest pain. Ruled out for PR. EKG showed no acute ischemic changes. On aspirin and Lipitor. Echo EF 65%. Stress test showed no ischemia or scar Due to volume overload that is better with HD 2. Hypertension. On amlodipine 5 mg daily and HD 3. Pericardial effusion on chest CT. Repeat echo showed only small pericardial effusion 4. HIV, on antiretroviral therapy. 5. Acute on Chronic Renal failure. Creatinine of 7.4. Started on dialysis 02/08 via Left arm graft 6. PNA and elevated WBC 15K on iv Abx 7. Hyperlipidemia, on Lipitor. DW RN Subjective Subjective Stress test was nonischemic. Chest CT suggestive of pleural and pericardial effusion. TTE showed only small circumferential pericardial effusion Had HD. No Cp or SOB Objective Last 24 Hour Vital Signs Date Time Temp Pulse Resp B/P (MAP) Pulse Ox O2 Delivery O2 Flow Rate FiO2 02/15/20 21:00 Room Air 02/15/20 20:00 97.7 85 18 97/61 (73) 97 02/15/20 16:00 76 02/15/20 16:00 98.1 85 20 92/56 (68) 95 02/15/20 12:00 91 02/15/20 12:00 98.2 79 20 112/74 (87) 79 02/15/20 09:00 Room Air 02/15/20 09:00 87 125/61 02/15/20 08:00 81 02/15/20 08:00 98.2 87 20 125/61 (82) 90 02/15/20 04:00 97.3 78 20 114/70 (85) 96 02/15/20 04:00 76 02/15/20 00:00 81 02/15/20 00:00 97.9 84 19 103/71 (82) 98 Intake and Output 02/14/20 02/15/20 19:00 07:00 Intake Total 500 ml 400 ml Output Total 800 ml Balance 500 ml -400 ml Intake Oral 500 ml 400 ml Output Urine Total 800 ml # Voids 4 # Bowel Movements 1 Laboratory Tests Test 02/15/20 06:50 Iron Level 60 ug/dL (50-175) Total Iron Binding Capacity 157 ug/dL (250-450) L Percent Iron Saturation 38 % (15-50) Unsaturated Iron Binding 97 ug/dL (112-346) L Ferritin 1658 NG/ML (8-388) H Objective HEAD AND NECK: No JVD or carotid bruits. LUNGS: Clear. CARDIOVASCULAR: Regular S1 and S2 with no gallop or murmur. ABDOMEN: Soft. EXTREMITIES: No pitting edema. Silvino Perez MD February 15, 2020 22:58
[2020-02-16] VITALS: BP 102/71
[2020-02-16 04:00] VITALS: BP 110/64
--- NOTE | 2020-02-16 07:36 | NUR ---
HAND-OFF: Report given to NESHA Lucas. Plan of care endorsed.
[2020-02-16 08:07] LABS: HEMOGLOBIN 7.6 G/DL (14.2-18.0); MEAN CORPUSCULAR VOLUME 92 FL (80-99); PLATELET COUNT 332 K/UL (150-450); RED BLOOD COUNT 2.62 M/UL (4.70-6.10); RED CELL DISTRIBUTION WIDTH 15.5 % (11.6-14.8); WHITE BLOOD COUNT 12.6 K/UL (4.8-10.8)
[2020-02-16 08:12] LABS: ANION GAP 13 mmol/L (5-15); BLOOD UREA NITROGEN 95 mg/dL (7-18); CALCIUM 9.7 MG/DL (8.5-10.1); CARBON DIOXIDE 26 MMOL/L (21-32); CHLORIDE 96 MMOL/L (98-107); CREATININE 8.2 MG/DL (0.55-1.30); PHOSPHORUS 5.3 MG/DL (2.5-4.9); POTASSIUM 3.9 MMOL/L (3.5-5.1); SODIUM 135 MMOL/L (136-145)
[2020-02-16 08:37] VITALS: BP 106/65
[2020-02-16] MEDS: Docusate 100mg cap ORAL SCH (08:41)
[2020-02-16] MEDS: Renvela 800mg Pkt ORAL SCH ×3 (08:41→17:00)
[2020-02-16] MEDS: Aspirin Baby 81mg ORAL SCH (08:41)
[2020-02-16] MEDS: Heparin 5000 units/ml inj SUBQ SCH (08:53)
[2020-02-16] MEDS: EDURANT 25 MG ORAL SCH (09:17)
[2020-02-16] MEDS: PREZISTA 800 MG ORAL SCH (09:17)
--- NOTE | 2020-02-16 11:05 | Nephrology Progress Note ---
Assessment/Plan Plan #Chest pain r/o ACS- r/o uremic pericarditis #CKD 5- not yet on HD- likely due to hypertensive nephrosclerosis - LUE aVF placed 3 years - has not needed HD yet- Primary nephorologist Dr. Charles #HTN #HIV #hyperphosphetemia #Pericarial effusion HD today CT chest with Large pericardial effusion TTE today however showed only small circumferential pericardial effusion hospice case manager consulted for HD placement - continue sevelamer 1600mg TIDAC - continue wpo 4k TIW - monitor UOP- strict I&Os - COVID 19 rule out - monitor UOP - check 2d echo- > EF 65 -- Stress test per cardiology- neg - asa - lipitor - amlodipine 5mg daily - monitor electrolytes and kidney function - continue dapson - continue dapson and prezista Time spent on encounter: 36 mins, >50% on counseling, coordination of care. Subjective ROS Limited/Unobtainable: No Constitutional: Denies: no symptoms, chills, diaphoresis, fever, malaise, weakness, other HEENT: Denies: no symptoms, eye pain, blurred vision, tearing, double vision, ear pain, ear discharge, nose pain, nose congestion, throat pain, throat swelling, mouth pain, mouth swelling, other Genitourinary: Denies: no symptoms, burning, discharge, frequency, flank pain, hematuria, incontinence, pain, urgency, other Neurologic/Psychiatric: Denies: no symptoms, anxiety, depressed, emotional problems, headache, numbness, paresthesia, pre-existing deficit, seizure, tingling, tremors, weakness, other Subjective no acute events no SOB next HD today CT chest with Large pericardial effusion TTE today however showed only small circumferential pericardial effusion stress test neg echo showing EF 65 lytes reviewed Objective Objective Last 24 Hour Vital Signs Date Time Temp Pulse Resp B/P (MAP) Pulse Ox O2 Delivery O2 Flow Rate FiO2 02/16/20 09:26 Room Air 02/16/20 08:38 80 106/65 02/16/20 08:37 97.0 80 18 106/65 (79) 94 02/16/20 08:08 86 02/16/20 04:00 97.8 85 18 110/64 (79) 97 02/16/20 04:00 79 02/16/20 00:00 82 02/16/20 00:00 96.9 84 18 102/71 (81) 98 02/15/20 21:00 Room Air 02/15/20 20:00 97.7 85 18 97/61 (73) 97 02/15/20 20:00 82 02/15/20 16:00 76 02/15/20 16:00 98.1 85 20 92/56 (68) 95 02/15/20 12:00 91 02/15/20 12:00 98.2 79 20 112/74 (87) 79 Intake and Output 02/15/20 02/16/20 19:00 07:00 Intake Total 400 ml 250 ml Output Total 1000 ml 800 ml Balance -600 ml -550 ml Intake Oral 400 ml 250 ml Output Urine Total 1000 ml 800 ml # Voids 4 # Bowel Movements 1 Laboratory Tests 02/16/20 06:17: White Blood Count 12.6H, Red Blood Count 2.62L, Hemoglobin 7.6L, Hematocrit 24.0L, Mean Corpuscular Volume 92, Mean Corpuscular Hemoglobin 29.1, Mean Corpuscular Hemoglobin Concent 31.7L, Red Cell Distribution Width 15.5H, Platelet Count 332, Mean Platelet Volume 5.7L, Neutrophils (%) (Auto) , Lymphocytes (%) (Auto) , Monocytes (%) (Auto) , Eosinophils (%) (Auto) , Basophils (%) (Auto) , Differential Total Cells Counted 100, Neutrophils % ( Manual) 59, Lymphocytes % (Manual) 33, Monocytes % (Manual) 4, Eosinophils % ( Manual) 2, Basophils % (Manual) 2, Band Neutrophils 0, Platelet Estimate Adequate, Platelet Morphology Normal, Hypochromasia 3+, Anisocytosis 1+, Sodium Level 135L, Potassium Level 3.9, Chloride Level 96L, Carbon Dioxide Level 26, Anion Gap 13, Blood Urea Nitrogen 95H, Creatinine 8.2H, Estimat Glomerular Filtration Rate 8.4, Glucose Level 96, Calcium Level 9.7, Phosphorus Level 5.3H , Magnesium Level 3.0H Height (Feet): 5 Height (Inches): 8.00 Weight (Pounds): 159 Morena Mcqueen M.D. February 16, 2020 11:05
[2020-02-16] MEDS ORDERED: RENVELA0.8 GM ORAL (11:11)
[2020-02-16] MEDS ORDERED: LIPITOR20 MG ORAL (11:11)
[2020-02-16] MEDS ORDERED: ASPIRIN81 MG ORAL (11:11)
--- NOTE | 2020-02-16 11:12 | Discharge Summary ---
Discharge Summary Hospital Course Date of Admission Feb 03, 2020 at 05:50 Date of Discharge 02/16/2020 Admitting Diagnosis chest pain, acs HPI Thiago Shafer Jr is a 54 year old male who was admitted on Feb 03, 2020 at 05: 50 for Chest Pain, Acs S: no acute events overnight, pt states he is doing well today, denies SOB, CP, fevers. PE: General: NAD, A&O x 3, laying in bed comfortably HEENT: NCAT, EOMi, MMM CV: RRR, no murmurs, rubs, or gallops Pulm: CTAB, No wheezes, rhonchi, or rales, no accessory muscle usage or conversational dyspnea GI: Soft, nontender, nondistended, bowel sounds present Ext: No lower extremity edema bilaterally, LUE w/AV fistula +bruit Skin: no rashes lesions or ulcers Hospital Course 54-year-old AAM with PMH of HIV on meds, HTN and CKD stage V not on dialysis who presents with left-sided chest pain. On admission, Cr 7.4, BUN 71. EKG revealed NSR, HR 108. Troponin negative x1. Cardio was consulted and ACS was ruled out, 02/03 stress test negative, TTE EF 65%. Pt with elevated BUN/Cr, nephro consulted and pt was started on HD with symptomatic improvement. Pt also with elevated WBCs, ct chest/abd/pel with no signs of infection, noted large pericardial effusion. Pt was dialyzed and TTE showed minimal pericardial effusion, no intervention was needed at this time. Pt completed course of CTX, no fevers, SOB, CP at this time. D/w ID, no infectious source, no need for further abx, stated ok for d/c home w/f/u w/PCP and repeat blood work. d/c diagnosis #Atypical Chest Pain 2/2 (resolved) #Uremic Pericarditis #Fluid overload #CKD 5, now ESRD on HD #Large Pericardial Effusion #Leukocytosis - resolved #Suspect CAP #Left Pleural effusion #HTN #Tachycardia - improved #HIV D/c planning >30 mins Discharge Condition Upon Discharge: stable Discharge Vital Signs Last Vital Signs Date Time Temp Pulse Resp B/P (MAP) Pulse Ox O2 Delivery O2 Flow Rate FiO2 02/16/20 09:26 Room Air 02/16/20 08:38 80 106/65 02/16/20 08:37 97.0 18 94 02/14/20 09:00 10.0 02/12/20 19:58 40 Discharge Disposition Patient was discharged to home Mirza Haynes M.D. February 16, 2020 11:12
--- NOTE | 2020-02-16 11:44 | NUR ---
DISCHARGE PLANNING FRONT END DEVELOPER CONTACTED [facility] AND SPOKE WITH [facility] UNFORTUNATELY THEY NO LONGER HAVE ANY AVAILABLE CHAIR TIMES DR MERCADO NOTIFIED OF THE ABOVE AND INSTRUCTED THIS FRONT END DEVELOPER TO REFER PATIENT TO [facility] T: [phone] F: [phone] CALLED [facility] AND SPOKE KUNAL MERCADO IS NOT ONE OF THEIR METEOROLOGICAL TECHNICIAN MESSAGE LEFT FOR DR MERCADO Addendum: 02/16/20 at 1207 by REBECA RASHEED LVN LVN IF ACCEPTED AT [facility] [address] [address] T: [phone] DR PANCHITO WEAVER WILL BE THE METEOROLOGICAL TECHNICIAN
[2020-02-16 12:02] VITALS: BP 101/70
--- NOTE | 2020-02-16 12:29 | NUR ---
RD ASSESSMENT & RECOMMENDATIONS SEE CARE ACTIVITY FOR COMPLETE ASSESSMENT DAILY ESTIMATED NEEDS: Needs based on CKD 5, HIV/ 75kg 25-30 kcals/kg 2670-2090 total kcals 0.6-0.8 g protein/kg 45-60 g total protein 20-22 mL/kg 5860-7987 total fluid mLs NUTRITION DIAGNOSIS: Altered nutrition related lab values R/T CKD 5, HIV as evidenced by elev creat (9.1), elev BUN (94), elev phos (7.5), s/p HD initiation, CD4 264 CURRENT DIET:RENAL PO DIET RECOMMENDATIONS: Maintain RENAL diet ADDITIONAL RECOMMENDATIONS: * Standing wt for accurate CBW * Monitor renal fxn and continuity of HD -> HD initiated 02/08, renal diet provided 02/10, 02/15 * Monitor lytes- phos elevated, phos binder w/ meals added * Add Nephrovite x 1 * Monitor PO intake closely, add Nepro x 1 w/ continued fair PO intake Intake has improved (02/15), now 75%
--- NOTE | 2020-02-16 12:58 | Cardiac Electrophysiology PN ---
Assessment/Plan Assessment/Plan 1. Chest pain. Ruled out for [place]. EKG showed no acute ischemic changes. On aspirin and Lipitor. Echo EF 65%. Stress test showed no ischemia or scar Due to volume overload 2. Hypertension. On amlodipine 5 mg daily and HD 3. Pericardial effusion on chest CT. Repeat echo showed only small pericardial effusion 4. HIV, on antiretroviral therapy. 5. Acute on Chronic Renal failure. Creatinine of 7.4. Started on dialysis 02/08 via Left arm graft 6. PNA and elevated WBC 15K on iv Abx 7. Hyperlipidemia, on Lipitor. DW RN DC after HD today Subjective Subjective Stress test was nonischemic. Chest CT suggestive of pleural and pericardial effusion. TTE showed only small circumferential pericardial effusion Getting HD. No Cp or SOB. DC today after HD Objective Last 24 Hour Vital Signs Date Time Temp Pulse Resp B/P (MAP) Pulse Ox O2 Delivery O2 Flow Rate FiO2 02/16/20 12:07 77 02/16/20 12:02 97.4 77 20 101/70 (80) 94 02/16/20 09:26 Room Air 02/16/20 08:38 80 106/65 02/16/20 08:37 97.0 80 18 106/65 (79) 94 02/16/20 08:08 86 02/16/20 04:00 97.8 85 18 110/64 (79) 97 02/16/20 04:00 79 02/16/20 00:00 82 02/16/20 00:00 96.9 84 18 102/71 (81) 98 02/15/20 21:00 Room Air 02/15/20 20:00 97.7 85 18 97/61 (73) 97 02/15/20 20:00 82 02/15/20 16:00 76 02/15/20 16:00 98.1 85 20 92/56 (68) 95 Intake and Output 02/15/20 02/16/20 19:00 07:00 Intake Total 400 ml 250 ml Output Total 1000 ml 800 ml Balance -600 ml -550 ml Intake Oral 400 ml 250 ml Output Urine Total 1000 ml 800 ml # Voids 4 # Bowel Movements 1 Laboratory Tests Test 02/16/20 06:17 White Blood Count 12.6 K/UL (4.8-10.8) H Red Blood Count 2.62 M/UL (4.70-6.10) L Hemoglobin 7.6 G/DL (14.2-18.0) L Hematocrit 24.0 % (42.0-52.0) L Mean Corpuscular Volume 92 FL (80-99) Mean Corpuscular Hemoglobin 29.1 PG (27.0-31.0) Mean Corpuscular Hemoglobin Concent 31.7 G/DL (32.0-36.0) L Red Cell Distribution Width 15.5 % (11.6-14.8) H Platelet Count 332 K/UL (150-450) Mean Platelet Volume 5.7 FL (6.5-10.1) L Neutrophils (%) (Auto) % (45.0-75.0) Lymphocytes (%) (Auto) % (20.0-45.0) Monocytes (%) (Auto) % (1.0-10.0) Eosinophils (%) (Auto) % (0.0-3.0) Basophils (%) (Auto) % (0.0-2.0) Differential Total Cells Counted 100 Neutrophils % (Manual) 59 % (45-75) Lymphocytes % (Manual) 33 % (20-45) Monocytes % (Manual) 4 % (1-10) Eosinophils % (Manual) 2 % (0-3) Basophils % (Manual) 2 % (0-2) Band Neutrophils 0 % (0-8) Platelet Estimate Adequate Platelet Morphology Normal Hypochromasia 3+ Anisocytosis 1+ Sodium Level 135 MMOL/L (136-145) L Potassium Level 3.9 MMOL/L (3.5-5.1) Chloride Level 96 MMOL/L (98-107) L Carbon Dioxide Level 26 MMOL/L (21-32) Anion Gap 13 mmol/L (5-15) Blood Urea Nitrogen 95 mg/dL (7-18) H Creatinine 8.2 MG/DL (0.55-1.30) H Estimat Glomerular Filtration Rate 8.4 mL/min (>60) Glucose Level 96 MG/DL (74-106) Calcium Level 9.7 MG/DL (8.5-10.1) Phosphorus Level 5.3 MG/DL (2.5-4.9) H Magnesium Level 3.0 MG/DL (1.8-2.4) H Objective HEAD AND NECK: No JVD or carotid bruits. LUNGS: Clear. CARDIOVASCULAR: Regular S1 and S2 with no gallop or murmur. ABDOMEN: Soft. EXTREMITIES: No pitting edema. Silvino Perez MD February 16, 2020 12:58
--- NOTE | 2020-02-16 14:39 | Pulmonology Progress Note ---
Subjective ROS Limited/Unobtainable: No Interval Events: None new reported Constitutional: Denies: fever, fatigue HEENT: Repors: no symptoms Respiratory: Reports: shortness of breath Cardiovascular: Reports: no symptoms Gastrointestinal/Abdominal: Denies: nausea, vomiting, diarrhea Psychiatric: Denies: depression Skin: Denies: rash Musculoskeletal: Denies: pain Allergies: Coded Allergies: No Known Allergies (Verified Allergy, Mild, 12/17/09) Objective Last 24 Hour Vital Signs Date Time Temp Pulse Resp B/P (MAP) Pulse Ox O2 Delivery O2 Flow Rate FiO2 02/16/20 12:07 79 02/16/20 12:02 97.4 77 20 101/70 (80) 94 02/16/20 09:26 Room Air 02/16/20 08:38 80 106/65 02/16/20 08:37 97.0 80 18 106/65 (79) 94 02/16/20 08:08 86 02/16/20 04:00 97.8 85 18 110/64 (79) 97 02/16/20 04:00 79 02/16/20 00:00 82 02/16/20 00:00 96.9 84 18 102/71 (81) 98 02/15/20 21:00 Room Air 02/15/20 20:00 97.7 85 18 97/61 (73) 97 02/15/20 20:00 82 02/15/20 16:00 76 02/15/20 16:00 98.1 85 20 92/56 (68) 95 Intake and Output 02/15/20 02/16/20 19:00 07:00 Intake Total 400 ml 250 ml Output Total 1000 ml 800 ml Balance -600 ml -550 ml Intake Oral 400 ml 250 ml Output Urine Total 1000 ml 800 ml # Voids 4 # Bowel Movements 1 General Appearance: no acute distress HEENT: normocephalic, atraumatic, anicteric, mucous membranes moist Respiratory/Chest: chest wall non-tender Cardiovascular: normal peripheral pulses Abdomen: normal bowel sounds, soft, non tender, no organomegaly, non distended Genitourinary: other - no harden Extremities: no cyanosis Skin: no rash Neurologic/Psychiatric: panel cutter II-XII grossly normal, alert, oriented x 3, responsive Lymphatic: no neck adenopathy Musculoskeletal: no effusion Laboratory Tests 02/16/20 06:17: White Blood Count 12.6H, Red Blood Count 2.62L, Hemoglobin 7.6L, Hematocrit 24.0L, Mean Corpuscular Volume 92, Mean Corpuscular Hemoglobin 29.1, Mean Corpuscular Hemoglobin Concent 31.7L, Red Cell Distribution Width 15.5H, Platelet Count 332, Mean Platelet Volume 5.7L, Neutrophils (%) (Auto) , Lymphocytes (%) (Auto) , Monocytes (%) (Auto) , Eosinophils (%) (Auto) , Basophils (%) (Auto) , Differential Total Cells Counted 100, Neutrophils % ( Manual) 59, Lymphocytes % (Manual) 33, Monocytes % (Manual) 4, Eosinophils % ( Manual) 2, Basophils % (Manual) 2, Band Neutrophils 0, Platelet Estimate Adequate, Platelet Morphology Normal, Hypochromasia 3+, Anisocytosis 1+, Sodium Level 135L, Potassium Level 3.9, Chloride Level 96L, Carbon Dioxide Level 26, Anion Gap 13, Blood Urea Nitrogen 95H, Creatinine 8.2H, Estimat Glomerular Filtration Rate 8.4, Glucose Level 96, Calcium Level 9.7, Phosphorus Level 5.3H , Magnesium Level 3.0H Current Medications Medications (Trade) Dose Ordered Sig/Sarbjit Route PRN Reason Start Time Stop Time Status Last Admin Dose Admin Acetaminophen (Tylenol) 650 mg Q4H PRN ORAL Mild Pain (Pain Scale 1-3) 02/03/20 06:30 03/04/20 06:29 02/08/20 18:01 Acetaminophen (Tylenol) 650 mg Q4H PRN ORAL Temp >100.5 02/03/20 06:30 03/04/20 06:29 Amlodipine Besylate (Norvasc) 5 mg DAILY ORAL 02/04/20 09:00 03/05/20 08:59 02/15/20 09:00 Aspirin (ASA) 81 mg DAILY ORAL 02/03/20 15:30 03/19/20 15:29 02/16/20 08:41 Atorvastatin Calcium (Lipitor) 40 mg BEDTIME ORAL 02/03/20 21:00 05/03/20 20:59 02/15/20 20:14 Dapsone (Dapsone) 100 mg DAILY ORAL 02/12/20 10:00 02/26/20 09:59 02/16/20 08:41 Dextrose (Dextrose 50%) 25 ml Q30M PRN IV Hypoglycemia 02/03/20 06:30 05/03/20 06:29 Dextrose (Dextrose 50%) 50 ml Q30M PRN IV Hypoglycemia 02/03/20 06:30 05/03/20 06:29 Docusate Sodium (Colace) 100 mg EVERY 12 HOURS ORAL 02/03/20 09:00 03/04/20 08:59 02/16/20 08:41 Epoetin Jaya (Epoetin Jaya(ESRD on dialysis)) 6,000 unit SUN- SUBQ 02/16/20 21:00 05/11/20 20:59 Heparin Sodium (Porcine) (Heparin 5000 units/ml) 5,000 units EVERY 12 HOURS SUBQ 02/03/20 21:00 03/19/20 20:59 02/16/20 08:53 Nitroglycerin (Ntg) 0.4 mg Q5M PRN SL Prn Chest Pain 02/03/20 11:15 03/04/20 11:14 02/08/20 18:58 Ondansetron HCl (Zofran) 4 mg Q6H PRN IVP Nausea & Vomiting 02/03/20 06:30 03/04/20 06:29 Patient Own Medication (Patient's Own Med) 1 ea DAILY ORAL 02/04/20 14:00 03/05/20 13:59 02/16/20 09:17 Patient Own Medication (Patient's Own Med) 1 ea Q12HR ORAL 02/04/20 14:00 03/05/20 13:59 02/16/20 09:17 Polyethylene Glycol (Miralax) 17 gm DAILYPRN PRN ORAL Constipation 02/03/20 06:30 03/04/20 06:29 Sevelamer Carbonate (Renvela) 1,600 mg THREE TIMES A DAY ORAL 02/11/20 13:00 05/08/20 12:59 02/16/20 12:42 Assessment/Plan Assessment/Plan IMPRESSION: 1. Pulmonary edema. Resolved 2. Renal failure, now on dialysis. 3. HIV. 4. Hypertension. 5. Pericardial effusion, small 6. RLL pneumonia and effusion DISCUSSION: Off diuretics. Continue dialysis. Continue oxygen and pulmonary hygiene. 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 Saturating well on RA now Nain Whitaker Omar Syed MD February 16, 2020 14:39
--- NOTE | 2020-02-16 15:30 | NUR ---
DISCHARGE PLANNED OUTPATIENT DIALYSIS HAS BEEN CONFIRMED KAREN PALMA,SAT 3:45PM [facility] [address] [address] T: [phone] DR PANCHITO WEAVER WILL BE THE RADIOLOGIST CHIEF OF BREAST IMAGING
[2020-02-16 16:00] VITALS: BP 104/64
[2020-02-16] MEDS ORDERED: Meningococcal Polysacc Vaccine IM ONE (17:00)
--- NOTE | 2020-02-16 17:26 | NUR ---
NURSE NOTES: pt discharged, instruction provided, alert and oriented ambulatory, no short of breath, denies pain, telebox removed, heplock removed, pt left ambulatory escorted by NA, in stable condition.
[2020-02-16] MEDS ORDERED: Epoetin Alfa-EPBX(ESRD on dialysis)4000 units/ml vial SUBQ SCH (21:00)
--- NOTE | 2020-02-20 13:56 | Coder Physician Query ---
Clarification is required for compliance, coding accuracy, and to reflect severity of illness for this patient Dear Dr. PATRICE MADISON Date: 02/20/20 Circus Trainer/CDS Name: ALLI MCKEON PER DISCHARGE SUMMARY: Pt also with elevated WBCs, ct chest/abd/pel with no signs of infection, noted large pericardial effusion. #Leukocytosis - resolved #Suspect CAP #Left Pleural effusion ADMISSION DATE 02/03/20: CXR -02/03/20 Findings: The lungs and pleural spaces are clear. The heart size is normal Impression: Negative Clarification is needed for one (or more) of the following conditions in order to accurately assign the "present on admission' indicator. Please choose the answer that best indicates whether the associated condition was present at the time of the order for inpatient admission. Thank you. DIAGNOSIS: PNEUMONIA Was the PNEUMONIA Present on admission? [] YES [] NO [] Clinically Undeterminable PATRICE MADISON M.D. Date Please also document in your Progress Notes and/or Discharge Summary and indicate if the condition was present on admission. MTDD
== END 2020-02-16 17:25 | disposition home or self-care (01) | DRG 640 ==
LOC: EMR 05:03 → 2E 05:50 → EDBEDREQ 06:13 → 2E 02-06 06:45
PROC: 5A1D70Z Performance of Urinary Filtration, Intermittent, Less than 6 Hours Per Day (ICD-10-PCS; principal; 2020-02-16)
DX: E87.79 Other fluid overload (principal); J18.9 Pneumonia, unspecified organism; I12.0 Hypertensive chronic kidney disease with stage 5 chronic kidney disease or end stage renal disease; I32 Pericarditis in diseases classified elsewhere; N18.5 Chronic kidney disease, stage 5; I31.3 Pericardial effusion (noninflammatory); N17.9 Acute kidney failure, unspecified; K21.9 Gastro-esophageal reflux disease without esophagitis; R07.89 Other chest pain; E78.5 Hyperlipidemia, unspecified; R00.0 Tachycardia, unspecified; R09.02 Hypoxemia; E83.39 Other disorders of phosphorus metabolism; Z23 Encounter for immunization
CPT/HCPCS: 36415; 36600; 71045; 71250; 74176; 78452; 80048; 80053; 80307; 81003; 82306; 82728; 82803; 83540; 83550; 83690; 83735; 83880; 83970; 84100; 84484; 85007; 85025; 85610; 85730; 86360; 86706; 86707; 86803; 86850; 86900; 86901; 86920; 87040; 87081; 87536; 87635; 93005; 93017; 93306; 94664; 99285; J2785